=== PATIENT | male | born 1940 | race Caucasian/White ===

== ENCOUNTER 2019-06-09 09:19 | Outpatient (REF) | payer MEDICARE, OTHER, SELFPAY ==
[2019-06-09 12:47] LABS: Calculated LDL 107 mg/dL; Cholesterol 174 mg/dL (<200); Glucose 97 mg/dL (74-106); HDL Cholesterol 53 mg/dL (40-60); Triglyceride 74 mg/dL (<150)
== END 2019-06-09 09:39 ==
LOC: NCHCN 09:19
PROVIDERS: PCP Internal Medicine; Visit Provider Internal Medicine
DX: Z13.1 Encounter for screening for diabetes mellitus (principal); Z13.6 Encounter for screening for cardiovascular disorders
CPT/HCPCS: 80061; 82947

== ENCOUNTER 2019-12-15 15:49 | Emergency (ER) | payer MEDICARE, OTHER, SELFPAY ==
[2019-12-15 15:54] VITALS: BP 133/78; PULSE 58; TEMP 36.4; O2SAT 98
--- NOTE | 2019-12-15 16:00 | DI.RAD_ITS ---
EXAM: XR RIBS LT W PA LAT CHEST CLINICAL HISTORY: fall on stairs, lower lateral rib pain TECHNIQUE: 2D digital imaging was performed. COMPARISON: No exams were available for comparison FINDINGS: MEDIASTINUM: Normal. HEART: Normal. PULMONARY VASCULATURE: Normal. LUNGS: Clear. PLEURAL SPACE: No pleural effusion or pneumothorax. BONE:Age-appropriate degenerative changes in the thoracic spine. Left ribs: On the PA view of the chest, there appears to be a minimally displaced fracture involving the anterior aspect of the left 10th rib. OTHER FINDINGS:Normal. IMPRESSION: 1. No acute pulmonary findings. 2. Minimally displaced fracture involving the anterior aspect of the left 10th rib. DATA REPOSITORY: RADIATION DOSE DELIVERED:
--- NOTE | 2019-12-15 16:10 | W.ED.GENAD ---
Discharge Plan Disposition Patient Disposition: HOME Condition: Fair Discharge Details Chief Complaint: Chest/Rib Clinical Impression: Fracture of rib Primary Care Provider: Drew Mraina ED Provider: Moon Gates Home Meds and New Rx's Prescriptions: Continued sildenafil [Viagra] 50 MG tablet 100 mg PO PRN PRNRF: 0 Discharge Instructions Instructions: Rib Fracture (ED) Additional Instructions: Encourage hydration. You may continue to rotate Advil and Tylenol as you have been. You may try topical patches such as salonpas or Lidoderm patches to help with discomfort, please follow directions. I would like for you to try and use the incentive spirometer 5-6 times daily as was instructed by nursing staff. Encourage deep breathing. Please avoid heavy lifting. It typically takes 6 weeks for healing process. As we discussed, I am concerned about you having pain in your abdomen as well and did recommend further imaging. However, you decided against this at this time. You may return anytime for further evaluation. Please seek care immediately if your pain begins to radiate, increases, you develop nausea, vomiting, diarrhea note blood in your urine or stool, or develop other new/worsening symptoms. Otherwise, please follow-up with your primary care next week Referrals: Drew Marina MD [Primary Care Provider] - Discharge Data Discharge Date/Time-TO BE ENTERED AT DEPARTURE: 12/15/19 17:19 Medical Decision Making Patient is a pleasant 78-year-old gentleman presenting today with chief complaint of left lower rib pain. He reports that this morning, around 7 AM, he slipped on some wet external stairs and slid down approximately 5 mm. States that he landed on his left side striking the inferior aspect of the left anterior chest wall against a stair above him. Denies striking his head, no LOC. Patient is not anticoagulated. Also endorses left sided neck pain but states that this had been present, associated wth muscle spasm, one week ago. Did not hit his neck. Denies any change in bowel or bladder habits. Denies any numbness or tingling. No weakness. Has been ambulating. Normal. States he presents this afternoon at the request of his who felt that he should be evaluated. Denies any abdominal pain. No nausea or vomiting. No change in bladder or bowel habits. On exam, patient is resting comfortably. He does have a small area of ecchymosis at indicated area of discomfort on left inferior anterior chest wall over inferior most rib. No palpable deformity. Patient is full range of motion of his neck, thoracic and lumbar spine without any discomfort. He does feel slightly tense over the left trapezius consistent with where his discomfort is in the neck but no midline or pain, no step-off. No midline discomfort elicited with palpation of the thoracic or lumbar spine. No pain with AP or lateral compression of the chest wall. Lungs are clear, normal cardiac exam. Patient is tender in the left upper quadrant. Exam otherwise within normal limits. I discussed imaging with the patient and he is requesting only chest x-ray for evaluation of potential rib fracture at this time. I did express to him that I am concerned about potential abdominal etiology. He is wanting to be discharged rather promptly, will attempt to obtain ultrasound as patient does not wait for labs for CT with contrast. Chest x-ray reviewed by radiologist: FINDINGS: Bones/joints: Minimally displaced linear fracture to the anterior segment of the left 10th rib. No other acutely displaced fractures are appreciated. No aggressive osseous lesions. Soft tissues: Normal. IMPRESSION: Minimally displaced linear fracture to the anterior segment of the left 10th rib. Discussed these findings with the patient. Again, advised imaging of the abdomen which patient declines. He is aware of my concerns regarding his abdominal discomfort as well as potential risks. He is requesting discharge at this time. Patient given an incentive spirometer. We did discuss care of fractured rib. We discussed activities that he should avoid. Patient was given strict return precautions. He advised that he lives closely and is able to return with any new or worsening symptoms. He will follow-up with primary care promptly for reevaluation, particularly of his abdomen. All of his questions and concerns were addressed and he is in agreement this plan. [facility] General Mode of arrival: ambulatory. Date/Time Provider Initiated Documentation: 12/15/19 16:09. Limitations to Documentation: no limitations. Information obtained by: patient and RN notes reviewed. History of Present Illness 78 year old M presents to the emergency department with the chief complaint of left sided rib pain, described as moderate, with intensity rated at 3 (reports 3 at this time, states goes up to a 6-7 based on movements). Quality is described as aching, and is localized to the chest. Patient reports no radiation. Patient started experiencing this hour(s) (0700) and it has been constant. Medication improves symptom(s), (alternating NSAID and tylenol) Related Data Home Medications Medication Instructions Recorded Confirmed sildenafil [Viagra] 100 mg PO PRN PRN 03/17/13 12/15/19 Allergies Allergy/AdvReac Type Severity Reaction Status Date / Time No Known Allergies Allergy Unverified 12/15/19 15:58 General Stated Complaint: Chest/Rib SHALINI: 3 Review of Systems Constitutional Constitutional: Reports as per HPI, Denies chills, Denies fatigue, Denies fever(s), Denies headache(s) and Denies weakness Eyes Eyes: Reports as per HPI, Denies blurry vision, Denies change in vision and Denies loss of vision ENT Ears, Nose, Mouth, and Throat: Denies abnormal hearing and Denies headache(s) Cardiovascular Cardiovascular: Reports as per HPI, Denies chest pain and Denies dyspnea Respiratory Respiratory: Reports as per HPI, Denies cough, Denies pain on inspiration, Denies pain with cough and Denies dyspnea Gastrointestinal Gastrointestinal: Reports as per HPI, Denies abdominal pain, Denies nausea and Denies vomiting Genitourinary Genitourinary: Reports as per HPI and Denies urinary incontinence Musculoskeletal Musculoskeletal: Reports as per HPI (chest wall pain) Integumentary/Breasts Skin/Breast: Reports as per HPI and Denies rash Neurologic Neurologic: Reports as per HPI, Denies abnormal hearing, Denies abnormal movements, Denies abnormal speech, Denies headache(s), Denies lack of coordination, Denies localized weakness, Denies loss of vision, Denies seizure-like activity, Denies paresthesias and Denies weakness Endocrine Endocrine: Denies fatigue [facility] Social History Smoking/Tobacco Use Status: Never Alcohol Intake: current Alcohol Intake frequency: holidays/special occasions only Drug use: Never Substance use type: does not use Do you feel safe at home: Yes Do you feel safe in your relationship?: Yes Exam Const General: cooperative, healthy appearing, comfortable, no acute distress, well developed and well groomed Nutritional Appearance: average body habitus and well nourished Orientation: alert, awake and oriented x3 HENMT Head: normal to inspection, no palpable skull fracture, normocephalic and atraumatic Ears: hearing grossly normal bilaterally General nose exam: external nose normal Eyes General: appearance normal, both eyes and all related structures Neck Neck: normal visual inspection, full ROM, no lymphadenopathy, no meningeal signs, trachea midline and supple Chest Chest: normal inspection of the chest, normal palpation of entire chest wall, no crepitus and localized rib tenderness with anteroposterior compression (left lower cest rib pain with palpation, small area of ecchymosis) Resp Effort & Inspection: normal respiratory effort, able to speak in complete sentences and no respiratory distress Auscultation: clear to auscultation bilaterally, no rales, no rhonchi and no wheezes Cardio Rate: regular rate Rhythm: regular rhythm Heart Sounds: S1 normal and S2 normal GI Inspection: normal to inspection, no abdominal wall ecchymosis, no edema and non-distended Palpation: soft, no hepatosplenomegaly, not firm, no guarding, no hernias, no pulsatile masses, not rigid and tender (LUQ pain) with no rebound tenderness Percussion: normal to percussion Auscultation: normal bowel sounds Back/Spine/Pelvis Back: no CVA tenderness Cervical Spine: normal cervical lordosis and cervical ROM normal Thoracic/Lumbar Spine: thoracic and lumbar spine normal to inspection, thoraco-lumbar ROM normal, No thoraco-lumbar ROM limited, No thoraco-lumbar spasm and No thoracic spinal tenderness Pelvis: no pain with anterior-posterior compression and no pain with lateral compression Skin General skin exam: ecchymosis Full body images: 1. small area of yellowed ecchymosis Neuro General: patient alert, patient awake, patient oriented x3, gait normal, tone normal and moves all extremities Cranial Nerves: CN's II-XI intact bilaterally Cognition: normal cognition Speech: speech normal Gait: normal gait Motor: muscle tone normal throughout and strength 5/5 throughout Sensory Exam: no sensory deficits noted (no saddle paresthesias) Extrem General: normal to inspection, full ROM, capillary refill normal, no pedal edema and no calf tenderness Psych Appearance: grossly normal and well kempt Mental Status: mental status grossly normal Speech and Movement: speech and movement normal Course Vital Signs Vital signs: Vital Signs Temperature 36.4 C L 12/15/19 15:54 Pulse 58 L 12/15/19 15:54 Blood Pressure 133/78 12/15/19 15:54 Pulse Oximetry 98 12/15/19 15:54 Temperature 36.4 C L 12/15/19 15:54 Temperature Source Temporal Artery Scan 12/15/19 15:54 Pulse 58 L 12/15/19 15:54 Respiratory Effort Non-Labored 12/15/19 15:57 Blood Pressure 133/78 12/15/19 15:54 Blood Pressure Position Sitting 12/15/19 15:54 Pulse Oximetry 98 12/15/19 15:54 Oxygen Delivery Method Room Air 12/15/19 15:54 Oxygen Flow Rate 0 12/15/19 15:54 Pain Level 2 12/15/19 15:54
--- NOTE | 2019-12-15 16:54 | DI.VRAD_ITS ---
PROCEDURE INFORMATION: Exam: XR Left Ribs Exam date and time: 12/15/2019 4:34 PM Age: 78 years old Clinical indication: Injury or trauma; Fall; Initial encounter; Sprain or strain; Rib area, left side TECHNIQUE: Imaging protocol: XR Left ribs. Views: 2 views. COMPARISON: CR LEFT RIBS TO INCLUDE CXR 09/11/2016 9:30 AM FINDINGS: Bones/joints: Minimally displaced linear fracture to the anterior segment of the left 10th rib. No other acutely displaced fractures are appreciated. No aggressive osseous lesions. Soft tissues: Normal. IMPRESSION: Minimally displaced linear fracture to the anterior segment of the left 10th rib. PROCEDURE INFORMATION: Exam: XR Chest, 2 Views Exam date and time: 12/15/2019 4:34 PM Age: 78 years old Clinical indication: Injury or trauma; Fall; Initial encounter; Sprain or strain; Rib area, left side TECHNIQUE: Imaging protocol: XR of the chest Views: 2 views. COMPARISON: CR LEFT RIBS TO INCLUDE CXR 09/11/2016 9:30 AM FINDINGS: Lungs: Unremarkable. No consolidation. Pleural space: Unremarkable. No pleural effusion. No pneumothorax. Heart/Mediastinum: Unremarkable. No cardiomegaly. Bones/joints: Minimally displaced linear fracture to the anterior segment of the left 10th rib. No other acutely displaced fractures are appreciated. IMPRESSION: Minimally displaced linear fracture to the anterior segment of the left 10th rib. Dictated and Authenticated by: Hussein Anderson MD. Ordering:CECI Mustafa MD
== END 2019-12-15 17:19 | disposition home or self-care (01) ==
LOC: ER 17:13
PROVIDERS: Emergency Provider Physician Assistant; PCP Internal Medicine
DX: S22.32XA Fracture of one rib, left side, initial encounter for closed fracture (principal); W10.8XXA Fall (on) (from) other stairs and steps, initial encounter
CPT/HCPCS: 99283; 71046; 71100

== ENCOUNTER 2020-04-12 17:05 | Emergency (ER) | payer MEDICARE, OTHER, SELFPAY ==
[2020-04-12] VITALS (16 sets, daily range): BP systolic 132–144; BP diastolic 73–87; PULSE 54–72; RESP 12–19; TEMP 36.2; O2SAT 87–99
--- NOTE | 2020-04-12 18:34 | DI.CT_ITS ---
EXAM: CT CHEST/ABD/PEL W TECHNIQUE: CT examination of the chest, abdomen, and pelvis was performed with bolus infusion of 100 cc of Omnipaque 350. COMPARISON: No exams were available for comparison FINDINGS: There is no evidence of a thoracic vascular injury. The lungs are clear except for a 6 millimeter in diameter left lower lobe noncalcified and mild areas atelectasis and/or scarring.. No pneumothorax or pleural effusion. No mediastinal hematoma. No adenopathy in the chest. Tracheobronchial tree appea rs intact. There is an incidental hiatal hernia. There are fractures of the right 9th through 11th ribs posterolaterally. The liver, spleen, and pancreas appear normal except for multiple small incidental cysts.. Gallbladd er and bile ducts are normal. Adrenals and kidneys are unremarkable. No evidence of urinary tract injury or obstruction. Abdominal aorta and major branch vessels appear intact. No abdominal or pelvic vascular injury seen. No abdominal or pelvic adenopathy. No significant abdomi nal wall hernia or hematoma. No evidence of bowel injury. No fracture identified in the abdomen or pelvis. IMPRESSION: Fractures of ribs 9 through 11 posterolaterally without evidence of pneumothorax or pleural effusion. Incidental 6 millimeter left lower lobe pulmonary nodule, six-month follow-up chest CT recommended. No acute visceral or vascular injury. RADIATION DOSE DELIVERED: 1,125.1mGy.cm Total DLP 1,125.1mGy.cm Total DLP DATA REPOSITORY: All CT scans at this facility are submitted to the National Radiology Data Registry (NRDR) Dose Index Registry (DIR) with the [employer] ([employer]). RADIATION OPTIMIZATION: All CT scans at this facility use at least one of these dose optimization te chniques: automated exposure control; mA and/or kV adjustment per patient size (includes targeted exa ms where dose is matched to clinical indication); or iterative reconstruction.
--- NOTE | 2020-04-12 18:44 | ED.GENADUL_ITS ---
Discharge Plan Disposition Patient Disposition: HOME Condition: Improving Discharge Details Clinical Impression: Multiple fractures of ribs, Fall Primary Care Provider: Drew Marina ED Provider: Linda Mckinley Home Meds and New Rx's Prescriptions: New oxycodone 5 mg tablet 5 mg PO Q6H PRN (Reason: pain) Qty: 14 RF: 0 Continued sildenafil [Viagra] 50 MG tablet 100 mg PO PRN PRNRF: 0 Discharge Instructions Instructions: Rib Fracture (ED) Additional Instructions: Alternate tylenol and motrin as needed and directed for pain. Take the oxycodone for pain not relieved with Tylenol or Motrin. You can also try [id number] Lidoderm patches to take as needed and directed for pain. Avoid heavy lifting more than 10 pounds over the next few weeks. Follow-up with your primary care doctor in 1 week. Return to the emergency department with any worsening or new concerning symptoms. Discharge Data Discharge Date/Time-TO BE ENTERED AT DEPARTURE: 04/12/20 19:54 Discharge Physician: Linda Mckinley Medical Decision Making 79-year-old male with no significant past medical history presents for right inferior lateral rib pain after slip and fall at standing height hitting his ribs on a piece of metal. Denies head injury, LOC or vomiting. Lungs clear. He does have significant tenderness and crepitus to his right inferior lateral ribs as well as right upper quadrant of his abdomen. No orthopedic deformities. No evidence of head trauma. Due to abdominal pain, will refer for CT chest, abdomen and pelvis. Suspect rib fracture. Will place Lidoderm patch and give a dose of morphine and reassess. Imaging reviewed and note rib fractures 9 through 11 on right side. No no other acute chest or abdominal abnormality. Patient reassessed and he feels much better and is requesting to go home. We will send with oxycodone. He was also given incentive spirometer. Advised to follow up with the primary care doctor for re-evaluation. Usual and customary return precautions given prior to discharge. Medical Records Medical records reviewed: Yes I reviewed the patient's medical records. Imaging Data Radiologic Study: Radiologist's impression: CT Chest With Contrast Exam date and time: 04/12/2020 7:01 PM Age: 79 years old Clinical indication: Other: R lateral rib pain, R/O FX, R/O liver laceration, pneumothorax TECHNIQUE: Imaging protocol: Computed tomography of the chest with intravenous contrast. Radiation optimization: All CT scans at this facility use at least one of these dose optimization techniques: automated exposure control; mA and/or kV adjustment per patient size (includes targeted exams where dose is matched to clinical indication); or iterative reconstruction. Contrast material: OMNIPAQUE 350; Contrast volume: 100 ml; Contrast route: INTRAVENOUS (IV); COMPARISON: No relevant prior studies available. FINDINGS: Lungs: Unremarkable. No consolidation. No masses. Pleural space: Trace right pleural effusion. Heart: Unremarkable. No cardiomegaly. No pericardial effusion. Mediastinal space: Small hiatal hernia. Aorta: Unremarkable. No aortic aneurysm. Lymph nodes: Unremarkable. No enlarged lymph nodes. Bones/joints: Degenerative changes noted in the shoulders bilaterally. There are fractures of the right 9th through 11th ribs. Soft tissues: There appears to be a left medial Bochdalek's fat containing diaphragmatic hernia, uncertain chronicity. Other findings: Left scapular deformity, probably nonacute. Suspect previous trauma. IMPRESSION: 1. Right lower rib fractures 9 through 11. 2. Fat containing medial right Bochdalek's hernia, uncertain chronicity. CT Abdomen And Pelvis With Contrast Exam date and time: 04/12/2020 7:01 PM Age: 79 years old Clinical indication: Other: R lateral rib pain, R/O FX, R/O liver laceration, pneumothorax TECHNIQUE: Imaging protocol: Computed tomography of the abdomen and pelvis with intravenous contrast. Radiation optimization: All CT scans at this facility use at least one of these dose optimization techniques: automated exposure control; mA and/or kV adjustment per patient size (includes targeted exams where dose is matched to clinical indication); or iterative reconstruction. Contrast material: OMNIPAQUE 350; Contrast volume: 100 ml; Contrast route: INTRAVENOUS (IV); COMPARISON: No relevant prior studies available. FINDINGS: Liver: Low-density subcentimeter hepatic lesions, probable tiny cysts too small to accurately characterize. Hepatic attenuation is otherwise within normal limits. No evidence for laceration or contusion. No subcapsular hematoma evident. Gallbladder and bile ducts: Normal. No calcified stones. No ductal dilation. Pancreas: Normal. No ductal dilation. Spleen: Normal. No splenomegaly. Adrenal glands: Normal. No mass. Kidneys and ureters: Normal. No hydronephrosis. Stomach and bowel: Unremarkable. No obstruction. No mucosal thickening. Appendix: No evidence of appendicitis. Intraperitoneal space: Unremarkable. No free air. No significant fluid collection. Vasculature: Unremarkable. No abdominal aortic aneurysm. Lymph nodes: Unremarkable. No enlarged lymph nodes. Urinary bladder: Unremarkable as visualized. Reproductive: Unremarkable as visualized. 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 Soft tissues: Unremarkable. IMPRESSION: No acute posttraumatic abnormality seen in the abdomen or pelvis. Lab Data Lab results reviewed: Yes I reviewed the patient's lab results. Labs: Laboratory Tests Range/Units 04/12/20 04/12/20 18:40 18:40 WBC (4.4-10.8) 10^3/uL 7.64 RBC (4.36-5.78) 10^6/uL 4.44 Hgb (13.5-17.5) g/dL 13.9 Hct (40.0-50.0) % 42.2 MCV (80-95) fL 95.0 MCH (27.0-33.0) pg 31.3 MCHC (32.0-36.0) % 32.9 RDW (11.8-14.1) % 12.5 Plt Count (130-400) 10^3/uL 251 MPV (8.0-11.0) fL 9.4 Immature Gran % 0.4 Neutrophils % 75.6 Lymphocytes % 13.6 Monocytes % 8.8 Eosinophils % 1.3 Basophils % 0.3 Nucleated RBC % % 0 Absolute Neutrophils (1.2-6.7) 10^3/uL 5.78 Absolute Lymphocytes (1.2-3.4) 10^3/uL 1.04 L Absolute Monocytes (0.1-0.8) 10^3/uL 0.67 Absolute Eosinophils (0.0-0.7) 10^3/uL 0.10 Absolute Basophils (0.0-0.2) 10^3/uL 0.02 Sodium (136-145) mmol/L 136 Potassium (3.5-5.1) mmol/L 4.3 Chloride (98-107) mmol/L 103 Carbon Dioxide (21.0-32.0) mmol/L 28.7 Anion Gap (3-11) mmol/L 4.3 BUN (7-18) mg/dL 25 H Creatinine (0.70-1.30) mg/dL 0.81 Estimated GFR/1.73 m2 (mL/min/1.73m2) >= 60.00 Glucose (74-106) mg/dL 98 Calcium (8.5-10.1) mg/dL 9.1 Total Bilirubin (0.2-1.0) mg/dL 0.3 AST (15-37) U/L 18 ALT (16-63) U/L 18 Alkaline Phosphatase (46-116) U/L 81 Total Protein (6.4-8.2) g/dL 7.0 Albumin (3.4-5.0) g/dL 3.8 HPI General Mode of arrival: ambulatory . Date/Time Provider Initiated Documentation: 04/12/20 18:26 . Limitations to Documentation: no limitations . Information obtained by: patient . HPI Narrative: Patient is an 79-year-old male with no significant past medical history who presents with right lower rib pain after mechanical fall today. Patient states he was standing on the ground when he slipped on a farm implement striking his right lower lateral ribs on hard piece of metal. He denies any head injury. He states he laid on the ground for 5 minutes due to the significant pain and feeling that the wind was knocked out of me . He denies any difficulty breathing, abdominal pain, arm or leg injury. He denies any neck pain or headache. He took 2 ibuprofen for pain prior to arrival without relief. Related Data Home Medications Medication Instructions Recorded Confirmed sildenafil [Viagra] 100 mg PO PRN PRN 03/17/13 04/12/20 oxycodone 5 mg PO Q6H PRN #14 tab 04/12/20 Previous Rx's Medication Instructions Recorded oxycodone 5 mg PO Q6H PRN #14 tab 04/12/20 Allergies Allergy/AdvReac Type Severity Reaction Status Date / Time No Known Allergies Allergy Unverified 04/12/20 18:02 General Stated Complaint: Chest/Rib SHALINI: 3 Review of Systems All systems reviewed & are unremarkable except as noted in HPI and below Constitutional Constitutional: Denies chills, Denies excessive sweating, Denies fatigue, Denies fever(s), Denies weakness and Denies weight loss Eyes Eyes: Reports system reviewed and no additional complaints, except as documented and Denies blurry vision ENT Ears, Nose, Mouth, and Throat: Denies vertigo, Denies dizziness, Denies otalgia, Denies nasal congestion, Denies sore throat and Denies throat swelling Cardiovascular Cardiovascular: Denies chest pain, Denies syncope, Denies rapid heart rate and Denies dyspnea Respiratory Respiratory: Denies chest congestion, Denies cough, Denies pain on inspiration and Denies dyspnea Gastrointestinal Gastrointestinal: Denies abdominal pain, Denies diarrhea and Denies vomiting Genitourinary Genitourinary: Denies hematuria, Denies dysuria and Denies flank pain Musculoskeletal Musculoskeletal: Denies back pain and Denies joint swelling Integumentary/Breasts Skin/Breast: Denies lesions and Denies rash Neurologic Neurologic: Denies behavioral changes, Denies confusion, Denies vertigo, Denies dizziness, Denies syncope, Denies localized weakness and Denies weakness Psychiatric Psychiatric: Denies behavioral changes, Denies confusion and Denies depression Endocrine Endocrine: Denies excessive sweating and Denies fatigue Hematologic/Lymphatic Hematologic/Lymphatic: Denies easy bruising and Denies lymphadenopathy Allergic/Immunologic Allergic/Immunologic: Denies throat swelling [facility] Medical History (Updated 04/14/20 @ 08:35 by Linda Mckinley DO) No significant past medical history Surgical History (Updated 04/12/20 @ 18:45 by Linda Mckinley DO) H/O hemorrhoidectomy H/O varicose vein stripping Social History Smoking/Tobacco Use Status: Never Smoking risk assessment performed?: Yes Alcohol Intake: current Alcohol Intake frequency: holidays/special occasions only Drug use: Never Substance use type: does not use Do you feel safe at home: Yes Do you feel safe in your relationship?: Yes Exam Const General: cooperative and healthy appearing Orientation: alert and awake [facility] Head: normal to inspection Ears: hearing grossly normal bilaterally, external ears normal and TM's normal bilaterally General nose exam: external nose normal Face and sinus: normal facial exam Mouth: oral mucosae normal Teeth and gingiva: dentition normal Throat: posterior oropharynx normal Eyes General: appearance normal, both eyes and all related structures Eyelids: eyelids normal Pupils: PERRL EOM: EOM intact bilaterally Neck Neck: normal visual inspection Lymphatic: no lymphadenopathy noted Chest Chest: normal inspection of the chest Chest/axillae images: 1. Tenderness to palpation of right inferior anterior lateral and posterior ribs. There is crepitus to palpation of inferior posterior aspect. Resp Effort & Inspection: normal respiratory effort and able to speak in complete sentences Auscultation: clear to auscultation bilaterally Cardio Rate: regular rate Rhythm: regular rhythm GI Inspection: normal to inspection and no abdominal wall ecchymosis Palpation: soft, not firm, no guarding, no hepatosplenomegaly, no masses and tender in the RUQ Auscultation: normal bowel sounds Back/Spine/Pelvis Back: no CVA tenderness Back/spine/pelvis image: 1. Tenderness to palpation of right inferior posterior lateral anterior ribs. There is crepitus to palpation of right inferior lateral and posterior aspect. No open wounds. Skin General skin exam: no rashes or lesions noted Neuro General: patient alert and patient awake Cognition: normal cognition Speech: speech normal Gait: normal gait Motor: muscle tone normal throughout Sensory Exam: no sensory deficits noted Extrem General: normal to inspection, full ROM and capillary refill normal Other: Moving all extremities without pain or tenderness. No orthopedic deformities. Psych Appearance: grossly normal Mental Status: mental status grossly normal Speech and Movement: speech and movement normal Affect: normal affect Thought Process: normal Course Vital Signs Vital signs: Vital Signs Temperature 97.2 F L 04/12/20 17:30 Pulse 59 L 04/12/20 17:30 Respiratory Rate 16 04/12/20 17:30 Blood Pressure 137/73 04/12/20 17:30 Pulse Oximetry 98 04/12/20 17:30 Temperature 97.2 F L 04/12/20 17:30 Pulse 59 L 04/12/20 17:30 Respiratory Rate 16 04/12/20 17:30 Respiratory Effort Non-Labored 04/12/20 17:33 Blood Pressure 137/73 04/12/20 17:30 Blood Pressure Position Supine 04/12/20 17:30 Pulse Oximetry 98 04/12/20 17:30 Oxygen Delivery Method Room Air 04/12/20 17:30 Oxygen Flow Rate 0 04/12/20 17:30 Pain Level 6 04/12/20 17:30
[2020-04-12] MEDS: Normal Saline 500 ML IV (18:48)
[2020-04-12] MEDS: Lidocaine 5% Patch 1 PATCH TP (18:52)
[2020-04-12] MEDS: Omnipaque 350 MG/ML 100 ML BTL IV (18:53)
[2020-04-12] MEDS: Normal Saline - Diluent 50 ML VIAL IV (18:56)
[2020-04-12 19:02] LABS: Abs Immature Grans 0.03 10^3/uL (0.0-0.06); Absolute Basophil Count 0.02 10^3/uL (0.0-0.2); Absolute Lymphocyte Count 1.04 10^3/uL (1.2-3.4); Absolute Monocyte Count 0.67 10^3/uL (0.1-0.8); Absolute Neutrophil Count 5.78 10^3/uL (1.2-6.7); Basophils % 0.3; Eosinophils % 1.3; HCT 42.2 % (40.0-50.0); HGB 13.9 g/dL (13.5-17.5); Immature Grans % 0.4; Lymphocytes % 13.6; MCH 31.3 pg (27.0-33.0); MCHC 32.9 % (32.0-36.0); MPV 9.4 fL (8.0-11.0); Monocytes % 8.8; Neutrophils % 75.6; Nucleated RBC 0 %; Platelet Count 251 10^3/uL (130-400); RBC 4.44 10^6/uL (4.36-5.78); RDW 12.5 % (11.8-14.1); RDW-SD 43.6 fL; WBC 7.64 10^3/uL (4.4-10.8)
[2020-04-12 19:16] LABS: ALT 18 U/L (16-63); AST 18 U/L (15-37); Albumin 3.8 g/dL (3.4-5.0); Alkaline Phosphatase 81 U/L (46-116); Anion Gap 4.3 mmol/L (3-11); BUN 25 mg/dL (7-18); Bilirubin, Total 0.3 mg/dL (0.2-1.0); CO2 28.7 mmol/L (21.0-32.0); CREATININE 0.81 mg/dL (0.70-1.30); Calcium 9.1 mg/dL (8.5-10.1); Chloride 103 mmol/L (98-107); Glucose 98 mg/dL (74-106); Potassium 4.3 mmol/L (3.5-5.1); Sodium 136 mmol/L (136-145)
--- NOTE | 2020-04-12 19:32 | DI.VRAD_ITS ---
PROCEDURE INFORMATION: Exam: CT Chest With Contrast Exam date and time: 04/12/2020 7:01 PM Age: 79 years old Clinical indication: Other: R lateral rib pain, R/O FX, R/O liver laceration, pneumothorax TECHNIQUE: Imaging protocol: Computed tomography of the chest with intravenous contrast. Radiation optimization: All CT scans at this facility use at least one of these dose optimization techniques: automated exposure control; mA and/or kV adjustment per patient size (includes targeted exams where dose is matched to clinical indication); or iterative reconstruction. Contrast material: OMNIPAQUE 350; Contrast volume: 100 ml; Contrast route: INTRAVENOUS (IV); COMPARISON: No relevant prior studies available. FINDINGS: Lungs: Unremarkable. No consolidation. No masses. Pleural space: Trace right pleural effusion. Heart: Unremarkable. No cardiomegaly. No pericardial effusion. Mediastinal space: Small hiatal hernia. Aorta: Unremarkable. No aortic aneurysm. Lymph nodes: Unremarkable. No enlarged lymph nodes. Bones/joints: Degenerative changes noted in the shoulders bilaterally. There are fractures of the right 9th through 11th ribs. Soft tissues: There appears to be a left medial Bochdalek's fat containing diaphragmatic hernia, uncertain chronicity. Other findings: Left scapular deformity, probably nonacute. Suspect previous trauma. IMPRESSION: 1. Right lower rib fractures 9 through 11. 2. Fat containing medial right Bochdalek's hernia, uncertain chronicity. PROCEDURE INFORMATION: Exam: CT Abdomen And Pelvis With Contrast Exam date and time: 04/12/2020 7:01 PM Age: 79 years old Clinical indication: Other: R lateral rib pain, R/O FX, R/O liver laceration, pneumothorax TECHNIQUE: Imaging protocol: Computed tomography of the abdomen and pelvis with intravenous contrast. Radiation optimization: All CT scans at this facility use at least one of these dose optimization techniques: automated exposure control; mA and/or kV adjustment per patient size (includes targeted exams where dose is matched to clinical indication); or iterative reconstruction. Contrast material: OMNIPAQUE 350; Contrast volume: 100 ml; Contrast route: INTRAVENOUS (IV); COMPARISON: No relevant prior studies available. FINDINGS: Liver: Low-density subcentimeter hepatic lesions, probable tiny cysts too small to accurately characterize. Hepatic attenuation is otherwise within normal limits. No evidence for laceration or contusion. No subcapsular hematoma evident. Gallbladder and bile ducts: Normal. No calcified stones. No ductal dilation. Pancreas: Normal. No ductal dilation. Spleen: Normal. No splenomegaly. Adrenal glands: Normal. No mass. Kidneys and ureters: Normal. No hydronephrosis. Stomach and bowel: Unremarkable. No obstruction. No mucosal thickening. Appendix: No evidence of appendicitis. Intraperitoneal space: Unremarkable. No free air. No significant fluid collection. Vasculature: Unremarkable. No abdominal aortic aneurysm. Lymph nodes: Unremarkable. No enlarged lymph nodes. Urinary bladder: Unremarkable as visualized. Reproductive: Unremarkable as visualized. 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 Soft tissues: Unremarkable. IMPRESSION: No acute posttraumatic abnormality seen in the abdomen or pelvis. Dictated and Authenticated by: Tiffanie Martinez MD. Ordering:MARQUISE Mckeon MD
== END 2020-04-12 19:54 | disposition home or self-care (01) ==
PROVIDERS: Emergency Provider Physician Assistant; PCP Internal Medicine
DX: S22.41XA Multiple fractures of ribs, right side, initial encounter for closed fracture (principal); W01.198A Fall on same level from slipping, tripping and stumbling with subsequent striking against other object, initial encounter
CPT/HCPCS: 74177; 80053; 96361; 96374; 99285; 71260; 85025; 99284; J3490

== ENCOUNTER 2021-03-29 02:02 | Outpatient (CLI) | payer MEDICARE, OTHER, SELFPAY ==
--- NOTE | 2021-03-29 | DI.CT_ITS ---
Exam(s) CT CHEST WO EXAM: CT CHEST WO CLINICAL HISTORY: PULMONARY NODULE LT LOWER LOBE, R91.1. TECHNIQUE: Multi planar reconstructions were performed. CONTRAST MATERIAL: None COMPARISON: CR,XR XR RIBS LT W PA LAT CHEST from 12/15/2019 CR,XR XR RIBS LT W PA LAT CHEST from 12/15/[address] CHEST/ABD/PEL W from 04/12/2020 FINDINGS: CHEST: LUNGS: The previously described 5-6 millimeter nodule in the anterior basal segment of the left lower lobe is unchanged 04/13/2020. No new additional lung nodules evident and there are no pleural effus ions. There has been healing of posterior right rib fractures. There is benign appearing focal fatt y pleura over this region and mild infiltrate in the right lower lobe appears slightly increased. Th ere is no pleural effusion.. There is no pneumothorax. MEDIASTINUM: There is no obvious hilar nor mediastinal adenopathy. Visualized thyroid unremarkable.No obvious axillary adenopathy CARDIAC: Heart size is normal. There is no pericardial effusion.Caliber of the thoracic aorta is wit hin normal limits. VISUALIZED UPPER ABDOMEN: OSSEOUS: No significant osseous lesions.. IMPRESSION: 1. Stable appearance of the solitary 5-6 millimeter left lower lobe nodule. No new nodules in either lung field nor intrathoracic adenopathy. 2. Healed posterior right-sided rib fractures with some increasing infiltrate in this region over the right lower lobe, possibly related to lung contusion. No pleural effusion RADIATION DOSE DELIVERED: 83.37mGy.cm Total DLP DATA REPOSITORY: All CT scans at this facility are submitted to the National Radiology Data Registry (NRDR) Dose Index Registry (DIR) with the [employer] (A[employer]). RADIATION OPTIMIZATION: All CT scans at this facility use at least one of these dose optimization te chniques: automated exposure control; mA and/or kV adjustment per patient size (includes targeted exa ms where dose is matched to clinical indication); or iterative reconstruction.
== END 2021-03-29 02:22 ==
PROVIDERS: PCP Internal Medicine; Visit Provider Internal Medicine
DX: R91.1 Solitary pulmonary nodule (principal); R92.8 Other abnormal and inconclusive findings on diagnostic imaging of breast
CPT/HCPCS: 71250

== ENCOUNTER 2021-08-28 10:18 | Outpatient (REF) | payer MEDICARE, OTHER, SELFPAY ==
[2021-08-28 14:40] LABS: BUN 17 mg/dL (7-18); CREATININE 0.8 mg/dL (0.70-1.30); Chloride 103 mmol/L (98-107); Glucose 103 mg/dL (74-106); Potassium 4.2 mmol/L (3.5-5.1); Sodium 138 mmol/L (136-145)
[2021-09-04 11:32] LABS: Testosterone, Free 7.94 ng/dL (2.88-10.5); Testosterone, Total 611 ng/dL (240-950)
== END 2021-08-28 10:19 | disposition home or self-care (01) ==
LOC: NCHCN 10:18
PROVIDERS: PCP Internal Medicine; Visit Provider Family Medicine
DX: N40.1 Benign prostatic hyperplasia with lower urinary tract symptoms (principal); N52.9 Male erectile dysfunction, unspecified
CPT/HCPCS: 80048; 84402; 84403

== ENCOUNTER 2023-10-09 11:53 | Outpatient (REF) | payer MEDICARE, SELFPAY ==
[2023-10-09 14:28] LABS: Abs Immature Grans 0.01 10^3/uL (0.0-0.06); Absolute Basophil Count 0.03 10^3/uL (0.0-0.2); Absolute Eosinophil Count 0.15 10^3/uL (0.0-0.7); Absolute Lymphocyte Count 1.33 10^3/uL (1.2-3.4); Absolute Monocyte Count 0.44 10^3/uL (0.1-0.8); Absolute Neutrophil Count 2.85 10^3/uL (1.2-6.7); Basophils % 0.6; Eosinophils % 3.1; HCT 43.4 % (40.0-50.0); HGB 14.6 g/dL (13.5-17.5); Immature Grans % 0.2; Lymphocytes % 27.7; MCH 31.2 pg (27.0-33.0); MCHC 33.6 % (32.0-36.0); MCV 93 fL (80-95); MPV 10.6 fL (8.0-11.0); Monocytes % 9.1; Neutrophils % 59.3; Platelet Count 232 10^3/uL (130-400); RBC 4.68 10^6/uL (4.36-5.78); RDW 12.8 % (11.8-14.1); RDW-SD 43.3 fL; WBC 4.81 10^3/uL (4.4-10.8)
[2023-10-09 14:52] LABS: ALT 25 U/L (16-63); AST 21 U/L (15-37); Albumin 3.9 g/dL (3.4-5.0); Alkaline Phosphatase 75 U/L (46-116); Anion Gap 8.5 mmol/L (3-11); BUN 28 mg/dL (7-18); Bilirubin, Total 1.1 mg/dL (0.2-1.0); CO2 26.5 mmol/L (21.0-32.0); Calcium 9.1 mg/dL (8.5-10.1); Chloride 105 mmol/L (98-107); Estimated GFR 74.68 (mL/min/1.73m2); FREE T4 1.27 ng/dL (0.76-1.46); Glucose 83 mg/dL (74-106); Potassium 4.8 mmol/L (3.5-5.1); Sodium 140 mmol/L (136-145); Total Protein 6.8 g/dL (6.4-8.2)
== END 2023-10-09 11:54 | disposition home or self-care (01) ==
LOC: NCHCN 11:53
PROVIDERS: PCP Internal Medicine; Visit Provider Family Medicine
DX: R68.89 Other general symptoms and signs (principal); N40.1 Benign prostatic hyperplasia with lower urinary tract symptoms; R79.89 Other specified abnormal findings of blood chemistry
CPT/HCPCS: 80053; 84439; 84443; 85025

== ENCOUNTER 2024-01-23 21:15 | Outpatient (REF) | payer MEDICARE, SELFPAY ==
--- OUTSIDE RECORDS SUMMARY | 2024-01-23 21:27 | XMS_ITS | Continuity of Care Document ---
Author Organization [facility] Address [address] [place] [address] Care Team Providers Care Lead Software Engineer Name Role Phone Outside, Provider Primary Care Physician Encounter [facility] Date(s): 04/02/23 - 04/02/[address] [address] Discharge Disposition: Home or Self Care Attending Physician: Florentin Mahoney MD Admitting Physician: Florentin Mahoney MD Referring Physician: Florentin Mahoney MD Allergies, Adverse Reactions, Alerts No Known Allergies Medications clobetasol 0.05% topical cream See Instructions, apply sparingly to affected area twice daily, # 30 g, 1 Refill(s), Pharmacy: [id number] Start Date: 02/25/23 Status: Ordered tadalafil 20 mg oral tablet 20 mg = 1 tab, Oral, every 3 day, as needed 30-60 minutes beofre sexual activity, # 5 tab, 5 Refill(s), Pharmacy: [id number] Start Date: 02/25/23 Status: Ordered Problem List Condition Confirmation Course Effective Dates Status Health St atus Informant Elevated blood pressure reading Confirmed Active First degree heart block Confirmed Active Insomnia Confirmed Active Pulmonary nodule Confirmed Active Results Laboratory List Name Date Testosterone, Total and Free [facility] 3 Most recent to oldest [Reference Range]: 1 Testosterone [facility] [229-902 ng/dL] 505 ng/ dL 1 *NA* (04/02/23 10:52 AM) Sex Hormone Bnd Glob [facility] [17.3-71.5 nmol /L] 88.8 nmol/L 2 *HI* (04/02/23 10:52 AM) Free Testosterone [facility] [2.7-9.4 ng/dL] 5. 1 ng/dL 3 *NA* (04/02/23 10:52 AM) 1Result Comment: The results of this assay can be falsley elevated due to the consumption of Biotin. 2Result Comment: The results of this assay can be falsely lowered due to the consumption of Biotin. 3Result Comment: This test is not recommended in patients with plasma protein abnormalities. Test performed [place] [address] Social History Social History Type Response Sex Male Patient Care team information Care Team Personnel Name: Outside, Provider Position: No Access Member Role: Primary Care Physician Care Team Related Persons Name: BARRY JI
--- OUTSIDE RECORDS SUMMARY | 2024-01-23 21:27 | XMS_ITS ---
Author Organization Unknown Address [address] [place] [phone] Phone Care Team Providers Care Senior Medical Technologist Name Role Phone TONI Whitmore Attending Unavailable PHILLIP Fontana Primary Unavailable Results XR WRIST 3V RT* - Completed: 11/28/2022 13:11 LOINC: [facility] [place], [place] [address] PACS FILM EXAMINER REPORT Patient Name: VIKASH JI MRN: Sex: : Age: [id number] M [id number] Account: Accession: Admit: StayType: [id number] 11/28/2022 CLINIC Ordered: Order ID: Submitted: Ordering Provider: 11/28/2022 10:11 [id number] EMO GIGI MUÑOZ Completed: Technologist: Resulted: 11/28/2022 13:11 EMO 11/28/2022 17:02 Study Description: XR WRIST 3V RT Study Reason: Pain Technique: 2D digital imaging was performed. 3 images were obtained. COMPARISON: None. FINDINGS: No acute fracture or dislocation. Advanced degenerative changes of the carpal and radiocarpal articulation. Widening of the scapholunate interval. Proximal migration of the capitate. Sclerosis of the lunate. Chondrocalcinosis of the TFCC. IMPRESSION: Advanced degenerative changes of the wrist. No acute finding. Report Digitally Signed by Chris Choi on 11/28/2022 05:02 PM EDT Social History Type Status Start Date End Date Code Code Syst em Sex Male Hospital Discharge Instructions Should you have any questions prior to discharge, please contact a member of your healthcare team. If you have left the hospital and have any questions, please contact your primary care physician. Reason For Referral No Data Found Plan of Treatment No Data Found Encounters Encounter Diagnosis Start Date Code Code Sys tem Dupuytren's disease of palm 11/28/2022 [id number] SNOMED-CT Personal Care Team Section Performer Name Performer Role Active Date Inactive Da te
--- OUTSIDE RECORDS SUMMARY | 2024-01-23 21:27 | XMS_ITS | Data Portability ---
Author Organization [place] - [facility] [place] [address] Assessment Encounter Date Assessment Date Assessment LastModified by Organization Details LastModified Time 10/09/2023 10/09/2023 The total time devoted to today's encounter, including both the [id number] time with the patient and/or family/caregi guillaume and [id number]-[id number] jassi time I personally spent is 50 minutes. eoleson Not available 10/09/2023 16:01:26 Plan of Treatment Reminders Order Date Submit Date Provider Last Modified By Organization Details Last Modified Time Details Appointments Office Visit 20 2023 03:10P M Patrica Epifanio Not available Not available Not available Lab TSH + free T4, serum - 1T 1P drawn in office-SN [address] [facility] (Registration ), [address] [place] [address] [place], [address], 10/10/2023 08:09:48 CBC w/ diff [address] [facility] (Registration ), [address] [place] [address] [place], [address], 10/10/2023 08:09:59 CMP, serum or plasma 2023 [facility] [address] [place] [address] [place], [address], 10/09/2023 15:55:19 Referral urologist referral 2022 023 [facility], [facility] [place], [address], 09/10/2023 14:08:23 physical therapist referral - low back pain, walking bent over 2023 024 [facility], [address] [place] [address], [facility] [address], [address], 10/17/2023 14:47:14 cardiolog ist referral - Dr. Lomas correct ed copy when visit is completed , please send us the notes 2023 024 LUIS ALFREDO Lomas MD, [address], [place], [address], 12/12/2023 09:26:12 Procedures cerumen removal using irrigatio n (PROC) 2023 024 [facility] (Registration ), [address] [place] [address] Dr, [place], [address], 07/30/2023 08:31:59 Surgeries None recorded. Imaging US, echocardi ogram - new diagnosis of afib*plea se send us imaging report after imaging is completed * 2023 024 [facility] (Imaging), [address], [place], [address], 10/22/2023 15:07:15 electroca rdiogram 2023 024 [facility], [address] [place] [address], [id number], 10/09/2023 16:03:16 Medication Orders Eliquis 5 mg tablet 2023 024 [facility] [address] [place], [address], 10/09/2023 15:55:19 Xarelto 20 mg tablet 2023 024 [facility], [address] [place], [address], 10/09/2023 15:55:20 Patient TargetsNo targets recorded. Patient Instructions Encounter Date Encounter Id Patient Instructions Last Modified By Organization Details Last Modified Time 10/09/2023 [id number] learning about healthy weight eoleson Not available 10/09/2023 15:55:19 Reason for Referral Urologist Referral for Lesio n of penis Referring Physician: Guanako Fisher, Family Medicine, Encounter Date: 05/29/2023 Physical Therapist Referral for Low back pain low back pain, walking bent over Referring Physician: Patrica Godfrey [facility], Encounter Date: 10/09/2023 Bobbin Winder Tender Referral for At rial fibrillation Dr. Lomascorrected copy when visit is completed, please send us the notes Referring Physician: Patrica Godfrey [facility], Encounter Date: 10/09/2023 Results Created Date Observation Date Name Description Value Unit Range Abnormal Flag LastModifiedBy Organization Detail LastModifiedTime 10/09/19 24 10/09/2023 COMPL ETE BLOOD COUNT W/DIF F WBC 4.81 10_3/ uL 4.4-10 .8 normal Not Available [address] [place], [address] 10/09/2023 14:33:56 10/09/19 24 10/09/2023 COMPL ETE BLOOD COUNT W/DIF F RBC 4.68 10_6/ uL 4.36-5 .78 normal Not Available [address] [facility] [place], [address] 10/09/2023 14:33:56 10/09/19 24 10/09/2023 COMPL ETE BLOOD COUNT W/DIF F HGB 14.6 g/dL 13.5-1 7.5 normal Not Available [address] [facility] [place], [address] 10/09/2023 14:33:56 10/09/19 24 10/09/2023 COMPL ETE BLOOD COUNT W/DIF F HCT 43.4 % 40.0-5 0.0 normal Not Available [address] [place], [address] 10/09/2023 14:33:56 10/09/1910/09/2023 COMPL ETE BLOOD COUNT W/DIF F MCV 93 fL 80-95 normal Not Available [address] [place], [address] 10/09/2023 14:33:56 10/09/1910/09/2023 COMPL ETE BLOOD COUNT W/DIF F MCH 31.2 pg 27.0-3 3.0 normal Not Available [address] [place], [address] 10/09/2023 14:33:56 10/09/1910/09/2023 COMPL ETE BLOOD COUNT W/DIF F MCHC 33.6 % 32.0-3 6.0 normal Not Available [address] [place], [address] 10/09/2023 14:33:56 10/09/19 24 10/09/2023 COMPL ETE BLOOD COUNT W/DIF F RDW 12.8 % 11.8-1 4.1 normal Not Available [address] [place], [address] 10/09/2023 14:33:56 10/09/19 24 10/09/2023 COMPL ETE BLOOD COUNT W/DIF F platelet count 232 10_3/ uL 130-40 0 normal Not Available [address] [place], [address] 10/09/2023 14:33:56 10/09/19 24 10/09/2023 COMPL ETE BLOOD COUNT W/DIF F MPV 10.6 fL 8.0-11 .0 normal Not Available [address] [place], [address] 10/09/2023 14:33:56 10/09/1910/09/2023 COMPL ETE BLOOD COUNT W/DIF F neutrophils % 59.3 Not Available [address] [place], [address] 10/09/2023 14:33:56 04/10/09/2023 COMPL ETE BLOOD COUNT W/DIF F lymphocytes % 27.7 Not Available [address] [place], [address] 10/09/2023 14:33:56 10/09/1910/09/2023 COMPL ETE BLOOD COUNT W/DIF F monocytes % 9.1 Not Available [address] [place], [address] 10/09/2023 14:33:56 10/09/1910/09/2023 COMPL ETE BLOOD COUNT W/DIF F eosinophils % 3.1 Not Available [address] [place], [address] 10/09/2023 14:33:56 10/09/1910/09/2023 COMPL ETE BLOOD COUNT W/DIF F basophils % 0.6 Not Available [address] [place], [address] 10/09/2023 14:33:56 10/09/1910/09/2023 COMPL ETE BLOOD COUNT W/DIF F immature grans % 0.2 Not Available [address] [place], [address] 10/09/2023 14:33:56 10/09/1910/09/2023 COMPL ETE BLOOD COUNT W/DIF F nucleated RBC 0.0 % 0.0-0. 3 normal Not Available [address] [place], [address] 10/09/2023 14:33:56 10/09/1910/09/2023 COMPL ETE BLOOD COUNT W/DIF F absolute neutrophil count 2.85 10_3/ uL 1.2-6. 7 normal Not Available [address] [place], [address] 10/09/2023 14:33:56 10/09/1910/09/2023 COMPL ETE BLOOD COUNT W/DIF F absolute lymphocyte count 1.33 10_3/ uL 1.2-3. 4 normal Not Available [address] [place], [address] 10/09/2023 14:33:56 10/09/19 24 10/09/2023 COMPL ETE BLOOD COUNT W/DIF F absolute monocyte count 0.44 10_3/ uL 0.1-0. 8 normal Not Available [address] [place], [address] 10/09/2023 14:33:56 10/09/19 24 10/09/2023 COMPL ETE BLOOD COUNT W/DIF F absolute eosinophil count 0.15 10_3/ uL 0.0-0. 7 normal Not Available [address] [place], [address] 10/09/2023 14:33:56 10/09/19 24 10/09/2023 COMPL ETE BLOOD COUNT W/DIF F absolute basophil count 0.03 10_3/ uL 0.0-0. 2 normal Not Available [address] [place], [address] 10/09/2023 14:33:56 10/09/19 24 10/09/2023 COMPR EHENS JANSE METAB OLIC PANEL calcium 9.1 mg/dL 8.5-10 .1 normal Not Available [address] [place], [address] 10/09/2023 14:57:04 10/09/19 24 10/09/2023 COMPR EHENS JANES METAB OLIC PANEL glucose 83 mg/dL 74-106 normal Not Available [address] [place], [address] 10/09/2023 14:57:04 10/09/19 24 10/09/2023 COMPR EHENS JANES METAB OLIC PANEL BUN 28 mg/dL 7-18 high Not Available [address] [place], [address] 10/09/2023 14:57:04 10/09/1910/09/2023 COMPR EHENS JANES METAB OLIC PANEL creatinine 1.0 mg/dL 0.70-1 .30 normal Not Available [address] [place], [address] 10/09/2023 14:57:04 10/09/19 24 10/09/2023 COMPR EHENS JANES METAB OLIC PANEL estimated GFR 74.68 mL/min /1.73m 2 Not Available [address] [place], [address] 10/09/2023 14:57:04 10/09/19 24 10/09/2023 COMPR EHENS JANES METAB OLIC PANEL total protein 6.8 g/dL 6.4-8. 2 normal Not Available [address] [place], [address] 10/09/2023 14:57:04 10/09/19 24 10/09/2023 COMPR EHENS JANES METAB OLIC PANEL albumin 3.9 g/dL 3.4-5. 0 normal Not Available [address] [place], [address] 10/09/2023 14:57:04 10/09/19 24 10/09/2023 COMPR EHENS JANES METAB OLIC PANEL bilirubin, total 1.1 mg/dL 0.2-1. 0 high Not Available [address] [place], [address] 10/09/2023 14:57:04 10/09/19 24 10/09/2023 COMPR EHENS JANES METAB OLIC PANEL alk phos 75 U/L 46-116 normal Not Available [address] [place], [address] 10/09/2023 14:57:04 10/09/19 24 10/09/2023 COMPR EHENS JANES METAB OLIC PANEL sodium 140 mmol/ L 136-14 5 normal Not Available [address] [place], [address] 10/09/2023 14:57:04 10/09/19 24 10/09/2023 COMPR EHENS JANES METAB OLIC PANEL potassium 4.8 mmol/ L 3.5-5. 1 normal Not Available [address] [place], [address] 10/09/2023 14:57:04 10/09/19 24 10/09/2023 COMPR EHENS JANES METAB OLIC PANEL chloride 105 mmol/ L 98-107 normal Not Available [address] [place], [address] 10/09/2023 14:57:04 10/09/19 24 10/09/2023 COMPR EHENS JANES METAB OLIC PANEL CO2 26.5 mmol/ L 21.0-3 2.0 normal Not Available [address] [place], [address] 10/09/2023 14:57:04 10/09/19 24 10/09/2023 COMPR EHENS JANES METAB OLIC PANEL anion gap 8.5 mmol/ L 3-11 normal Not Available [address] [place], [address] 10/09/2023 14:57:04 10/09/19 24 10/09/2023 COMPR EHENS JANES METAB OLIC PANEL AST 21 U/L 15-37 normal Not Available [address] [place], [address] 10/09/2023 14:57:04 10/09/19 24 10/09/2023 COMPR EHENS JANES METAB OLIC PANEL ALT 25 U/L 16-63 normal Not Available [address] [place], [address] 10/09/2023 14:57:04 10/09/1910/09/2023 TSH TSH 2.20 uIU/m L 0.36-3 .74 normal Not Available [address] [place], [address] 10/09/2023 14:57:05 10/09/19 24 10/09/2023 FREE T4 free T4 1.27 NG/dL 0.76-1 .46 normal Not Available [address] [place], [address] 10/09/2023 14:57:05 10/09/19 24 10/09/2023 elect rocar diogr am No observ ation record ed. [address], [address], 10/10/2023 11:17:30 10/09/19 elect rocar diogr am No observ ation record ed. eoleson Not Available 10/09/2023 14:43:00 10/22/19 24 10/22/2023 , echo ardio gram No observ ation record ed. [facility] [address], [place], [address], 11/08/2023 09:30:31 10/23/19 24 10/22/2023 , [facility] ardio gram No observ ation record ed. [email or web address] [facility] [address], [place], [address], 11/08/2023 09:30:43 Result Notes None recorded. Problems Name Status Onset Date Resolution Date Notes Provider Name and Address Organization Details Recorded Time Peripheral venous insufficiency Active 2008 Problem Code: I87.2; Problem Code Type: ICD-10; ORA CHUA, [facility]. 3 09:41:58 Lower urinary tract symptoms due to benign prostatic hypertrophy Active 2008 Problem Code: N40.1; Problem Code Type: ICD-10; ORA CHUA, [facility]. 3 09:41:58 Rosacea Active 2013 Problem Code: L71.9; Problem Code Type: ICD-10; ORA CHUA, [facility]. 3 09:41:58 History of malignant neoplasm of skin Active 2016 [facility] MD [address], [place], [address] , [facility]. 3 14:14:37 Pre-surgery evaluation Completed 201610/18/2016 Problem Code: Z01.818; Problem Code Type: ICD-10; Not Available [facility] 3 03:50:56 Low back pain Completed 201710/08/2017 Problem Code: M54.5; Problem Code Type: ICD-10; MD [address], [place], [address] , [facility] 4 16:00:59 Paresthesia Completed 201710/08/2017 Problem Code: R20.2; Problem Code Type: ICD-10; Not Available [facility] 3 03:50:56 Traumatic or non-traumatic injury Completed 201712/17/2017 12/03/2017 - Comments only - Jazmine Blisskatarina [facility] - - Removed engorged tick this AM from his right nipple. Pt has tick with him today and upon inspection, it does appear to be an engorged deer tick. Recommend treatment with doxycycline for prophylaxis for lyme. Rev'd s/e. Rev'd s/s of lyme disease including arthralgias, fatigue, fevers, chills, DURAN, general flu-like symptoms, for which he should f/u for lyme testing. The tick was killed and discarded of. Problem Code: T14.8; Problem Code Type: ICD-10; Not Available [facility] 3 03:50:56 Insect bite Completed 201812/20/2018 Not Available [facility] 3 03:50:56 Erectile dysfunction Active 2019 Problem Code: N52.9; Problem Code Type: ICD-10; ORA CHUA, [facility] 3 09:41:58 Insect bite Completed 202012/23/2020 Not Available [facility] 3 03:50:57 Adult health examination Active 2021 Problem Code: Z00.00; Problem Code Type: ICD-10; MD [address], [place], [address] , [facility] 3 14:16:02 Blepharitis Completed 202111/25/2021 Problem Code: H01.009; Problem Code Type: ICD-10; Not Available [facility] 3 03:50:57 Insomnia Active 2022 mild MD [address], [place], [address] , [facility] 3 14:16:34 Benign prostatic hyperplasia Completed 200803/13/2023 Problem Code: N40.0; Problem Code Type: ICD-10; Not Available [facility] 3 03:50:59 Pain in right foot Completed 201504/03/2016 Problem Code: M79.671; Problem Code Type: ICD-10; Not Available [facility] 3 03:50:59 Chest pain Completed 201605/19/2018 Problem Code: R07.89; Problem Code Type: ICD-10; Not Available [facility] 3 03:51:00 Benign neoplasm of colon Completed 201203/13/2023 Problem Code: 211.3; Problem Code Type: ICD-9; Not Available [facility] 3 03:51:01 Bradycardia Completed 201608/28/2021 Problem Code: R00.1; Problem Code Type: ICD-10; Not Available [facility] 3 03:51:01 Amnesia Completed 201806/04/2019 Problem Code: R41.3; Problem Code Type: ICD-10; Not Available [facility] 3 03:51:01 Fatigue Completed 201404/03/2016 Problem Code: R53.83; Problem Code Type: ICD-10; PATRICA GODFREY MD [address], [place], [address] , [facility] 4 10:26:09 Pain of left knee joint Completed 201806/16/2019 Problem Code: M25.562; Problem Code Type: ICD-10; Not Available [facility] 3 03:51:02 Hyperlipidemia screening Completed 201808/28/2021 Problem Code: Z13.220; Problem Code Type: ICD-10; Not Available [facility] 3 03:51:02 Rupture of medial collateral ligament of knee Completed 200809/28/2016 Problem Code: M23.631; Problem Code Type: ICD-10; Not Available [facility] 3 03:51:02 Actinic keratosis Completed 201305/19/2018 Problem Code: L57.0; Problem Code Type: ICD-10; Not Available [facility] 3 03:51:03 Hemorrhoids Completed 200803/13/2023 Not Available [facility] 3 03:51:03 Pain of breast Completed 201605/19/2018 Problem Code: N64.4; Problem Code Type: ICD-10; Not Available [facility] 3 03:51:04 Sciatica Completed 200803/13/2023 Not Available [facility] 3 03:51:05 Diabetes mellitus screening Completed 201808/28/2021 Problem Code: Z13.1; Problem Code Type: ICD-10; Not Available [facility] 3 03:51:05 Insomnia Completed 201508/28/2021 Problem Code: G47.00; Problem Code Type: ICD-10; MD [address], [facility] [address] , [facility] 3 14:16:34 Itching of skin Completed 201501/19/2020 Problem Code: L29.8; Problem Code Type: ICD-10; Not Available [facility] 3 03:51:06 Blepharitis of left eyelid Completed 201806/04/2019 Problem Code: H01.006; Problem Code Type: ICD-10; Not Available [facility] 3 03:51:07 Adult health examination Completed 201508/28/2021 Problem Code: Z00.00; Problem Code Type: ICD-10; MD [address], [facility] [address] , [facility] 3 14:16:02 Tear of medial meniscus of knee Completed 200809/28/2016 Problem Code: S83.249A; Problem Code Type: ICD-10; Not Available [facility] 3 03:51:08 Varicose veins of lower extremity Completed 201408/28/2021 Problem Code: I83.90; Problem Code Type: ICD-10; Not Available [facility] 3 03:51:08 Disorder of skin and/or subcutaneous tissue Completed 201908/28/2021 Problem Code: L98.9; Problem Code Type: ICD-10; Not Available [facility] 3 03:51:08 Low back pain Completed 202008/28/2021 Problem Code: M54.5; Problem Code Type: ICD-10; MD [address], [facility] [address] , [facility] 4 16:00:59 Removal of suture Completed 202108/28/2021 Problem Code: Z48.02; Problem Code Type: ICD-10; Not Available [facility] 3 03:51:09 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 MD [address], [facility] [address] , [facility] 3 11:01:00 Multiple actinic keratoses Active [address], [facility] [address] , [facility] 3 14:16:09 Impacted cerumen Active [address], [facility] [address] , [facility] 4 14:11:01 Fatigue Active 2023 Problem Code: R53.83; Problem Code Type: ICD-10; MD [address], [facility] [address] , [facility] 4 10:26:09 Irregular heart beat Active 2023 PATRICA GODFREY MD [address], [place], [address] , [facility] 4 10:39:15 Impaired exercise tolerance Active 2023 PATRICA GODFREY MD [address], [facility] [address] , [facility] 4 10:40:01 Atrial fibrillation Active [address], [facility] [address] , [facility] 4 15:57:27 Low back pain Active 2023 Problem Code: M54.5; Problem Code Type: ICD-10; PATRICA GODFREY MD [address], [facility] [address] , [facility] 4 16:00:59 Atrial dilatation Active 2023 PATRICA GODFREY MD [address], [facility] [address] , [facility] 4 13:16:41 Nodule of lung Active 2023 MARIA ELENA CALVO MA null, [facility] 4 12:44:11 Increased blood pressure Active 2023 MARIA ELENA CALVO MA null, [facility] 4 12:44:29 Varicose veins of lower extremity Active 2023 MARIA ELENA CALVO MA null, [facility] 4 12:45:33 Dermatofibroma Active 2023 MARIA ELENA CALVO MA null, [facility] 4 12:53:16 Sciatica Active 2023 MARIA ELENA CALVO MA null, [facility] 4 12:53:33 Genital lichen sclerosus Active 2023 MARIA ELENA CALVO MA null, [facility] 4 09:26:04 Reduced libido Active 2023 [facility] 4 09:30:18 Notes:*Problem Name: Actinic Keratoses Right Cheek *ICD-10 Codes: *Problem Status: inactive *Comments: *Note Date: 03/29/2014 *Problem Name: Left Knee Presumed Meniscal Tear *ICD-10 Codes: *Problem Status: inactive *Comments: *Note Date: 01/26/2009 *Problem Name: Right Knee Mcl Tear *ICD-10 Codes: *Problem Status: inactive *Comments: *Note Date: 01/26/2009 *Problem Name: Venous Insufficiency With Varicosities *ICD-10 Codes: *Problem Status: inactive *Comments: *Note Date: 01/26/2009 Problem Notes None recorded. Procedures Surgical History None recorded. Imaging Results Imaging Date Name Status LastModified by Organization Details LastModified Time 10/09/2023 electrocardiogram completed [address], [address], 10/10/2023 11:17:30 10/09/2023 electrocardiogram completed eoleson Informa tion not available 10/09/2023 14:43:00 10/22/2023 US, echocardiogram completed [address], [address], 11/08/2023 09:30:31 10/22/2023 US, echocardiogram completed [address], [address], 11/08/2023 09:30:43 Procedure Notes None recorded. Medical Equipment None Reported. Allergies No known drug allergies Medications Name Sig Start Date Stop Date Status Note LastModified by Organization Details LastModified Time aspirin 325 mg tablet 1 tab daily 12/09 completed Not Available Not Available Not Available valacyclov ir 1 gram tablet 1 tab 3times daily for 7 days 05/19 completed Not Available Not Available Not Available clobetasol 0.05 % topical cream APPLY SPARINGL Y TO AFFECTED AREA(S) TWO TIMES A DAY active Not Available Not Available No t Available sildenafil 100 mg tablet TAKE 1 TABLET BY MOUTH PRIOR TO INTERCOU RSE NEEDED 12/14 completed Not Available Not Available Not Available flaxseed oil 1,000 mg capsule one daily 12/09 completed Not Available Not Available Not Available triamcinol one acetonide 0.1 % topical ointment apply to gluteal area as needed for itching 10/04 completed Not Available Not Available Not Available multivitam in capsule 08/26 completed Not Available Not Available Not Available doxycyclin e hyclate 100 mg tablet Take 2 tabs po X 1 now 06/02 completed Not Available Not Available Not Available oxycodone 5 mg tablet Take 1 tab by mouth every 6 hours as needed for pain 08/[address] Linda Mckinley Not Available Not Available Not Available tadalafil 20 mg tablet TAKE 1 TABLET BY MOUTH EVERY 3 DAYS NEEDED FOR SEXUAL FUNCTION active Not Available Not Available No t Available Levitra 01/05 completed Not Available Not Available Not Available Vitamin D3 125 mcg (5,000 unit) tablet 1 tab daily 12/09 completed Not Available Not Available Not Available Xarelto 20 mg tablet Take 1 tablet every day by oral route. 2023 active Not Available Not Available Not Avai lable Eliquis 5 mg tablet Take 1 tablet twice a day by oral route for 90 days. 10/08 completed Not Available Not Available Not Available Shingrix (PF) 50 mcg/0.5 mL intramuscu lar suspension , kit 1/2 ml intramus cularly single dose administ er Im now and repeat dose in 2-6 months 08/30 completed Not Available Not Available Not Available Vitals Date Recorded Body height Body mass index (BMI) Body weight Body temperature Oxygen saturation Oxygen saturation in Arterial blood by Pulse oximetry Heart rate Systolic blood pressure Diastolic blood pressure Provider Name and Address Organization Details Last Updated DateTime 3 181.61 cm 26.7 kg/m2 81943.9 2 g 97.4 [degF] 99 % 99 % 78 /min 134 mm[Hg] 84 mm[Hg] RAJENDRA SAHA MA [facility], [facility] 3 10:37:33 Date Recorded Body height Body weight Body mass index (BMI) Body temperature Oxygen saturation Oxygen saturation in Arterial blood by Pulse oximetry Heart rate Systolic blood pressure Diastolic blood pressure Provider Name and Address Organization Details Last Updated DateTime 4 181.61 cm 17878.9 2 g 26.7 kg/m2 97.8 [degF] 98 % 98 % 74 /min 110 mm[Hg] 74 mm[Hg] RAJENDRA SAHA MA [facility] 4 13:34:53 Date Recorded Body height Body mass index (BMI) Body weight Body temperature Oxygen saturation Oxygen saturation in Arterial blood by Pulse oximetry Heart rate Respiratory rate Systolic blood pressure Diastolic blood pressure Provider Name and Address Organization Details Last Updated DateTime 4 181.61 cm 27.2 kg/m2 92290.2 9 g 96.9 [degF] 98 % 98 % 89 /min 16 /min 110 mm[Hg] 70 mm[Hg] MARIA ELENA CALVO MA [facility], [facility] 4 10:09:34 Date Recorded Body height Body temperature Body mass index (BMI) Body weight Heart rate Respiratory rate Systolic blood pressure Diastolic blood pressure Provider Name and Address Organization Details Last Updated DateTime 4 181.61 cm 97.9 [degF] 26.8 kg/m2 29558.5 1 g 60 /min 16 /min 130 mm[Hg] 90 mm[Hg] MARIA ELENA CALVO MA [facility], [facility] 4 12:20:57 Social History Question Answer Notes LastModified by Organizat ion Details LastModified Time Tobacco Smoking Status Never Smoker MARIA ELENA CALVO MA null, [facility], [facility] 10/09/2023 10:01:43 Do You Have An Advance Directive? No Has The Paperwork At Home But Is Still Working On Them With . Information not available 10/09/2023 What Type Of Diet Are You Following? REGULAR Information not available 10/09/2023 How Many Times Per Week Do You Exercise? 3-4 Times Per Week Information not available 10/09/2023 Would You Say That, In General, Your Health Is Excellent Information not available 10/09/2023 How Often Does Anyone, Including Family, Physically Hurt You? Never Information not available 10/09/2023 How Often Does Anyone, Including Family, Insult Or Talk Down To You? Never Information no t available 10/09/2023 How Often Does Anyone, Including Family, Threaten You With Harm? Never Information not available 10/09/2023 How Often Does Anyone, Including Family, Scream Or Curse At You? Never Information not available 10/09/2023 Within The Past 12 Months, You Worried That Your Food Would Run Out Before You Got Money To Buy More. Never True Information not available 10/09/2023 Within The Past 12 Months, The Food You Bought Just Didn't Last And You Didn't Have Money To Get More. Never True Information not available 10/09/2023 How Hard Is It For You To Pay For The Very Basics Like Food, Housing, Medical Care, And Heating? Would You Say It Is: Not Hard At All Information not available 10/09/2023 In The Past 12 Months, Has Lack Of Reliable Transportation Kept You From Medical Appointments, Meetings, Work Or From Getting Things Needed For Daily Living? No Information not available 10/09/2023 What Is Your Housing Situation Today? I Have Housing. Information not available 10/09/2023 How Often In The Past Year Have You Used Marijuana (including Smoking, Vaping, Dabbing, Or Edibles)? Never Information not available 10/09/2023 How Often In The Past Year Have You Used Prescription Medications That Were Not Prescribed To You? Never Information not available 10/09/2023 How Often In The Past Year Have You Taken Your Own Prescription Medication More Than The Way It Was Prescribed Or For Different Reasons Than Its Intended Purpose? Never Information no t available 10/09/2023 How Often In The Past Year Have You Used Other Drugs (for Example, Heroin, Cocaine, Meth, Salvia, Inhalants)? Never Information not available 10/09/2023 Have You Ever Used IV Drugs? No Information not available 10/09/2023 Date Of Most Recent SBINS 10/09/2023 Information not available 10/09/2023 Do You Have A Medical Power Of Skiver Hand? Yes Information not available 10/09/2023 What Was The Date Of Your Most Recent Tobacco Screening? 10/09/2023 Information not available 10/09/2023 Has Tobacco Cessation Counseling Been Provided? No Information not available 10/09/2023 Do You Have Any Dietary Restrictions? No Information not available 10/09/2023 Do You Or Have You Ever Used Any Other Forms Of Tobacco Or Nicotine? No Information not available 10/09/2023 Sex: Male Functional Status Question Answer Note LastModified by Organizat ion Details LastModified Time What is your exercise level? Occasional Information not available 10/09/2023 Mental Status None recorded. Family History Relationship Description Onset Age of this Age Resolved Age Notes Unspecified Relation Family history unknown Relative: 'First Degree Blood Relative'; Notes:*Problem: no family hi story of cognitive impairment father killed in WW II Mother in mid 80's ? CVA? sister vericose veins Medical History No medical history recorded. Immunizations Vaccine Type Date Status Provider Name and Address Organization Details Recorded Time Tdap 01/19/2020 completed Not Available [facility] 04:15:19 Pneumococcal conjugate PCV 13 05/19/2018 completed Not Available [facility] 04/26/2023 04:15:20 Influenza, high-dose, trivalent, PF 03/11/2017 completed Not Available [facility] 04/26/2023 04:15:20 Influenza, high-dose, trivalent, PF 04/30/2019 completed Not Available [facility] 04/26/2023 04:15:20 Influenza, high-dose, trivalent, PF 05/19/2018 completed Not Available [facility] 04/26/2023 04:15:21 Td(adult) unspecified formulation 11/18/2009 completed Not Available [facility] 04/26/2023 04:15:21 Influenza, split virus, trivalent, preservative 03/31/2015 completed Not Available [facility] 04/26/2023 04:15:21 Influenza, split virus, trivalent, preservative 04/03/2016 completed Not Available [facility] 04/26/2023 04:15:22 Influenza, high-dose, quadrivalent, PF 03/21/2021 completed Not Available [facility] 04/26/2023 04:15:23 Influenza, high-dose, quadrivalent, PF 03/29/2022 completed Not Available [facility] 04/26/2023 04:15:23 Influenza, high-dose, quadrivalent, PF 04/21/2020 completed Not Available [facility] 04/26/2023 04:15:23 COVID-19, mRNA, LNP-S, PF, 100 mcg/0.5mL dose or 50 mcg/0.25mL dose 07/13/2020 completed Not Available [facility] 04/26/2023 04:15:23 COVID-19, mRNA, LNP-S, PF, 100 mcg/0.5mL dose or 50 mcg/0.25mL dose 08/10/2020 completed Not Available [facility] 04/26/2023 04:15:24 COVID-19, mRNA, LNP-S, PF, 100 mcg/0.5mL dose or 50 mcg/0.25mL dose 04/14/2021 completed Not Available [facility] 04/26/2023 04:15:24 SARS-COV-2 (COVID-19) vaccine, UNSPECIFIED 10/26/2021 completed Not Available [facility] 04/26/2023 04:15:25 COVID-19, mRNA, LNP-S, bivalent, PF, 50 mcg/0.5 mL or 25mcg/0.25 mL dose 05/01/2022 completed Not Available [facility] 04/26/20 04:15:25 pneumococcal polysaccharide PPV23 11/18/2009 completed Not Available [facility] 2022 04:15:26 influenza, unspecified formulation 03/21/2023 completed ORA CHUA, [facility]. 05/29/2023 09:41:50 Influenza, high-dose, quadrivalent, PF 03/21/2023 completed Not Available [facility] 06/28/2023 05:31:26 COVID-19, mRNA, LNP-S, PF, zeke-sucrose, 30 mcg/0.3 mL 05/29/2023 completed GUANAKO FISHER MD [facility] [address], [place], [address] 06/01/2023 14:18:11 Past Encounters Encounter ID Performer Location Encounter Start Date Encounter Closed Date Diagnosis/Indication Diagnosis SNOMED-CT Code [id number] GUANAKO FISHER MD [address] [address] 05/29/2023 10:26:43 05/29/2023 11:27:06 Multiple actinic keratoses 552662551 Lesion of penis 07011945 0 Active or passive immunization 939940322 [id number] GUANAKO FISHER MD [address] [address] 07/22/2023 13:24:45 07/22/2023 14:07:03 Impacted cerumen of bilateral ears 212396715998787 8 Impacted cerumen 1307447 6 [id number] PATRICA GODFREY MD [address] [address] 10/09/2023 09:53:32 10/09/2023 11:39:20 Body mass index 25-29 - overweight 927939861 Low back pain 422998930 Irregular heart beat 361 087920 Impaired e xercise tolerance 129453219 Atrial fibrillation 4943 8762 [id number] PATRICA GODFREY MD [address] [address] 10/24/2023 12:04:07 10/24/2023 12:55:01 Atrial fibrillation 11270946 Health Concerns Section Related Observation LastModified by Organization Detai ls LastModified Time None Recorded Concern Status LastModified by Organization Details LastModified Time None Recorded Advance Directives Directive N: Has the paperwork at home but is still working on them with . Payers Encounter Date Sequence Insurance Name Policy Number Policy Bryant Covered Member ID Bryant Member ID Guarantor Name 05/29/2023 1 [place] [employer] Jacoby Nguyen [id number] Jacoby Nguyen 05/29/2023 2 [employer] (MEDICARE SUPPLEMENT) Jacoby Nguyen [id number] Jacoby Nguyen 07/22/2023 1 [place] [employer] Jacoby Nguyen [id number] Jacoby Nguyen 07/22/2023 2 [employer] (MEDICARE SUPPLEMENT) Jacoby Nguyen [id number] Jacoby Nguyen 10/09/2023 1 [place] [employer] Jacoby Nguyen [id number] Jacoby Nguyen 10/09/2023 2 [employer] (MEDICARE SUPPLEMENT) Jacoby Nguyen [id number] Jacoby Nguyen 10/24/2023 1 [place] [facility] Jacoby Nguyen [id number] 4 Jacoby Nguyen 10/24/2023 2 [employer] (MEDICARE SUPPLEMENT) Jacoby Nguyen [id number] Jacoby Nguyen Notes Date Note Type Note Provider Name and Address Organization Details Recorded Time 05/29/2023 text/html HPI Notes: Nav mays here with concerns about some skin lesions. A couple of white scaly patches left dorsal hand right forearm. Also saw urology qat-mrw-dbaurrn past because of some penile/glans issues. Steroid cream seem to help some adhesions. However a white patch on the glans he states is growing. He has no dysuria frequency, no hesitation. MD [address], [place], [address], [facility]. 09/16/2023 14:56:23 07/22/2023 text/html HPI Notes: Nav mays called concerned about his ears being plugged with wax. Has happened once many years ago. Admits he has been try to clean out his left ear with a Q-tip which made it much worse. He has had no hearing loss up to now, no tinnitus ear pain congestion. MD [address], [place], [address], [facility]. 07/22/2023 14:11:48 10/09/2023 text/html HPI Notes: Here for annual chronic care visit. Overall, feels he is doing well. 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 Just felt like he really couldn't take one more step. This was a bit disconcerting to him. Denies chest pain, SOB, palpitations. Also notes low back pain, low back always in pain. Walks bent over at times and his tells him to stand up straight. Has been sitting more than he ever has before, doing computer work. Sitting more than ever has before. 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 His hands have seemed weak, a bit stiff and sore from time to time. Sometimes his bilateral fingertips feel numb but he rubs the inside of his elbows and it gets better. Sometimes this is worse at night. Typing doesn't bother his hands. MD [address], [place], [address], [facility] 10/09/2023 16:03:48 10/24/2023 text/html HPI Notes: Here in f/u for new diagnosis of atrial fibrillation. Continues to endorse decreased energy/exercise tolerance. Learning to live with it. No other symptoms, no Taking xarelto and tolerating well. Had echo 2 days ago. We reviewed the results today. Has not heard from Dr. Lomas office to schedule MD [address], [place], [address], [facility] 10/24/2023 13:26:32
--- OUTSIDE RECORDS SUMMARY | 2024-01-23 21:27 | XMS_ITS | Continuity of Care Document ---
Author Organization [facility] Address [address] [place] [address] Care Team Providers Care Staff Anesthesiologist Name Role Phone JUAN DIMAS MD Primary Care Physician [phone] Encounter LTTL_CA FIN NBR [id number] Date(s): 10/22/23 - 10/22/[address] [address] [place] Discharge Disposition: Home or Self Care Attending Physician: Hilario Fierro MD Admitting Physician: Hilario Fierro MD Referring Physician: Hilario Fierro MD Heart * Event Display: Echo Report Patient Care team information Care Team Personnel Name: JUAN DIMAS MD Position: No Access Member Role: Primary Care Physician Address: Address: [address] [place] [address] [address] [place] [address]- Care Team Related Persons Name: BARRY JI
--- OUTSIDE RECORDS SUMMARY | 2024-01-23 21:28 | XMS_ITS | Encounter Summary ---
Author Organization [facility] [place] [address] Care Team Providers Care Scalemaker Name Role Phone Guanako Godwin MD Primary Care Provider [phone] Encounter Details Date Type Department Care Team (Latest Contact Info) Description 08/01/2023 Travel Social History Tobacco Use Types Packs/Day Years Used Date Smoking Tobacco: Never Smokeless Tobacco: Never Sex and Gender Information Value Date Recorded Sex Assigned at Not on file Gender Identity Not on file Sexual Orientation Not on file documented as of this encounter Plan of Treatment Upcoming Encounters Date Type Department Care Team (Late st Contact Info) Description 03/23/2024 3:45 PM EDT Office Visit Dermatology at [address] [phone] Rush Mcmillan MD [address] [place] [address] 04/27/2024 3:30 PM EST Office Visit Dermatology at [address] [phone] Rush Mcmillan MD [address] [place] [phone] documented as of this encounter Visit Diagnoses Not on filedocumented in this encounter Care Teams Scalemaker Relationship Specialty Start Date End Date Guanako Godwin MD [address] [place] [address] PCP - General Family Medicine 07/18/23 10/24/23 documented as of this encounter
--- OUTSIDE RECORDS SUMMARY | 2024-01-23 21:28 | XMS_ITS | Referral Summary ---
Author Organization [facility] Address [address] [place] [address] Care Team Providers Care Packing Checker Name Role Phone Drew Marina MD Primary Care Provider [phone] Allergies No known active allergies Medications Medication Sig Dispensed Refills Start Date End Date Status aspirin chewable 81 mg tablet Take 81 mg by mouth daily. Usually Active sildenafil citrate (VIAGRA) 100 mg tablet Take 100 mg by mouth as needed for Erectile Dysfunction. Active Multivitamins with Minerals tablet tablet Take 1 Tab by mouth daily. Active cholecalciferol, Vitamin D3, 1,000 unit tablet Take 1,000 Units by mouth daily. Active DOCOSAHEXANOIC ACID/EPA (FISH OIL ORAL) Take 1,500 mg by mouth. Active NONFORMULARY 2 Caps daily. Tumeric Active flaxseed oil 1,000 mg capsule capsule Take 1,500 mg by mouth daily. Active acetaminophen (TYLENOL) 500 mg tablet Take 2 Tabs by mouth every 6 hours as needed for Pain or Fever (Fever especially in neuro patients). 11/21/2015 Active Additional Information Patient not taking.Reported on 06/21/2016 ibuprofen (MOTRIN) 200 mg tablet Take 200 mg by mouth every 6 hours as needed for Pain. Active fluorouracil (EFUDEX) 5 % cream Apply topically 2 times daily. Active ibuprofen/diphenhydr amine cit (IBUPROFEN PM ORAL) Take by mouth daily. Acti ve hydrocortisone 2.5 % ointment Sig apply thin layer to left upper/lower eyelid BID x 2 weeks 20 g 3 10/15/2018 Active Active Problems Problem Noted Date Diagnosed Date Actinic keratosis 05/29/2016 Venous insufficiency of both lower extremities 0 11/21/2015 Varicose veins of left lower extremity with pain 10/17/2015 Immunizations Name Administration Dates Next Due Hepatitis A Vaccine Adult (HAVRIX/VAQTA) IM 03/18 Typhoid ViCPs (TYPHIM Vi) Vaccine IM 04/08/2014 Social History Tobacco Use Types Packs/Day Years Used Date Smoking Tobacco: Never Smokeless Tobacco: Never Tobacco Cessation:Counseling Given: Yes Alcohol Use Standard Drinks/Week Comments Yes 0 (1 standard drink = 0.6 oz pur e alcohol) rare Interpersonal Safety Answer Date Record ed Physically Hurt Never 01/17/2020 Verbally Threaten Not on file 01/17/2020 Sex and Gender Information Value Date Recorded Sex Assigned at Not on file Gender Identity Not on file Sexual Orientation Not on file Last Filed Vital Signs Vital Sign Reading Time Taken Comments Blood Pressure 150/90 11/29/2015 0822 EDT left Pulse 68 11/29/2015 0822 EDT Temperature 35.7 ??C (96.3 ??F) 11/21/2015 1501 EDT p re op 35.6 Respiratory Rate 11 11/21/2015 1501 EDT Oxygen Saturation 98% 11/21/2015 1501 EDT Inhaled Oxygen Concentration - - Weight 84.8 kg (187 lb) 11/17/2015 1612 EDT Height 180.3 cm (5' 10.98) 11/17/2015 1612 EDT Body Mass Index 26.09 11/17/2015 1612 EDT Functional Status Functional Status Response Date of Assess ment Because of a physical, menta l, or emotional condition, does this person have difficulty doing errands alone such as visiting a doctor's office or shopping? No 11/29/2015 Cognitive Status Response Date of Assessm ent Because of a physical, menta l, or emotional condition, does this person have serious difficulty concentrating, remembering, or making decisions? 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 Not Discusse d * Full Code Date Activated Date Inactivated Comments 10/17/2015 6:33 10/17/2015 12:35 Question Answer Comments Reason for decision includes: Full code consistent with overall plan of care Who participated in the discussion? Not Discusse d Care Teams Packing Checker Relationship Specialty Start Date End Date Drew Marina MD [address] [place] [address] PCP - General 03/24/13
--- OUTSIDE RECORDS SUMMARY | 2024-01-23 21:28 | XMS_ITS | Encounter Summary ---
Author Organization [facility] Address [address] [place] [address] Care Team Providers Care Airport Maintenance Laborer Name Role Phone Drew Marina MD Primary Care Provider [phone] Reason for Visit * Reason Onset Date Comments Requesting Sooner Appointment 03/20/2017 Encounter Details Date Type Department Care Team (Late st Contact Info) Description 03/20/2017 Telephone [facility] Dermatology 3rd Floor [facility] [address] [place], [place] [id number] Nishant Hassan PA-C [address] [facility], [address] [place] [address] Requesting Sooner Appointment Social History Tobacco Use Types Packs/Day Years Used Date Smoking Tobacco: Never Alcohol Use Standard Drinks/Week Comments Yes 0 (1 standard drink = 0.6 oz pur e alcohol) rare Sex and Gender Information Value Date Recorded Sex Assigned at Not on file Gender Identity Not on file Sexual Orientation Not on file documented as of this encounter Functional Status Functional Status Response Date of [...] concentrating, remembering, or making decisions? No 11/29/2015 documented as of this encounter Miscellaneous Notes * Telephone Encounter - Zakiya Wright - 03/22/2017 [id number] EDT Spoke to patient. Is currently scheduled for 3:30 today 03/22/17 Zakiya Wright 03/22/2017 8:07 * Telephone Encounter - Sandy Angeles - 03/20/2017 [id number] EDT Patient would like to be seen sooner for spot on back that is itchy and has been present for 3-4 weeks, he is concerned and needs to be seen before 11/20/2017. Please call to schedule. documented in this encounter Plan of Treatment Not on file documented as of this encounter Visit Diagnoses Not on filedocumented in this encounter Care Teams Airport Maintenance Laborer Relationship Specialty Start Date End Date Drew Marina MD [address] [place] [address] PCP - General 03/24/13 documented as of this encounter
--- OUTSIDE RECORDS SUMMARY | 2024-01-23 21:28 | XMS_ITS | Encounter Summary ---
[place] [address] Care Team Providers Care Automation Mechanic Name Role Phone Drew Marina MD Primary Care Provider [phone] Reason for Visit * Reason Onset Date Comments Medication Refill 03/01/2014 Encounter Details Date Type Department Care Team (Late st Contact Info) Description 03/01/2014 Refill Dermatology at [facility] [address] [place] [address] Pily Naik LPN [place] (actinic keratosis) (Primary Dx) Social History Tobacco Use Types Packs/Day Years Used Date Smoking Tobacco: Never Sex and Gender Information Value Date Recorded Sex Assigned at Not on file Gender Identity Not on file Sexual Orientation Not on file documented as of this encounter Miscellaneous Notes * Telephone Encounter - Pily Naik LPN - 03/02/2014 3:14 PM EDT Called patient to notify him that we would send efudex in place of carac. Left message for him to call me back, so i can go over instructions documented in this encounter Plan of Treatment Upcoming Encounters Date Type Department Care Team (Late st Contact Info) Description 03/23/2024 3:45 PM EDT Office Visit Dermatology at [address] [place] [phone] Rush Mcmillan MD [address] [facility], [place] [address] 04/27/2024 3:30 PM EST Office Visit Dermatology at [place] [address] [facility] [place] [phone] Rush Mcmillan MD [address] [facility], [place] A DERMATOLOGY [place], [place] [phone] documented as of this encounter Visit Diagnoses Diagnosis AK (actinic keratosis)- Primary Actinic keratosis documented in this encounter Care Teams Automation Mechanic Relationship Specialty Start Date End Date Drew Marina MD [address] [place] [address] PCP - General 05/09/10 07/17/23 documented as of this encounter
--- OUTSIDE RECORDS SUMMARY | 2024-01-23 21:28 | XMS_ITS | Encounter Summary ---
Author Organization [facility] Address [address] [place] [address] Care Team Providers Care Senior Business Development Manager Name Role Phone Drew Marina MD Primary Care Provider [phone] Reason for Visit * Reason Comments Pre-op Exam Pre op for right leg RFA of the GSV, ligation and division of the right short saphenous vein, and bilateral stab ligations Encounter Details Date Type Department Care Team (Late st Contact Info) Description 10/25/2015 10:00 EDT Office Visit [facility] Vascular Surgery - [address] [id number] Juan Carlos Hubbard MD [address] [facility], Level 5 [place] [address] Nurse Practitioner, [facility] Vasc Surg Venous insufficiency of both lower extremities (Primary Dx) Discharge Disposition: Auto Discharge Social History Tobacco Use Types Packs/Day Years Used Date Smoking Tobacco: Never Alcohol Use Standard Drinks/Week Comments Yes 0 (1 standard drink = 0.6 oz pur e alcohol) rare Sex and Gender Information Value Date Recorded Sex Assigned at Not on file Gender Identity Not on file Sexual Orientation Not on file documented as of this encounter Last Filed Vital Signs Vital Sign Reading Time Taken Comments Blood Pressure 114/70 10/25/2015 0954 EDT Left Pulse 56 10/25/2015 0954 EDT Temperature - - Respiratory Rate - - Oxygen Saturation - - Inhaled Oxygen Concentration - - Weight 84.8 kg (187 lb) 10/25/2015 0954 EDT Height 180.3 cm (5' 11) 10/25/2015 0954 EDT Body Mass Index 26.08 10/25/2015 0954 EDT documented in this encounter Functional Status Functional Status Response Date of Assess ment Because of a physical, menta l, or emotional condition, does this person have difficulty doing errands alone such as visiting a doctor's office or shopping? No 10/11/2015 Cognitive Status Response Date of Assessm ent Because of a physical, menta l, or emotional condition, does this person have serious difficulty concentrating, remembering, or making decisions? No 10/11/2015 documented as of this encounter Discharge Diagnoses Diagnosis I87.2 Venous insufficiency (chronic) (peripheral)-I87.2[ICD-10-CM] documented in this encounter Discharge Disposition Disposition Code Departure Means Destination Auto Discharge documented in this encounter H&P Notes * Kristi Corrales NP - 10/25/2015 1119 EDT [facility] Vascular Surgery H & P Visit Note Date: 10/25/2015 Patient: Jacoby Nguyen Subjective: Jacoby Nguyen is a 74 y.o. male who presents today for preoperative evaluation for right leg radiofrequency ablation of the greater saphenous vein, ligation and division of the short saphenous vein, and bilateral stab ligations. Referred by: Drew Marina History of Present Illness: Patient is here today for a post operative visit and a preoperative evaluation: He is status post left leg RFA and stab ligations on 10/17/15. Mr. Nguyen has recovered well, without swelling, pain, shortness of breath, redness or drainage. He is concerned about a remaining varicose vein over the left knee. He was given a prescription for new bilateral compression stockings,20-[address] Hubbard examined the area and will perform several stab ligations at the same setting as his upcoming surgery for the RIGHT leg which will involve RFA of the GSV, ligation and division of the short saphenous vein and bilateral stab ligations. Patient has been feeling well, with no health changes other than the above surgery. Cardiac testing: none indicated The patient's problem list, allergies, immunizations, and medications were documented, reviewed, and updated as follows: Patient Active Problem List Diagnosis ??? 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 Immunizations: Immunization History Administered Date(s) Administered ??? Hepatitis A Vaccine Adult IM 04/08/2014 ??? Typhoid ViCPs (Typhim Vi) Vaccine IM 04/08/2014 Medications: Current Outpatient Prescriptions Medication Sig Dispense Refill ??? aspirin chewable 81 mg tablet Take 81 mg by mouth daily. Usually ??? cholecalciferol, Vitamin D3, 1,000 unit tablet Take 2,000 Units by mouth daily. ??? DOCOSAHEXANOIC ACID/EPA (FISH OIL ORAL) Take 1,500 mg by mouth. ??? flaxseed oil 1,000 mg capsule capsule Take 1,500 mg by mouth daily. ??? Multivitamins with Minerals tablet tablet Take 1 Tab by mouth daily. ??? NONFORMULARY 2 Caps daily. Tumeric ??? sildenafil citrate (VIAGRA) 100 mg tablet Take 100 mg by mouth as needed for Erectile Dysfunction. No current facility-administered medications for this visit. History was documented as follows: PMH PSH Past Medical History Diagnosis Date ??? Venous insufficiency of both lower extremities Past Surgical History Procedure Laterality Date ??? Hemorrhoid surgery ??? Vascular surgery Left 10/17/15 RFA and stabs Social History Family History Living situation: , lives at [facility] CAD no AAA no History Substance Use Topics ??? Smoking status: Never Smoker ??? Smokeless tobacco: Not on file ??? Alcohol Use: Yes Comment: rare STROKE no Medications (Not in a hospital admission) Allergies No Known Allergies Vascular Review of Systems Constitutional: No active issues; no concerns and Feels well today HEENT: No active issues; no concerns Cardiac: No active issues; no concerns Respiratory: No difficulty breathing Gastrointestinal: No diarrhea and No vomiting Genitourinary/Renal: No active issues; no concerns Musculoskeletal: No joint movement limitations Neurologic: No active issues; no concerns Integumentary: No active issues; no concerns Allergy/Immunology: No active issues; no concerns ROS (other): Objective: Physical Examination: Vitals: BP 114/70 mmHg Pulse 56 Ht 180.3 cm (71) Wt 84.823 kg (187 lb) BMI 26.09 kg/m2. General: NAD, pleasant Neck: Grossly normal Heart: RRR Lungs: clear - bilaterally Abdomen: not examined Musculoskeletal: no mobilility limitations Skin: visible veins and clean, dry, intact over surgical area Neurologic: grossly intact Vascular Exam Arterial Exam Femoral Popliteal Dorsalis Pedis Posterior Tib Right Left DS = Doppler Signal 2+ = Expected palpable pulse 1+ = Diminished palpable pulse +DS = Doppler Signal present -DS = No Doppler Signal Venous Exam: Numerous large soft varicose veins right thigh and calf. No phlebitis and no ulcers. Labs drawn on: NA CXR from: NA Blood Bank if applicable: Stress test if applicable: Patient medication instructions if applicable: Assessment: Jacoby Nguyen is a good candidate for Radiofrequency ablation with stab ligations and right lesser saphenous ligation and division, and LEFT knee area stab ligations. . Advantages and disadvantages of surgery were reviewed. The operative procedure was discussed including the risks of general anesthetic and medications and the potential risk of complications. There could also be the need for re-operation. Post-operative recovery was discussed, as well as the need for post surgery follow-up. The patient understands the risks; any and all questions were answered to the patient's satisfaction. Plan: NPO after MN Antibiotic prophylaxis with Cefazolin Patient to obtain new compression stockings Michellealan Wilcoxer will submit for insurance approval for left knee stab ligations. Submitted by: Kristi Corrales NP documented in this encounter Plan of Treatment Not on file documented as of this encounter Visit Diagnoses Diagnosis Venous insufficiency of both lower extremities- Primary documented in this encounter Discontinued Medications Medication Sig Discontinue Reason Start Date End Da te HYDROcodone-acetaminop hen (NORCO) 5-325 mg tablet Take 1-2 Tabs by mouth every 6 hours as needed for Pain. Daily Max: 8 Tabs Discontinued as Inpatient 10/17/2015 10/25/2015 documented as of this encounter Care Teams Senior Business Development Manager Relationship Specialty Start Date End Date Drew Marina MD [address] [place] [address] PCP - General 03/24/13 documented as of this encounter
--- OUTSIDE RECORDS SUMMARY | 2024-01-23 21:28 | XMS_ITS | Encounter Summary ---
Author Organization [facility] Address [address] [place] [address] Care Team Providers Care Unarmed Security Guard Name Role Phone Drew Marina MD Primary Care Provider [phone] Reason for Visit * Reason Comments Varicose Veins bilateral LE achy VV , u/s first Encounter Details Date Type Department Care Team (Late st Contact Info) Description 08/25/2015 12:00 EST Office Visit [facility] Vascular Surgery - [address] [id number] Juan Carlos Hubbard MD [address] [facility], [address] [place] [address] Varicose veins of leg with pain, bilateral (Primary Dx) Social History Tobacco Use Types Packs/Day Years Used Date Smoking Tobacco: Never Sex and Gender Information Value Date Recorded Sex Assigned at Not on file Gender Identity Not on file Sexual Orientation Not on file documented as of this encounter Last Filed Vital Signs Vital Sign Reading Time Taken Comments Blood Pressure 134/84 08/25/2015 1139 EST Right arm Pulse 68 08/25/2015 1139 EST Right ra dial Temperature - - Respiratory Rate - - Oxygen Saturation - - Inhaled Oxygen Concentration - - Weight 83.5 kg (184 lb) 08/25/2015 1139 EST Height 182.9 cm (6') 08/25/2015 1139 EST Body Mass Index 24.95 08/25/2015 1139 EST documented in this encounter Functional Status Functional Status Response Date of Assess ment Because of a physical, menta l, or emotional condition, does this person have difficulty doing errands alone such as visiting a doctor's office or shopping? No 08/25/2015 Cognitive Status Response Date of Assessm ent Because of a physical, menta l, or emotional condition, does this person have serious difficulty concentrating, remembering, or making decisions? No 08/25/2015 documented as of this encounter Discharge Diagnoses Diagnosis I83.813 Varicose veins of bilateral lower extremities with pain-I83.813[ICD-10-CM] documented in this encounter Progress Notes * Juan Carlos Hubbard MD - 08/25/2015 1203 EST This office note has been dictated. documented in this encounter Consult Notes * Juan Carlos Hubbard MD - 08/26/2015 0421 EST [facility] VASCULAR SURGERY CONSULTATION - 08/25/2015 Drew Marina MD [facility] [address] [place] [address] Dear Drew, Thank you for consulting us in regard to Mr Nguyen's bilateral symptomatic varicose veins. As you know, he is a very pleasant and otherwise healthy 74-year-old gentleman with a long history of varicose veins on both sides. There is a strong family history of this as well. This has slowly been progressively getting worse with some increased symptoms. He has local pain and tenderness over large varicosities as well as some achiness in his legs, specifically when he is on his feet all day. He has nothad any ulcers or evidence of dermatitis, but certainly ankle swelling. He has been good with compression socks, used them for quite a while now during the day. He is otherwise quite healthy. His past medical history and review of systems is really negative apart from his leg discomfort. Hedoes not smoke. No family history of occlusive diseases. No allergy and medication gonzales, he takes aspirin and occasional Viagra. On exam, he is a healthy-looking 74-year-old gentleman, he is certainly in no acute distress. Bloodpressure 134/84, pulse of 68, BMI of 24.9. Normal arterial exam with palpable pedal pulses. He doeshave large varicosities on both sides. On the right it is mainly in the posterior calf and are quite large, up to a centimeter in size, and on the left side he has a large varix coming from his mid-thigh extending over his knee. He has mild ankle edema bilaterally and some hemosiderin color changeson his medial ankles as well. A venous ultrasound was performed, which showed basically on the left side incompetent greater saphenous vein with significant reflux and large side branch varices. There is some patchy deep venous insufficiency as well. On the right he does have long saphenous vein reflux and also a very dilated short saphenous vein with significant reflux. Most of his varices are coming from that. There is alsosome deep venous insufficiency on the right side. Assessment: Bilateral chronic venous insufficiency and symptomatic varicose veins. I think he wouldbe an excellent candidate for radiofrequency ablation of the greater saphenous veins, as well as stab ligations and on the right side he would need his short saphenous vein ligated as well. He is eager to proceed. He feels that his left leg is slightly worse than the right, so we will start on thatside. We will send his information in for preapproval and hopefully get this done as soon as possible. Thank you again for asking us to see him. Sincerely, Juan Carlos Hubbard MD 12 03 PM - Juan Carlos Hubbard MD kn Dictation ID: [id number] cc: Drew Marina MD, [facility] [address], [place] [address] documented in this encounter Plan of Treatment Not on file documented as of this encounter Visit Diagnoses Diagnosis Varicose veins of leg with pain, bilateral- Primary documented in this encounter Historical Medications * This list may reflect changes made after this encounter. Medication Sig Dispensed Refills Start Date End Date sildenafil citrate (VIAGRA) 100 mg tablet Take 100 mg by mouth as needed for Erectile Dysfunction. aspirin chewable 81 mg tablet Take 81 mg by mouth daily. Usually added in this encounter Care Teams Unarmed Security Guard Relationship Specialty Start Date End Date Drew Marina MD [address] [place] [id number] PCP - General 03/24/13 documented as of this encounter
--- OUTSIDE RECORDS SUMMARY | 2024-01-23 21:28 | XMS_ITS | Encounter Summary ---
Author Organization [facility] Address [address] [place] [address] Care Team Providers Care Balance Engineer Name Role Phone Drew aMrina MD Primary Care Provider [phone] Reason for Visit * Reason Comments Surgical Excision Basal Cell Carcinoma Left back Encounter Details Date Type Department Care Team (Late st Contact Info) Description 06/21/2016 11:00 EST Office Visit [facility] Dermatology 5th Floor [facility] [address] [place], [place] [phone] Megha Hassan PA-C [address] [facility], Level 5 [place] [address] BCC (basal cell carcinoma), trunk (Primary Dx) Discharge Disposition: Auto Discharge Social [...] No 11/29/2015 documented as of this encounter Discharge Diagnoses Diagnosis C44.519 Basal cell carcinoma of skin of other part of trunk-C44.519[ICD-10-CM] documented in this encounter Patient Instructions * Patient Instructions* Megha Hassan PA-C - 06/21/2016 11:00 EST [facility] DERMATOLOGIC [facility] SURGERY UN[facility] EXCISIONAL WOUND CARE INSTRUCTIONS The DRESSING/BANDAID should remain in place for 24 hours. You may shower or bathe after 24 hours; remove the bandage and replace it after the shower. DISCOMFORT: Expect some discomfort. Extra-Strength Tylenol, taken as directed by the metal model builder, will help relieve pain. If the pain is severe please call the office. BLEEDING: You may notice some blood on the edges of the dressing the first day - this is NORMAL. Ifthe bleeding soaks through the dressing, remove the dressing, and apply firm, steady pressure with a moist clean wash cloth for fifteen minutes. If the bleeding stops, redress the wound, if not, callour office at . ACTIVITY: Relax and limit your physical activity for the first 48 hours after surgery. Also, if thesurgery was on the face or scalp, keep your head elevated. Your provider may ask you to limit activity for a longer period of time. APPEARANCE: There may be swelling and bruising around the wound, especially near the eyes. Some redness is normal, but the wound should not be red, hot and tender. If the wound becomes increasingly inflamed, warm, or drains pus, please call our office. WOUND CARE: ?? Wash hands with soap and water before changing the dressing. ?? Change the dressing daily and when it becomes wet. Clean the wound daily with mild soap and water. You may gently loosen any crusts with a cotton swab. The wound may be slightly tender and may bleed a small amount. A small amount of discharge is normal. Apply a thin layer of sterile petroleum jelly over the wound. Cover the wound with a Telfa (non-stick) dressing or bandage. It is important to keep the wound covered. If your sutures require removal, you will receive specific instructions regarding when and where tohave them removed. CONTACT THE OFFICE IF YOU EXPERIENCE: ?? increased redness ?? warmth to touch ?? increased pain ?? drainage with a foul odor ?? rapid swelling of the wound ?? fever or chills Please call our office or . documented in this encounter Discharge Disposition Disposition Code Departure Means Destination Auto Discharge documented in this encounter Progress Notes * Jing Gilliam A.E. - 06/21/2016 1100 EST Review of Systems Constitutional: Negative for fatigue, fever and unexpected weight change. HENT: Negative for mouth sores. Eyes: Negative for pain. Respiratory: Negative for cough and shortness of breath. Cardiovascular: Negative for chest pain and palpitations. Gastrointestinal: Negative for abdominal pain, blood in stool, constipation, diarrhea, nausea and vomiting. Genitourinary: Negative for dysuria, frequency and hematuria. Musculoskeletal: Negative for myalgias, joint swelling, arthralgias and muscle stiffness in the morning. Skin: Negative for rash. Neurological: Negative for numbness and headaches. Endo/Heme/Allergies: Does not bruise/bleed easily. Psychiatric/Behavioral: Negative for sleep disturbance. The patient is not nervous/anxious. Jing Gilliam 06/21/2016 10:57 Reviewed Megha Hassan PA-C 06/21/2016 * Megha Hassan PA-C - 06/21/2016 1100 EST Images from the original note were not included. Chief Complaint Patient presents with ??? Surgical Excision ??? Basal Cell Carcinoma Left back (NOTE: No prior history pacemaker/defibrillator. Does not need antibiotics prior to dental procedures. No prior history of endocarditis. No prior history THR/TKR.) LINEAR EXCISION AND LAYERED CLOSURE PATIENT INFORMATION: Jacoby Ji : MRN: [id number] PROCEDURE DATE: 06/21/2016 SURGEON: Megha Hassan PA-C AIRPLANE PILOT CROP DUSTING: Jing Gilliam MA LOCATION: left and superior back PREOPERATIVE DIAGNOSIS: Basal cell carcinoma - [id number] ? LESION SIZE: 1.0 x 1.0 cm MARGIN PER SIDE: 0.2 cm TOTAL EXCISION DIAMETER: 1.4 x 1.4 cm INDICATIONS: The indication, risks, benefits and alternatives to this procedure were discussed in detail with the patient and all questions were answered. The patient had no contraindications to surgery with local anesthesia. Informed consent was obtained in writing. PROCEDURE: Patient position: prone Anesthesia: 1% lidocaine with epinephrine 1:100,000 local infiltration Prep: Povodine Iodine The patient was brought to the operative suite. The lesion was identified, prepped and draped in the usual sterile fashion. Following complete anesthesia, the skin was incised in a fusiform fashion to the level of the subcutaneous fat with a number 15 surgical blade. The wound was undermined as needed with care to avoid functionally important nerves and vessels. Hemostasis was achieved with spot electrocoagulation. The wound edges were approximated with 3.0 PDS (polydioxanone) buried interrupted sutures at the level of the subcutis. The epidermis was approximated with 5.0 Fast absorbing plaingut. The final wound length was 4.4 centimeters. The wound edges were cleansed and a sterile dressing was applied. Verbal and written wound care instructions were given. The patient tolerated the procedure well and left the operating suite in excellent condition. The surgical specimen was submitted to pathology for histologic evaluation. POSTOPERATIVE DIAGNOSIS: Basal cell carcinoma FINAL PROCEDURE: Excision and Linear Repair BLOOD LOSS: minimal OPERATIVE TIME: 45 minutes COMPLICATIONS: None Reviewed that signs for concern would be increasing pain, redness, induration, hotness and pus-likedrainage, which would indicate contacting me here immediately for further care. Otherwise follow uphere in 6 months as scheduled for routine skin exam. Megha OLSON PA-C [facility] Division of Dermatology Clinical Instructor - [facility] 06/21/2016 * Bria Hebert MD - 06/21/2016 1100 EST I was the supervising physician and was present in the clinic during this visit. Note reviewed, patient was not seen by me. Bria Hebert MD documented in this encounter Plan of Treatment Scheduled Orders Name Type Priority Associated Diagnoses Orde r Schedule SURGICAL PATHOLOGY- ORDER ONLY Pathology Routine BCC (basal cell carcinoma), trunk Ordered: 06/21/2016 documented as of this encounter Procedures Procedure Name Priority Date/Time Associated Diagnosis Comments SURGICAL PATHOLOGY Routine 06/21/2016 13 :44 EST documented in this encounter Results * SURGICAL PATHOLOGY (06/21/2016 13:44 EST) Pathology Report: SURGICAL PATHOLOGY REPORT Reports generated via electronic interface contain original data; however they are lacking the format of the original report. Caution should be taken when reading/interpret ing unformatted reports. Name: ? JACOBY JI ? Accession #: ? [id number] ? : ? 1940 (Age: 75) ??M ? Collect Date: ? 06/21/2016 ? Location: ? DERM ? Receive Date: ? 06/21/2016 ? Provider: MEGHA GONZALEZ Copy to: DREW MARINA MD ? Final Pathologic Diagnosis: SKIN OF BACK, LEFT, EXCISION: - Epidermal reparative change and dermal scar. - No residual basal cell carcinoma identified. ?? Document reviewed and electronically signed by: ARTEMIO ESTRELLA MD Report ??Date: 06/22/2016 16:19 By the signature above, the attending physician certifies that he/she has personally conducted a gross and/or microscopic examination of the described specimens and rendered or confirmed the above diagnosis. Specimen(s) Received: Left back Clinical History: BCC; re-excision of [id number]; clinical diagnosis code: ??C44.519 Gross Description: ? Received in formalin labelled with proper patient identification (initials C, H) and left back is an unoriented elliptical skin excision (3.6 x 1.3 cm and is excised to a depth of 0.9 cm). There is a central pink-ortiz to yellow crusted lesion (1.1 x 0.9 x 0.2 cm). Surgical margin is inked blue. The specimen is serially sectioned and submitted entirely as tips, reverse en face, in 1 and central sections in 2-4. LISA Han (ASCP) 06/21/2016 3:57 PM End of Report [facility] 06/21/2016 13:4 4 EST 06/21/2016 13:44 EST Megha Hassan PA-C PATHOLOGY ORDERA [facility] [address] [place] [address] documented in this encounter Visit Diagnoses Diagnosis BCC (basal cell carcinoma), trunk- Primary Basal cell carcinoma of skin of trunk, except scrotum documented in this encounter Care Teams Balance Engineer Relationship Specialty Start Date End Date Drew Marina MD [address] [place] [id number] PCP - General 03/24/13 documented as of this encounter
--- OUTSIDE RECORDS SUMMARY | 2024-01-23 21:28 | XMS_ITS | Encounter Summary ---
Author Organization [facility] Address [address] [place] [address] Care Team Providers Care Manager Programming Name Role Phone Drew Marina MD Primary Care Provider [phone] Reason for Referral * Vascular Lab (Routine) - Closed Specialty Diagnoses / Procedures [facility] Referred To Contact Diagnoses Venous insufficiency Procedures VL LOWER VENOUS (DVT) UNILATERAL Kristi Corrales APRN [address] [place] [address] Referral ID Status Reason Start Date Expiration Date Visits Re quested Visits Authorized [id number] Closed 11/29/2015 1 1 Reason for Visit * Reason Comments Post-OP Follow Up postop right DIV/LIG /stabs 11/21/15 Encounter Details Date Type Department Care Team (Late st Contact Info) Description 11/29/2015 8:15 EDT Office Visit [facility] Vascular Surgery - [address] [address] Juan Carlos Hubbard MD [address] [facility], Level [address] [place] [id number] Nurse Practitioner, [facility] Mp5 Vasc Surg Venous insufficiency (Primary Dx) Social History Tobacco Use Types [...] left Pulse 68 11/29/2015 0822 EDT Temperature - - Respiratory Rate - - Oxygen Saturation - - Inhaled Oxygen Concentration - - Weight - - Height - - Body Mass Index - - documented in this encounter Functional Status Functional [...] insufficiency (chronic) (peripheral)-I87.2[ICD-10-CM] documented in this encounter Patient Instructions * Patient Instructions* Kristi Corrales NP - 11/29/2015 9:05 EDT 1. Please apply warm compresses to the right calf using a handtowel wrung out in hot water, appliedto the calf, and wrapped in a bath towel. Do t his twice daily for 20 minutes. 2. Wear your compression stocking daily, OK to remove at night. 3. Elevate leg 2-3 times per day for 20 minutes. 4. Take Ibuprofen 400 mg 3 times daily for 4 days with food. 5. If redness persists or extends, please see your PCP and contact our office to update us. documented in this encounter Progress Notes * Kristi Corrales NP - 11/29/2015 0943 EDT SUBJECTIVE: Mr Nguyen comes in today for a postoperative exam following radiofrequency ablation of theright greater saphenous vein and ligation and division of the short saphenous vein at the saphenopopliteal junction and stab ligation of varicosities with a total of 17 incisions. Mr Nguyen was up ambulating as directed and even has been out hiking. He reports that he has had more pain with this leg then with the contralateral venous surgery. He denies any shortness of breath or chest pain, but doesnote that he has had quite a bit of swelling in the calf and there appears to be redness on the anterior side of the calf. He did not take any narcotic pain medicine. He was asking me about problems he has had with constipation this week. He does admit to not drinking much water and in the past, constipation patch been an issue for him. OBJECTIVE: Mr Nguyen well. The calf circumference certainly is greater in size than the contralateral side. The calf itself is soft. There is some mild erythema on the anterior gaiter area, which interestingly is not at the site of any of the stab ligations. The thigh is also soft and there is mild ecchymosis proximally. The sutures were removed without difficulty and I did place Steri-Strips for naveed nforcement using benzoin as the leg is quite edematous. I had an ultrasound done today based on theswelling and also Mr Nguyen lives approximately 2 hours away. The study was negative for a DVT. IMPRESSION AND PLAN: Mr Nguyen is a 74-year-old gentleman doing well after surgery with a mild phlebitic type reaction on the anterior calf. He does not have a DVT. I gave him written instructions to use warm compresses, to take ibuprofen 400 mg 3 times daily with food for 4 days and to elevate his leg and restrain from vigorous activity. I did tell him that should the redness increase he should contact his local doctor and also notify a rash. It is unlikely, but if he did need to be treated for cellulitis I thought it more appropriate for him to be seen in his area and keep us apprised. documented in this encounter Plan of Treatment Not on file documented as of this encounter Procedures Procedure Name Priority Date/Time Associated Diagnosis Comments VL LOWER VENOUS (DVT) UNILATERAL Routine 11/29/2015 9:07 EDT Venous insufficiency documented in this encounter Results * VL LOWER VENOUS (DVT) UNILATERAL (11/29/2015 9:07 EDT) Anatomical Region Laterality Modality Other 11/29/2015 9:07 EDT Narrative 11/30/2015 13:14 EDT Vascular Diagnostic Laboratory [facility] [address] [place] [address] Technologist: Ward Collier IMPRESSIONS No evidence of deep or superficial vein thrombosis in the right lower extremity. Preliminary finding: was reported to Kristi Corrales NP , by GAVIN , on 11/29/2015 , at 09:09 AM. PROCEDURE: Unilateral lower extremity venous ultrasound; common femoral, proximal profunda femoral, femoral, popliteal, posterior tibial, peroneal, and greater saphenous veins are routinely examined. ? 2D ultrasound, compression, color flow Doppler, and spectral Doppler. INDICATION: Pain and tenderness after RFA of right GSV a week ago. HISTORY: RISK FACTORS: Family history GREYSCALE FINDINGS: Normal right lower extremity venous ultrasound: all segments visualized were compressible with spontaneous and phasic flow. Electronically signed by: Juan Carlos Hubbard [id number] Procedure Note Juan Carlos Hubbard MD - 11/30/2015 Vascular Diagnostic Laboratory [facility], Level 5 [address] [facility] [place] [address] Technologist: Ward Collier IMPRESSIONS No evidence of deep or superficial vein thrombosis in the right lowerextremity. Preliminary finding: was reported to Kristi Corrales NP , by GAVIN , on11/29/2015 , at 09:09 AM. PROCEDURE: Unilateral lower extremity venous ultrasound; common femoral, proximalprofunda femoral, femoral, popliteal, posterior tibial, peroneal, and greatersaphenous veins are routinely examined. 2D ultrasound, compression, color flow Doppler, and spectral Doppler. INDICATION: Pain and tenderness after RFA of right GSV a week ago. HISTORY: RISK FACTORS: Family history GREYSCALE FINDINGS: Normal right lower extremity venous ultrasound: all segments visualizedwere compressible with spontaneous and phasic flow. Electronically signed by: Juan Carlos Hubbard [id number] Kristi Corrales APRN [facility] VASCULAR ORDAddi BHATIA documented in this encounter Visit Diagnoses Diagnosis Venous insufficiency- Primary Unspecified venous (peripheral) insufficiency documented in this encounter Discontinued Medications Medication Sig Discontinue Reason Start Date End Da te HYDROmorphone (DILAUDID) 2 mg tablet Take 1-2 Tabs by mouth every 3 hours as needed for Pain. Daily Max: 32 mg Patient Stopped Taking 11/21/2015 11/29/2015 documented as of this encounter Historical Medications * This list may reflect changes made after this encounter. Medication Sig Dispensed Refills Start Date End Date ibuprofen (MOTRIN) 200 mg tablet Take 200 mg by mouth every 6 hours as needed for Pain. added in this encounter Care Teams Manager Programming Relationship Specialty Start Date End Date Drew Marina MD [address] [place] [address] PCP - General 03/24/13 documented as of this encounter
--- OUTSIDE RECORDS SUMMARY | 2024-01-23 21:28 | XMS_ITS | Encounter Summary ---
Author Organization [facility] Address [address] [place] [address] Care Team Providers Care Youth Program Director Name Role Phone Drew Marina MD Primary Care Provider [phone] Reason for Visit * Reason Comments Travel Consult Encounter Details Date Type Department Care Team (Late st Contact Info) Description 04/08/2014 11:00 EDT Office Visit [facility] Infectious Disease - [address] [id number] Vero Hoff FNP [facility] [address] [place] [address] Other specified counseling (Primary Dx) Social History Tobacco Use Types Packs/Day Years Used Date Smoking Tobacco: Never Sex and Gender Information Value Date Recorded Sex Assigned at Not on file Gender Identity Not on file Sexual Orientation Not on file documented as of this encounter Last Filed Vital Signs Vital Sign Reading Time Taken Comments Blood Pressure 102/70 04/08/2014 1101 EDT Pulse - - Temperature 35.9 ??C (96.7 ??F) 04/08/2014 1101 EDT Respiratory Rate - - Oxygen Saturation - - Inhaled Oxygen Concentration - - Weight - - Height - - Body Mass Index - - documented in this encounter Discharge Diagnoses Diagnosis V65.49 COUNSELING OTHER SPECIFIED[ICD-9-CM] V03.1 VACCINE FOR TYPHOID-PARATYPHOID[ICD-9-CM] documented in this encounter Ordered Prescriptions Prescription Sig Dispensed Refills Start Date End Da te typhoid polysaccharide vaccine (TYPHIM ) 25 mcg/0.5 mL syringeIndications:Other specified counseling Inject 0.5 mL into the muscle once for 1 dose. 1 Syringe 0 04/08/2014 10/12/2015 atovaquone-proguanil (MALARONE) 250-100 mg per tabletIndications:Other specified counseling Take 1 Tab by mouth daily. 39 Tab 0 04/08/2014 10/12/2015 hepatitis A vaccine, PF, (HAVRIX) 1,440 Naya unit/mL syringeIndications:Other specified counseling Inject 1 mL into the muscle once for 1 dose. 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 No current facility-administered medications on file prior to visit. No past medical history on file. No LMP for male patient. Immunodeficiency: None Immunization History Administered Date(s) Administered ??? Hepatitis A Vaccine Adult IM 04/08/2014 ??? Typhoid ViCPs (Typhim Vi) Vaccine IM 04/08/2014 Risk/Benefit Review: Malaria maps reviewed. Mr. Nguyen will be in a malaria area and will use Malarone. We discussed the need for Malawian encephalitis virus vaccine. He would like to think about this for a while and will call us if you want to vaccines. He will use DEET for the prevention of dengue. He knows not to swim in any freshwater Lakes or streams. 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 We also discussed food borne illnesses, in particular, hepatitis A, and typhoid. He will be vaccinated against these today. He will seek post exposure vaccine for rabies if necessary. Patient Education Topic: freshwater swimming, future shots, insect-borne illnesses, Malawian encephalitis, malaria, MVA safety, rabies, safe food/water, safe sex, traveler's diarrhea, website/handouts for more information, what to do if ill upon return and what to do if ill while there Method: Handout and Verbal Taught to: Patient Barriers: None Outcomes: independent Patient education handouts: Vaccine information sheets for hepatitis A, typhoid, and, Malawian encephalitis virus vaccines. Country specific travel information from [facility] Physical Exam: BP 102/70 Temp(Src) 35.9 ??C (96.7 ??F) (Tympanic) Immunizations ordered:Hepatitis A vaccine, Malarone and Typhim Mr. Nguyen, may return for nursing visit after, September 2014 for his hepatitis A booster. He will call scheduled appointment if he would like Malawian encephalitis virus vaccine Total visit time: 20 minutes. Time spent on counseling by provider: 20 minutes. 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 No LMP for male patient. Immunodeficiency: None Immunization History Administered Date(s) Administered ??? Hepatitis A Vaccine Adult IM 04/08/2014 ??? Typhoid ViCPs (Typhim Vi) Vaccine IM 04/08/2014 Risk/Benefit Review: Mr. Nguyen is traveling with his to [facility] to help on an Elephant refuge. 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 Yellow feverand malaria maps were reviewed. Mr. Nguyen is not going to a yellow fever area. He will be in a high Malaria risk area and he was prescribed Malarone today as prophylaxis. He received his first Hepatitis A vaccination today as well as Typhoid IM today. We discussed getting vaccinated against Malawian Encephalitis today and Mr. Nguyen is going to research this vaccination more and return if he feels he needs prophylaxis. Patient Education Topic: environmental concerns, freshwater swimming, future shots, insect-borne illnesses, Malawian encephalitis, malaria, safe food/water, traveler's diarrhea, website/handouts for more information, what to do if ill upon return and what to do if ill while there Method: Handout and Verbal Taught to: Patient Barriers: None Outcomes: independent and verbalized understanding Physical Exam: BP 102/70 Temp(Src) 35.9 ??C (96.7 ??F) (Tympanic) Immunizations ordered:Hepatitis A vaccine, Malarone and Typhim Total visit time: 30 minutes. Time spent on counseling by provider: 25 minutes. I spent 25 minutes with the patient and /or family members including unit time. Over 50% of the total time was spent counseling and /or in coordination of care activities as described above. All documentation reviewed and approved. QUINTON BROWN RN, MILLER HELPER Student 04/08/2014 14:14 * Amanda Alvarado RN - 04/08/2014 1314 EDT Per order: Typhim and Hep A administered without incident I was supervised by Chandni Hoff who was present and immediately available in the office suite. AMANDA ALVARADO RN 04/08/2014 13:14 documented in this encounter Plan of Treatment Not on file documented as of this encounter Visit Diagnoses Diagnosis Other specified counseling- Primary documented in this encounter Orders Immunization/Injection Count Last Ordered Date First Ordered Date HEPATITIS A VACCINE ADULT IM 1 04/08/2014 TYPHOID VICPS (TYPHIM ) VACCINE IM 1 03/18 documented in this encounter Care Teams Youth Program Director Relationship Specialty Start Date End Date Drew Marina MD [address] [place] [address] PCP - General 03/24/13 documented as of this encounter
--- OUTSIDE RECORDS SUMMARY | 2024-01-23 21:28 | XMS_ITS | Encounter Summary ---
Author Organization [facility] Address [address] [place] [address] Care Team Providers Care Mortgage Protection Sales Name Role Phone Drew Marina MD Primary Care Provider [phone] Reason for Visit * Reason Onset Date Comments Appointment Related 10/05/2019 Encounter Details Date Type Department Care Team (Late st Contact Info) Description 10/05/2019 Telephone [facility] Dermatology 5th Floor [facility] [address] [place], [place] [id number] Nishant Hassan PA-C [address] [facility], [address] [place] [address] Appointment Related Social History Tobacco Use Types Packs/Day Years Used Date Smoking Tobacco: Never Smokeless Tobacco: Never Alcohol Use Standard Drinks/Week Comments [...] encounter Miscellaneous Notes * Telephone Encounter - Madonna Chaudhari - 10/05/2019 1538 EDT Left message for patient to call back to discuss televideo/Zoom visit with Nishant Hassan PA-C on 10/19/2019 at 03:20PM. When patient calls back, please find Zoom metal moulder's assistant to complete scheduling process. If patient is unable to participate in Zoom visit, please offer telephone visit. If no concerns at all, fine to schedule out 1 year and patient can call if they have concerns before then. If patient has any specific spots of concern, photos should be emailed to the provider and they canbe provided with the website [email or web address], which has some helpful hints for taking good qualityphotos. Madonna Chaudhari 10/05/2019 15:38 documented in this encounter Plan of Treatment Not on file documented as of this encounter Visit Diagnoses Not on filedocumented in this encounter Care Teams Mortgage Protection Sales Relationship Specialty Start Date End Date Drew Marina MD [address] [place] [address] PCP - General 03/24/13 documented as of this encounter
--- OUTSIDE RECORDS SUMMARY | 2024-01-23 21:28 | XMS_ITS | Encounter Summary ---
Author Organization [facility] [place] [address] Care Team Providers Care Press Puller Name Role Phone Drew Marina MD Primary Care Provider [phone] Reason for Visit * Reason Comments Skin Check Encounter Details Date Type Department Care Team (Late st Contact Info) Description 03/03/2021 9:45 AM EDT Office Visit Dermatology at [place] [address] [facility] [place] [address] Rush Mcmillan MD [address] [facility] [place], [place] [phone] History of atypical nevus; Nevus Social History Tobacco Use Types Packs/Day Years Used Date Smoking Tobacco: Never Smokeless Tobacco: Never Sex and Gender Information Value Date Recorded Sex Assigned at Not on file Gender Identity Not on file Sexual Orientation Not on file documented as of this encounter Progress Notes * Rush Mcmillan MD - 03/03/2021 9:45 AM EDT Problem: Skin check Jacoby follows up is now 80. I last saw him in 2011 and treated an actinic keratosis on his right cheek. He states that he was last seen by screw supervisor some 7 years ago by a PA in [place]. Atypical nevus was excised from his left upper back. He has no known history of skin cancer. Today he would like to have a just a general skin checkup because it has been 7 years since he was last evaluateddermatologically. Physical examination reveals a pleasant 80-year-old gentleman who has a benign examination of his full thick head of hair his face his neck his chest his back hands arms forearms thighs and calves are benign. He has some mild actinic damage over the dorsal hands bilaterally. He has a well-healed scar on the left upper back without evidence of recurrent pigmentation there. There is no evidence of any malignant lesions. Assessment and plan: Benign skin examination 1. Patient reassured about today's benign skin examination 2. Continue sun avoidance precautions 3. Return to clinic now will be on an as needed basis CC: Drew Marina MD documented in this encounter Plan of Treatment Upcoming Encounters Date Type Department Care Team (Late st Contact Info) Description 03/23/2024 3:45 PM EDT Office Visit Dermatology at [address] [phone] Rush Mcmillan MD [address] [place] [address], [place] [address] 04/27/2024 3:30 PM EST Office Visit Dermatology at [address] [phone] Rush Mcmillan MD [address] [place] [address] documented as of this encounter Visit Diagnoses Diagnosis History of atypical nevus Personal history of diseases of skin and subcutaneous tissue Nevus Benign neoplasm of skin, site unspecified documented in this encounter Care Teams Press Puller Relationship Specialty Start Date End Date Drew Marina MD [address] [place] [address] PCP - General 05/09/10 07/17/23 documented as of this encounter
--- OUTSIDE RECORDS SUMMARY | 2024-01-23 21:28 | XMS_ITS | Encounter Summary ---
Author Organization [facility] Address [facility] [place] [address] Care Team Providers Care Stadium Manager Name Role Phone Drew Marina MD Primary Care Provider [phone] Encounter Details Date Type Department Care Team (Late st Contact Info) Description 02/02/2022 8:00 AM EDT Office Visit Dermatology at [address] [place] [address] Rush Mcmillan MD [address] [facility] [address] History of atypical nevus; Nevus Social History Tobacco Use Types Packs/Day Years Used Date Smoking Tobacco: Never Smokeless Tobacco: Never Sex and Gender Information Value Date Recorded Sex Assigned at Not on file Gender Identity Not on file Sexual Orientation Not on file documented as of this encounter Progress Notes * Rush Mcmillan MD - 02/02/2022 8:00 AM EDT Problem: 1. Skin lesion of concern 2. History of atypical nevus left lower back excised in [place] Jacoby follows up and is now 81. He recently developed an itchy area on the right upper anterior chest.. In particular there is one on the right upper chest that looked like a dime sized pigmented area but became itchy. He had some leftover 5-FU from a [facility] dermatology visit some 6 or 7 years ago, and he apply that to the site on for a day or 2. He also is concerned about some mild itching in the inguinal folds. He wonders about a dark spot on the nasal tip. The follicular cyst site treated on the right flank in June has healed well, but there is a small comedone present at the site. Patient is quite happy with the improvement and results. Physical examination reveals erythematous scaling 2 x 2 cm patch on the right upper anterior chest.Differential could include a partially treated seborrheic keratosis versus possible Damon's disease. He has some telangiectatic rosacea over the nose, examination of the face the neck the chest the back the hands on forearms thighs and calves is otherwise benign. Assessment plan: Irritated seborrheic keratosis, right upper chest, doubt Damon's disease 1. LN 2 x 2 applied to site 2. If the site does not resolve, return to clinic for repeat check and possible biopsy. Telangiectatic rosacea, nose 1. Not symptomatic or bothersome to patient 2. Continue to follow Intertrigo, inguinal folds, mild 1. Patient gets 2 to 3 days of relief with use of antifungal cream 2. Recommended trial of 1% hydrocortisone cream, and I would recommend switching to boxer shorts asopposed to wearing briefs CC: Drew Marina MD documented in this encounter Plan of Treatment Upcoming Encounters Date Type Department Care Team (Late st Contact Info) Description 03/23/2024 3:45 PM EDT Office Visit Dermatology at [address] [phone] Rush Mcmillan MD [address] [place] [address] 04/27/2024 3:30 PM EST Office Visit Dermatology at [address] [phone] Rush Mcmillan MD [address] [place] [address] documented as of this encounter Visit Diagnoses Diagnosis History of atypical nevus Personal history of diseases of skin and subcutaneous tissue Nevus Benign neoplasm of skin, site unspecified documented in this encounter Care Teams Stadium Manager Relationship Specialty Start Date End Date Drew Marina MD [address] [place] [address] PCP - General 05/09/10 07/17/23 documented as of this encounter
--- OUTSIDE RECORDS SUMMARY | 2024-01-23 21:28 | XMS_ITS | Encounter Summary ---
Author Organization 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 [employer] Name Role Phone Drew Marina MD Primary Care Provider [phone] Encounter Details Date Type Department Care Team (Late st Contact Info) Description 11/21/2015 8:42 EDT - 11/21/2015 15:30 EDT Hospital Encounter [facility] Perioperative Services- [address] [address] Juan Carlos Hubbard MD [address] [facility], [address] [place] [phone] Venous insufficiency of both lower extremities (Primary Dx) Discharge Disposition: Home or Self Care Social History Tobacco Use Types Packs/Day Years [...] Sign Reading Time Taken Comments Blood Pressure 108/67 11/21/2015 1501 EDT Pulse - - Temperature 35.7 ??C (96.3 ??F) 11/21/2015 1501 EDT p re op 35.6 Respiratory Rate 11 11/21/2015 1501 EDT Oxygen Saturation 98% 11/21/2015 1501 EDT Inhaled Oxygen Concentration - - Weight 84.8 kg (187 lb) 11/17/2015 1612 EDT Height 180.3 cm (5' 10.98) 11/17/2015 1612 EDT Body Mass Index 26.09 11/17/2015 1612 EDT documented in this encounter Functional Status [...] Diagnoses Diagnosis I87.2 Venous insufficiency (chronic) (peripheral)-I87.2[ICD-10-CM] I83.891 Varicose veins of r low extrem with other complications-I83.891[ICD-10-CM] Z79.82 long term acute care registered nurse (current) use of aspirin-Z79.82[ICD-10-CM] documented in this encounter Discharge Instructions * Discharge Instructions* Matias Reyes MD - 11/21/2015 13:21 EDT Discharge Instructions Following Varicose Vein Surgery of the Lower Extremity *IT IS ESSENTIAL TO MAINTAIN A MODERATE LEVEL OF ACTIVITY THROUGHOUT THE DAY OF SURGERY TO PROMOTE BLOOD FLOW TO THE GOOD VEINS. ACTIVITY ??? Walking for a minimum of 2-3 minutes every half hour will reduce the risk of forming blood clots. This walking regimen should be maintained until bedtime. ??? You do not have to walk at night. ??? Resumption of normal everyday activities should begin the following morning. All vigorous activities (aerobics, hiking, gardening, skiing, yoga, etc.) that involve intense sweating, stretching the leg, or the potential for getting the incisions dirty, should be avoided for 3 days. ??? Showering in the first two days is permitted. However, this should be done with a plastic bag taped securely to your leg, over your dressings, to protect your leg from getting wet. Or you may take a sponge bath for the first two days. ??? Most patients are back to work within 3-4 business days but some require as much as a week???s time to recover. Time away from work is difficult to predict and is dependent upon the type of job and an individual???s response to surgery. DRESSINGS ??? Leave stocking and all dressings intact for two days following surgery. ??? Remove the gauze dressings or Band Aids two days after your surgery. ??? Band-Aids may be changed if they become stained. ??? Steri-strips should stay on until they start to peel off. If they remain longer than one week following the procedure you may take them off. It is more comfortable to take dressings off during a shower. INCISIONS ??? It is normal to experience some tenderness and possibly bruising along the incisions. ??? If you have bleeding from an incision, apply direct pressure over the wound and elevate your leg above the level of your heart (toes at the level of your nose). The bleeding should stop after several minutes. PAIN MEDICATION Most patients do require some pain medication the night following the surgery but this is variable.You will be sent home with prescription pain medication but Tylenol or Advil may be all that is needed. Return unused narcotics to your pharmacy. *CALL YOUR PHYSICIAN IF YOU EXEPERIENCE ANY OF THE FOLLOWING: - Prolonged tenderness, redness, drainage or warmth along the treated segment - Moderate to severe pain preventing return to normal activities - Shortness of Breath - Swelling in the treated limb - Persistent bleeding from an incision *FOLLOW-UP IN THE OFFICE DIRECTED Vascular Clinic 5th floor [facility], [facility] . Our clinic offices are open for your questions from 9am-5pm daily Saturday-Saturday. Emergencies can becalled in to the covering physician during off hours. documented in this encounter Medications at Time of Discharge Medication Sig Dispensed Refills Start Date End Date acetaminophen (TYLENOL) 500 mg tablet Take 2 Tabs by mouth every 6 hours as needed for Pain or Fever (Fever especially in neuro patients). 11/21/2015 aspirin chewable 81 mg tablet Take 81 mg by mouth daily. Usually cholecalciferol, Vitamin D3, 1,000 unit tablet Take 1,000 Units by mouth daily. DOCOSAHEXANOIC ACID/EPA (FISH OIL ORAL) Take 1,500 mg by mouth. flaxseed oil 1,000 mg capsule capsule Take 1,500 mg by mouth daily. Multivitamins with Minerals tablet tablet Take 1 Tab by mouth daily. NONFORMULARY 2 Caps daily. Tumeric sildenafil citrate (VIAGRA) 100 mg tablet Take 100 mg by mouth as needed for Erectile Dysfunction. HYDROmorphone (DILAUDID) 2 mg tablet Take 1-2 Tabs by mouth every 3 hours as needed for Pain. Daily Max: 32 mg 15 Tab 0 11/21/2015 11/29/2015 documented as of this encounter Ordered Prescriptions Prescription Sig Dispensed Refills Start Date End Da te acetaminophen (TYLENOL) 500 mg tablet Take 2 Tabs by mouth every 6 hours as needed for Pain or Fever (Fever especially in neuro patients). 11/21/2015 HYDROmorphone (DILAUDID) 2 mg tablet Take 1-2 Tabs by mouth every 3 hours as needed for Pain. Daily Max: 32 mg 15 Tab 0 11/21/2015 11/29/2015 documented in this encounter Discharge Disposition Disposition Code Departure Means Destination Home or Self Care documented in this encounter Progress Notes * Bria Yates RN - 11/20/2015 1125 EDT Jacoby Nguyen has been instructed as follows regarding medication administration for the day of the scheduled procedure. Date of Surgery: 11/21/15 Instructions for Taking Medications Day of Surgery Medication Sig Last Dose Hold DOS Take DOS aspirin chewable 81 mg tablet Take 81 mg by mouth daily. Usually y cholecalciferol, Vitamin D3, 1,000 unit tablet Take 2,000 Units by mouth daily. 11/18/15 y DOCOSAHEXANOIC ACID/EPA (FISH OIL ORAL) Take 1,500 mg by mouth. 11/18/15 y flaxseed oil 1,000 mg capsule capsule Take 1,500 mg by mouth daily. 11/18/15 y Multivitamins with Minerals tablet tablet Take 1 Tab by mouth daily. 11/18/15 y NONFORMULARY 2 Caps daily. Tumeric 11/18/15 y sildenafil citrate (VIAGRA) 100 mg tablet Take 100 mg by mouth as needed for Erectile Dysfunction. y documented in this encounter H&P Notes * Juan Carlos Hubbard MD - 11/21/2015 1016 EDT The preoperative history and physical which was performed within 30 days of this procedure has been reviewed and the clinically appropriate elements of the physical examination have been repeated. There are no changes to the documented history and physical or if so such changes are documented below Juan Carlos Hubbard MD 11/21/2015 10:16 Source Note - Kristi Corrales NP - 10/25/2015 11:19 EDT [facility] Vascular Surgery H & P Visit [...] this visit. History was documented as follows: H PS Past Medical History Diagnosis Date ??? Venous insufficiency of both lower extremities Past Surgical History Procedure Laterality Date ??? Hemorrhoid surgery ??? Vascular surgery Left 10/17/15 RFA and stabs Social History Family History Living situation: , lives at [facility] CAD no AAA no History Substance [...] ulcers. Labs drawn on: NA CXR from: Blood Bank if applicable: Stress test if [...] Cefazolin Patient to obtain new compression stockings Michelle Jarquin will submit for insurance approval for left knee stab ligations. Submitted by: Kristi Corrales NP documented in this encounter OR Notes * OR Surgeon - Juan Carlos Hubbard MD - 11/21/2015 5121 EDT OPERATIVE REPORT SERVICE DATE: 11/21/2015 PREOPERATIVE DIAGNOSIS: Chronic right leg venous insufficiency with symptomatic varicose veins. POSTOPERATIVE DIAGNOSIS: Chronic right leg venous insufficiency with symptomatic varicose veins. PROCEDURE: Ablation of the greater saphenous vein using radiofrequency. Ligation of the short saphenous vein at the saphenofemoral junction and stab ligation of varices, total of 17 incisions. SURGEON: Juan Carlos Hubbard MD MAINFRAME SYSTEMS ADMINISTRATOR: Matias Crowley MD INDICATIONS: Mr Nguyen has had bilateral symptomatic varicose veins. He has had ablation and stab ligation on the left side already with good results. On the right side, he has had a dilated greater saphenous vein with significant reflux, very dilated short saphenous vein as well as large side branch varices. Because of this, he is brought in for ablation and stab ligation of the short. NARRATIVE: In the operating room under general anesthesia, his right leg was prepped and draped in a sterile manner. We started ultrasounding the vein. We could see the saphenous vein is quite dilated throughout. We entered the vein at the level of the knee, and with Seldinger technique, a 7-Frenchintroducer was placed into the vein. We then used a 7-Korean 60 cm ClosureFAST catheter, which was placed about 2 to 3 cm proximal to the saphenofemoral junction. This was done with ultrasound guidance. The position of the catheter was marked. We then did tumescence using saline. We then ablated the vein in the usual fashion throughout its length. We then ultrasounded the leg again and we could see the deep vein was intact with no clot and the saphenous vein has significant wall thickening and no flow. We then removed the sheath and the catheter and the vein was brought out at that level, divided between clamps and ligated with 3-0 Vicryl. We then made a small incision in the popliteal fossa. We dissected through the fascia. We identified the short saphenous vein, which is quite dilated. It was brought out, divided between clamps and then ligated with 2-0 silk. That incision was then closed with two 4-0 nylon sutures. We then did stab ligation of his multiple large varicosities. We used a leighton hook to bring the veins out, which were partly removed and then ligated with 3-0 Vicryl. Most of the incisions were closed with Steri-Strips. Some of the incisions were closed with nylon.Telfa, Tegaderm dressing and then DANNY stocking. He was stable during the procedure. Instrument and sponge count was correct. He did receive 2 g of cefazolin perioperatively. He was extubated in the operating room and transferred to the postanesthesia care unit in stable, good condition. I was present throughout the full length of the surgery. Unless otherwise noted, there were no complications, no blood loss, no cultures obtained, no specimens removed, and no drains retained. Juan Carlos Hubbard MD 01 19 PM / Juan Carlos Hubbard MD rn Confirmation: [id number] Dictation ID: [id number] documented in this encounter Miscellaneous Notes * Anesthesia Post-Eval - Tru Suazo MD - 11/22/2015 0855 EDT Post Anesthesia Evaluation Note Date of Service: 11/22/2015 Jacoby Nguyen, a 74 y.o. year old male has received General Anesthesia today. He has been evaluated, assessed and discharged from anesthesia care with stable cardiorespiratory function and alert mentalstatus. The last set of recorded vital signs and pain rating were reviewed: Temp: 35.7 ??C (96.3 ??F) (pre op 35.6), Heart Rate: 53 BPM, BP: 108/67 mmHg, Resp: 11, SpO2: 98 %,Numeric Pain Level (Scale 1-10): 3 Jacoby Nguyen participated in this evaluation unless otherwise noted. His pain, nausea and vomiting have been managed and his body temperature and fluid balance have been restored. Additional monitoring and assessment needs have been addressed. If present, any postoperative events are documented below. Tru Suazo MD 11/22/2015 8:55 * Brief Op Note - Matias Reyes MD - 11/21/2015 1319 EDT Brief Post-Op Note Date of Surgery: 11/21/2015 Surgeon: Juan Carlos Hubbard MD Assistants: Matias Reyes MD Pre-Op Diagnosis: venous insufficiency Post-Op Diagnosis: same Procedure(s): RFA stab ligations GSV right leg Findings: venous insufficiency Anesthesia Type: General Estimated Blood Loss: Unless otherwise noted, there was no blood loss, specimens removed, cultures obtained, or drains retained. The estimated blood loss was less than 100 mL Specimens/Cultures: None Drains/Packs: None Complications: None Disposition and Condition: Jacoby Nguyen was sent to PACU in Good condition. Matias Reyes MD 11/21/2015 13:19 documented in this encounter Plan of Treatment Not on file documented as of this encounter Procedures Procedure Name Priority Date/Time Associated Diagnosis Comments ECG REPORT - SCANNED 11/23/2015 15:13 EDT documented in this encounter Results * ECG REPORT - SCANNED (11/23/2015 15:13 EDT) 11/23/2015 15:1 3 EDT Scan 2 Physician General Practice PROCEDURE/MINOR GERRY GICAL ORDERABLES documented in this encounter Visit Diagnoses Diagnosis Venous insufficiency of both lower extremities- Primary Venous insufficiency of both lower extremities documented in this encounter Administered Medications Inactive Administered Medications - up to 3 most recent administrations Medication Order MAR Action Action Date Dose Rate Site acetaminophen (TYLENOL) tablet 1,000 mg 1,000 mg, oral, PRN, 2 doses, Starting on Sat11/21/15 at 1306, Until Sat11/21/15 at 1829, Pain, Fever, Fever especially in neuro patients, Routine, Recovery (only) Given 11/21/2015 15:03 EDT 1,000 mg ceFAZolin (ANCEF) syringe 2 g 2 g, intravenous, Administer over 10 Minutes, PRE-OP ONCE, 1 dose, On Sat11/21/15 at 0930, Routine, Pre-Op DOS Rx Approved Given by Other 11/21/2015 11:34 EDT 2 g chlorhexidine gluconate 2 % cloth 1 Each 1 Each, topical, PRE-OP ONCE, 1 dose, On Sat11/21/15 at 0930, Routine, Pre-Op DOS Rx Approved Given 11/21/2015 9:32 EDT 1 Each lactated ringers (LR) infusion at 30 mL/hr, intravenous, CONTINUOUS, Starting on Sat11/21/15 at 0930, Until Sat11/21/15 at 1829, Routine, Pre-Op DOS Rx Approved New Bag 11/21/2015 9:38 EDT 30 mL/hr documented in this encounter Active and Recently Administered Medications Times are shown in EDT. Scheduled Medication Order 11/19/2015 11/20/2015 11/21/2015 ceFAZolin (ANCEF) syringe 2 g (COMPLETED) 2 g, intravenous, Administer over 10 Minutes, PRE-OP ONCE, 1 dose, On Sat11/21/15 at 0930, Routine, Pre-Op DOS Rx Approved 1134 (Given by Other - Provider: Belinda Whittington RN - Comment: given by Fany Arvizu MD) chlorhexidine gluconate 2 % cloth 1 Each (COMPLETED) 1 Each, topical, PRE-OP ONCE, 1 dose, On Sat11/21/15 at 0930, Routine, Pre-Op DOS Rx Approved 0932 (Given - Provid er: Claire Chapman RN) Continuous Medication Order 11/19/2015 11/20/2015 11/21/2015 lactated ringers (LR) infusion (CANCELED) at 30 mL/hr, intravenous, CONTINUOUS, Starting on 11/21/15 at 0930, Until Sat11/21/15 at 1829, Routine, Pre-Op DOS Rx Approved 0938 (New Bag - Prov ider: Claire Chapman RN)1345 (Completed - Provider: Angelique Hyde RN) PRN Medication Order 11/19/2015 11/20/2015 11/21/2015 acetaminophen (TYLENOL) tablet 1,000 mg 1,000 mg, oral, PRN, 2 doses, Starting on Sat11/21/15 at 1306, Until Sat11/21/15 at 1829, Pain, Fever, Fever especially in neuro patients, Routine, Recovery (only) 1503 (Given - Provid er: Claudine Arceo RN) documented in this encounter Orders Medications Ordered That Mandeep ht Not Have Been Administered Count Last Ordered Date First Ordered Date atropine 0.1 mg/mL syringe 0.5 mg 1 016 diphenhydrAMINE (BENADRYL) i njection 6.25 mg 1 11/21/2015 HYDROmorphone (PF) (DILAUDID ) 1 mg/mL injection 0.2-1 mg 1 11/21/2015 lactated ringers (LR) infusion 1 11/21/2015 metoCLOPramide (REGLAN) injection 10 mg 1 0 11/21/2015 nalOXone (NARCAN) injection 0.2 mg 1 2015 ondansetron (PF) (ZOFRAN) injection 2 mg 1 11/21/2015 oxyCODONE (ROXICODONE) immed iate release tablet 5-10 mg 1 11/21/2015 Admission Count Last Ordered Date First Orde red Date STATUS: OUTPATIENT SURGICAL OP BED/SERVICES 1 11/21/2015 Transfer Count Last Ordered Date First Orde red Date NOTIFY PPS PACU PATIENT DISCHARGE 1 016 NOTIFY PPS PATIENT ARRIVAL IN PACU 1 2015 Discharge Count Last Ordered Date First Orde red Date DISCHARGE PATIENT 1 11/21/2015 documented in this encounter Care Teams Laborer Wood Preserving Plant Relationship Specialty Start Date End Date Drew Marina MD [address] [place] [address] PCP - General 03/24/13 documented as of this encounter
--- OUTSIDE RECORDS SUMMARY | 2024-01-23 21:28 | XMS_ITS | Encounter Summary ---
Author Organization [facility] Address [facility] [address] Care Team Providers Care Sap Bods Developer Name Role Phone Guanako Godwin MD Primary Care Provider [phone] Reason for Visit * Reason Comments Suture / Staple Removal Encounter Details Date Type Department Care Team (Late st Contact Info) Description 08/01/2023 8:00 AM EST Office Visit Dermatology at [address] [place] [phone] Rush Mcmillan MD [address] [facility] D[facility] [place], [place] [id number] Balanitis xerotica obliterans; Nevus Social History Tobacco Use Types Packs/Day Years Used Date Smoking Tobacco: Never Smokeless Tobacco: Never Sex and Gender Information Value Date Recorded Sex Assigned at Not on file Gender Identity Not on file Sexual Orientation Not on file documented as of this encounter Progress Notes * Rush Mcmillan MD - 08/01/2023 8:00 AM EST Problem: 1. Follow-up for suture removal biopsy results 2. 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 Unfortunately do not yet have the biopsy results back. He continues to have erythema, burning and stinging preventing intercourse of the inferior distal shaft of the penis with hypopigmentation of the glans penis. He will wonders about removal of the mole below his left lateral eye. Physical examination shows good healing right lateral arm punch biopsy site.. The penile examination is unchanged. He has a 5 mm ovoid symmetric evenly pigmented junctional nevus of longstanding below his left lateral eye. Assessment plan: Rule out SCC versus BCC right lateral arm 1. Suture removed 2. Await biopsy results 3. We will contact patient with results when these are available 4. Further treatment to be based on biopsy results. 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 Resume clobetasol cream once daily for another week and then use once weekly 2. Would recommend return visit in a month to check on this. Junctional melanocytic nevus left lateral eye 1. Patient reassured 2. No treatment necessary CC: Guanako Godwin MD documented in this encounter Plan of Treatment Upcoming Encounters Date Type Department Care Team (Late st Contact Info) Description 03/23/2024 3:45 PM EDT Office Visit Dermatology at [address] [phone] Rush Mcmillan MD [address] [place] [id number] 04/27/2024 3:30 PM EST Office Visit Dermatology at [address] [phone] Rush Mcmillan MD [address] [place] [phone] documented as of this encounter Visit Diagnoses Diagnosis Balanitis xerotica obliterans Nevus Benign neoplasm of skin, site unspecified documented in this encounter Care Teams Sap Bods Developer Relationship Specialty Start Date End Date Guanako Godwin MD [address] [place] [address] PCP - General Family Medicine 07/18/23 10/24/23 documented as of this encounter
--- OUTSIDE RECORDS SUMMARY | 2024-01-23 21:28 | XMS_ITS | Encounter Summary ---
Author Organization [facility] Address [address] [place] [address] Care Team Providers Care Singe Winder Name Role Phone Drew Marina MD Primary Care Provider [phone] Reason for Visit * Reason Comments Skin Exam Spot Check- back, it carlton Encounter Details Date Type Department Care Team (Late st Contact Info) Description 03/22/2017 15:30 EDT Office Visit [facility] Dermatology 5th Floor [address] [address] Nishant Hassan PA-C [address] [facility], [address] [place] [address] Actinic keratosis (Primary Dx); Prurigo nodularis; Notalgia paresthetica Discharge Disposition: Auto Discharge Social History Tobacco [...] as of this encounter Discharge Diagnoses Diagnosis L57.0 Actinic keratosis-L57.0[ICD-10-CM] L28.1 Prurigo nodularis-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 Apply small amount of the 5-FU cream to shaded areas, bedtime for 3-4 wks, or until it runs out. Will need dime-sized amount approximately to cover all areas, may need less than that. (Apply just as you would sunscreen.) DIRECTIONS FOR USING TOPICAL 5-FLUOROURACIL FOR ACTINIC KERATOSES Actinic keratoses are the result of sun damage and are visible as rough, red martinez on the skin. Carac??? or Efudex??? (5-fluorouracil) is chemotherapy which kills the precancerous cells. The medication is safe as prescribed. Do not use if you are , trying to become , or nursing. 1. Apply the fluorouracil at night before bed unless otherwise directed. Wash the area that will beapplied and wait 10 minutes. Apply nothing 2 hours before or after treatment. 2. Apply a thin layer of cream to the affected areas and rub in well as instructed by your practitioner. If you can see it on your skin, you???ve put on too much. Do not apply to eyelids. Do not spottreat unless directed. 3. Wash your hands after applying. 4. EXPECT THE FOLLOWING WITHIN A FEW DAYS OF STARTING TREATMENT: ??? Redness ??? Irritation ??? Crusting ??? Oozing ??? Discomfort These reactions are normal. Continue application as directed. 5. If you have discomfort you may try any of the following: ??? Apply cool wet compresses for 10 minutes several times a day. ??? Apply petroleum jelly or Aquaphor as needed ??? Hydrocortisone 1% ointment (available without a prescription) can also be used once or twice a day. ??? Your doctor may also give you a prescription for a stronger cortisone cream. ??? Take ibuprofen or acetaminophen if needed. 6. Minimize sun exposure to the treated areas during and for at least 1 month following treatment. 7. After completing treatment it will take several weeks for the treated area(s) to return to normal. You can conceal the redness with makeup. Redness or discoloration can persist for several months. CONTACT THE OFFICE AT or IF YOU DEVELOP ANY OF THE FOLLOWING: ?? Pus ?? Blisters ?? Fever or chills ?? Excessive pain For itching on back - you have a common condition called Notalgia paresthetica - here are a few good xtuf-ili-tzqjhfk treatments: A.) Buy Hydrocortisone cream 1% and Pramoxine cream 1% (common hemorrhoid treatment,) mix 50/50 andapply to involved areas of back twice daily. B.) You can also try OTC capsaicin 0.75% cream, which is available in the pain section at the pharmacy. documented in this encounter Discharge Disposition Disposition Code Departure Means Destination Auto Discharge documented in this encounter Progress Notes * Kyle Zakiya - 03/22/2017 1530 EDT Review of Systems Constitutional: Negative for fatigue, fever and unexpected weight change. HENT: Negative for mouth sores. Eyes: Negative for pain. Respiratory: Negative for cough and shortness of breath. Cardiovascular: Negative for chest pain and palpitations. Gastrointestinal: Negative for abdominal pain, blood in stool, constipation, diarrhea, nausea and vomiting. Genitourinary: Positive for frequency. Negative for dysuria and hematuria. Musculoskeletal: Negative for myalgias, joint swelling, arthralgias and muscle stiffness in the morning. Skin: Negative for rash. Neurological: Negative for numbness and headaches. Endo/Heme/Allergies: Does not bruise/bleed easily. Psychiatric/Behavioral: Positive for sleep disturbance. The patient is not nervous/anxious. Zakiya Wright 03/22/2017 15:31 Reviewed Nishant Hassan PA-C 03/22/2017 * Nishant Hassan PA-C - 03/22/2017 1530 EDT Images from the original note were not included. Chief Complaint Patient presents with ??? Skin Exam Spot Check- back, itchy Subjective: Presents today for further evaluation and treatment of itchy area on back. Characterized by recurrent itchy spot on left upper back, just below left shoulder blade. Tends to itch most at night, especially when he gets up at night to urinate. Tends to rub back up against objects, door frames/etc to relieve the itch. May have small scab just below left shoulder blade now secondary to this. Second issue is small, itchy pink bumps on right upper arm/posterior neck, which have been present for past few months. Notes that when he scratches them off, then tend to recur within a few days. Notreatment currently. Lesions on neck do bleed slightly after itching. /retired. Patient Active Problem List Diagnosis ??? Varicose veins of left lower extremity with pain ??? Venous insufficiency of both lower extremities ??? Actinic keratosis Past Medical History: Diagnosis Date ??? Basal cell carcinoma 06/2016 left back, excised ??? Venous insufficiency of both lower extremities Objective: Waist up Cutaneous Exam On physical examination, in general, Mr. Nguyen is a male who presents well- groomed, well-nourished and appears stated age. He is alert and oriented to person, place and time. He has Segundo type IIskin. On cutaneous examination of the head, including the scalp and face, neck, back, chest, including breasts and axillae, abdomen, intertriginous areas, and upper extremities were examined. The examination was normal with the addition of the following comments: Lesion A: Location: Preauricular areas, lateral sides of neck, L > R in all areas Lesion Color: whitish, pink, brown Lesion Type: macules Lesion Description: Gritty, keratotic texture on palpation. Well-defined. Numerous, and many lesions are lightly excoriated. Lesion B: Location: Posterior neck x 2; right upper arm x 1 Lesion Color: pink, hyperpigmented Lesion Type: nodule(s) Lesion Description: Characterized by 3, monomorphic, excoriated/lichenified lesions ranging 3-4 mm diameter. Lesion C: Location: back - just below right scapula Lesion Color: cox Lesion Type: Scab crust, 3 mm diameter Lesion Description: consistent with light to moderate excoriation - No primary dermatologic processin evidence on today's exam. A/P: 1.) Actinic keratosis, preauricular areas/neck. PLAN: Etiology, treatment and expectations for treatment of Actinic keratosis were reviewed at length today. Given widespread/diffuse nature of problem, topical treatment is recommended, as would be the most efficacious option. Risks/benefits of therapy were reviewed. In this case, still has 1/2 to 1/3 of a tube of 5-FU 5% cream leftover from prior RX, and so we agreed he will treat these areas with topical 5-FU cream - apply thin layer to affected areas nightly x3-4 weeks as tolerated. Apply to these areas: 2.) Prurigo nodularis, neck/right upper arm. PLAN: Etiology, treatment and expectations for treatment of Prurigo Nodularis were reviewed at length today. Emphasized importance of breaking the itch/scratch cycle. Explained that disorder is perpetuated by scratching and therefore it is essential thatthis behavior be modified if disease is to improve. He will start with avoidance of scratching. If that doesn't work in a few weeks, he will call here and I will RX small tube high-potency topical steroid. Will hold Intralesional Kenalog Injection in reserve. 3.) Notalgia paresthetica, right upper back. PLAN: Etiology, treatment and expectations for treatment of Notalgia paresthetica were reviewed at length today. Emphasized that this is a chronic, age-related condition whose underlying etiology is likely degenerative changes to cutaneous nerves. Best options for treatment are topical steroids, emollients and gentle use of back-scratchers. If becomes a serious problem, referral to neurology could be considered. Several jtid-ujt-ylfuxrt treatments were reviewed - see patient instructions in AVS for specific details on these instructions from today's visit. Follow up here in 6-8 months as scheduled, sooner if needed. 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
--- OUTSIDE RECORDS SUMMARY | 2024-01-23 21:28 | XMS_ITS | Encounter Summary ---
Author Organization [facility] Address [address] [place] [address] Care Team Providers Care Blue Split Trimmer Name Role Phone Drew Marina MD Primary Care Provider [phone] Reason for Visit * Reason Onset Date Comments Appointment Related 10/14/2015 OR reminder call Encounter Details Date Type Department Care Team (Late st Contact Info) Description 10/14/2015 Telephone [facility] Vascular Surgery - [address] [address] Juan Carlos Hubbard MD [address] [facility], [address] [place] [address] Appointment Related (OR reminder call) Social History Tobacco Use Types Packs/Day Years [...] No 10/11/2015 documented as of this encounter Miscellaneous Notes * Telephone Encounter - Osiris Myles - 10/14/2015 1600 EDT Surgery reminder call Spoke to the patient You are having surgery with Dr. Hubbard Your surgery date is Saturday October 17, 2015 At the [facility] campus Please check in at 6:00am at registration. You can not have any solid food or dairy products after midnight, but you may have clear liquids until 3:25am. After 3:25am you may only have the medications you discussed taking during your Anesthesia phone call with sips of water. You must have a reach lift truck driver with you the day of surgery. If you are having varicose vein surgery please refrain from shaving prior to your procedure. Have you had any changes to your health recently, a cough, cold, fever or rash? no. Thank you for your time documented in this encounter Plan of Treatment Not on file documented as of this encounter Visit Diagnoses Not on filedocumented in this encounter Care Teams Blue Split Trimmer Relationship Specialty Start Date End Date Drew Marina MD [address] [place] [address] PCP - General 03/24/13 documented as of this encounter
--- OUTSIDE RECORDS SUMMARY | 2024-01-23 21:28 | XMS_ITS | Encounter Summary ---
Author Organization [facility] [place] [address] Care Team Providers Care Rod Piler Name Role Phone Guanako Godwin MD Primary Care Provider [phone] Encounter Details Date Type Department Care Team (Late st Contact Info) Description 10/10/2023 Abstract Cardiology at [address] [address] Flor Mancuso, RN Social History Tobacco Use Types Packs/Day Years Used Date Smoking Tobacco: Never Smokeless Tobacco: Never Tobacco Cessation:Counseling Given: Not Answered Sex and Gender Information Value Date Recorded Sex Assigned at Not on file Gender Identity Not on file Sexual Orientation Not on file documented as of this encounter Plan of Treatment Upcoming Encounters Date Type Department Care Team (Late st Contact Info) Description 03/23/2024 3:45 PM EDT Office Visit Dermatology at [address] [address] Rush Mcmillan MD [address] [place] [phone] 04/27/2024 3:30 PM EST Office Visit Dermatology at [address] [address] Rush Mcmillan MD [address] [place] [address] [phone] documented as of this encounter Visit Diagnoses Not on filedocumented in this encounter Care Teams Rod Piler Relationship Specialty Start Date End Date Guanako Godwin MD [address] [place] [address] PCP - General Family Medicine 07/18/23 10/24/23 documented as of this encounter
--- OUTSIDE RECORDS SUMMARY | 2024-01-23 21:28 | XMS_ITS | Encounter Summary ---
Author Organization [facility] Address [facility] [place] [address] Care Team Providers Care Asphalt Tile Floor Layer Name Role Phone Patrica Godfrey MD Primary Care Provider [phone] Reason for Visit * Reason Comments Atrial Fibrillation Encounter Details Date Type Department Care Team (Late st Contact Info) Description 12/12/2023 8:20 AM EDT Office Visit Cardiology at [address] [phone] Rolando Lomas MD [facility] [place] [address] [place] [address] Persistent atrial fibrillation Social History Tobacco Use Types Packs/Day Years Used Date Smoking Tobacco: Never Smokeless Tobacco: Never Sex and Gender Information Value Date Recorded Sex Assigned at Not on file Gender Identity Not on file Sexual Orientation Not on file documented as of this encounter Last Filed Vital Signs Vital Sign Reading Time Taken Comments Blood Pressure 120/78 12/12/2023 8:24 AM EDT Pulse 66 12/12/2023 8:24 AM EDT Temperature - - Respiratory Rate - - Oxygen Saturation - - Inhaled Oxygen Concentration - - Weight 86.2 kg (190 lb) 12/12/2023 8:24 AM EDT Height 182.2 cm (5' 11.75) 12/12/2023 8:24 AM E DT Body Mass Index 25.95 12/12/2023 8:24 AM EDT documented in this encounter Progress Notes * Rolando Lomas MD - 12/12/2023 8:20 AM EDT Images from the original note were not included. CARDIOLOGY NEW OUTPATIENT PRIMARY CARE PROVIDER: Patrica Godfrey MD PROBLEM LIST: Patient Active Problem List Diagnosis Atrial fibrillation Pulmonary nodule Elevated blood pressure reading Erectile dysfunction Problem Code: N52.9; Problem Code Type: ICD-10; Low back pain Problem Code: M54.5; Problem Code Type: ICD-10; Problem Code: M54.5; Problem Code Type: ICD-10; History of malignant neoplasm of skin BCC Insomnia mild Problem Code: G47.00; Problem Code Type: ICD-10; Fatigue Problem Code: R53.83; Problem Code Type: ICD-10; Varicose veins of left lower extremity with pain Problem Code: I83.90; Problem Code Type: ICD-10; Benign neoplasm of colon Problem Code: 211.3; Problem Code Type: ICD-9; Actinic keratosis Problem Code: L57.0; Problem Code Type: ICD-10; Dermatofibroma Sciatica Lower urinary tract symptoms due to benign prostatic hyperplasia Problem Code: N40.1; Problem Code Type: ICD-10; Hemorrhoids Benign prostatic hyperplasia Problem Code: N40.0; Problem Code Type: ICD-10; MEDICATIONS: Current Outpatient Medications Medication Instructions clobetasoL (Temovate) 0.05 % Cream APPLY SPARINGLY TO AFFECTED AREA(S) TWO TIMES A DAY rivaroxaban (Xarelto) 20 mg tablet 1 tablet, Oral, DAILY tadalafiL (Cialis) 20 mg tablet TAKE ONE TABLET BY MOUTH EVERY 3 DAYS NEEDED 30 TO 60 MINUTES BEFORE SEXUAL ACTIVITY Subjective: Patient ID: Jacoby Nguyen is a 82 y.o. male. HPI: 82 m presents on referral from GP for atrial fibrillation. 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 He was sugaring with his son this spring when he noticed that he couldn't do my typical 8 hours of work; just 3.5 because he became dyspneic. No angina, LH. Otherwise, excellent physical activity is without exertional encumbrance. When this was brought to his GP's attention, an EKG was obtained which demonstrated new rate controlled atrial fibrillation. He was appropriately started on OAC, of which he has no bleeding issues on Objective: Patient Vitals for the past 24 hrs: Pulse BP 12/12/23 0824 66 120/78 Gen: pleasant male in NAD Cor: irr, s1/s2 of nl character and amplitude, no pathologic m/r/g. Estimated RAP not elevated. Carotids without bruit. Pulm: CTAB. Normal diaphragmatic movement without use of accessory muscles EKG: afib 66 TTE: 10/2023: unremarkable aside from mild-moderate bi-atrial dilatation. Assessment and Plan: Atrial fibrillation He certainly may have mild symptoms attributalbe, but he finds that unless he does very significantactivity he has no limitations. We had an excellent discussion about rhythm strategy, and because a) it is likely that he'd go back into afib based on demographics and b) he does not wish for additional medications if he does not need them, he reasonably selected expectant management. - Strategy: rate. Continue not on AVNB - OAC: xarelto 20 qpm - Reversible Causes: none identified RTC PRN Rolando Lomas MD documented in this encounter Miscellaneous Notes * Assessment & Plan Note - Rolando Lomas MD - 12/12/2023 8:57 AM EDT Associated Problem(s): Atrial fibrillation He certainly may have mild symptoms attributalbe, but he finds that unless he does very significantactivity he has no limitations. We had an excellent discussion about rhythm strategy, and because a) it is likely that he'd go back into afib based on demographics and b) he does not wish for additional medications if he does not need them, he reasonably selected expectant management. - Strategy: rate. Continue not on AVNB - OAC: xarelto 20 qpm - Reversible Causes: none identified documented in this encounter Plan of Treatment Upcoming Encounters Date Type Department Care Team (Late st Contact Info) Description 03/23/2024 3:45 PM EDT Office Visit [place]erm[place]ology [place] [address] [facility] [place] [address] Rush Mcmillna MD [address], [place] [address] 04/27/2024 3:30 PM EST Office Visit Dermatology at [place] [address] [facility] [place] [phone] Rush Mcmillan MD [address] [facility], [place] [address] documented as of this encounter Visit Diagnoses Diagnosis Persistent atrial fibrillation Atrial fibrillation documented in this encounter Care Teams Asphalt Tile Floor Layer Relationship Specialty Start Date End Date Patrica Godfrey MD [address] [place] [address] PCP - General Family Medicine 10/25/23 documented as of this encounter
--- OUTSIDE RECORDS SUMMARY | 2024-01-23 21:28 | XMS_ITS | Encounter Summary ---
Author Organization Count Includes [facility] Address [facility] [place] [address] Care Team Providers Care Sash Assembler Name Role Phone Drew Marina MD Primary Care Provider [phone] Encounter Details Date Type Department Care Team (Late st Contact Info) Description 04/01/2014 Telephone Dermatology at [facility] [address] [place] [address] Nicolle Kurtz MD [facility] [address] [address] Social History Tobacco Use Types Packs/Day Years Used Date Smoking Tobacco: Never Sex and Gender Information Value Date Recorded Sex Assigned at Not on file Gender Identity Not on file Sexual Orientation Not on file documented as of this encounter Miscellaneous Notes * Telephone Encounter - Scott Restrepo LPN - 04/01/2014 2:56 PM EDT Call from patient who reports he has been using 5-FU since March 22 to his nose, cheeks and lower lip. Patient states he has discontinued this treatment to his nose due to intense redness and bleeding. He has continued to apply 5-FU to lower lip and cheek. Advised patient to continue applicationof Vaseline to nose until heals. Patient advised to call with additional questions or concerns. documented in this encounter Plan of Treatment Upcoming Encounters Date Type Department Care Team (Late st Contact Info) Description 03/23/2024 3:45 PM EDT Office Visit Dermatology at [address] [phone] Rush Mcmillan MD [address] [place] [address], [place] [address] 04/27/2024 3:30 PM EST Office Visit Dermatology at [address] [phone] Rush Mcmillan MD [address] [facility], [place] [address] documented as of this encounter Visit Diagnoses Not on filedocumented in this encounter Care Teams Sash Assembler Relationship Specialty Start Date End Date Drew Marina MD [address] [place] [id number] PCP - General 05/09/10 07/17/23 documented as of this encounter
--- OUTSIDE RECORDS SUMMARY | 2024-01-23 21:28 | XMS_ITS | Encounter Summary ---
Author Organization [facility] Address [address] [place] [address] Care Team Providers Care Compatibility Test Engineer Name Role Phone Drew Marina MD Primary Care Provider [phone] Reason for Referral * Vascular Lab (Routine) - Closed Specialty Diagnoses / Procedures [facility] To Contact Diagnoses Varicose veins Procedures VL VENOUS INSUFFICIENCY (VARICOSE VEINS) CADE Juan Carlos Hubbard MD [address] [place] [phone] Referral ID Status Reason Start Date Expiration Date Visits Re quested Visits Authorized [id number] Closed 08/23/2015 1 1 Reason for Visit * Reason Onset Date Comments Follow-up 08/23/2015 Encounter Details Date Type Department Care Team (Late st Contact Info) Description 08/23/2015 Orders Only [facility] Vascular Surgery - [address] [id number] Juan Carlos Hubbard MD [address] [place] [phone] Varicose veins (Primary Dx) Social History Tobacco Use Types Packs/Day Years Used Date Smoking Tobacco: Never Sex and Gender Information Value Date Recorded Sex Assigned at Not on file Gender Identity Not on file Sexual Orientation Not on file documented as of this encounter Plan of Treatment Not on file documented as of this encounter Procedures Procedure Name Priority Date/Time Associated Diagnosis Comments VL VENOUS INSUFFICIENCY (VARICOSE VEINS) CADE Routine 08/25/2015 11:41 EST Varicose veins documented in this encounter Results * VL VENOUS INSUFFICIENCY (VARICOSE VEINS) CADE (08/25/2015 11:41 EST) Anatomical Region Laterality Modality Other 08/25/2015 11:4 1 EST Narrative 08/26/2015 8:32 EST Vascular Diagnostic Laboratory [facility], [facility] [address] [place] [address] Technologist: Becky Torres IMPRESSIONS 1. Right lower extremity reflux in the deep veins, saphenofemoral junction, ?? great saphenous vein, short saphenous vein, vein of giacomini, and popliteal ?? tool design draftsperson. No reflux in the anterior saphenous vein. 2. Left lower extremity reflux in the common femoral vein, saphenofemoral ?? junction, great saphenous vein, and segmentally in the femoral vein. Reflux ?? noted in a proximal calf tool design draftsperson vein to the gastrocnemius vein. No reflux ?? in the short saphenous and anterior saphenous veins. 3. No evidence of deep or superficial vein thrombosis in the right lower ?? extremity or the left lower extremity. PROCEDURE: Bilateral lower extremity venous ultrasound; common femoral, femoral, popliteal, and superficial veins assessed for thrombosis and venous insufficiency. INDICATION: Varicose veins with pain and inflammation. HISTORY: Varicose veins of both lower extremities. RISK FACTORS: Family history VENOUS FLOW AND IMAGING: + + +------+ + Vein ? Sonographic findings ? Diam ?? Comments ? + + +------+ + Right CFV ? With reflux. ? + + +------+ + Right FV prox ? With reflux. ? + + +------+ + Right FV dist ? With reflux. ? + + +------+ + Right POP ? With reflux. ? + + +------+ + Right tool design draftsperson ? With reflux. ? 1.1cm ? popliteal ? + + +------+ + Right s-f junction ? With reflux. ? + + +------+ + Right GSV (thigh) prox ?? With reflux (> 2.0 sec). 0.61cm ? + + +------+ + Right GSV mid thigh ? With reflux (> 2.0 sec). 0.55cm ? + + +------+ + Right GSV knee ? With reflux (> 2.0 sec). 0.89cm ? + + +------+ + Right SSV ? With reflux. ? 1.1cm proximal calf segment + + +------+ + Right ASV ? With no reflux. ? 0.41cm ? + + +------+ + Right Giacomini ? With reflux. ? 0.68cm ? + + +------+ + Left CFV ? With reflux. ? + + +------+ + Left FV dist ? With reflux. ? + + +------+ + Left s-f junction ? With reflux. ? + + +------+ + Left GSV (thigh) prox ?? With reflux (> 2.0 sec). 1.15cm ? + + +------+ + Left GSV mid thigh ? With reflux (> 2.0 sec). 0.56cm ? + + +------+ + Left GSV knee ? With no reflux. ? 0.47cm reflux at prox calf ?? + + +------+ + Left SSV ? With no reflux. ? 0.31cm ? + + +------+ + Left ASV ? With no reflux. ? 0.42cm ? + + +------+ + Left tool design draftsperson to ? With reflux. ? 0.38cm proximal calf ? gastroc veins ? + + +------+ + * GREYSCALE FINDINGS: All other visible segments of the right lower extremity were compressible with spontaneous and phasic flow. All other visible segments of the left lower extremity were compressible with spontaneous and phasic flow. Normal anatomical variation of the PFV as the main outflow. Electronically signed by: Ward Camara [id number] Procedure Note Ward Camara MD - 08/26/2015 Vascular Diagnostic Laboratory [facility], [facility] [address] [place] [id number] Technologist: Becky Torres IMPRESSIONS 1. Right lower extremity reflux in the deep veins, saphenofemoraljunction, great saphenous vein, short saphenous vein, vein of giacomini, andpopliteal tool design draftsperson. No reflux in the anterior saphenous vein. 2. Left lower extremity reflux in the common femoral vein, saphenofemoral junction, great saphenous vein, and segmentally in the femoral vein.Reflux noted in a proximal calf tool design draftsperson vein to the gastrocnemius vein. Noreflux in the short saphenous and anterior saphenous veins. 3. No evidence of deep or superficial vein thrombosis in the right lower extremity or the left lower extremity. PROCEDURE: Bilateral lower extremity venous ultrasound; common femoral, femoral,popliteal, and superficial veins assessed for thrombosis and venous insufficiency. INDICATION: Varicose veins with pain and inflammation. HISTORY: Varicose veins of both lower extremities. RISK FACTORS: Family history VENOUS FLOW AND IMAGING: + + +------+ + Vein Sonographic findings Diam Comments + + +------+ + Right CFV With reflux. + + +------+ + Right FV prox With reflux. + + +------+ + Right FV dist With reflux. + + +------+ + Right POP With reflux. + + +------+ + Right tool design draftsperson With reflux. 1.1cm popliteal + + +------+ + Right s-f junction With reflux. + + +------+ + Right GSV (thigh) prox With reflux (> 2.0 sec). 0.61cm + + +------+ + Right GSV mid thigh With reflux (> 2.0 sec). 0.55cm + + +------+ + Right GSV knee With reflux (> 2.0 sec). 0.89cm + + +------+ + Right SSV With reflux. 1.1cm proximal calfsegment + + +------+ + Right ASV With no reflux. 0.41cm + + +------+ + Right Giacomini With reflux. 0.68cm + + +------+ + Left CFV With reflux. + + +------+ + Left FV dist With reflux. + + +------+ + Left s-f junction With reflux. + + +------+ + Left GSV (thigh) prox With reflux (> 2.0 sec). 1.15cm + + +------+ + Left GSV mid thigh With reflux (> 2.0 sec). 0.56cm + + +------+ + Left GSV knee With no reflux. 0.47cm reflux at proxcalf + + +------+ + Left SSV With no reflux. 0.31cm + + +------+ + Left ASV With no reflux. 0.42cm + + +------+ + Left tool design draftsperson to With reflux. 0.38cm proximal calf gastroc veins + + +------+ + * GREYSCALE FINDINGS: All other visible segments of the right lower extremity were compressiblewith spontaneous and phasic flow. All other visible segments of the left lower extremity were compressible with spontaneous and phasic flow. Normalanatomical variation of the PFV as the main outflow. Electronically signed by: Ward Camara [id number] Juan Carlos Hubbard MD IMG US VASCULAR O RDERABLES documented in this encounter Visit Diagnoses Diagnosis Varicose veins- Primary Asymptomatic varicose veins documented in this encounter Care Teams Compatibility Test Engineer Relationship Specialty Start Date End Date Drew Marina MD [address] [place] [address] PCP - General 03/24/13 documented as of this encounter
--- OUTSIDE RECORDS SUMMARY | 2024-01-23 21:28 | XMS_ITS | Encounter Summary ---
Author Organization [facility] [place] [address] Care Team Providers Care Senior Firmware Engineer Name Role Phone Drew Marina MD Primary Care Provider [phone] Encounter Details Date Type Department Care Team (Late st Contact Info) Description 07/05/2021 Telephone Dermatology at [address] [phone] Yajaira Pressley RN Social History Tobacco Use Types Packs/Day Years Used Date Smoking Tobacco: Never Smokeless Tobacco: Never Sex and Gender Information Value Date Recorded Sex Assigned at Not on file Gender Identity Not on file Sexual Orientation Not on file documented as of this encounter Miscellaneous Notes * Telephone Encounter - Yajaira Pressley RN - 07/05/2021 11:40 AM EST Pt had excision on 06/29/2021. Pt called with the results. Excision right flank Was Follicular cyst.Per Dr. Mcmillan no further treatment is needed. Pt stated that he understood. Pt to return to the clinic as needed. Pt to have his sutures removed by provider closer to his home. By 07/09/2021. Pt stated no questions or concerns at this time. documented in this encounter Plan of Treatment Upcoming Encounters Date Type Department Care Team (Late st Contact Info) Description 03/23/2024 3:45 PM EDT Office Visit Dermatology at [address] [phone] Rush Mcmillan MD [address] [facility] [place] [address] 04/27/2024 3:30 PM EST Office Visit Dermatology at [address] [phone] Rush Mcmillan MD [address] [facility] [place] [address] documented as of this encounter Visit Diagnoses Not on filedocumented in this encounter Care Teams Senior Firmware Engineer Relationship Specialty Start Date End Date Drew Marina MD [address] [place] [id number] PCP - General 05/09/10 07/17/23 documented as of this encounter
--- OUTSIDE RECORDS SUMMARY | 2024-01-23 21:28 | XMS_ITS | Encounter Summary ---
Author Organization [facility] Address [facility] [place] [address] Care Team Providers Care Traffic Analysis Technician Name Role Phone Drew Marina MD Primary Care Provider [phone] Reason for Visit * Reason Comments Skin Check Encounter Details Date Type Department Care Team (Late st Contact Info) Description 07/08/2023 3:00 PM EST Office Visit Dermatology at [place] [address] [facility] [place] [phone] Rush Mcmillan MD [address] [facility] [place] [place], [place] [id number] Balanitis xerotica obliterans Social History Tobacco Use Types Packs/Day Years Used Date Smoking Tobacco: Never Smokeless Tobacco: Never Sex and Gender Information Value Date Recorded Sex Assigned at Not on file Gender Identity Not on file Sexual Orientation Not on file documented as of this encounter Progress Notes * Rush Mcmillan MD - 07/08/2023 3:00 PM EST Problem: Skin lesions of concern Jacoby follows up after I last saw him in January 2022. He is concerned about lesion on the right lateral arm and a rash on the glans penis 4 to 6 months duration. He is referred in consultation by Dr.Russell Edna Mahoney. Physical examination reveals a pleasant 82-year-old gentleman who has whitening and discoloration of the glans penis left more than right and more on the inferior glans penis, but as well some extension onto the inferior/ventral penile shaft. Is consistent with balanitis xerotica. He has a 1.5 cm er ythematous crusting patch plaque on the right lateral arm concerning for probable SCC versus BCCA Assessment plan: Balanitis xerotica 1. Begin clobetasol cream apply once daily to affected areas then once weekly for maintenance. He has a tube of this that Dr. Mahoney given for a different indication. 2. He has had difficulty in sexual intercourse recently because of cracking fissuring and burning with this new rash of 4 to 6 months duration. 3. This occurs particularly along the sulcus between the glans penis and the penile shaft inferiorly. 4. 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 Will schedule a 45-minute appointment for excision of this in the near future. CC: MD Florentin Hayden MD documented in this encounter Plan of Treatment Upcoming Encounters Date Type Department Care Team (Late [facility]) Description 03/23/2024 3:45 PM EDT Office Visit Dermatology at [address] [phone] Rush Mcmillan MD [address] [place] [phone] 04/27/2024 3:30 PM EST Office Visit Dermatology at [address] [phone] Rush Mcmillan MD [address] [place] [phone] documented as of this encounter Visit Diagnoses Diagnosis Balanitis xerotica obliterans documented in this encounter Care Teams Traffic Analysis Technician Relationship Specialty Start Date End Date Drew Marina MD [address] [place] [address] PCP - General 05/09/10 07/17/23 documented as of this encounter
--- OUTSIDE RECORDS SUMMARY | 2024-01-23 21:28 | XMS_ITS | Encounter Summary ---
Author Organization [facility] Address [facility] [place] [address] Care Team Providers Care Straightening Press Operator Name Role Phone Guanako Godwin MD Primary Care Provider [phone] Reason for Visit * Reason Comments Follow-up Encounter Details Date Type Department Care Team (Late st Contact Info) Description 08/26/2023 2:30 PM EDT Office Visit Dermatology at [address] [place] [phone] Rush Mcmillan MD [address] [facility] D[facility] [place], [place] [phone] Nevus; History of atypical nevus; Balanitis xerotica obliterans Social History Tobacco Use Types Packs/Day Years Used Date Smoking Tobacco: Never Smokeless Tobacco: Never Sex and Gender Information Value Date Recorded Sex Assigned at Not on file Gender Identity Not on file Sexual Orientation Not on file documented as of this encounter Progress Notes * Rush Mcmillan MD - 08/26/2023 2:30 PM EDT Problem: 1. Follow-up balanitis xerotica on clobetasol cream Jacoby follows up for a repeat check on his balanitis xerotica. If he is sexually active with his he still will develop a little bit of a fissure on the left distal penile shaft. The punch biopsyfrom his right lateral arm came back showing a benign nevus. Physical examination shows significant decrease in the erythema of the affected distal penile shaftongoing permanent hypopigmentation of the left glans penis and the left penile shaft. Assessment plan: Balanitis xerotica 1. Continue clobetasol using once to twice weekly 2. Patient has plenty of clobetasol cream at home. 3. Patient knows to continue this on a regular maintenance basis once to twice weekly. 4. Return to clinic in follow-up for regular repeat skin checkup. cc: Guanako Godwin MD documented in this encounter Plan of Treatment Upcoming Encounters Date Type Department Care Team (Late st Contact Info) Description 03/23/2024 3:45 PM EDT Office Visit Dermatology at [address] [phone] Rush Mcmillan MD [address] [place] [address] [place] [address] 04/27/2024 3:30 PM EST Office Visit Dermatology at [address] [phone] Rush Mcmillan MD [address] [place] [phone] documented as of this encounter Visit Diagnoses Diagnosis Nevus Benign neoplasm of skin, site unspecified History of atypical nevus Personal history of diseases of skin and subcutaneous tissue Balanitis xerotica obliterans documented in this encounter Care Teams Straightening Press Operator Relationship Specialty Start Date End Date Guanako Godwin MD [address] [place] [address] PCP - General Family Medicine 07/18/23 10/24/23 documented as of this encounter
--- OUTSIDE RECORDS SUMMARY | 2024-01-23 21:28 | XMS_ITS | Encounter Summary ---
Author Organization [facility] Address [address] [place] [address] Care Team Providers Care Touch Up Edger Name Role Phone Drew Marina MD Primary Care Provider [phone] Reason for Visit * Reason Comments Skin Exam 6 month FUR FBSE H/O NMSC patient reports no concerns Encounter Details Date Type Department Care Team (Late st Contact Info) Description 11/28/2016 13:00 EDT Office Visit [facility] Dermatology 5th Floor [facility] [address], [place] [id number] Nishant Hassan PA-C [address] [facility], [address] [place] [address] Personal history of other malignant neoplasm of skin (Primary Dx); Epidermal inclusion cyst Discharge Disposition: Auto Discharge Social History Tobacco [...] as of this encounter Discharge Diagnoses Diagnosis Z85.828 Personal history of other malignant neoplasm of skin-Z85.828[ICD-10-CM] L72.0 Epidermal cyst-L72.0[ICD-10-CM] documented in this encounter Patient Instructions * Patient Instructions* Nishant Hassan PA-C - 11/28/2016 13:00 EDT Recommendations for Sun Protection Ultraviolet (UV) radiation is a known carcinogen (cancer-causing agent) and is primarily responsible for most skin cancers, including Basal Cell Carcinoma, Squamous Cell Carcinoma, and many Melanomas. UV radiation also rapidly ages the skin, leading to wrinkles, uneven color, and poor texture. Minimizing UV exposure has been shown in multiple studies to decrease the likelihood of developing cancers and pre-cancers of the skin, as well as improve overall appearance. To minimize UV exposure: 1) Avoid exposure to sunlight during the middle of the day (10am to 4pm). Seek shade when outside during these hours. Limit outdoor activities to assistant designer and/or evening hours when the sunlight is less intense. Remember that UV is reflected from water and snow, and can pass through window glass. It is still possible to get burned during cloudy weather and in the winter months. You can check the forecast for the UV Index in your area at most weather sites online. If the UV index is 3 or higher, sun protection/avoidance is recommended. 2) Wear protective clothing. Hats with wide brims that cover the ears and neck, sunglasses (sun exposure increases your risk for cataracts), long-sleeved shirts, long pants, and closed-top shoes offer good protection. Many makers of outdoor clothing test their fabrics for UV Protection Factor (UPF), which is a guide to the level of protection a particular item of clothing should provide. In general, loose weaves (Cotton) and employee benefits coordinator-colored fabrics offer less protection than tighter weaves or darker/thicker fabrics. It is possible to get a sunburn through clothing, especially if it is wet. 3) Use sunscreen on exposed areas. Choose a sunscreen that has a Sun Protection Factor (SPF) of 30+or higher. Apply the sunscreen generously (so much that you can barely rub it in) to exposed areas 30 minutes before sun exposure. Reapply every 2-3 hours, especially if you are in water or sweating.If you tend to break out from sunscreen, choose a sunscreen designed for Sensitive Skin and/or one with physical blocking agents, such as Zinc Oxide and Titanium Dioxide. For vigorous activity, look for Sport sunscreens, which are resistant to sweating. 4) Avoid artificial sources of UV, such as tanning beds or sun lamps. The UV emitted by these devices is just as damaging, if not more so, than natural sunlight. There is a well-documented increase in the incidence of all common skin cancers in frequent tanning bed users. Other considerations: Vitamin D: Exposure to UV light is one of the ways your body gets Vitamin D, a necessary nutrient. Other sources are from the diet and/or dietary supplements. If you are actively avoiding the sun, itmay be advisable to discuss Vitamin D supplementation with your Primary Care Provider (PCP). In general, taking a supplement of 1,000 to 2,000 International Units (IU) of Vitamin D3 is safe and well-tolerated in individuals who get minimal sun exposure and have normal kidney function. However, moreor less Vitamin D may be recommended, depending on your individual needs, and the use of such supplements should be discussed with your PCP. For more information about sun protection and skin cancer: www.skincancer.org Recommended sunscreens: Chemical sunscreen Neutrogena Ultra Sheer Dry Touch (helioplex) Aveeno (same sunscreen as in Neutrogena) Coppertone Sport La Jolene-Posay Anthelios (mexoryl -good UVA and UVB) Vichy (mexoryl - available in Jose J) Gel formulations good for hair bearing skin Bullfrog Alcohol based - goes on quickly and good for skin with hair Solbar Physical sunblock good for sensitive skin (titanium dioxide and zinc oxide chemical/fragrance free) Blue Lizard sensitive COTZ TiZO (comes in tinted form) Neutrogena pure and free baby or sensitive Recommended sun protection clothing websites www.sunprecautions.com www.coolibar.com www.A[employer]er Labs.Forum Info-Tech www.[employer]com documented in this encounter Discharge Disposition Disposition Code Departure Means Destination Auto Discharge documented in this encounter Progress Notes * Zakiya Wright - 11/28/2016 1300 EDT Review of Systems Constitutional: Negative for [...] disturbance. The patient is not nervous/anxious. Zakiya Kyle 11/28/2016 12:58 Reviewed Nishant Hassan PA-C 11/28/2016 * Nishant Hassan PA-C - 11/28/2016 1300 EDT Chief Complaint Patient presents with ??? Skin Exam 6 month FUR FBSE H/O NMSC patient reports no concerns Subjective: Presents today for annual full skin exam secondary to prior history of Non-melanoma skin cancer. No new/concerning skin lesions to present today. He notes a cyst on right anterior neck, present for decades, which he squeezes out once in a while. Not overly bothersome to him, has never changes. History of lesion(s) negative for spontaneous bleeding, itching or pain. ROS: Negative for skin lesions with history of spontaneous bleeding, itching or pain. Also negativefor skin lesions showing changes in size, shape or color. Patient Active Problem List Diagnosis ??? 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 ??? Venous insufficiency of both lower extremities ??? Actinic keratosis Past Medical History: Diagnosis Date ??? Basal cell carcinoma 06/2016 left back, excised ??? Venous insufficiency of both lower extremities Objective: Complete Cutaneous Exam On physical examination, in general, Mr. Nguyen is a male who is well-groomed, well-nourished and appears stated age and is is in no apparent distress. He is alert and oriented to person, place and time. He has Segundo type II skin. Complete cutaneous examination of the head, including the scalp and face, neck, back, chest, including breasts and axillae, abdomen, groin, buttocks, intertriginous areas, and all four extremities were examined. The examination was normal with the addition of the following comments: Lesion A: Location: Right anterior neck Lesion Color: flesh-colored Lesion Type: nodule(s) Lesion Description: Characterized by an approximately 3 mm, freely-mobile, cystic nodule - no suspicious features noted. Lesion B: Location: left back Lesion Color: whitish Lesion Type: well-healed surgical scar Lesion Description: No clinical evidence of Basal Cell carcinoma recurrence on today's exam. A/P: 1.) Small Epidermal inclusion cyst, right anterior neck. PLAN: Patient reassurance; no further treatment today. No treatment desired at this point, surgery was briefly discussed. 2.) Well-healed surgical scar(s), left back, s/p prior excision of Basal Cell carcinoma, 06/2016, noclinical evidence of recurrence on today's exam. PLAN: Recommended continued diligent sun photoprotection and monthly self-exams. Sunscreen use reviewed. The nature of sun-induced photo-aging and skin cancers is discussed. Sun avoidance, protective clothing, and the use of 30-SPF sunscreens is advised. Observe closely for skin damage/changes, and callif such occurs. Follow up here in one year, sooner if needed. Nishant OLSON PA-C [facility] Division of Dermatology Clinical Instructor - [facility] 11/28/2016 documented in this encounter Plan of Treatment Not on file documented as of this encounter Visit Diagnoses Diagnosis Personal history of other malignant neoplasm of skin- Primary Epidermal inclusion cyst Sebaceous cyst documented in this encounter Care Teams Touch Up Edger Relationship Specialty Start Date End Date Drew Marina MD [address] [place] [address] PCP - General 03/24/13 documented as of this encounter
--- OUTSIDE RECORDS SUMMARY | 2024-01-23 21:28 | XMS_ITS | Encounter Summary ---
Author Organization [facility] Address [address] [place] [address] Care Team Providers Care Buffer Machine Name Role Phone Drew Marina MD Primary Care Provider [phone] Reason for Visit * Reason Onset Date Comments Biopsy Results 06/07/2016 Encounter Details Date Type Department Care Team (Late st Contact Info) Description 06/07/2016 Telephone [facility] Dermatology 3rd Floor [facility] [address] [place], [place] [phone] Nishant Hassan PA-C 111 [facility], [address] [place] [address] Biopsy Results Social History Tobacco Use Types Packs/Day Years [...] encounter Miscellaneous Notes * Telephone Encounter - Jing Gilliam A.E. - 06/07/2016 1002 EST Called patient back and informed him of biopsy results. Patient scheduled for a 6 month FBSE with Narendra Hassan PA-C on 11/28/16 at 1:00. Jing Gilliam 06/07/2016 10:02 * Telephone Encounter - Ca Lerma - 06/07/2016 0847 EST Patient called to check on the status of his biopsy results. documented in this encounter Plan of Treatment Not on file documented as of this encounter Visit Diagnoses Not on filedocumented in this encounter Care Teams Buffer Machine Relationship Specialty Start Date End Date Drew Marina MD [address] [place] [address] PCP - General 03/24/13 documented as of this encounter
--- OUTSIDE RECORDS SUMMARY | 2024-01-23 21:28 | XMS_ITS | Encounter Summary ---
Author Organization [facility] Address [facility] [place] [address] Care Team Providers Care Leather Skinner Name Role Phone Drew Marina MD Primary Care Provider [phone] Reason for Visit * Reason Comments Varicose Veins Establish Care Encounter Details Date Type Department Care Team (Late st Contact Info) Description 06/02/2015 8:00 AM EST Office Visit [place] [address] Jairon Boo MD [facility] [place] [address] Varicose veins of leg with pain, bilateral Social History Tobacco Use Types Packs/Day Years Used Date Smoking Tobacco: Never Sex and Gender Information Value Date Recorded Sex Assigned at Not on file Gender Identity Not on file Sexual Orientation Not on file documented as of this encounter Last Filed Vital Signs Vital Sign Reading Time Taken Comments Blood Pressure 125/84 06/02/2015 8:13 AM EST r a rm Pulse 75 06/02/2015 8:13 AM EST Temperature - - Respiratory Rate 20 06/02/2015 8:13 AM EST Oxygen Saturation - - Inhaled Oxygen Concentration - - Weight 83.9 kg (185 lb) 06/02/2015 8:13 AM EST Height 182.9 cm (6') 06/02/2015 8:13 AM EST Body Mass Index 25.09 06/02/2015 8:13 AM EST documented in this encounter Patient Instructions * Patient Instructions* Jairon Boo MD - 06/02/2015 8:29 AM EST Wear compression daily. We will arrange for your venous ultrasound duplex. documented in this encounter Progress Notes * Jairon Boo MD - 06/02/2015 8:26 AM EST OUTPATIENT VASCULAR SURGERY CONSULTATION Reason for Visit: Varicose Veins History of Present Illness: 74 yo male seen in consultation for his chronic bilateral varicose veins. He reports slightly worse aching and pain in the right leg. He denies any swelling, DVT, phlebitis or ulceration. Atherosclerotic Risk Factors: (n) DM (n) HTN (n) Hyperlipidemia (n) Tobacco Other Past Medical History/Risk Factors: (n) Previous [place] (n) Angina (n) CHF (n) Arrythmia (n) COPD (y) Hemorrhoidectomy Review of Systems: Constitutional (weight change, fever) - Denies Neuro (dizziness, seizures, numbness, tingling) - Denies Eyes (vision) - Denies Ears, nose, throat (hearing) - Denies Cardiovascular (CP) - Denies Respiratory (SOB) - Denies GI (abd pain, nausea, emesis, blood in stool) - Denies (hematuria, dysuria, frequency) - Denies Muscoloskeletal (extremity pain, weakness) - Denies Skin (ulcers, rashes) - Denies Functional Status/Social Hx: Lives at Home, Drives Car and Does His Own Shopping, No Tobacco Use, Occasional EtOH Family Hx: Negative for Thrombosis, Bleeding Disorders or aneursyms Physical Exam: Filed Vitals: 06/02/15 0813 BP: 125/84 Pulse: 75 Resp: 20 General - NAD, appears younger than stated age Neuro - Alert and Oriented, Motor Sensory grossly intact Skin - No prominent markings or lesions Ear, Nose, Throat - No masses, No lesions Cardiac - RRR, no murmurs Lungs - CTA bilaterally Abd - Soft, NT, ND, No palpable pulsatile masses Extremities - Warm, pink, no edema, brisk capillary refill, large nontender varicose veins along medial thighs and calf, no lipodermatosclerosis, no ulcerations Vascular Exam: R L Carotid 2/2 bruit (-) 2/2 bruit (-) Radial 2/2 2/2 Femoral 2/2 2/2 Popliteal 2/2 2/2 DP 2/2 2/2 PT 2/2 2/2 Labs: None Studies: None Assessment and Plan: Large symptomatic varicose veins. I have prescribed compression therapy as a first line and will arrange for a dedicated venous duplex to assess for valvular insufficiency. At that time we can consider a potential venous ablative surgery as indicated. documented in this encounter Miscellaneous Notes * Addendum Note - Claudine Pabon RN - 06/03/2015 9:19 AM ESTAddended by: CLAUDINE PABON on: 06/03/2015 09:19 AM Modules accepted: Orders documented in this encounter Plan of Treatment Upcoming Encounters Date Type Department Care Team (Late st Contact Info) Description 03/23/2024 3:45 PM EDT Office Visit Dermatology at [address] [phone] Rush Mcmillan MD [address] [place] [address] 04/27/2024 3:30 PM EST Office Visit Dermatology at [address] [phone] Rush Mcmillan MD [address] [place] [address] [place] [address] documented as of this encounter Visit Diagnoses Diagnosis Varicose veins of leg with pain, bilateral documented in this encounter Care Teams Leather Skinner Relationship Specialty Start Date End Date Drew Marina MD [address] [place] [address] PCP - General 05/09/10 07/17/23 documented as of this encounter
--- OUTSIDE RECORDS SUMMARY | 2024-01-23 21:28 | XMS_ITS | Clinical Summary ---
Author Organization [facility] Address [address] [place] [address] Care Team Providers Care Embroidery Operator Name Role Phone Drew Marina MD Primary Care Provider [phone] Allergies No known active allergies Medications Medication [...] Typhoid ViCPs (TYPHIM Vi) Vaccine IM 04/08/2014 Surgical History Surgery Date Site/Laterality Comments HEMORRHOID SURGERY VASCULAR SURGERY 10/17/15 Left RFA and stabs VASCULAR SURGERY 11/21/15 Right DIV/LIG/stabs Medical History Medical History Date Comments Venous insufficiency of both lower extremities Basal cell carcinoma 06/2016 left back, excised Family History Medical History Relation Comments Varicose Veins Sister Relation Status Comments Sister Social History Tobacco Use Types Packs/Day Years [...] on file Sexual Orientation Not on file Obstetrics History Last Filed Vital Signs Vital Sign Reading [...] Body Mass Index 26.09 11/17/2015 1612 EDT Plan of Treatment Health Maintenance Due Date Last Done Comments RSV Immunization ( o r 60+ Years) (1 - 1-dose 60+ series) 1999 Fall Risk Screening 12/21/2004 COVID-19 Vaccine ( season) 2023 Advance Directives For more information, please contact: [phone] Documents on File Type Date Recorded Patient Hotel Valet Attendant Expl anation Advance Directive 10/17/2015 5:59 Advance [...] the discussion? Not Discusse d Care Teams Embroidery Operator Relationship Specialty Start Date End Date Drew Marina MD [address] [place] [id number] PCP - General 03/24/13
--- OUTSIDE RECORDS SUMMARY | 2024-01-23 21:28 | XMS_ITS | Encounter Summary ---
Author Organization [facility] [place] [address] Care Team Providers Care Director Medicaid Name Role Phone Guanako Godwin MD Primary Care Provider [phone] Encounter Details Date Type Department Care Team (Latest Contact Info) Description 08/26/2023 Travel Social History Tobacco Use Types Packs/Day [...] 3:45 PM EDT Office Visit Dermatology at [address] [phone] Rush Mcmillan MD [address] [place] [phone] 04/27/2024 3:30 PM EST Office Visit Dermatology at [address] [phone] Rush Mcmillan MD [address] [place] [phone] documented as of this encounter Visit Diagnoses Not on filedocumented in this encounter Care Teams Director Medicaid Relationship Specialty Start Date End Date Guanako Godwin MD [address] [place] [address] PCP - General Family Medicine 07/18/23 10/24/23 documented as of this encounter
--- OUTSIDE RECORDS SUMMARY | 2024-01-23 21:28 | XMS_ITS | Encounter Summary ---
Author Organization [facility] Address [address] [place] [address] Care Team Providers Care Mounter Name Role Phone Drew Marina MD Primary Care Provider [phone] Reason for Visit * Reason Onset Date Comments Varicose Veins 11/18/2015 VEIN OR REMINDER CALL Encounter Details Date Type Department Care Team (Late st Contact Info) Description 11/18/2015 Telephone [facility] Vascular Surgery - [address] [phone] Juan Carlos Hubbard MD [address] [facility], [address] [place] [address] Varicose Veins (VEIN OR REMINDER CALL) Social History Tobacco Use Types Packs/Day Years [...] encounter Miscellaneous Notes * Telephone Encounter - Michelle Jarquin - 11/18/2015 5402 EDT Surgery reminder call Spoke to OF JACOBY JI You are having surgery with Dr. JUAN CARLOS HUBBARD Your surgery date is 11/21/2015 At the [facility] Please check in at 08:45AM at registration. You can not have any solid food or dairy products after midnight, but you may have clear liquids until 06:45AM. After 06:45AM you may only have the medications you discussed taking during your Anesthesia phone call with sips of water. You must have a jukebox route driver with you the day of surgery. If you are having varicose vein surgery please refrain from shaving prior to your procedure. Have you had any changes to your health recently, a cough, cold, fever or rash? NO. Thank you for your time documented in this encounter Plan of Treatment Not on file documented as of this encounter Visit Diagnoses Not on filedocumented in this encounter Care Teams Mounter Relationship Specialty Start Date End Date Drew Marina MD [address] [place] [id number] PCP - General 03/24/13 documented as of this encounter
--- OUTSIDE RECORDS SUMMARY | 2024-01-23 21:28 | XMS_ITS | Encounter Summary ---
Author Organization [facility] [place] [address] Care Team Providers Care High School Foreign Language Teacher Name Role Phone Drew Marina MD Primary Care Provider [phone] Encounter Details Date Type Department Care Team (Late st Contact Info) Description 08/31/2015 Telephone [place] [phone] Rory Toledo Social History Tobacco Use Types Packs/Day Years Used Date Smoking Tobacco: Never Sex and Gender Information Value Date Recorded Sex Assigned at Not on file Gender Identity Not on file Sexual Orientation Not on file documented as of this encounter Miscellaneous Notes * Telephone Encounter - Rory Toledo - 08/31/2015 8:24 AM EDT Patient had an appointment scheduled for 09/29/15, once he received his reminder letter he called usand cancelled. The patient has gone to another hospital for his vascular treatments and has decided to not follow up with us anymore and decline the appointments for 09/29/15. documented in this encounter Plan of Treatment Upcoming Encounters Date Type Department Care Team (Late st Contact Info) Description 03/23/2024 3:45 PM EDT Office Visit Dermatology at [address] [place] [address] Rush Mcmillan MD [address] [facility], [place] [address] 04/27/2024 3:30 PM EST Office Visit Dermatology at [place] [address] [place] [phone] Rush Mcmillan MD [address], [place] [address] documented as of this encounter Visit Diagnoses Not on filedocumented in this encounter Care Teams High School Foreign Language Teacher Relationship Specialty Start Date End Date Drew Marina MD [address] [place] [address] PCP - General 05/09/10 07/17/23 documented as of this encounter
--- OUTSIDE RECORDS SUMMARY | 2024-01-23 21:28 | XMS_ITS | Continuity of Care Document ---
Author Organization [facility] Address [address] [place] [address] Assessment No assessment recorded. Plan of Treatment Reminders Order Date Submit Date Provider Last Modified By Organization Details Last Modified Time Details Appointments Office Visit 2023 03:10P M Patrica Godfrey Not available Not available Not available Lab None recorded . Referral None recorded . Procedures None recorded . Surgeries None recorded . Imaging None recorded . Medication Orders None recorded . Patient TargetsNo targets recorded. Patient InstructionsNo instructions recorded. Reason for Referral Urologist Referral for Lesio n of penis Referring Physician: Guan[facility] Godwin [facility], Encounter Date: 05/29/2023 Physical Therapist Referral for Low back pain low back pain, walking bent over Referring Physician: Patrica Godfrey [facility], Encounter Date: 10/09/2023 Tobacco Prizer Referral for At rial fibrillation Dr. Lomascorrected copy when visit is completed, please send us the notes Referring Physician: Patrica Godfrey [facility], Encounter Date: 10/09/2023 Results Created Date Observation Date Name Description Value Unit Range Abnormal Flag LastModifiedBy Organization Detail LastModifiedTime 10/09/1910/09/2023 elect rocar diogr am No observ ation record ed. [address], [address], 10/10/2023 11:17:30 10/09/19 elect rocar diogr am No observ ation record ed. eoleson Not Available 10/09/2023 14:43:00 10/22/19 10/22/2023 US, echoc ardio gram No observ ation record ed. [email or web address] [facility] [address], [place], [address], 11/08/2023 09:30:31 10/23/19 24 10/22/2023 US, echoc ardio gram No observ ation record ed. [email or web address] [facility] [address], [place], [address], 11/08/2023 09:30:43 Result Notes None recorded. Problems Name Status Onset Date Resolution Date Notes Provider Name and Address Organization Details Recorded Time Peripheral venous insufficiency Active 2008 Problem Code: I87.2; Problem Code Type: ICD-10; ORA CHUA, [facility]. 3 09:41:58 Lower urinary tract symptoms due to benign prostatic hypertrophy Active 2008 Problem Code: N40.1; Problem Code Type: ICD-10; ORA CHUA, [facility]. 3 09:41:58 Rosacea Active 2013 Problem Code: L71.9; Problem Code Type: ICD-10; ORA CHUA, [facility]. 3 09:41:58 History of malignant neoplasm of skin Active 2016 [facility] MD [address], [place], [address] , [facility] 3 14:14:37 Pre-surgery evaluation Completed 201610/18/2016 Problem Code: Z01.818; Problem Code Type: ICD-10; Not Available [facility] 3 03:50:56 Low back pain Completed 201710/08/2017 Problem Code: M54.5; Problem Code Type: ICD-10; MD [address], [place], [address] , [facility] 4 16:00:59 Paresthesia Completed 201710/08/2017 Problem Code: R20.2; Problem Code Type: ICD-10; Not Available [facility] 3 03:50:56 Traumatic or non-traumatic injury Completed 201712/17/2017 12/03/2017 - Comments only - Jazmine Alex [employer]DI[employer] SOC[employer] WORKER - - Removed engorged tick this AM [...] T14.8; Problem Code Type: ICD-10; Not Available [facility] 3 03:50:56 Insect bite Completed 201812/20/2018 Not Available [facility] 3 03:50:56 Erectile dysfunction Active 2019 Problem Code: N52.9; Problem Code Type: ICD-10; ORA CHUA, [facility] 3 09:41:58 Insect bite Completed 202012/23/2020 Not Available [facility] 3 03:50:57 Adult health examination Active 2021 Problem Code: Z00.00; Problem Code Type: ICD-10; MD [address], [facility] [address] , [facility] 3 14:16:02 Blepharitis Completed 202111/25/2021 Problem Code: H01.009; Problem Code Type: ICD-10; Not Available [facility] 3 03:50:57 Insomnia Active 2022 mild MD [address], [place], [address] , [facility] 3 14:16:34 Benign prostatic hyperplasia Completed 200803/13/2023 Problem Code: N40.0; Problem Code Type: ICD-10; Not Available [facility] 3 03:50:59 Pain in right foot Completed 201504/03/2016 Problem Code: M79.671; Problem Code Type: ICD-10; Not Available [facility] 3 03:50:59 Chest pain Completed 201605/19/2018 Problem Code: R07.89; Problem Code Type: ICD-10; Not Available [facility] 3 03:51:00 Benign neoplasm of colon Completed 201203/13/2023 Problem Code: 211.3; Problem Code Type: ICD-9; Not Available [facility] 3 03:51:01 Bradycardia Completed 201608/28/2021 Problem Code: R00.1; Problem Code Type: ICD-10; Not Available [facility] 3 03:51:01 Amnesia Completed 201806/04/2019 Problem Code: R41.3; Problem Code Type: ICD-10; Not Available [facility] 3 03:51:01 Fatigue Completed 201404/03/2016 Problem Code: R53.83; Problem Code Type: ICD-10; PATRICA GODFREY MD [address], [place], [address] , [facility]. 4 10:26:09 Pain of left knee joint Completed 201806/16/2019 Problem Code: M25.562; Problem Code Type: ICD-10; Not Available [facility] 3 03:51:02 Hyperlipidemia screening Completed 201808/28/2021 Problem Code: Z13.220; Problem Code Type: ICD-10; Not Available [facility] 3 03:51:02 Rupture of medial collateral ligament of knee Completed 200809/28/2016 Problem Code: M23.631; Problem Code Type: ICD-10; Not Available [facility] 3 03:51:02 Actinic keratosis Completed 201305/19/2018 Problem Code: L57.0; Problem Code Type: ICD-10; Not Available [facility] 3 03:51:03 Hemorrhoids Completed 200803/13/2023 Not Available [facility] 3 03:51:03 Pain of breast Completed 201605/19/2018 Problem Code: N64.4; Problem Code Type: ICD-10; Not Available [facility] 3 03:51:04 Sciatica Completed 200803/13/2023 Not Available [facility] 3 03:51:05 Diabetes mellitus screening Completed 201808/28/2021 Problem Code: Z13.1; Problem Code Type: ICD-10; Not Available [facility] 3 03:51:05 Insomnia Completed 201508/28/2021 Problem Code: G47.00; Problem Code Type: ICD-10; [facility] [address] [facility] [address] , [facility] 3 14:16:34 Itching of skin Completed 201501/19/2020 Problem Code: L29.8; Problem Code Type: ICD-10; Not Available [facility] 3 03:51:06 Blepharitis of left eyelid Completed 201806/04/2019 Problem Code: H01.006; Problem Code Type: ICD-10; Not Available [facility] 3 03:51:07 Adult health examination Completed 201508/28/2021 Problem Code: Z00.00; Problem Code Type: ICD-10; [facility] [address] [facility] [address] , [facility] 3 14:16:02 Tear of medial meniscus of knee Completed 200809/28/2016 Problem Code: S83.249A; Problem Code Type: ICD-10; Not Available [facility] 3 03:51:08 Varicose veins of lower extremity Completed 201408/28/2021 Problem Code: I83.90; Problem Code Type: ICD-10; Not Available [facility] 3 03:51:08 Disorder of skin and/or subcutaneous tissue Completed 201908/28/2021 Problem Code: L98.9; Problem Code Type: ICD-10; Not Available [facility] 3 03:51:08 Low back pain Completed 202008/28/2021 Problem Code: M54.5; Problem Code Type: ICD-10; MD [address], [facility] [address] , [facility] 4 16:00:59 Removal of suture Completed 202108/28/2021 Problem Code: Z48.02; Problem Code Type: ICD-10; Not Available [facility] 3 03:51:09 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 MD [address], [facility] [address] , [facility] 3 11:01:00 Multiple actinic keratoses Active [address], [place] [id number] , [facility] 3 14:16:09 Impacted cerumen Active [address], [place] [address] , [facility] 4 14:11:01 Fatigue Active 2023 Problem Code: R53.83; Problem Code Type: ICD-10; MD [address], [facility] [address] , [facility] 4 10:26:09 Irregular heart beat Active [address], [place] [address] , [facility] 4 10:39:15 Impaired exercise tolerance Active 2023 PATRICA GODFREY MD [address], [facility] [address] , [facility] 4 10:40:01 Atrial fibrillation Active 2023 PATRICA GODFREY MD [address], [facility] [address] , [facility] 4 15:57:27 Low back pain Active 2023 Problem Code: M54.5; Problem Code Type: ICD-10; PATRICA GODFREY MD [address], [facility] [address] , [facility] 4 16:00:59 Atrial dilatation Active 2023 PATRICA GODFREY MD [address], [facility] [address] , [facility] 4 13:16:41 Nodule of lung Active 2023 MARIA ELENA CALVO MA null, [facility] 4 12:44:11 Increased blood pressure Active 2023 MARIA ELENA CALVO MA null, [facility] 4 12:44:29 Varicose veins of lower extremity Active 2023 MARIA ELENA CALVO MA null, [facility] 4 12:45:33 Dermatofibroma Active 2023 MARIA ELENA CALVO MA null, [facility] 4 12:53:16 Sciatica Active 2023 MARIA ELENA CALVO MA null, [facility] 4 12:53:33 Genital lichen sclerosus Active 2023 MARIA ELENA CALVO MA null, [facility] 4 09:26:04 Reduced libido Active 2023 MARIA ELENA CALVO MA [facility] 09:30:18 Notes:*Problem Name: Actinic Keratoses Right Cheek [...] *Note Date: 01/26/2009 Problem Notes None recorded. Medical Equipment None Reported. [...] pain 08/[address] Linda Bugbee Not Available Not Available Not Available tadalafil [...] Available Vitals Date Recorded Body height Body temperature Body mass index (BMI) Body weight Heart rate Respiratory rate Systolic blood pressure Diastolic blood pressure Provider Name and Address Organization Details Last Updated DateTime 4 181.61 cm 97.9 [degF] 26.8 kg/m2 29974.5 1 g 60 /min 16 /min 130 mm[Hg] 90 mm[Hg] MARIA ELENA CALVO MA [facility] 12:20:57 Social History Question Answer Notes LastModified by Organizat ion Details LastModified Time Tobacco Smoking Status Never Smoker MARIA ELENA CALVO MA null, [facility] 10/09/2023 10:01:43 Do You Have An [...] 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 Information not available 10/09/2023 What Was [...] Recorded Time Tdap 01/19/2020 completed Not Available [facility] 04:15:19 Pneumococcal conjugate PCV 13 05/19/2018 completed Not Available [facility] 04/26/2023 04:15:20 Influenza, high-dose, trivalent, PF 03/11/2017 completed Not Available [facility] 04/26/2023 04:15:20 Influenza, high-dose, trivalent, PF 04/30/2019 completed Not Available [facility] 04/26/2023 04:15:20 Influenza, high-dose, trivalent, PF 05/19/2018 completed Not Available [facility] 04/26/2023 04:15:21 Td(adult) unspecified formulation 11/18/2009 completed Not Available [facility] 04/26/2023 04:15:21 Influenza, split virus, trivalent, preservative 03/31/2015 completed Not Available [facility] 04/26/2023 04:15:21 Influenza, split virus, trivalent, preservative 04/03/2016 completed Not Available [facility] 04/26/2023 04:15:22 Influenza, high-dose, quadrivalent, PF 03/21/2021 completed Not Available [facility] 04/26/2023 04:15:23 Influenza, high-dose, quadrivalent, PF 03/29/2022 completed Not Available [facility] 04/26/2023 04:15:23 Influenza, high-dose, quadrivalent, PF 04/21/2020 completed Not Available [facility] 04/26/2023 04:15:23 COVID-19, mRNA, LNP-S, PF, 100 mcg/0.5mL dose or 50 mcg/0.25mL dose 07/13/2020 completed Not Available [facility] 04/26/2023 04:15:23 COVID-19, mRNA, LNP-S, PF, 100 mcg/0.5mL dose or 50 mcg/0.25mL dose 08/10/2020 completed Not Available [facility] 04/26/2023 04:15:24 COVID-19, mRNA, LNP-S, PF, 100 mcg/0.5mL dose or 50 mcg/0.25mL dose 04/14/2021 completed Not Available [facility] 04/26/2023 04:15:24 SARS-COV-2 (COVID-19) vaccine, UNSPECIFIED 10/26/2021 completed Not Available [facility] 04/26/2023 04:15:25 COVID-19, mRNA, LNP-S, bivalent, PF, 50 mcg/0.5 mL or 25mcg/0.25 mL dose 05/01/2022 completed Not Available [facility] 04/26/20 04:15:25 pneumococcal polysaccharide PPV23 11/18/2009 completed Not Available [facility] 2022 04:15:26 influenza, unspecified formulation 03/21/2023 completed RAJENDRA SAHA MA [facility], [facility] 05/29/2023 09:41:50 Influenza, high-dose, quadrivalent, PF 03/21/2023 completed Not Available [facility] 06/28/2023 05:31:26 COVID-19, mRNA, LNP-S, PF, zeke-sucrose, 30 mcg/0.3 mL 05/29/2023 completed MD [address], [place], [address], [facility] 06/01/2023 14:18:11 Past Encounters Encounter ID Performer Location Encounter Start Date Encounter Closed Date Diagnosis/Indication Diagnosis SNOMED-CT Code [id number] PATRICA GODFREY MD [address] [address] 10/09/2023 09:53:32 10/09/2023 11:39:20 Body mass index 25-29 - overweight 058691128 Low back pain 661718330 Irregular heart beat 361 744398 Impaired e xercise tolerance 054976875 Atrial fibrillation 4943 6004 [id number] PATRICA GODFREY MD [address] [address] 10/24/2023 12:04:07 10/24/2023 12:55:01 Atrial fibrillation [id number] Health Concerns Section Related Observation LastModified by Organization Detai ls LastModified Time None Recorded Concern Status LastModified by Organization Details LastModified Time None Recorded Payers Encounter Date Sequence Insurance Name Policy Number Policy Bryant Covered Member ID Bryant Member ID Guarantor Name 10/24/2023 1 [place] [employer] Jacoby Nguyen [id number] Jacoby Nguyen 10/24/2023 2 [employer] (MEDICARE SUPPLEMENT) Jacoby Nguyen [id number] Jacoby Nguyen Notes Date Note Type Note Provider Name and Address Organization Details Recorded Time 10/24/2023 text/html HPI Notes: Here in f/u for new diagnosis of atrial fibrillation. Continues to endorse decreased energy/exercise tolerance. Learning to live with it. No other symptoms, no Taking xarelto and tolerating well. Had echo 2 days ago. We reviewed the results today. Has not heard from Dr. Lomas office to schedule MD [address], [place], [address], [facility] 10/24/2023 13:26:32
--- OUTSIDE RECORDS SUMMARY | 2024-01-23 21:28 | XMS_ITS | Encounter Summary ---
Author Organization [facility] Address [address] [place] [address] Care Team Providers Care Software Configuration Specialist Name Role Phone Drew Marina MD Primary Care Provider [phone] Reason for Visit * Reason Comments Pre-op Exam preop for left RFA/s tabs 10/17/15 Encounter Details Date Type Department Care Team (Late st Contact Info) Description 10/11/2015 13:30 EDT Office Visit [facility] Vascular Surgery - [address] [id number] Juan Carlos Hubbard MD [address] [facility], [address] [place] [address] Nurse Practitioner, [facility] Vasc Surg 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 (Primary Dx) Social History Tobacco Use Types [...] Sign Reading Time Taken Comments Blood Pressure 130/78 10/11/2015 1329 EDT left Pulse 72 10/11/2015 1329 EDT Temperature - - Respiratory Rate - - Oxygen Saturation - - Inhaled Oxygen Concentration - - Weight 85.7 kg (189 lb) 10/11/2015 1329 EDT Height 182.9 cm (6') 10/11/2015 1329 EDT Body Mass Index 25.63 10/11/2015 1329 EDT documented in this encounter Functional Status [...] as of this encounter Discharge Diagnoses Diagnosis I83.812 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-I83.812[ICD-10-CM] documented in this encounter Ordered Prescriptions Prescription Sig Dispensed Refills Start Date End Da te DIAZepam (VALIUM) 2 mg tablet Take 1 Tab by mouth at bedtime. Take one tablet 2 hours prior to bedtime. Ok to take second tablet 2 hours later if needed. Do not mix with alcohol. Daily Max: 2 mg 2 Tab 0 10/11/2015 10/17/2015 documented in this encounter Progress Notes * Kristi Corrales NP - 10/11/2015 1437 EDT Addendum: Patient states Percocet is very constipating, would give Dilaudid for post op pain and for his post op prescription, and advise Colace. documented in this encounter H&P Notes * Kristi Corrales NP - 10/11/2015 1426 EDT [facility] Vascular Surgery H & P Visit Note Date: 10/11/2015 Patient: Jacoby Nguyen Subjective: Jacoby Nguyen is a 74 y.o. male who presents today for preoperative evaluation for left leg radiofrequency ablation and stab ligations. Referred by: Drew Marina History of Present Illness: Patient is a healthy non-smoking 74 y/o male with numerous large protruding varicose veins left leg. He has failed a trial of compression stockings. There is no h/o of DVTor hypercoagulable state. Patient is active working in his [employer] in the [employer]. Of note, patient has poor sleep and was given a prescription today for Valium 2 mg, one tablet 2 hours prior to bedtime, OK to repeat x 1. Cardiac testing: no h/o CAD The patient's problem list, allergies, immunizations, and medications were documented, reviewed, and updated as follows: There is no problem list on file for this patient. Allergies: Review of patient's allergies indicates no known allergies. Immunizations: Immunization History Administered Date(s) Administered ??? Hepatitis A Vaccine Adult IM 04/08/2014 ??? Typhoid ViCPs (Typhim Vi) Vaccine IM 04/08/2014 Medications: Current Outpatient Prescriptions Medication Sig Dispense Refill ??? aspirin chewable 81 mg tablet Take 81 mg by mouth daily. ??? atovaquone-proguanil (MALARONE) 250-100 mg per tablet Take 1 Tab by mouth daily. 39 Tab 0 ??? DIAZepam (VALIUM) 2 mg tablet Take 1 Tab by mouth at bedtime. Take one tablet 2 hours prior to bedtime. Ok to take second tablet 2 hours later if needed. Do not mix with alcohol. Daily Max: 2 mg 2 Tab 0 ??? hepatitis A vaccine, PF, (HAVRIX) 1,440 Naya unit/mL syringe Inject 1 mL into the muscle once for 1 dose. 1 Syringe 0 ??? sildenafil citrate (VIAGRA) 100 mg tablet Take 100 mg by mouth as needed for Erectile Dysfunction. ??? typhoid polysaccharide vaccine (TYPHIM ) 25 mcg/0.5 mL syringe Inject 0.5 mL into the muscle once for 1 dose. 1 Syringe 0 No current facility-administered medications for this visit. History was documented as follows: PMH PSH History reviewed. No pertinent past medical history. Past Surgical History Procedure Laterality Date ??? Hemorrhoid surgery Social History Family History Living situation: , lives at home CAD no AAA no History Substance Use Topics ??? Smoking status: Never Smoker ??? Smokeless tobacco: Not on file ??? Alcohol Use: Yes Comment: rare STROKE no Medications (Not in a hospital admission) Allergies No Known Allergies Vascular Review of Systems Constitutional: Did not get to sleep all night last night, no health problems at present and Feels well today HEENT: No active issues; no concerns Cardiac: No active issues; no concerns Respiratory: No difficulty breathing Gastrointestinal: No active issues; no concerns Genitourinary/Renal: No active issues; no concerns Musculoskeletal: No joint movement limitations Neurologic: No active issues; no concerns Integumentary: No active issues; no concerns Allergy/Immunology: No active issues; no concerns ROS (other): Objective: Physical Examination: Vitals: BP 130/78 mmHg Pulse 72 Ht 182.9 cm (72) Wt 85.73 kg (189 lb) BMI 25.63 kg/m2. General: NAD, pleasant, AO x 3 Neck: Grossly normal Heart: RRR Lungs: clear - bilaterally Abdomen: not examined Musculoskeletal: No mobility limitations and is active Skin: visible veins and clean, dry, intact over surgical area Neurologic: grossly intact Vascular Exam Arterial Exam Femoral Popliteal Dorsalis Pedis Posterior Tib Right Left DS = Doppler Signal 2+ = Expected palpable pulse 1+ = Diminished palpable pulse +DS = Doppler Signal present -DS = No Doppler Signal Venous Exam: Numerous large soft varicose veins left anterior lower thigh, coursing down over the knee, and onto the calf. No Ulcer or phlebitis Labs drawn on: NA CXR from: NA Blood Bank if applicable: Stress test if applicable: Patient medication instructions if applicable: Assessment: Jacoby Nguyen is a good candidate for Radiofrequency ablation with stab ligations . Advantages and disadvantages of surgery were reviewed. The operative procedure was discussed including the risks of general anesthetic and medications and the potential risk of complications. There could also be the need for re-operation. Post-operative recovery was discussed, as well as the need for post surgery fol low-up. The patient understands the risks; any and all questions were answered to the patient's satisfaction. Plan: NPO after MN Antibiotic prophylaxis with Cefazolin Valium 2 mg two hours prior to bedtime, OK to repeat x 1. Submitted by: Kristi Corrales NP documented in this encounter Plan of Treatment Not on file documented as of this encounter Visit Diagnoses Diagnosis 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- Primary documented in this encounter Care Teams Software Configuration Specialist Relationship Specialty Start Date End Date Drew Marina MD [address] [place] [address] PCP - General 03/24/13 documented as of this encounter
--- OUTSIDE RECORDS SUMMARY | 2024-01-23 21:28 | XMS_ITS | Encounter Summary ---
Author Organization [facility] Address [address] [place] [address] Care Team Providers Care Windows Administrator Name Role Phone Drew Marina MD Primary Care Provider Reason for Visit * Reason Comments New Patient Visit Skin Exam FBSE. 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 You may shower or bathe after 24 hours; remove the bandage and replace it after the shower. DISCOMFORT: Extra-Strength Tylenol, as directed by beef boner, usually relieves any pain you may have. BLEEDING: You may notice some blood on the edges of the dressing the first day and this is NORMAL. If the bleeding soaks through the dressing, remove the dressing, and apply firm, steady pressure with a moist clean wash cloth for fifteen minutes. If the bleeding stops, redress the wound, if not, call our office at . ACTIVITY: You may resume normal activity in 1 day unless instructed otherwise. WOUND CARE: ?? Wash hands with soap [...] is important to keep the wound covered. CONTACT THE OFFICE IF YOU EXPERIENCE: ?? increased redness ?? warmth to touch ?? increased pain ?? drainage with a foul odor ?? rapid swelling of the wound ?? fever or chills Please call our office or . DERMATOLOGY WOUND CARE INSTRUCTIONS FOR CRYOSURGERY The area you had treated with liquid nitrogen therapy may swell, blister and throb for 24 hours. You may see blood in the blisters. If the blisters open, apply Vaseline/petroleum jelly until the areahas healed. We do not recommend the use of triple antibiotic ointment or other ointments as they can cause allergic reactions. Any scabs that form should fall off within 14-21 days. CONTACT THE OFFICE IF YOU EXPERIENCE: ?? increasing redness ?? warmth to touch ?? increasing pain ?? drainage with a foul odor ?? rapid swelling of the wound ?? fever or chills Please call our office or . DIRECTIONS FOR USING TOPICAL 5-FLUOROURACIL FOR ACTINIC KERATOSES Apply pea-sized amount per side to backs of hands/forearms just adjacent to hands, twice daily, forabout 4 weeks. Actinic keratoses are the result of sun [...] ?? Fever or chills ?? Excessive pain documented in this encounter Discharge Disposition Disposition Code Departure Means Destination Auto Discharge documented in this encounter Progress Notes * Jing Gilliam A.E. - 05/29/2016 1430 EST Review of Systems Constitutional: Negative for [...] disturbance. The patient is not nervous/anxious. Jing Gillima 05/29/2016 14:36 Patient Education Topic: Wound care Method: Verbal Taught to: Patient Barriers: None Outcomes: independent and verbalized understanding Signature:Jing Gilliam 05/29/2016 15:03 Reviewed Megha Hassan PA-C 05/29/2016 * Megha Hassan PA-C - 05/29/2016 1430 EST Chief Complaint Patient presents with ??? New Patient Visit ??? Skin Exam FBSE. Patient reports concerns on the face Subjective: Presents today for further evaluation and treatment of several issues, as mentioned above. Main concern is gritty spots on face - located on right cheek and left jaw line area, both present for about the past few years. History of lesion(s) negative for spontaneous bleeding, itching or pain. Notes that he treated face x 1 week with topical 5-FU within the past year, still has almost full tube at home. History of lesion(s) negative for spontaneous bleeding, itching or pain. ROS: Negative for skin lesions with history of spontaneous bleeding, itching or pain. Also negativefor skin lesions showing changes in size, shape or color. For a complete past medical history, current medications, medication allergies, review of systems, family history and social history, please see the Dermatology intake sheet in chart. Past Medical History Diagnosis Date ??? Venous insufficiency of both lower extremities Current Outpatient Prescriptions Medication Sig Dispense Refill ??? acetaminophen (TYLENOL) 500 mg tablet Take 2 Tabs by mouth every 6 hours as needed for Pain or Fever (Fever especially in neuro patients). (Patient not taking: Reported on 05/29/2016) ??? aspirin chewable 81 mg tablet Take 81 mg by mouth daily. Usually ??? cholecalciferol, Vitamin D3, 1,000 unit tablet Take 1,000 Units by mouth daily. ??? DOCOSAHEXANOIC ACID/EPA (FISH OIL ORAL) Take 1,500 mg by mouth. ??? flaxseed oil 1,000 mg capsule capsule Take 1,500 mg by mouth daily. ??? fluorouracil (EFUDEX) 5 % cream Apply topically 2 times daily. ??? ibuprofen (MOTRIN) 200 mg tablet Take 200 mg by mouth every 6 hours as needed for Pain. ??? Multivitamins with Minerals tablet tablet Take 1 Tab by mouth daily. ??? NONFORMULARY 2 Caps daily. Tumeric ??? sildenafil citrate (VIAGRA) 100 mg tablet Take 100 mg by mouth as needed for Erectile Dysfunction. No current facility-administered medications for this visit. Objective: Complete Cutaneous Exam On physical examination, in general, Mr. Ji is a male who is well-groomed, well-nourished [...] the following comments: Lesion A: Location: Right malar x 1; left jaw line x 1; dorsal hands Lesion Color: whitish, pink Lesion Type: macules Lesion Description: Gritty, keratotic texture on palpation. Well-defined. Lesion B: Location: Left mid back Lesion Color: whitish, pink Lesion Type: macule Lesion Description: Characterized by an approximately 6 mm, well-defined, pearly macule A/P: 1.) Actinic keratoses, face/dorsal hands. PLAN: Etiology, treatment and expectations for treatment of Actinic keratosis were reviewed at length today. Recommend cryotherapy for focal lesions noted onface, see procedure note below. CRYOSURGERY PROCEDURE NOTE PATIENT INFORMATION: Jacoby Saenz Patrick [id number] 1940 [id number] 1940 DATE OF PROCEDURE: 05/29/2016 SURGEON: Megha Hassan PA-C [employer] TOOL TECHNICIAN: INDICATIONS: SITE/LESION TYPE/DIAGNOSIS: Lesion(s) A: Location: Right malar x 1; left jaw line x 1; dorsal hands Lesion Type/Diagnosis: 2 actinic keratosis(es) Liquid nitrogen cryosurgery was applied to a total of 2 lesion(s) on the above stated locations. The expected reaction and healing course were discussed, as well as the possibility of incomplete resolution and/or permanent dyspigmentation. The indication, risks, benefits and alternatives to this pro cedure were discussed in detail with the patient and all questions were answered. Verbal wound care instructions were given. COMPLICATIONS: none Megha Hassan PA-C 05/29/2016 14:58 For hands: He has topical 5-FU cream at home (which expires in 2018,) and I recommended that he treat dorsal hands twice daily x 4 weeks - see patient instructions in AVS for specific details on these instructions from today's visit. 2.) Skin neoplasm of unspecified nature, left mid back, clinically suspicious for Basal Cell carcinoma. Ddx: Amelanotic malignant melanoma vs Benign Lichenoid Keratosis (Lichen Planus-like Keratosis,). Plan: Biopsy by shave technique today, specimen to pathology, further treatment pending results, see procedure note below for details. Details of procedure, possible post-operative complications, as well as post-procedure wound care was reviewed. The patient name, date of , surgical site, and procedure were verified prior to the procedure.Megha Hassan PA-C 14:59 05/29/2016. SHAVE BIOPSY PATIENT INFORMATION: Jacoby Ji : MRN: [id number] SURGEON: Megha Hassan PA-C The indication, risks, benefits and alternatives to this procedure were discussed in detail with the patient and all questions were answered. Informed consent was obtained in writing. PROCEDURE NOTE Specimen A Procedure: Tangential Shave Indication: Diagnostic Biopsy Site: mid and left back Anesthesia: 1% lidocaine with epinephrine 1:100,000 local infiltration Prep: Povodine Iodine The lesion was prepped as above and locally anesthetized. The specimen was removed by tangential shave using a Dermablade??. Hemostasis was achieved with pressure and/or aluminum chloride. The wound was cleansed with alcohol and a sterile dressing was applied over Petrolatum ointment. Verbal and written wound care instructions were given.The specimen was submitted to pathology for histological evaluation. Follow up here as needed, pending results of today's skin biopsy and/or other diagnostic procedures, otherwise in one year. Megha OLSON PA-C [facility] Division of Dermatology Clinical Instructor - [facility] Medicine 05/29/2016 documented in this encounter Plan of Treatment Scheduled Orders Name Type Priority Associated Diagnoses Orde r Schedule SURGICAL PATHOLOGY- ORDER ONLY Pathology Routine Neoplasm of uncertain behavior of skin Ordered: 05/29/2016 documented as of this encounter Procedures Procedure Name Priority Date/Time Associated Diagnosis Comments SURGICAL PATHOLOGY Routine 05/29/2016 9:23 EST documented in this encounter Results * SURGICAL PATHOLOGY (05/29/2016 9:23 EST) Pathology Report: SURGICAL PATHOLOGY REPORT Reports generated via electronic interface contain original data; however they are lacking the format of the original report. Caution should be taken when reading/interpret ing unformatted reports. Name: ? JACOBY JI ? Accession #: ? [id number] ? : ? 1940 (Age: 75) ??M ? Collect Date: ? 05/29/2016 ? Location: ? DERM ? Receive Date: ? 05/30/2016 ? Provider: MEGHA GONZALEZ Copy to: DREW MARINA MD ? Final Pathologic Diagnosis: SKIN OF BACK, LEFT, SHAVE BIOPSY: - Basal cell carcinoma, superficial and nodular types. - Lesion extends to base of biopsy specimen. - Lesion measures approximately 1.0 mm to the nearest peripheral edge. Document reviewed and electronically signed by: ARTEMIO ESTRELLA MD Report ??Date: 06/01/2016 14:28 By the signature above, the attending physician certifies that he/she has personally conducted a gross and/or microscopic examination of the described specimens and rendered or confirmed the above diagnosis. Specimen(s) Received: Left back Clinical History: BCC; clinical diagnosis code: ??D48.5 Gross Description: ? Received in formalin labelled with proper patient identification (initials C, H) and left back is a shave biopsy of martin-pink skin (1.1 x 1.0 x 0.1 cm). There is a central martin-white macule that measures 0.5 x 0.5 x 0.1 cm. The specimen is inked, serially sectioned, and is entirely submitted in 1 (central sections) and 2 (ends reverse en face). LISA Hagen (ASCP) 05/30/2016 11:48 AM End of Report [facility] 05/29/2016 9:23 EST 05/30/2016 9:23 EST Megha Hassan PA-C PATHOLOGY ORDERA [facility]IER[facility] [address] [place] [address] documented in this encounter Visit Diagnoses Diagnosis Neoplasm of uncertain behavior of skin- Primary Actinic keratosis documented in this encounter Historical Medications * This list may reflect changes made after this encounter. Medication Sig Dispensed Refills Start Date End Date fluorouracil (EFUDEX) 5 % cream Apply topically 2 times daily. added in this encounter Care Teams Windows Administrator Relationship Specialty Start Date End Date Drew Marina MD [address] [place] [address] PCP - General 03/24/13 documented as of this encounter
--- OUTSIDE RECORDS SUMMARY | 2024-01-23 21:28 | XMS_ITS | Encounter Summary ---
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) Discharge Disposition: Home or Self [...] Sign Reading Time Taken Comments Blood Pressure 136/78 10/17/2015 1030 EDT BP robin or to d/c Pulse - - Temperature 35.5 ??C (95.9 ??F) 10/17/2015 1030 EDT Respiratory Rate 14 10/17/2015 1030 EDT Oxygen Saturation 99% 10/17/2015 1009 EDT Inhaled Oxygen Concentration - - Weight 85.3 kg (188 lb) 10/12/2015 1610 EDT Height 180.3 cm (5' 11) 10/12/2015 1610 EDT Body Mass Index 26.22 10/12/2015 1610 EDT documented in this encounter Functional Status [...] 08/25/2015 documented as of this encounter Discharge Instructions * Discharge Instructions* Hortensia Dozier RN - 10/17/2015 9:55 EDT You were given acetaminophen 1,000 mg at 0945. You are allowed 4,000 mg in a 24 hour period. Please follow package instructions regarding proper dosage and frequency of Acetaminophen and Ibuprofen Remember the prescription you were given Vicodin (Hydrocodine/acetaminophen) contains acetaminophen in it. * Discharge Instr - Other Orders* Gerald Bernal MD - 10/17/2015 9:02 EDT Discharge Instructions Following Varicose Vein Surgery [...] THE OFFICE DIRECTED Vascular Clinic 5th floor [facility], [facility] . Our clinic offices are open [...] by mouth as needed for Erectile Dysfunction. HYDROcodone-acetaminoph en (NORCO) 5-325 mg tablet Take 1-2 Tabs by mouth every 6 hours as needed for Pain. Daily Max: 8 Tabs 10 Tab 0 10/17/2015 10/25/2015 HYDROmorphone (DILAUDID) 2 mg tablet Take 1-2 Tabs by mouth every 3 hours as needed for Pain. Daily Max: 32 mg 15 Tab 0 11/21/2015 11/29/2015 documented as of this encounter Ordered Prescriptions Prescription Sig Dispensed Refills Start Date End Da te HYDROcodone-acetaminophen (NORCO) 5-325 mg tablet Take 1-2 Tabs by mouth every 6 hours as needed for Pain. Daily Max: 8 Tabs 10 Tab 0 10/17/2015 10/25/2015 documented in this encounter Discharge Disposition Disposition Code Departure Means Destination Home or Self Care documented in this encounter Progress Notes * Miya Faye RN - 10/12/2015 1630 EDT Jacoby Nguyen has been instructed as follows regarding medication administration for the day of the scheduled procedure. Date of Surgery: 10/17/15 Instructions for Taking Medications Day of Surgery Medication Sig Last Dose Hold DOS Take DOS aspirin chewable 81 mg tablet Take 81 mg by mouth daily. Yes DIAZepam (VALIUM) 2 mg tablet Take 1 Tab by mouth at bedtime. Take one tablet 2 hours prior to bedtime. Ok to take second tablet 2 hours later if needed. Do not mix with alcohol. Daily Max: 2 mg Can take night before sildenafil citrate (VIAGRA) 100 mg tablet Take 100 mg by mouth as needed for Erectile Dysfunction. Hold 48 hours prior to surgery documented in this encounter H&P Notes * Gerald Bernal MD - 10/17/2015 3814 EDT The preoperative history and physical which was performed within 30 days of this procedure has been reviewed and the clinically appropriate elements of the physical examination have been repeated. There are no changes to the documented history and physical or if so such changes are documented below Gerald Bernal MD 10/17/2015 7:27 Source Note - Kristi Corrales NP - 10/11/2015 14:26 EDT [facility] Vascular Surgery H & P Visit [...] state. Patient is active working in his [email or web address] in the [employer]. Of note, patient has poor sleep and [...] visit. History was documented as follows: H PSH History reviewed. No pertinent past medical [...] x 1. Submitted by: Kristi Corrales NP * Juan Carlos Hubbard MD - 10/17/2015 0712 EDT The preoperative history and physical which was performed within 30 days of this procedure has been reviewed and the clinically appropriate elements of the physical examination have been repeated. There are no changes to the documented history and physical or if so such changes are documented below Juan Carlos Hubbard MD 10/17/2015 7:12 Source Note - Kristi Corrales NP - 10/11/2015 14:26 EDT [facility] Vascular Surgery H & P Visit [...] state. Patient is active working in his [email or web address] in the [employer]. Of note, patient has poor sleep and [...] Surgeon - Juan Carlos Hubbard MD - 10/17/2015 0935 EDT OPERATIVE REPORT SERVICE DATE: 10/17/2015 PREOPERATIVE DIAGNOSIS: Symptomatic left leg varicose veins. POSTOPERATIVE DIAGNOSIS: Symptomatic left leg varicose veins. PROCEDURE: Radiofrequency ablation of the greater saphenous vein and stab ligation of varices, total of 13 incisions. SURGEON: Juan Carlos Hubbard MD GRADES 1 THROUGH 5 TEACHER: Gerald Bernal MD ANESTHESIA: INDICATIONS: Mr Nguyen has had bilateral worsening varicose veins. He had an ultrasound done showing significant reflux in the greater saphenous vein, slightly worse on the left compared to the right, so today he is brought in for a radiofrequency ablation and stab ligation. NARRATIVE: In the operating room under general anesthesia, his left leg was prepped and draped in asterile manner. We started ultrasounding the leg. We could see the saphenous vein was dilated throughout with large varices coming off it. We entered the vein at the level of the knee and with the Seldinger technique, a 7-Armenian introducer was placed into the vein. We then used a 7- Armenian 60 cm ClosureFast catheter and with ultrasound guidance, the catheter tip was placed about 3 cm proximal to the saphenofemoral junction. Tumescence then done with saline. We then ablated the vein in the usual fashion throughout the length of the vein. We ultrasound the leg again and we could see the deep vein is intact, no clot, and the saphenous vein has significant wall thickening with no flow. The catheter and the sheath were then removed. The vein was brought out at that level and ligated with 3-0 Vicryl. We then performed stab ligation of her multiple large varices. We did a total of 13 incisions.We used a leighton hook to bring the veins out, which were then partly removed and then ligated with3-0 Vicryl. Good hemostasis was obtained at all levels. The incisions were closed with Mastisol andSteri-Strips and then Telfa, Tegaderm dressing. DANNY stocking on the leg. He was stable during the procedure. Instrument and sponge count was correct. He did receive 2 g of cefazolin perioperatively. He was extubated in the operating room and transferred to the postoperative care unit in good, stable condition. I was present throughout the full length of the surgery. Unless otherwise noted, there were no complications, no blood loss, no cultures obtained, no specimens removed, and no drains retained. Juan Carlos Hubbard MD 08 50 AM / Juan Carlos Hubbard MD jn Confirmation: [id number] Dictation ID: [id number] documented in this encounter Miscellaneous Notes * Brief Op Note - Gerald Bernal MD - 10/17/2015 0859 EDT Brief Op Note Pre-op Diagnosis: Superficial venous insufficiency; left leg varicose veins Post-op Diagnosis: Same. Procedure: Left greater saphenous vein radiofrequency ablation with stab ligations Surgeon: Dr. Juan Carlos Hubbard Floor Finisher Helper: Dr. Gerald Bernal; [place] Cisu (MS-3). Anesthesia: GETA. Findings: Good sclerosis of GSV, no DVT noted post-procedure; 13 stab ligations total Fluids: IVF - 700mL. EBL - Minimal. UOP - Nil. Drains/Lines: PIV. Retained Material: Nil. Specimens: Nil. Complications: Nil. Condition: Stable. Dispo: Extubated, to PACU, then home. Gerald Bernal MD (PGY- 4) 10/17/2015 9:06 Surgery Filling Technician Pager #[phone] documented in this encounter Plan of Treatment Not on file documented as of this encounter Procedures Procedure Name Priority Date/Time Associated Diagnosis Comments ECG REPORT - SCANNED 10/20/2015 8:33 EDT documented in this encounter Results * ECG REPORT - SCANNED (10/20/2015 8:33 EDT) 10/20/2015 8:33 EDT Scan 2 Boiler Tube Blower PROCEDURE/MINOR GERRY GICAL ORDERABLES documented in this encounter Visit Diagnoses Diagnosis 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- Primary 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 documented in this encounter Administered Medications Inactive Administered Medications - up to 3 most recent administrations Medication Order MAR Action Action Date Dose Rate Site acetaminophen (TYLENOL) tablet 1,000 mg 1,000 mg, oral, PRN, 1 dose, Starting on Sat10/17/15 at 0855, Until Sat10/17/15 at 0958, Pain, Fever, Fever especially in neuro patients, Routine, Recovery (only) Given 10/17/2015 9:58 EDT 1,000 mg ceFAZolin (ANCEF) syringe 2 g 2 g, intravenous, Administer over 10 Minutes, PRE-OP ONCE, 1 dose, On Sat10/17/15 at 0700, Routine, Pre-Op DOS Rx Approved Given by Other 10/17/2015 7:47 EDT 2 g IV chlorhexidine gluconate 2 % cloth 1 Each 1 Each, topical, PRE-OP ONCE, 1 dose, On Sat10/17/15 at 0700, Routine, Pre-Op DOS Rx Approved Given 10/17/2015 7:00 EDT 1 Each lactated ringers (LR) infusion at 100 mL/hr, intravenous, CONTINUOUS, Starting on Sat10/17/15 at 0700, Until Sat10/17/15 at 1234, Routine, Pre-Op DOS Rx Approved New Bag 10/17/2015 7:01 EDT 30 mL/hr documented in this encounter Discontinued Medications Medication Sig Discontinue Reason Start Date End Da te atovaquone-proguanil (MALARONE) 250-100 mg per tabletIndications:Other specified counseling Take 1 Tab by mouth daily. Error 04/08/2014 10/12/2015 hepatitis A vaccine, PF, (HAVRIX) 1,440 Naya unit/mL syringeIndications:Other specified counseling Inject 1 mL into the muscle once for 1 dose. Error 04/08/2014 10/12/2015 typhoid polysaccharide vaccine (TYPHIM ) 25 mcg/0.5 mL syringeIndications:Other specified counseling Inject 0.5 mL into the muscle once for 1 dose. Error 04/08/2014 10/12/2015 DIAZepam (VALIUM) 2 mg tablet Take 1 Tab by mouth at bedtime. Take one tablet 2 hours prior to bedtime. Ok to take second tablet 2 hours later if needed. Do not mix with alcohol. Daily Max: 2 mg 10/11/2015 10/17/2015 documented as of this encounter Historical Medications * This list may reflect changes made after this encounter. Medication Sig Dispensed Refills Start Date End Date flaxseed oil 1,000 mg capsule capsule Take 1,500 mg by mouth daily. NONFORMULARY 2 Caps daily. Tumeric DOCOSAHEXANOIC ACID/EPA (FISH OIL ORAL) Take 1,500 mg by mouth. cholecalciferol, Vitamin D3, 1,000 unit tablet Take 1,000 Units by mouth daily. Multivitamins with Minerals tablet tablet Take 1 Tab by mouth daily. added in this encounter Active and Recently Administered Medications Times are shown in EDT. Scheduled Medication Order 10/15/2015 10/16/2015 10/17/2015 ceFAZolin (ANCEF) syringe 2 g (COMPLETED) 2 g, intravenous, Administer over 10 Minutes, PRE-OP ONCE, 1 dose, On Sat10/17/15 at 0700, Routine, Pre-Op DOS Rx Approved 0747 (Given by Other - Provider: Chanelle Rivers RN - Comment: given by Jd Torres) chlorhexidine gluconate 2 % cloth 1 Each (COMPLETED) 1 Each, topical, PRE-OP ONCE, 1 dose, On Sat10/17/15 at 0700, Routine, Pre-Op DOS Rx Approved 0700 (Given - Provid er: Roland Munson) Continuous Medication Order 10/15/2015 10/16/2015 10/17/2015 lactated ringers (LR) infusion (CANCELED) at 100 mL/hr, intravenous, CONTINUOUS, Starting on Sat10/17/15 at 0700, Until Sat10/17/15 at 1234, Routine, Pre-Op DOS Rx Approved 0701 (New Bag - Prov ider: Roland Munson)0940 (Continued Infusion - Provider: Hortensia Dozier, LETTY) PRN Medication Order 10/15/2015 10/16/2015 10/17/2015 acetaminophen (TYLENOL) tablet 1,000 mg (COMPLETED) 1,000 mg, oral, PRN, 1 dose, Starting on Sat10/17/15 at 0855, Until Sat10/17/15 at 0958, Pain, Fever, Fever especially in neuro patients, Routine, Recovery (only) 0958 (Given - Provid er: Hortensia Dozier RN) documented in this encounter Orders Medications Ordered That Mandeep ht Not Have Been Administered Count Last Ordered Date First Ordered Date atropine 0.1 mg/mL syringe 0.5 mg 1 016 diphenhydrAMINE (BENADRYL) i njection 6.25 mg 1 10/17/2015 fentaNYL citrate (PF) 50 mcg /mL injection 25-100 mcg 1 10/17/2015 metoCLOPramide (REGLAN) injection 10 mg 1 0 10/17/2015 nalOXone (NARCAN) injection 0.2 mg 1 2015 oxyCODONE (ROXICODONE) immed iate release tablet 5-10 mg 1 10/17/2015 Admission Count Last Ordered Date First Orde red Date STATUS: OUTPATIENT SURGICAL OP BED/SERVICES 1 10/17/2015 Transfer Count Last Ordered Date First Orde red Date NOTIFY PPS PACU PATIENT DISCHARGE 1 016 NOTIFY PPS PATIENT ARRIVAL IN PACU 1 2015 Discharge Count Last Ordered Date First Orde red Date DISCHARGE PATIENT 1 10/17/2015 documented in this encounter Care Teams Acute Dialysis Nurse Relationship Specialty Start Date End Date Drew Marina MD [address] [place] [address] PCP - General 03/24/13 documented as of this encounter
--- OUTSIDE RECORDS SUMMARY | 2024-01-23 21:28 | XMS_ITS | Encounter Summary ---
Author Organization [facility] Address [facility] [place] [address] Care Team Providers Care Electron Microprobe Operator Name Role Phone Drew Marina MD Primary Care Provider [phone] Reason for Visit * Reason Onset Date Comments Medication Refill 03/10/2014 Encounter Details Date Type Department Care Team (Late st Contact Info) Description 03/10/2014 Refill Dermatology at [facility] [address] [place] [address] Nicolle Kurtz MD [facility] [address] [address] Social History Tobacco Use Types Packs/Day Years Used Date Smoking Tobacco: Never Sex and Gender Information Value Date Recorded Sex Assigned at Not on file Gender Identity Not on file Sexual Orientation Not on file documented as of this encounter Miscellaneous Notes * Telephone Encounter - Pily Naik LPN - 03/23/2014 8:10 AM EDT error documented in this encounter Plan of Treatment Upcoming Encounters Date Type Department Care Team (Late st Contact Info) Description 03/23/2024 3:45 PM EDT Office Visit Dermatology at [address] [place] [address] Rush Mcmillan MD [address] [facility], [place] [address] 04/27/2024 3:30 PM EST Office Visit Dermatology at [place] [address] [place] [phone] Rush Mcmillan MD [address], [place]ATH[place] [address] documented as of this encounter Visit Diagnoses Not on filedocumented in this encounter Care Teams Electron Microprobe Operator Relationship Specialty Start Date End Date Drew Marina MD [address] [place] [address] PCP - General 05/09/10 07/17/23 documented as of this encounter
--- OUTSIDE RECORDS SUMMARY | 2024-01-23 21:28 | XMS_ITS | Encounter Summary ---
Author Organization [facility] [place] [address] Care Team Providers Care Pole Climber Name Role Phone Guanako Godwin MD Primary Care Provider [phone] Encounter Details Date Type Department Care Team (Latest Contact Info) Description 07/18/2023 10:19 PM EST - 07/18/2023 11:59 PM EST Hospital [place] [phone] Discharge Disposition: Home Social History Tobacco Use Types Packs/Day Years Used Date Smoking Tobacco: Never Smokeless Tobacco: Never Sex and Gender Information Value Date Recorded Sex Assigned at Not on file Gender Identity Not on file Sexual Orientation Not on file documented as of this encounter Medications at Time of Discharge Medication Sig Dispensed Refills Start Date End Date clobetasoL (Temovate) 0.05 % Cream APPLY SPARINGLY TO AFFECTED AREA(S) TWO TIMES A DAY tadalafiL (Cialis) 20 mg tablet TAKE ONE TABLET BY MOUTH EVERY 3 DAYS NEEDED 30 TO 60 MINUTES BEFORE SEXUAL ACTIVITY documented as of this encounter Plan of Treatment Upcoming Encounters Date Type Department Care Team (Late st Contact Info) Description 03/23/2024 3:45 PM EDT Office Visit Dermatology at [address] [phone] Rush Mcmillan MD [address] [place] [address], JONATHON [place] [address] 04/27/2024 3:30 PM EST Office Visit Dermatology at [address] [place] [phone] Rush Mcmillan MD [address] [facility], [place] [address] documented as of this encounter Procedures Procedure Name Priority Date/Time Associated Diagnosis Comments SURGICAL PATHOLOGY REPORT Routine 07/18/2023 9:15 AM EST documented in this encounter Results * Surgical Pathology Report (07/18/2023 9:15 AM EST) Final Diagnosis [id number] ? Location: OPW The signing pathologist has (i) examined the relevant preparation(s) for the specimen(s) and (ii) rendered or confirmed the diagnosis(es). . ?Surgical Pathology DIAGNOSIS Right lateral arm, skin punch biopsy: - ??Intradermal melanocytic nevus, irritated, ?? present at the peripheral specimen edge Electronically signed by: ?Jose Maria HELM, [facility] Verified: ??08/06/2023 14:48 ??Dermatopathologist Performed at: ??-[facility] Dept. of Pathology, [place] [address] Mid Teacher: Ashley Lara MD, FCAP, ??CLIA Certificate: [id number] ADDITIONAL STUDIES Melanocytes are highlighted by SOX10. There is rare superficial dermal mitosis; PRAME is negative. There is prominent associated solar elastosis. CK5 and CKAE1/3 highlight background squamous epithelium. ?This case was also reviewed by an additional intradepartmental dermatopathologist for consensus diagnosis. SPECIMEN(S) SUBMITTED A - R lateral arm, punch (4mm) CLINICAL INFORMATION Erythematous patch, rule out SCC/BCC SPECIMEN PROCESSING A - Labeled/Fixative: Patient demographics, formalin. Quantity/Size: ??Single, 0.4 cm. Tissue Description: Punch of white skin. Sections/Processing: Inked, bisected and entirely submitted in 1 cassette labeled A1. ??sns 08/06/2023 2:48 PM EST [facility] SPECIMEN FROM SKIN / Unknown 07/18/2023 9:15 AM EST 07/18/2023 9:15 AM EST Rush Mcmillan MD PATHOLOGY/CYTOLOGY O DOROTHY Performing Organization Address City/State/[facility] Co de Phone Number [facility] [place] [phone] [facility] [place] [address] documented in this encounter Visit Diagnoses Not on filedocumented in this encounter Care Teams Pole Climber Relationship Specialty Start Date End Date Guanako Godwin MD [address] [place] [address] PCP - General Family Medicine 07/18/23 10/24/23 documented as of this encounter
--- OUTSIDE RECORDS SUMMARY | 2024-01-23 21:28 | XMS_ITS | Encounter Summary ---
Author Organization [facility] Address [address] [place] [address] Care Team Providers Care Military Exchange Wireless Manager Name Role Phone Drew Marina MD Primary Care Provider [phone] Encounter Details Date Type Department Care Team (Late st Contact Info) Description 04/02/2023 Lab Requisition [facility] Pathology & Laboratory Medicine - [facility] [address] [place], [place] [address] Outr Resulting Lab, Provider Social History Tobacco Use Types Packs/Day Years [...] No 11/29/2015 documented as of this encounter Plan of Treatment Not on file documented as of this encounter Procedures Procedure Name Priority Date/Time Associated Diagnosis Comments TESTOSTERONE, TOTAL AND FREE Routine 04/02/2023 10:52 EDT documented in this encounter Results * (ABNORMAL) TESTOSTERONE, TOTAL AND FREE (04/02/2023 10:52 EDT) Testosterone 505 229 - 902 ng/dL 04/02/2023 23:19 EDT [facility] Comment:The results of this assay can be falsley elevated due to the consumption of Biotin. Sex Hormone Bnd Glob 88.8(H) 17.3 - 71.5 nmol/L 04/02/2023 23:19 EDT [facility] Comment:The results of this assay can be falsely lowered due to the consumption of Biotin. Free Testosterone 5.1 2.7 - 9.4 ng/dL 04/02/2023 23:19 EDT [facility] Blood VENOUS BLOOD / Unknown 04/02/2023 10:52 EDT 04/02/2023 22:29 EDT Narrative [facility] - 04/02/2023 23:19 EDT This test is not recommended in patients with plasma protein abnormalities. Provider Outr Resulting Lab CHEMISTRY & BLOOD GAS ORDERABLES [facility] [address] [place] [address] documented in this encounter Visit Diagnoses Not on filedocumented in this encounter Care Teams Military Exchange Wireless Manager Relationship Specialty Start Date End Date Drew Marina MD [address] [place] [address] PCP - General 03/24/13 documented as of this encounter
--- OUTSIDE RECORDS SUMMARY | 2024-01-23 21:28 | XMS_ITS | Encounter Summary ---
Author Organization [facility] Address [address] [place] [address] Care Team Providers Care Charge Rn Name Role Phone Unknown, Provider Primary Care Provider [phone] Encounter Details Date Type Department Care Team (Late st Contact Info) Description 03/17/2013 Results Only [facility] Laboratory Services - [facility] ([facility]) [address] [place], [place] [phone] Darius Sanford, DO [address] [facility] [address] [place], [place] [address] Social History Tobacco Use Types Packs/Day Years Used Date Smoking Tobacco: Never Assessed Sex and Gender Information Value Date Recorded Sex Assigned at Not on file Gender Identity Not on file Sexual Orientation Not on file documented as of this encounter Plan of Treatment Not on file documented as of this encounter Procedures Procedure Name Priority Date/Time Associated Diagnosis Comments SURGICAL PATHOLOGY Routine 03/17/2013 8:58 EDT documented in this encounter Results * SURGICAL PATHOLOGY (03/17/2013 8:58 EDT) Pathology Report: SURGICAL PATHOLOGY REPORT Reports generated via electronic interface contain original data; however they are lacking the format of the original report. Caution should be taken when reading/interpreti ng unformatted reports. Name: ? JACOBY JI ? Accession #: ? [id number] ? : ? 1940 (Age: 72) ??M ? Collect Date: ? 03/17/2013 ? Location: ? [facility] ? Receive Date: ? 03/17/2013 ? Provider: DARIUS SANFORD DO Copy to: TAYLOR HERNANDEZ MD ? Final Pathologic Diagnosis: POLYP, CECUM, BIOPSY: - ??Tubular adenoma. Document reviewed and electronically signed by: IFRAH LEBLANC MD Report ??Date: 03/19/2013 17:07 By the signature above, the attending physician certifies that he/she has personally conducted a gross and/or microscopic examination of the described specimens and rendered or confirmed the above diagnosis. Specimen(s) Received: Cecal polyp Clinical History: Colon cancer screening Gross Description: ? Received in formalin labelled with proper patient identification (initials C, H) and 1. cecal polyp are two pink-martin tissues (0.3 x 0.3 x 0.2 cm and 0.4 x 0.2 x 0.2 cm). Entirely submitted in 1. Corrine Duran 03/18/2013 10:50 AM End of Report [facility] 03/17/2013 8:58 EDT 03/17/2013 8:58 EDT Darius Sanford DO PATHOLOGY ORDER JEFF[facility] [address] [place] [address] documented in this encounter Visit Diagnoses Not on filedocumented in this encounter Care Teams Charge Rn Relationship Specialty Start Date End Date Unknown, Provider, PCP - General 03/18/13 03/23/13 documented as of this encounter
--- OUTSIDE RECORDS SUMMARY | 2024-01-23 21:28 | XMS_ITS | Clinical Summary ---
Author Organization [facility] Address [facility] [place] [address] Care Team Providers Care Women'S Activities Adviser Name Role Phone Patrica Godfrey MD Primary Care Provider [phone] Allergies No known active allergies Medications Medication Sig Dispensed Refills Start Date End Date Status clobetasoL (Temovate) 0.05 % Cream APPLY SPARINGLY TO AFFECTED AREA(S) TWO TIMES A DAY Active tadalafiL (Cialis) 20 mg tablet TAKE ONE TABLET BY MOUTH EVERY 3 DAYS NEEDED 30 TO 60 MINUTES BEFORE SEXUAL ACTIVITY Active rivaroxaban (Xarelto) 20 mg tablet Take 1 tablet by mouth daily. 10/09/2023 Active Active Problems Problem Noted Date Diagnosed Date Atrial fibrillation 11/26/2023 Assessment & Plan (12/12/2023 9:01 AM EDT): He certainly may have mild symptoms attributalbe, but he finds that unless he does very significant activity he has no limitations. We had an [...] 20 qpm - Reversible Causes: none identified Pulmonary nodule 10/10/2023 Elevated blood pressure reading 10/10/2023 Erectile dysfunction 01/19/2020 Overview (10/10/2023): Problem Code: N52.9; Problem Code Type: ICD-10; Low back pain 09/17/2017 Overview (10/10/2023): Problem Code: M54.5; Problem Code Type: ICD-10; Problem Code: M54.5; Problem Code Type: ICD-10; History of malignant neoplasm of skin 08/28/2016 Overview (10/10/2023): BCC Insomnia 04/03/2016 Overview (10/10/2023): mild Problem Code: G47.00; Problem Code Type: ICD-10; Fatigue 03/31/2015 Overview (10/10/2023): Problem Code: R53.83; Problem Code Type: ICD-10; Varicose veins of left lower extremity with pain 03/29/2015 Overview (10/10/2023): Problem Code: I83.90; Problem Code Type: ICD-10; Benign neoplasm of colon 03/23/2013 Overview (10/10/2023): Problem Code: 211.3; Problem Code Type: ICD-9; Actinic keratosis 03/20/2012 Overview (10/10/2023): Problem Code: L57.0; Problem Code Type: ICD-10; Dermatofibroma 03/20/2012 Sciatica 01/26/2009 Lower urinary tract symptoms due to benign prostatic hyperplasia 01/26/2009 Overview (10/10/2023): Problem Code: N40.1; Problem Code Type: ICD-10; Hemorrhoids 01/26/2009 Benign prostatic hyperplasia 01/26/2009 Overview (10/10/2023): Problem Code: N40.0; Problem Code Type: ICD-10; Resolved Problems Problem Noted Date Diagnosed Date Resolved Date First degree heart block 10/10/2023 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 024 Impacted cerumen 07/22/2023 12/12/2023 Blepharitis 10/25/2021 10/10/2023 Overview (10/10/2023): Problem Code: H01.009; Problem Code Type: ICD-10; Bradycardia 10/04/2016 12/12/2023 Overview (10/10/2023): Problem Code: R00.1; Problem Code Type: ICD-10; Chest pain 08/28/2016 12/12/2023 Overview (10/10/2023): Problem Code: R07.89; Problem Code Type: ICD-10; Rosacea 03/29/2014 12/12/2023 Overview (10/10/2023): Problem Code: L71.9; Problem Code Type: ICD-10; Venous insufficiency of both lower extremities 01/26/2009 12/12/2023 Overview (10/10/2023): Problem Code: I87.2; Problem Code Type: ICD-10; Tear of medial meniscus of knee 01/26/2009 10/10/2023 Overview (10/10/2023): Problem Code: S83.249A; Problem Code Type: ICD-10; Tear of medial collateral ligament of knee 01/26/2009 10/10/2023 Overview (10/10/2023): Problem Code: M23.631; Problem Code Type: ICD-10; Encounters Date Type Department Care Team Description 12/12/2023 8:20 AM EDT Office Visit Cardiology at [address] [address] Rolando Lomas MD Persistent atrial fibrillation 11/26/2023 Abstract Cardiology at [address] [address] Lisandro Witt RN from Last 3 Months Family History Medical History Relation Comments Cerebrovascular Accident Mother Relation Status Comments Father Mother Social History Tobacco Use Types Packs/Day Years [...] AM EDT Temperature - - Respiratory Rate 20 06/02/2015 8:13 AM EST Oxygen Saturation - - Inhaled Oxygen Concentration - - Weight 86.2 kg (190 lb) 12/12/2023 8:24 AM EDT Height 182.2 cm (5' 11.75) 12/12/2023 8:24 AM E DT Body Mass Index 25.95 12/12/2023 8:24 AM EDT Plan of Treatment Upcoming Encounters Date Type Department Care Team (Late st Contact Info) Description 03/23/2024 3:45 PM EDT Office Visit Dermatology at [address] [phone] Rush Mcmillan MD [address] [place] [address], [place] [address] 04/27/2024 3:30 PM EST Office Visit Dermatology at [address] [address] Rush Mcmillan MD [address] [place] [address], [place] [address] Health Maintenance Due Date Last Done Comments Tdap adult 12/21/1958 Tetanus vaccine 12/21/1958 Zoster vaccine (1 of 2) 12/21/1989 Advance Directive 12/21/1994 Pneumoccocal Vaccine: 65+ (1 of 1 - PCV) 12/21/2004 Covid-19 Vaccine (2 - 2022- season) 2023 Influenza (Flu) vaccine (1 o f 1 - Influenza standard series) 02/16/2024 Care Teams Women'S Activities Adviser Relationship Specialty Start Date End Date Patrica Godfrey MD [address] [place] [address] PCP - General Family Medicine 10/25/23
--- OUTSIDE RECORDS SUMMARY | 2024-01-23 21:28 | XMS_ITS | Encounter Summary ---
[place] [address] Care Team Providers Care Warp Hanger Name Role Phone Guanako Godwin MD Primary Care Provider [phone] Reason for Visit * Reason Onset Date Comments Referral 10/10/2023 Atrial Fibrillation 10/10/2023 Encounter Details Date Type Department Care Team (Late st Contact Info) Description 10/10/2023 Telephone Cardiology at [address] [address] Flor Mancuso, quality assurance representative; Atrial Fibrillation Social History Tobacco Use Types Packs/Day Years Used Date Smoking Tobacco: Never Smokeless Tobacco: Never Sex and Gender Information Value Date Recorded Sex Assigned at Not on file Gender Identity Not on file Sexual Orientation Not on file documented as of this encounter Miscellaneous Notes * Telephone Encounter - Flor Mancuso, RN - 10/10/2023 4:16 PM EDT Images from the original note were not included. [facility] [address] [place] [address] [place] [address] Jacoby was referred to this Cardiology clinic in [place] by his PCP Patrica Godfrey MD, for rhythm management with diagnosis of atrial fibrillation. Active Ambulatory Problems Diagnosis Date Noted Actinic keratosis 03/20/2012 Dermatofibroma 03/20/2012 Venous insufficiency of both lower extremities 01/26/2009 Erectile dysfunction 01/19/2020 Sciatica 01/26/2009 Rosacea 03/29/2014 Varicose veins of left lower extremity with pain 03/29/2015 Impacted cerumen 07/22/2023 Insomnia 04/03/2016 Low back pain 09/17/2017 Lower urinary tract symptoms due to benign prostatic hyperplasia 01/26/2009 Pulmonary nodule 10/10/2023 History of malignant neoplasm of skin 08/28/2016 Hemorrhoids 01/26/2009 First degree heart block 10/10/2023 Fatigue 03/31/2015 Elevated blood pressure reading 10/10/2023 Chest pain 08/28/2016 Bradycardia 10/04/2016 Benign prostatic hyperplasia 01/26/2009 Benign neoplasm of colon 03/23/2013 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 Current medications clobetasoL (Temovate) 0.05 % Cream tadalafiL (Cialis) 20 mg tablet * Telephone Encounter - Flor Mancuso, RN - 10/10/2023 3:43 PM EDT ----- Message from Beveryl Moise sent at 10/10/2023 1:31 PM EDT ----- Referral and Office Note scanned and indexed. documented in this encounter Plan of Treatment Upcoming Encounters Date Type Department Care Team (Late st Contact Info) Description 03/23/2024 3:45 PM EDT Office Visit Dermatology at [address] [place] [address] Rush Mcmillan MD [address] [facility], JONATHON Arred[place] [address] 04/27/2024 3:30 PM EST Office Visit Dermatology at [address] [place] [address] Rush Mcmillan MD [address] [place] [address] RD, JONATHON [place] [address] documented as of this encounter Visit Diagnoses Not on filedocumented in this encounter Care Teams Warp Hanger Relationship Specialty Start Date End Date Guanako Godwin MD [address] [place] [address] PCP - General Family Medicine 07/18/23 10/24/23 documented as of this encounter
--- OUTSIDE RECORDS SUMMARY | 2024-01-23 21:28 | XMS_ITS | Encounter Summary ---
Author Organization [facility] [place] [address] Care Team Providers Care Coagulating Bath Operator Name Role Phone Drew Marina MD Primary Care Provider [phone] Encounter Details Date Type Department Care Team (Latest Contact Info) Description 07/08/2023 Travel Social History Tobacco Use Types Packs/Day [...] 3:45 PM EDT Office Visit Dermatology at [address] [phone] Rush Mcmillan MD [address] [place] [address] 04/27/2024 3:30 PM EST Office Visit Dermatology at [address] [phone] Rush Mcmillan MD [address] [place] [address], [place], [place] [phone] documented as of this encounter Visit Diagnoses Not on filedocumented in this encounter Care Teams Coagulating Bath Operator Relationship Specialty Start Date End Date Drew Marina MD [address] [place] [address] PCP - General 05/09/10 07/17/23 documented as of this encounter
--- OUTSIDE RECORDS SUMMARY | 2024-01-23 21:28 | XMS_ITS | Encounter Summary ---
Author Organization [facility] Address [facility] [place] [address] Care Team Providers Care Video Network Engineer Name Role Phone Guanako Godwin MD Primary Care Provider [phone] Reason for Visit * Reason Comments Follow-up * Consultation (Routine) - Closed Specialty Diagnoses / Procedures Referred By Neelam castle Referred To Contact Dermatology Diagnoses Disorder of penis, unspecified Florentin Mahoney MD [address] [place] [address] Rush Mcmillan MD [address] [place] [address], [facility] [place] [address] Referral ID Status Reason Start Date Expiration Date Visits Re quested Visits Authorized [id number] Closed 07/10/2023 07/09/2024 1 1 Encounter Details Date Type Department Care Team (Late st Contact Info) Description 07/18/2023 9:15 AM EST Procedure visit Dermatology at [address] [address] Rush Mcmillan MD [address] [place] [address], [facility] [place] [address] History of atypical nevus Social History Tobacco Use Types Packs/Day Years Used Date Smoking Tobacco: Never Smokeless Tobacco: Never Sex and Gender Information Value Date Recorded Sex Assigned at Not on file Gender Identity Not on file Sexual Orientation Not on file documented as of this encounter Progress Notes * Rush Mcmillan MD - 07/18/2023 9:15 AM EST Problem: Follow-up for biopsy of right lateral arm lesion Jacoby follows up after last seeing me on July 08. 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 He has been using the clobetasol as directed. He was seen by Dr. Godwin in the meantime and the right lateral arm lesion treated with LN2. He seems to be doing better. Physical examination reveals that the erythematous crusting plaque on the right lateral arm has flattened. It is only moderately erythematous today. 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 After obtaining informed patient consent, the site was anesthetized and a 4 mm punch biopsy was obtained. 2. Closure with 4-0 Ethilon 3. Return to clinic in 2 weeks for suture removal biopsy results. CC: Guanako Godwin MD documented in this encounter Plan of Treatment Upcoming Encounters Date Type Department Care Team (Late st Contact Info) Description 03/23/2024 3:45 PM EDT Office Visit Dermatology at [address] [phone] Rush Mcmillan MD [address] [place] [address] 04/27/2024 3:30 PM EST Office Visit Dermatology at [address] [phone] Rush Mcmillan MD [address] [place] [address] documented as of this encounter Visit Diagnoses Diagnosis History of atypical nevus Personal history of diseases of skin and subcutaneous tissue documented in this encounter Care Teams Video Network Engineer Relationship Specialty Start Date End Date Guanako Godwin MD [address] [place] [address] PCP - General Family Medicine 07/18/23 10/24/23 documented as of this encounter
--- OUTSIDE RECORDS SUMMARY | 2024-01-23 21:28 | XMS_ITS | Encounter Summary ---
Author Organization [facility] Address [facility] [place] [address] Care Team Providers Care Vegetable Cutter Name Role Phone Drew Marina MD Primary Care Provider [phone] Encounter Details Date Type Department Care Team (Late st Contact Info) Description 03/10/2014 Telephone Dermatology at [facility] [address] [place] [address] Pily Naik LPN Social History Tobacco Use Types Packs/Day Years Used Date Smoking Tobacco: Never Sex and Gender Information Value Date Recorded Sex Assigned at Not on file Gender Identity Not on file Sexual Orientation Not on file documented as of this encounter Miscellaneous Notes * Telephone Encounter - Pily Naik LPN - 03/10/2014 10:09 AM EDT Returned patients call. He was attempting to fill rx carac, - too expensive. We sent efudex- he afforded that. Was going tostart. He has an open cold sore on his lip, and wanted to discuss treatment instructions again. Efudex twice daily for three weeks for nose and cheek. Told him not to use efudex while having cold sore outbreaks. Spoke with Dr. Kurtz who suggested valtrex one time dose and extra for prophylaxis for future outbreaks. She wanted him to take 500mg for 5 weeks while using the cream. Patient was very unsure about taking the pills. He stated that he has really never taken other pharmaceuticals in his life, and would like to refrain from doing so. He thinks that he might change his mind, and would rather treat his AKs with another method. He thinks he would like to treat with LN2, Offered him a follow up appt to have treated with ln2. He stated that he is leaving out of town in beginning of March. He still wants to think about what kind of treatment to use, and will call us back when he returns. He also has a follow up with his PCP, and thought maybe he could treat with LN2. Told him either way to let us know, he understands and will call us to let us know his decision. Did not send valtrex rx today. Told patient not to use efudex cream. documented in this encounter Plan of Treatment Upcoming Encounters Date Type Department Care Team (Late st Contact Info) Description 03/23/2024 3:45 PM EDT Office Visit Dermatology at [address] [phone] Rush Mcmillan MD [address] [place] [address] 04/27/2024 3:30 PM EST Office Visit Dermatology at [address] [phone] Rush Mcmillan MD [address] [place] [address] documented as of this encounter Visit Diagnoses Not on filedocumented in this encounter Care Teams Vegetable Cutter Relationship Specialty Start Date End Date Drew Marina MD [address] [place] [address] PCP - General 05/09/10 07/17/23 documented as of this encounter
--- OUTSIDE RECORDS SUMMARY | 2024-01-23 21:28 | XMS_ITS | Encounter Summary ---
Author Organization [facility] [place] [address] Care Team Providers Care Dispatcher Tow Truck Name Role Phone Guanako Godwin MD Primary Care Provider Encounter Details Date Type Department Care Team (Latest Contact Info) Description 07/18/2023 Travel Social History Tobacco Use Types Packs/Day [...] 3:45 PM EDT Office Visit Dermatology at [address] [phone] Rush Mcmillan MD [address] [place] [address] 04/27/2024 3:30 PM EST Office Visit Dermatology at [address] [phone] Rush Mcmillan MD [address] [place] [phone] documented as of this encounter Visit Diagnoses Not on filedocumented in this encounter Care Teams Dispatcher Tow Truck Relationship Specialty Start Date End Date Guanako Godwin MD [address] [place] [address] PCP - General Family Medicine 07/18/23 10/24/23 documented as of this encounter
--- OUTSIDE RECORDS SUMMARY | 2024-01-23 21:28 | XMS_ITS | Encounter Summary ---
Author Organization [facility] [place] [address] Care Team Providers Care Exchange Floor Manager Name Role Phone Patrica Godfrey MD Primary Care Provider [phone] Encounter Details Date Type Department Care Team (Late st Contact Info) Description 11/26/2023 Abstract Cardiology at [address] [phone] Lisandro Witt RN Social History Tobacco Use Types Packs/Day [...] 3:45 PM EDT Office Visit Dermatology at [address] [phone] Rush Mcmillan MD [address] [place] [address] DERMATOLOGY [place], [place] [phone] 04/27/2024 3:30 PM EST Office Visit Dermatology at [address] [phone] Rush Mcmillan MD [address] [place] [phone] documented as of this encounter Visit Diagnoses Not on filedocumented in this encounter Care Teams Exchange Floor Manager Relationship Specialty Start Date End Date Patrica Godfrey MD [address] [place] [address] PCP - General Family Medicine 10/25/23 documented as of this encounter
--- OUTSIDE RECORDS SUMMARY | 2024-01-23 21:28 | XMS_ITS | Encounter Summary ---
Author Organization [facility] [place] [address] Care Team Providers Care Tennis Racket Repairer Name Role Phone Drew Marina MD Primary Care Provider [phone] Encounter Details Date Type Department Care Team (Late st Contact Info) Description 06/29/2021 8:30 AM EST Office Visit Dermatology at [place] [address] [facility] [phone] Rush Mcmillan MD [address] [facility] [address] History of atypical nevus; Nevus Social History Tobacco Use Types Packs/Day Years Used Date Smoking Tobacco: Never Smokeless Tobacco: Never Sex and Gender Information Value Date Recorded Sex Assigned at Not on file Gender Identity Not on file Sexual Orientation Not on file documented as of this encounter Progress Notes * Rush Mcmillan MD - 06/29/2021 8:30 AM EST Problem: New lesions concern, 1 on back/acrochordon on eyelid Jacoby follows up is now 80. I last saw him in February for benign skin examination. He returns today concerned about the above 2 sites. Physical examination reveals a pleasant 80-year-old gentleman who has a small follicular cyst on the right flank. He has a tag on the left upper lateral eyelid Assessment plan: Follicular cyst right flank 1. Today site was anesthetized and removed with 6 mm punch biopsy 2. Triple antibiotic ointment and Band-Aid placed 3. Two 4-0 sutures placed. Wound care instructions up and supplies given 4. Suture removal in 10 to 14 days by patient's significant other at home. Acrochordon left upper lateral eyelid 1. Could consider treatment with electrodesiccation. 2. Return to clinic as needed for new lesion/concerns. CC: Drew Marina MD documented in this encounter Plan of Treatment Upcoming Encounters Date Type Department Care Team (Late st Contact Info) Description 03/23/2024 3:45 PM EDT Office Visit Dermatology at [address] [phone] Rush Mcmillan MD [address] [place] [address] 04/27/2024 3:30 PM EST Office Visit Dermatology at [address] [phone] Rush Mcmillan MD [address] [place] [address] documented as of this encounter Visit Diagnoses Diagnosis History of atypical nevus Personal history of diseases of skin and subcutaneous tissue Nevus Benign neoplasm of skin, site unspecified documented in this encounter Care Teams Tennis Racket Repairer Relationship Specialty Start Date End Date Drew Marina MD [address] [place] [address] PCP - General 05/09/10 07/17/23 documented as of this encounter
--- OUTSIDE RECORDS SUMMARY | 2024-01-23 21:28 | XMS_ITS | Encounter Summary ---
Author Organization [facility] Address [facility] [place] [address] Care Team Providers Care Agent Producer Name Role Phone Drew Marina MD Primary Care Provider [phone] Encounter Details Date Type Department Care Team (Late st Contact Info) Description 03/01/2014 Telephone Dermatology at [facility] [address] [place] [phone] Nicolle Kurtz MD [facility] [address] [place] [address] Social History Tobacco Use Types Packs/Day Years Used Date Smoking Tobacco: Never Sex and Gender Information Value Date Recorded Sex Assigned at Not on file Gender Identity Not on file Sexual Orientation Not on file documented as of this encounter Miscellaneous Notes * Telephone Encounter - Pily Naik LPN - 03/03/2014 9:29 AM EDT Spoke with patients . Her , patient is away from home until tomorrow. She will call pharmacy to see if efudex is covered. They have medicare, but do not have supplemental for rx coverage - so not sure if can afford either. She will call me back to confirm. She will have Edward call me back so i can go over instructions further. * Telephone Encounter - Pily Naik LPN - 03/01/2014 2:48 PM EDT Will try to send efudex. Verifying with Dr. Chong if that is what she prefers. * Telephone Encounter - Leo Aquino - 03/01/2014 1:12 PM EDT Jacoby was prescribed Carac when he was in to see Dr. Kurtz on Saturday. He went to the pharmacy and was told it was $1700, and he can not afford that even with his insurance picking up a portion of it.He would like to know if there is a less expensive alternative (generic?) that he can get instead. Leo Zamora documented in this encounter Plan of Treatment Upcoming Encounters Date Type Department Care Team (Late st Contact Info) Description 03/23/2024 3:45 PM EDT Office Visit Dermatology at [address] [phone] Rush Mcmillan MD [address] [place] [address] 04/27/2024 3:30 PM EST Office Visit Dermatology at [address] [phone] Rush Mcmillan MD [address] [place] [address] documented as of this encounter Visit Diagnoses Not on filedocumented in this encounter Care Teams Agent Producer Relationship Specialty Start Date End Date Drew Marina MD [address] [place] [address] PCP - General 05/09/10 07/17/23 documented as of this encounter
--- OUTSIDE RECORDS SUMMARY | 2024-01-23 21:28 | XMS_ITS | Encounter Summary ---
[place] [address] Care Team Providers Care Supervisor Capacitor Processing Name Role Phone Drew Marina MD Primary Care Provider [phone] Reason for Referral * Consultation (Routine) - Closed Specialty Diagnoses / Procedures Referred By Contac t Referred To Contact Urology Diagnoses Disorder of penis, unspecified Disorder of penis, unspecified (lesion needs biospy) Guanako Godwin MD [address] [place] [address] [facility] [place] [address] Referral ID Status Reason Start Date Expiration Date V isits Requested Visits Authorized [id number] Closed Consult, Test & Treat PCP Updated and/or Approved 06/13/2023 06/12/2024 6 6 Encounter Details Date Type Department Care Team (Latest Contact Info) Description 06/13/2023 Transcribe Orders eDH Incoming Referrals [phone] Guanako Godwin MD [address] [place] [id number] Disorder of penis, unspecified Social History Tobacco Use Types Packs/Day Years [...] 3:45 PM EDT Office Visit Dermatology at [address] [address] Rush Mcmillan MD [address] [place] [address], [place] [address] 04/27/2024 3:30 PM EST Office Visit Dermatology at [address] [address] Rush Mcmillan MD [address] [place] [address], [place] [address] Scheduled Referrals Name Type Priority Associated Diagnoses Orde r Schedule Referral to Urology Outpatient Referral Routine Disorder Of Penis, Unspecified Ordered: 06/13/2023 documented as of this encounter Visit Diagnoses Diagnosis Disorder of penis, unspecified documented in this encounter Care Teams Supervisor Capacitor Processing Relationship Specialty Start Date End Date Drew Marina MD [address] [place] [address] PCP - General 05/09/10 07/17/23 documented as of this encounter
--- OUTSIDE RECORDS SUMMARY | 2024-01-23 21:28 | XMS_ITS | Encounter Summary ---
Author Organization [facility] Address [address] [place] [address] Care Team Providers Care Face Man Name Role Phone Drew Marina MD Primary Care Provider [phone] Reason for Visit * Reason Comments Skin Exam FBSE, h/o BCC, AK. S pot of concern L eye (red, watery) Encounter Details Date Type Department Care Team (Late st Contact Info) Description 10/15/2018 15:00 EDT Office Visit [facility] Dermatology 5th Floor [facility] [address] [place] [address] Nishant Hassan, PAWinston [address] [facility], [address] [place] [address] Atopic dermatitis of eyelid, left (Primary Dx); Personal history of malignant neoplasm of skin Discharge Disposition: Auto Discharge Social History Tobacco [...] as of this encounter Discharge Diagnoses Diagnosis H01.136 Eczematous dermatitis of left eye, unspecified eyelid-H01.136[ICD-10-CM] Z85.820 Personal history of malignant melanoma of skin-Z85.820[ICD-10-CM] documented in this encounter Patient Instructions * Patient Instructions* Nishant Hassan PA-C - 10/15/2018 15:00 EDT Recommendations for Sun Protection Ultraviolet (UV) [...] during these hours. Limit outdoor activities to early childhood lead teacher and/or evening hours when the sunlight is [...] provide. In general, loose weaves (Cotton) and recreational programs director-colored fabrics offer less protection than tighter weaves [...] sensitive Recommended sun protection clothing websites www.sunprecautions.com www.coolibar.MediConecta.com www.This Week In www.motionBEAT inc.MediConecta.com documented in this encounter Ordered Prescriptions Prescription Sig Dispensed Refills Start Date End Da te hydrocortisone 2.5 % ointment Sig apply thin layer to left upper/lower eyelid BID x 2 weeks 20 g 3 10/15/2018 documented in this encounter Discharge Disposition Disposition Code Departure Means Destination Auto Discharge documented in this encounter Progress Notes * Feng You - 10/15/2018 1500 EDT Review of Systems Constitutional: Negative for [...] sleep disturbance. The patient is not nervous/anxious. Feng You 10/15/2018 15:00 Reviewed Nishant Hassan PA-C 10/15/2018 * Nishant Hassan PA-C - 10/15/2018 1500 EDT Chief Complaint Patient presents with ??? Skin Exam FBSE, h/o BCC, AK. Spot of concern L eye (red, watery) Subjective: Presents today for annual full skin exam secondary to prior history of Non-melanoma skin cancer. Main issue today is left eyelid dermatitis, present for past few weeks or so. Characterized by intensely itchy patches of skin. Notes that his eyeball is not really involved with this problem (denies discharge, honey-crusting in the AM, etc.) History of lesion(s) negative for spontaneous bleeding, or pain. No treatment yet. /retired. Patient Active Problem List Diagnosis ??? [...] of the following comments: Lesion A: Location: Left upper/lower eyelid Lesion Color: flesh-colored, pink, erythematous Lesion Type: patches Lesion Description: Shows broad, mildly lichenified patch involving both upper/lower eyelid. No discharge noted. Bilateral conjunctivae show mild injection as well. Lesion B: Location: Left upper back Lesion Color: hyperpigmented Lesion Type: well-healed surgical scar Lesion Description: No clinical evidence of Basal Cell carcinoma recurrence on today's exam. A/P: 1.) Left upper/lower eyelid dermatitis, likely environmental/atopic in nature, mild/moderate severity noted today. Differential Diagnosis: Eyelid Neurodermatitis. PLAN: Clinical impression was reviewed with patient. Etiology, treatment and expectations for treatment of eyelid dermatitis were reviewed at length today. Recommend proceed with first-line topical therapy: Prescription for Hydrocortisone ointment 2.5% sig apply sparingly to upper/lower eyelid (left) twice daily x 2 weeks #20g with 6 refills. Avoid direct contact with eye. If still having persistent issues with eyeball apparatus, recommend consult with either PCP team orOphthalmology. The patient indicates understanding of these issues and agrees with the plan. 2.) Well-healed surgical scar(s), left upper back, s/p prior excision of Basal Cell carcinoma, 2017, no clinical evidence of recurrence on today's exam. PLAN: Recommended continued diligent sun photoprotection and monthly self-exams. Sunscreen use reviewed. The nature of sun-induced photo-aging and skin cancers is discussed. Sun avoidance, protective clothing, and the use of 30-SPF sunscreens is advised. Observe closely for skin damage/changes, and callif such occurs. Follow up here in one year, sooner if needed. Nishant OLSON PA-C [facility] Division of Dermatology Clinical Instructor - [facility] 10/15/2018 documented in this encounter Plan of Treatment Not on file documented as of this encounter Visit Diagnoses Diagnosis Atopic dermatitis of eyelid, left- Primary Personal history of malignant neoplasm of skin Personal history of other malignant neoplasm of skin documented in this encounter Historical Medications * This list may reflect changes made after this encounter. Medication Sig Dispensed Refills Start Date End Date ibuprofen/diphenhydramine cit (IBUPROFEN PM ORAL) Take by mouth daily. added in this encounter Care Teams Face Man Relationship Specialty Start Date End Date Drew Marina MD [address] [place] [address] PCP - General 03/24/13 documented as of this encounter
--- OUTSIDE RECORDS SUMMARY | 2024-01-23 21:29 | XMS_ITS | Encounter Summary ---
Author Organization [facility] Address [facility] [place] [address] Care Team Providers Care Adult Live In Caregiver Name Role Phone Drew Marina MD Primary Care Provider [phone] Reason for Visit * Reason Onset Date Comments Medication Refill 06/11/2013 Encounter Details Date Type Department Care Team (Late st Contact Info) Description 06/11/2013 [place] [address] Josse Patterson MD [facility] [place] [address] Social History Tobacco Use Types Packs/Day Years Used Date Smoking Tobacco: Never Sex and Gender Information Value Date Recorded Sex Assigned at Not on file Gender Identity Not on file Sexual Orientation Not on file documented as of this encounter Miscellaneous Notes * Telephone Encounter - Annamarie Jiménez LPN - 06/11/2013 2:35 PM EST Patient requests refill of viagra. He pays out of pocket and requests 10 pills. documented in this encounter Plan of Treatment Upcoming Encounters Date Type Department Care Team (Late st Contact Info) Description 03/23/2024 3:45 PM EDT Office Visit Dermatology at [place] [address] [facility] [place] [phone] Rush Mcmillan MD [address], [place] [address] 04/27/2024 3:30 PM EST Office Visit Dermatology at [address] [phone] Rush Mcmillan MD [address] [facility], JONATHON A DERMATOLOGY [place], [place] [phone] documented as of this encounter Visit Diagnoses Not on filedocumented in this encounter Care Teams Adult Live In Caregiver Relationship Specialty Start Date End Date Drew Marina MD [address] [place] [address] PCP - General 05/09/10 07/17/23 documented as of this encounter
--- OUTSIDE RECORDS SUMMARY | 2024-01-23 21:29 | XMS_ITS | Encounter Summary ---
Author Organization [facility] Address [facility] [place] [address] Care Team Providers Care Mobile Sales Technician Name Role Phone Drew Marina MD Primary Care Provider [phone] Reason for Visit * Reason Comments Skin Lesion Encounter Details Date Type Department Care Team (Late st Contact Info) Description 02/26/2014 2:15 PM EDT Follow-Up Dermatology at [facility] [address] [place] [address] Nicolle Kurtz MD [facility] [address] [facility] [place] [address] AK (actinic keratosis) (Primary Dx) Discharge Disposition: Home Social History Tobacco Use Types Packs/Day Years Used Date Smoking Tobacco: Never Sex and Gender Information Value Date Recorded Sex Assigned at Not on file Gender Identity Not on file Sexual Orientation Not on file documented as of this encounter Patient Instructions * Patient Instructions* Franko Soriano RN - 02/26/2014 2:43 PM EDT Rx: Carac cream (0.5% 5-FU) apply topically to affected area on face once daily for three weeks andon lower bart lip as tolerated then stop. Reviewed expectation of inflammation in treated area. Reviewed pamphlet with photos. documented in this encounter Progress Notes * Nicolle Kurtz MD - 02/26/2014 2:26 PM EDT DERMATOLOGY SPOT-CHECK Date of service: 02/26/2014 Jacoby Nguyen : 1940 Provider: Nicolle Kurtz MD PROBLEM: Spot to check Chief Complaint Patient presents with ??? Skin Lesion The patient is seen at the request of Drew Marina, who instructed the patient to be seen for evaluation of above SKIN HX: Ak's treated with LN2 by Dr.Hammer Elen DEL VALLE Jacoby Nguyen is a 73 y.o. year old male. c/o a scab on the tip of his nose, denies bleeding C/o a red shelly on his nose C/o dry places on his cheek Seen for one spot-check at this apointment. Knows this is a one-spot check clinic only. Knows will need to make appointment for full skin check if desired or to have other areas checked. ADR: No Known Allergies MEDS: Current Outpatient Prescriptions Medication Sig Dispense Refill ??? sildenafil (VIAGRA) 100 mg tablet Take 1 tablet by mouth as needed for Erectile Dysfunction. 10tablet 3 ??? vardenafil (LEVITRA) 20 mg tablet Take 20 mg by mouth as needed. ??? MULTI-VITAMIN ORAL Take 1 capsule by mouth daily. ??? UNABLE TO FIND 1 capsule daily. tumeric ??? DOCOSAHEXANOIC ACID/EPA (FISH OIL ORAL) Take 1 capsule by mouth daily. ??? ERGOCALCIFEROL, VITAMIN D2, (VITAMIN D ORAL) Take 1 capsule by mouth daily. ??? Tadalafil (CIALIS) 20 mg Tab ROS General: feeling well EXAM A focused skin exam of the concerning spot was performed. General: NAD, pleasant, cooperative Focused exam of skin: An exam of the skin from the neck up was performed. This includes examination of the skin of the face, ears, scalp, and neck. Skin findings: A. 0.2-0.3cm scaly irregular pink papule(s) on tip of nose, right cheek. B. Mild scaling without induration across lower bart lip ASSESSMENT/PLAN: A. Ak's, Discussed at length treatment options for actinic keratoses including cryotherapy versus chemical treatment such as 5-FU or PDT. Discussed pros and cons of each including cryotherapy's potential for hypopigmentation and 5-FU's one month treatment course and potential for inflammation. Discussed need to not have suntan for best results from PDT; restrictions on light exposure; may need two or more PDT treatments. B.Achtinic chelitis. Rx: Carac cream (0.5% 5-FU) apply topically to affected area once daily for three weeks to face andonce daily x 2 weeks to lower [place] lip as tolerated then stop. Reviewed expectation of inflammation in treated area. Reviewed pamphlet with photos. 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 Kurtz.: FRANKO SORIANO, LETTY I performed the above scribed service and agree with the accuracy of the documentation in this encounter. Nicolle Kurtz MD Section of Dermatology [facility] cc: Drew Marina documented in this encounter Plan of Treatment Upcoming Encounters Date Type Department Care Team (Late st Contact Info) Description 03/23/2024 3:45 PM EDT Office Visit Dermatology at [address] [phone] Rush Mcmillan MD [address] [place] [address] 04/27/2024 3:30 PM EST Office Visit Dermatology at [address] [address] Rush Mcmillan MD [address] [place] [address] documented as of this encounter Visit Diagnoses Diagnosis AK (actinic keratosis)- Primary Actinic keratosis documented in this encounter Care Teams Mobile Sales Technician Relationship Specialty Start Date End Date Drew Marina MD [address] [place] [address] PCP - General 05/09/10 07/17/23 documented as of this encounter
--- OUTSIDE RECORDS SUMMARY | 2024-01-23 21:29 | XMS_ITS | Encounter Summary ---
Author Organization [facility] Address [facility] [place] [address] Care Team Providers Care Economic Analysis Director Name Role Phone Drew Marina MD Primary Care Provider [phone] Reason for Visit * Reason Comments Erectile Dysfunction Lower Urinary Tract Symptoms Encounter Details Date Type Department Care Team (Late st Contact Info) Description 10/10/2012 1:00 PM EDT [place] [address] Josse Patterson MD [facility] [place] [address] ED (erectile dysfunction) (Primary Dx) Discharge Disposition: Home Social History Tobacco Use Types Packs/Day Years Used Date Smoking Tobacco: Never Sex and Gender Information Value Date Recorded Sex Assigned at Not on file Gender Identity Not on file Sexual Orientation Not on file documented as of this encounter Last Filed Vital Signs Vital Sign Reading Time Taken Comments Blood Pressure 139/84 10/10/2012 1:05 PM EDT Pulse 59 10/10/2012 1:05 PM EDT Temperature - - Respiratory Rate - - Oxygen Saturation - - Inhaled Oxygen Concentration - - Weight 84.4 kg (186 lb) 10/10/2012 1:05 PM EDT Height 182.2 cm (5' 11.75) 10/10/2012 1:05 PM E DT Body Mass Index 25.4 10/10/2012 1:05 PM EDT documented in this encounter Progress Notes * Joe Gomez MD - 10/10/2012 5:15 PM EDT UROLOGY Resident's note CC nocturia and ED ID 71 yo otherwise healthy male HPI Patient complaints about nocturia 2-3 times. He drinks 2-3 lits of fluids a day and drinks wine andseveral glasses of water at night. His quality of life is not being bothered by this. However he inquires wheter this is normal or not. He also has difficulty maintaining the erection after a while - he says. He has tried all the PDE-5 inhibitors. He thinks that sildenafil works the best, but still sometimes is just not hard enough. He has a good stream, he thinks he empties well. He denies fever, urgency, difficulty emptying. He has not loss weight. He has a daily BM. He checked his PSA when his was young but has not done so in the last decade. He has had rectal exams checks and these have been normal. ROS Pertinent positive findings as discussed above. No other findings on review of constitutional, cardiovascular, respiratory, gastrointestinal, genitourinary, endocrine, hematologic, musculoskeletal, dermatologic, neurological, psychiatric systems. PMH No eye problems No heart disease - not taking nitrates PRN and is very active BP 139/84 Pulse 59 Ht 182.2 cm (5' 11.75) Wt 84.369 kg (186 lb) BMI 25.40 kg/m2 NAD Abdomen is soft nt nd Circumcised penis. No palpable scar tissue Normal testis. There is a hydrocele small on the left. Rectal with 30 grams prostate and no irregularities. Impression Mild LUTS ED A/P Will recommend to continue Sildenafil 100mg PO PRN and use elastic band to keep blood flow. I explain patient to remove elastic band within an hour and come to the ED if erection last longer than 3-4 hours. I explain other alternatives like intraurethral and intra cavernosum prostaglandin as well as vacuum pump. I recommended to talk with his PCP about CaP screening or schedule another appointment to talk about this in length. documented in this encounter Plan of Treatment Upcoming Encounters Date Type Department Care Team (Late st Contact Info) Description 03/23/2024 3:45 PM EDT Office Visit Dermatology at [place] [address] [place] [address] Rush Mcmillan MD [address] [facility] [place] [address] 04/27/2024 3:30 PM EST Office Visit Dermatology at [place] [address] [place] [phone] Rush Mcmillan MD [address] [facility], [place] [address] documented as of this encounter Visit Diagnoses Diagnosis ED (erectile dysfunction)- Primary Impotence of organic origin documented in this encounter Care Teams Economic Analysis Director Relationship Specialty Start Date End Date Drew Marina MD [address] [place] [address] PCP - General 05/09/10 07/17/23 documented as of this encounter
--- OUTSIDE RECORDS SUMMARY | 2024-01-23 21:29 | XMS_ITS | Encounter Summary ---
Author Organization [facility] [place] [address] Care Team Providers Care Employment Office Clerk Name Role Phone Drew Marina MD Primary Care Provider [phone] Reason for Visit * Reason Comments Skin Check Encounter Details Date Type Department Care Team (Late st Contact Info) Description 03/20/2012 10:30 AM EDT Office Visit Dermatology [address] [place] [address] [address] [place] [address] Rush Mcmillan MD [address], [place] [address] Actinic keratosis (Primary Dx); Dermatofibroma Social History Tobacco Use Types Packs/Day Years Used Date Smoking Tobacco: Never Sex and Gender Information Value Date Recorded Sex Assigned at Not on file Gender Identity Not on file Sexual Orientation Not on file documented as of this encounter Progress Notes * Rush Mcmillan MD - 03/20/2012 11:01 AM EDT Dictated documented in this encounter Miscellaneous Notes * Miscellaneous - Gabby Johnston - 03/24/2012 5:20 PM EDT documented in this encounter Plan of Treatment Upcoming Encounters Date Type Department Care Team (Late st Contact Info) Description 03/23/2024 3:45 PM EDT Office Visit Dermatology at [address] [phone] Rush Mcmillan MD [address] [place] [address] 04/27/2024 3:30 PM EST Office Visit Dermatology at [address] [address] Rush Mcmillan MD [address] [place] [address] documented as of this encounter Visit Diagnoses Diagnosis Actinic keratosis- Primary Dermatofibroma Benign neoplasm of skin, site unspecified documented in this encounter Care Teams Employment Office Clerk Relationship Specialty Start Date End Date Drew Marina MD [address] [place] [address] PCP - General 05/09/10 07/17/23 documented as of this encounter
== END 2024-01-23 21:16 | disposition home or self-care (01) ==
LOC: NCHCN 21:15
PROVIDERS: Nurse Practitioner Family; PCP Family Medicine; Visit Provider Family Medicine
DX: R19.7 Diarrhea, unspecified (principal)
CPT/HCPCS: 87177

== ENCOUNTER 2024-07-20 13:46 | Outpatient (REF) | payer MEDICARE, SELFPAY ==
--- OUTSIDE RECORDS SUMMARY | 2024-07-20 13:51 | XMS_ITS | Data Portability ---
Author Organization [place] [facility] [place] [address] Assessment Encounter Date Assessment Date Assessment LastModified by Organization Details LastModified Time 10/09/2023 10/09/2023 The total time devoted to today's encounter, including both the knwe-we-ykun time with the patient and/or family/caregive r and efb-rinz-mx-fac e time I personally spent is 50 minutes. eoleson Not available 10/09/2023 16:01:26 07/20/2024 07/20/2024 Patient presents for pre-op evaluation. The patient is a suitable candidate for the planned procedure. Their chronic medical problems are optimized Further preoperative evaluation is not needed eoleson Not available 07/20/2024 12:55:12 Plan of Treatment Reminders Order Date Submit Date Provider Last Modified By Organization Details Last Modified Time Details Appointments Pre - Op 30 2024 10:20A M Patrica Godfrey Not available Not available Not available Annual Chronic Care (65+) 40 2024 09:20A M Patrica Godfrey Not available Not available Not available Lab TSH + free T4, serum - 1T 1P drawn in office-SN 2023 024 [email or web address] [facility] (Registration ), [address] [place] [address] [place], [address], 10/10/2023 08:09:48 CBC w/ diff 2023 024 [email or web address] [facility] (Registration ), [address] [place] [address] [place], [address], 10/10/2023 08:09:59 CMP, serum or plasma 2023 024 [facility] (Registration ), [address] [place] [address] , [place], [address], 10/09/2023 15:55:19 CBC - 1 yellow and 1 purple 2024 025 [facility] (Registration ), [address] [place] [address] , [place], [address], 07/20/2024 11:15:30 CMP, serum or plasma - 1 purple and 1 yellow 2024 025 [facility] (Registration ), [address] [place] [address] , [place], [address], 07/20/2024 11:15:30 Referral physical therapist referral - low back pain, walking bent over 2023 [facility], [address] [place] [address] [address], [place], [address], 10/17/2023 14:47:14 cardiolog ist referral - Dr. Lomas correct ed copy when visit is completed , please send us the notes 2023 024 LUIS ALFREDO Lomas MD, [address] [facility], [place], [address], 12/12/2023 09:26:12 orthopedi c surgeon referral 2024 025 [email or web address] [facility], [address], [place], [address], 07/20/2024 13:44:37 Procedures None recorded. Surgeries None recorded. Imaging US, echocardi ogram - new diagnosis of afib*plea se send us imaging report after imaging is completed * 2023 024 [facility] (Imaging), [address], [place], [address], 10/22/2023 15:07:15 electroca rdiogram 2023 024 [facility], [address] [place], [address], 10/09/2023 16:03:16 Medication Orders Eliquis 5 mg tablet 2023 024 char [facility], [address] [place], [address], 10/09/2023 15:55:19 Xarelto 20 mg tablet 2023 024 [facility], [address] [place], [address], 10/09/2023 15:55:20 Xarelto 20 mg tablet 2023 024 [facility], [address] [facility], [facility], [place], [address], 01/27/2024 15:25:45 Patient TargetsNo targets recorded. Patient Instructions Encounter Date Encounter Id Patient Instructions Last Modified By Organization Details Last Modified Time 10/09/2023 [id number] learning about healthy weight eoleson Not available 10/09/2023 15:55:19 07/20/2024 [id number] Dear Alton Dozier for visiting us today. We appreciate your proactive approach to managing your health and addressing your concerns regarding your upcoming eye surgery and other health issues. Here are the mckenzie instructions and follow-up actions from your visit: - Pre-Op Eye Surgery Instructions: - Hold Xarelto 24 hours before surgery. - Follow any additional instructions from Dr. Claudine Kellogg regarding longer discontinuation of Xarelto if advised. - Surgery is scheduled for the first week of August with Dr. Kell[facility] [place]. - Dupuytren's Contractures: - Orthopedics referral was sent to [facility] ortho ([facility] in [facility]) for potential injections or surgery to manage your Dupuytren's Contractures, especially as it affects your dominant hand. - Routine Health Maintenance: - Blood tests for kidney function and blood counts were conducted today. - Administered a pneumonia vaccine booster today, as it has been 7 years since your last one. Please feel free to reach out if you have any further questions or concerns before your next physical in January. We look forward to seeing you then and wish you a smooth surgery and quick recovery. 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 Lomascorrected copy when visit is completed, please send us the notes Referring Physician: Patrica Godfrey [facility], Encounter Date: 10/09/2023 Orthopedic Surgeon Referral for Dupuytren's contracture of finger Referring Physician: Patrica Godfrey [facility], Encounter Date: 07/20/2024 Results Created Date Observation Date Name Description Value Unit Range Abnormal Flag Note LastModifiedBy Organization Detail LastModifiedTime 10/09/19 24 10/09/2023 COMPL ETE BLOOD COUNT W/DIF F WBC 4.81 10_3/ uL 4.4-10 .8 normal Not Available [address] [place], [address] 10/09/2023 14:33:56 10/09/19 24 10/09/2023 COMPL ETE BLOOD COUNT W/DIF F RBC 4.68 10_6/ uL 4.36-5 .78 normal Not Available [address] [place], [address] 10/09/2023 14:33:56 10/09/19 24 10/09/2023 COMPL ETE BLOOD COUNT W/DIF F HGB 14.6 g/dL 13.5-1 7.5 normal Not Available [address] [place], [address] 10/09/2023 14:33:56 10/09/19 24 10/09/2023 COMPL ETE BLOOD COUNT W/DIF F HCT 43.4 % 40.0-5 0.0 normal Not Available [address] [place], [address] 10/09/2023 14:33:56 10/09/1910/09/2023 COMPL ETE BLOOD COUNT W/DIF F MCV 93 fL 80-95 normal Not Available Josselyn mckay [address] [place], [address] 10/09/2023 14:33:56 10/09/1910/09/2023 COMPL ETE BLOOD COUNT W/DIF F MCH 31.2 pg 27.0-3 3.0 normal Not Available [address] [place], [address] 10/09/2023 14:33:56 10/09/1910/09/2023 COMPL ETE BLOOD COUNT W/DIF F MCHC 33.6 % 32.0-3 6.0 normal Not Available [address] [place], [address] 10/09/2023 14:33:56 10/09/1910/09/2023 COMPL ETE BLOOD COUNT W/DIF F RDW 12.8 % 11.8-1 4.1 normal Not Available [address] [place], [address] 10/09/2023 14:33:56 10/09/1910/09/2023 COMPL ETE BLOOD COUNT W/DIF F platelet count 232 10_3/ uL 130-40 0 normal Not Available [address] [place], [address] 10/09/2023 14:33:56 10/09/1910/09/2023 COMPL ETE BLOOD COUNT W/DIF F MPV 10.6 fL 8.0-11 .0 normal Not Available [address] [place], [address] 10/09/2023 14:33:56 10/09/1910/09/2023 COMPL ETE BLOOD COUNT W/DIF F neutrophils % 59.3 Not Available Fletcher anand [address] [place], [address] 10/09/2023 14:33:56 10/09/1910/09/2023 COMPL ETE BLOOD COUNT W/DIF F lymphocytes % 27.7 Not Available [address] [place], [address] 10/09/2023 14:33:56 10/09/1910/09/2023 COMPL ETE BLOOD COUNT W/DIF F monocytes % 9.1 Not Available [address] [place], [address] 10/09/2023 14:33:56 10/09/1910/09/2023 COMPL ETE BLOOD COUNT W/DIF F eosinophils % 3.1 Not Available [address] [place], [address] 10/09/2023 14:33:56 10/09/1910/09/2023 COMPL ETE BLOOD COUNT W/DIF F basophils % 0.6 Not Available [address] [place], [address] 10/09/2023 14:33:56 10/09/1910/09/2023 COMPL ETE BLOOD COUNT W/DIF F immature grans % 0.2 Not Available [address] [place], [address] 10/09/2023 14:33:56 10/09/1910/09/2023 COMPL ETE BLOOD COUNT W/DIF F nucleated RBC 0.0 % 0.0-0. 3 normal Not Available [address] [place], [address] 10/09/2023 14:33:56 10/09/1910/09/2023 COMPL ETE BLOOD COUNT W/DIF F absolute neutrophil count 2.85 10_3/ uL 1.2-6. 7 normal Not Available [address] [place], [address] 10/09/2023 14:33:56 10/09/1910/09/2023 COMPL ETE BLOOD COUNT W/DIF F absolute lymphocyte count 1.33 10_3/ uL 1.2-3. 4 normal Not Available [address] [place], [address] 10/09/2023 14:33:56 10/09/1910/09/2023 COMPL ETE BLOOD COUNT W/DIF F absolute monocyte count 0.44 10_3/ uL 0.1-0. 8 normal Not Available [address] [place], [address] 10/09/2023 14:33:56 10/09/19 24 10/09/2023 COMPL ETE BLOOD COUNT W/DIF F absolute eosinophil count 0.15 10_3/ uL 0.0-0. 7 normal Not Available [address] [place], [address] 10/09/2023 14:33:56 10/09/19 24 10/09/2023 COMPL ETE BLOOD COUNT W/DIF F absolute basophil count 0.03 10_3/ uL 0.0-0. 2 normal Not Available [address] [place], [address] 10/09/2023 14:33:56 10/09/19 24 10/09/2023 COMPR EHENS JANES METAB OLIC PANEL calcium 9.1 mg/dL 8.5-10 .1 normal Not Available [address] [place], [address] 10/09/2023 14:57:04 10/09/1910/09/2023 COMPR EHENS JANES METAB OLIC PANEL glucose 83 mg/dL 74-106 normal Not Available Josselyn mckay [address] [place], [address] 10/09/2023 14:57:04 10/09/1910/09/2023 COMPR EHENS JANES METAB OLIC PANEL BUN 28 mg/dL 7-18 high Not Available Josselyn mckay [address] [place], [address] 10/09/2023 14:57:04 10/09/1910/09/2023 COMPR EHENS JANES METAB OLIC PANEL creatinine 1.0 mg/dL 0.70-1 .30 normal Not Available [address] [place], [address] 10/09/2023 14:57:04 10/09/19 24 10/09/2023 COMPR EHENS JANES METAB OLIC PANEL estimated GFR 74.68 mL/min /1.73m 2 The eGFR is calcu lated from a serum creat inine using the CKD-E PI 2020 equat ion. Other varia bles requi red for the equat ion are gende r and age; this equat ion does not inclu de a race coeff icien t. This equat ion has simil ar overa ll perfo rmanc e to previ ous equat ions excep t value s may diffe r, in parti cular , in patie nts with highe r value s of eGFR and young er-ag ed adult s. Not Available [address] [place], [address] 10/09/2023 14:57:04 10/09/19 24 10/09/2023 COMPR EHENS JANES METAB OLIC PANEL total protein 6.8 g/dL 6.4-8. 2 normal Not Available [address] [place], [address] 10/09/2023 14:57:04 10/09/19 24 10/09/2023 COMPR EHENS JANES METAB OLIC PANEL albumin 3.9 g/dL 3.4-5. 0 normal Not Available [address] [place], [address] 10/09/2023 14:57:04 10/09/19 24 10/09/2023 COMPR EHENS JANES METAB OLIC PANEL bilirubin, total 1.1 mg/dL 0.2-1. 0 high Not Available [address] [place], [address] 10/09/2023 14:57:04 10/09/19 24 10/09/2023 COMPR EHENS JANES METAB OLIC PANEL alk phos 75 U/L 46-116 normal Not Available [address] [place], [address] 10/09/2023 14:57:04 10/09/19 24 10/09/2023 COMPR EHENS JANES METAB OLIC PANEL sodium 140 mmol/ L 136-14 5 normal Not Available [address] [place], [address] 10/09/2023 14:57:04 10/09/19 24 10/09/2023 COMPR EHENS JANES METAB OLIC PANEL potassium 4.8 mmol/ L 3.5-5. 1 normal Not Available [address] [place], [address] 10/09/2023 14:57:04 10/09/19 24 10/09/2023 COMPR EHENS JANES METAB OLIC PANEL chloride 105 mmol/ L 98-107 normal Not Available [address] [place], [address] 10/09/2023 14:57:04 10/09/19 24 10/09/2023 COMPR EHENS JANES METAB OLIC PANEL CO2 26.5 mmol/ L 21.0-3 2.0 normal Not Available [address] [place], [address] 10/09/2023 14:57:04 10/09/19 24 10/09/2023 COMPR EHENS JANES METAB OLIC PANEL anion gap 8.5 mmol/ L 3-11 normal Not Available [address] [place], [address] 10/09/2023 14:57:04 10/09/19 24 10/09/2023 COMPR EHENS JANES METAB OLIC PANEL AST 21 U/L 15-37 normal Not Available Josselyn mckay [address] [place], [address] 10/09/2023 14:57:04 10/09/19 24 10/09/2023 COMPR EHENS JANES METAB OLIC PANEL ALT 25 U/L 16-63 normal Not Available Josselyn mckay [address] [place], [address] 10/09/2023 14:57:04 10/09/19 24 10/09/2023 TSH TSH 2.20 uIU/m L 0.36-3 .74 normal Not Available [address] [place], [address] 10/09/2023 14:57:05 10/09/19 24 10/09/2023 FREE T4 free T4 1.27 NG/dL 0.76-1 .46 normal Not Available [place] [address] [place], [address] 10/09/2023 14:57:05 01/23/20 24 01/29/2024 OVA AND GUNNER ITE, FECES ova and parasite, feces SEE BELOW abnormal RESUL T: FINAL 01/28 1720 SOURC E: STOOL , STLP OVA AND GUNNER ITE, MICRO SCOPY , F FINAL CRYPT OSPOR IDIUM sp Detec danny ENTAM OEBA COLI Detec danny BLAST OCYST IS HOMIN IS Detec danny ENDOL IMAX JHONNY Detec danny ENTER OMONA S HOMIN IS Detec danny Cyclo spora and micro spori charline are not readi ly detec danny by this metho d. Test Perfo rmed by: [facility] [place] [facility] [address], [place] [address] Lab Direc tor: Durga Troncoso nn Ph.D. ; CLIA# [id number] Not Available [address] [place], [address] 01/30/2024 11:51:48 10/09/19 24 10/09/2023 elect rocar diogr am No observ ation record ed. [email or web address] [place] [address], [address], 10/10/2023 11:17:30 10/09/19 elect rocar diogr am No observ ation record ed. [email or web address] Not Available 2023 14:43:00 10/22/19 24 10/22/2023 US, echoc ardio gram No observ ation record ed. [facility] [address], [place], [address], 11/08/2023 09:30:31 10/23/19 24 10/22/2023 US, echoc ardio gram No observ ation record ed. [email or web address] [facility] [address], [place], [address], 11/08/2023 09:30:43 03/02/20 24 12/15/2019 imagi ng/di agnos tic resul t No observ ation record ed. Not Available 03/02 02:14:51 03/02/20 24 04/12/2020 imagi ng/di agnos tic resul t No observ ation record ed. Not Available 03/02 02:14:52 03/02/20 24 11/28/2022 XR, wrist , 3 or more view No observ ation record ed. Not Available 03/02 02:14:55 03/02/20 24 12/16/2019 XR, chest No observ ation record ed. Not Available 2024 13:14:21 03/02/20 24 04/13/2020 CT, chest + abdom en + pelvi s, w/ contr ast No observ ation record ed. [email or web address] Not Available 2024 13:14:09 03/02/2003/29/2021 CT, chest No observ ation record ed. Not Available 03/02 02:15:36 Result Notes None recorded. 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 2024 PATRICA GODFREY MD [address], [place], [address] , [facility] 5 20:03:16 Getachew n's contract ure of finger 860654889 Active [address], [address] 5 10:41:10 Peripher al venous insuffic iency 35034377 Active 2008 Problem Code: I87.2; Problem Code Type: ICD-10; ORA CHUA, [facility] 3 09:41:58 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 40587957381 101 Completed 200801/28/2024 Problem Code: N40.1; Problem Code Type: ICD-10; MD [address], [address] 4 08:22:47 Rosacea 485630840 Completed 201301/28/2024 Problem Code: L71.9; Problem Code Type: ICD-10; MD [address], [address] 4 08:22:42 History of malignan t neoplasm of skin 348099604 Active 2016 [facility] MD [address], [address] 3 14:14:37 Pre-surg dione evaluati on Completed 201610/18/2016 Problem Code: Z01.818; Problem Code Type: ICD-10; Not Available [facility] 3 03:50:56 Low back pain 777156273 Completed 201710/08/2017 Problem Code: M54.5; Problem Code Type: ICD-10; MD [address], [facility] [address] , [facility] 4 08:22:15 Richa rivers 55898040 Completed 201710/08/2017 Problem Code: R20.2; Problem Code Type: ICD-10; Not Available [facility] 3 03:50:56 Traumati c or non-trau matic injury 356777693 Completed 201712/17/2017 12/04/19 18 - Comments only - 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 Pt has tick with him today and upon inspecti on, it does appear to be an engorged deer tick. Recommen d treatmen t with doxycycl ine for prophyla xis for lyme. Rev'd s/e. Rev'd s/s of lyme disease includin g arthralg ias, fatigue, fevers, chills, DURAN, general flu-like symptoms , for which he should f/u for lyme testing. The tick was killed and discarde d of. Problem Code: T14.8; Problem Code Type: ICD-10; Not Available [facility] 3 03:50:56 Insect bite Completed 201812/20/2018 Not Available [facility] 3 03:50:56 Erectile dysfunct ion 714315199 Active 2019 Problem Code: N52.9; Problem Code Type: ICD-10; ORA CHUA, [facility]. 3 09:41:58 Insect bite Completed 202012/23/2020 Not Available [facility] 3 03:50:57 Adult health examinat ion Completed 202101/28/2024 Problem Code: Z00.00; Problem Code Type: ICD-10; PATRICA GODFREY MD [address], [place], [address] , [facility]. 4 08:22:48 Blephari tis 28919482 Completed 202111/25/2021 Problem Code: H01.009; Problem Code Type: ICD-10; Not Available [facility] 3 03:50:57 Insomnia 953912782 Completed 202201/28/[address], [place], [address] , [facility]. 4 08:22:52 Benign prostati c hyperpla tita 412334429 Completed 200803/13/2023 Problem Code: N40.0; Problem Code Type: ICD-10; Not Available [facility] 3 03:50:59 Pain in right foot 16099076809 9107 Completed 201504/03/2016 Problem Code: M79.671; Problem Code Type: ICD-10; Not Available [facility] 3 03:50:59 Chest pain 70946802 Completed 201605/19/2018 Problem Code: R07.89; Problem Code Type: ICD-10; Not Available [facility] 3 03:51:00 Benign neoplasm of colon 64109225 Completed 201203/13/2023 Problem Code: 211.3; Problem Code Type: ICD-9; Not Available [facility] 3 03:51:01 Bradycar charline 17988233 Completed 201608/28/2021 Problem Code: R00.1; Problem Code Type: ICD-10; Not Available [facility] 3 03:51:01 Amnesia 11947163 Completed 201806/04/2019 Problem Code: R41.3; Problem Code Type: ICD-10; Not Available [facility] 3 03:51:01 Fatigue 73036541 Completed 201404/03/2016 Problem Code: R53.83; Problem Code Type: ICD-10; MD [address], [place], [address] , [facility]. 4 08:22:10 Pain of left knee joint 77647973688 4107 Completed 201806/16/2019 Problem Code: M25.562; Problem Code Type: ICD-10; Not Available [facility] 3 03:51:02 Hyperlip idemia screenin g Completed 201808/28/2021 Problem Code: Z13.220; Problem Code Type: ICD-10; Not Available [facility] 3 03:51:02 Rupture of medial collater al ligament of knee 743945720 Completed 200809/28/2016 Problem Code: M23.631; Problem Code Type: ICD-10; Not Available [facility] 3 03:51:02 Actinic keratosi s 982328559 Completed 201305/19/2018 Problem Code: L57.0; Problem Code Type: ICD-10; Not Available [facility] 3 03:51:03 Hemorrho ids 58043624 Completed 200803/13/2023 Not Available [facility] 3 03:51:03 Pain of breast 31829245 Completed 201605/19/2018 Problem Code: N64.4; Problem Code Type: ICD-10; Not Available [facility] 3 03:51:04 Sciatica 79442053 Completed 200803/13/2023 Not Available [facility] 3 03:51:05 Diabetes mellitus screenin g Completed 201808/28/2021 Problem Code: Z13.1; Problem Code Type: ICD-10; Not Available [facility] 3 03:51:05 Insomnia 925863220 Completed 201508/28/2021 Problem Code: G47.00; Problem Code Type: ICD-10; PATRICA GODFREY MD [address], [place], [address] , [facility] 4 08:22:52 Itching of skin 407795547 Completed 201501/19/2020 Problem Code: L29.8; Problem Code Type: ICD-10; Not Available [facility] 3 03:51:06 Blephari tis of left eyelid 89404242248 9102 Completed 201806/04/2019 Problem Code: H01.006; Problem Code Type: ICD-10; Not Available [facility] 3 03:51:07 Adult health examinat ion Completed 201508/28/2021 Problem Code: Z00.00; Problem Code Type: ICD-10; MD [address], [facility] [address] , [facility] 4 08:22:48 Tear of medial meniscus of knee 700952361 Completed 200809/28/2016 Problem Code: S83.249A ; Problem Code Type: ICD-10; Not Available [facility] 3 03:51:08 Varicose veins of lower extremit y 70344359 Completed 201408/28/2021 Problem Code: I83.90; Problem Code Type: ICD-10; Not Available [facility] 3 03:51:08 Disorder of skin and/or subcutan eous tissue 04008409 Completed 201908/28/2021 Problem Code: L98.9; Problem Code Type: ICD-10; Not Available [facility] 3 03:51:08 Low back pain 258281166 Completed 202008/28/2021 Problem Code: M54.5; Problem Code Type: ICD-10; MD [address], [facility] [address] , [facility] 4 08:22:15 Removal of suture Completed 202108/28/2021 Problem Code: Z48.02; Problem Code Type: ICD-10; Not Available [facility] 3 03:51:09 Lesion of penis 822057157 Completed 202201/28/2024 leukopla adrian on glans? MD [address], [facility] [address] , [facility] 4 08:23:07 Multiple actinic keratose s 835561701 Completed 202201/28/[address], [facility] [address] , [facility] 4 08:23:04 Impacted marisoln 90336138 Completed 202301/28/[address], [facility] [address] [place] [address] 08:22:18 Fatigue 06652974 Completed 202301/28/2024 Problem Code: R53.83; Problem Code Type: ICD-10; MD [address], [address] 08:22:10 Impaired exercise toleranc e 576319430 Completed 202301/28/[address], [address] 08:21:58 Atrial fibrilla tion 44153975 Active [address], [address] 15:57:27 Low back pain 049710086 Completed 202301/28/2024 Problem Code: M54.5; Problem Code Type: ICD-10; MD [address], [address] 08:22:15 Atrial dilatati on 18604282 Active [address], [address] 13:16:41 Nodule of lung 338417381 Active 2023 MARIA ELENA CALVO CMA null, [facility] 12:44:11 Increase d blood pressure 22429520 Completed 202301/28/[address], [place], [address] , [facility] 08:22:06 Varicose veins of lower extremit y 25566682 Active 2023 MARIA ELENA CALVO CMA null, [facility] 12:45:33 Dermatof ibroma 968001532 Completed 202301/28/[address], [place], [address] , [facility] 08:22:04 Sciatica 67547422 Completed 202301/28/[address], [place], [address] , [facility] 08:22:08 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 Procedures Surgical History None recorded. Imaging Results Imaging Date Name Status LastModified by Organization Details LastModified Time 10/09/2023 electrocardiogram completed [address], [address], 10/10/2023 11:17:30 10/09/2023 electrocardiogram completed [email or web address] Informa tion not available 10/09/2023 14:43:00 10/22/2023 US, echocardiogram completed [email or web address] [facility] [address], [place], [address], 11/08/2023 09:30:31 10/22/2023 US, echocardiogram completed [email or web address] [facility] [address], [place], [address], 11/08/2023 09:30:43 12/15/2019 imaging/diagnostic result completed Information not available 03/02/2024 02:14:51 04/12/2020 imaging/diagnostic result completed Information not available 03/02/2024 02:14:52 11/28/2022 XR, wrist, 3 or more view completed Information not available 03/02/2024 02:14:55 12/16/2019 XR, chest completed [email or web address] Information no t available 07/20/2024 13:14:21 04/13/2020 CT, chest + abdomen + pelvis, w/ contrast completed [email or web address] Information not available 07/20/2024 13:14:09 03/29/2021 CT, chest completed Information no t available 03/02/2024 02:15:36 Procedure Notes None recorded. Medical Equipment None [...] t Available sildenafil 100 mg tablet TAKE ONE TABLET BY MOUTH EVERY DAY NEEDED ONE HOUR BEFORE ANTICIPA DANNY SEXUAL ACTIVITY 07/20 completed Not Available Not Available Not Available flaxseed oil 1,000 mg capsule one daily 12/09 completed Not Available Not Available Not Available erythromyc in 5 mg/gram (0.5 %) eye ointment APPLY 1/4 INCH ON EYELID FOUR TIMES A DAY. START AFTER SURGERY active Not Available Not Available No t Available triamcinol one acetonide 0.1 % topical [...] EVERY 3 DAYS NEEDED FOR SEXUAL FUNCTION 07/20 completed Not Available Not Available Not Available Levitra 01/05 completed Not Available Not Available Not Available Vitamin D3 125 mcg (5,000 unit) tablet 1 tab daily 12/09 completed Not Available Not Available Not Available Xarelto 20 mg tablet Take 1 tablet by mouth once daily active Not Available Not Available No t Available Eliquis 5 mg tablet Take 1 tablet [...] Updated DateTime 4 181.61 cm 27.2 kg/m2 50889.2 9 g 96.9 [degF] 98 % 98 % 89 /min 16 /min 110 mm[Hg] 70 mm[Hg] MARIA ELENA CALVO CMA [facility]. 4 10:09:34 Date Recorded Body height Body temperature Body mass index (BMI) Body weight Heart rate Respiratory rate Systolic blood pressure Diastolic blood pressure Provider Name and Address Organization Details Last Updated DateTime 4 181.61 cm 97.9 [degF] 26.8 kg/m2 29777.5 1 g 60 /min 16 /min 130 mm[Hg] 90 mm[Hg] MARIA ELENA CALVO CMA [facility] 4 12:20:57 Date Recorded Body height Body mass index (BMI) Body weight Body temperature Heart rate Systolic blood pressure Diastolic blood pressure Provider Name and Address Organization Details Last Updated DateTime 4 181.61 cm 26.6 kg/m2 23546.4 8 g 97 [degF] 60 /min 116 mm[Hg] 78 mm[Hg] Alysha Rice RN [facility] 4 15:01:55 Date Recorded Body height Body mass index (BMI) Body weight Body temperature Oxygen saturation Oxygen saturation in Arterial blood by Pulse oximetry Heart rate Systolic blood pressure Diastolic blood pressure Provider Name and Address Organization Details Last Updated DateTime 5 181.61 cm 26.8 kg/m2 99027.5 1 g 97.1 [degF] 99 % 99 % 68 /min 116 mm[Hg] 68 mm[Hg] Patrica Mitchell MA [facility] 5 10:22:58 Social History Question Answer Notes LastModified by Organizat ion Details LastModified Time Tobacco Smoking Status Never Smoker MARIA ELENA CALVO CMA null, [facility] 10/09/2023 10:01:43 Do You Have An [...] Do You Have A Medical Power Of Furnace Door Tender? Yes Information not available 10/09/2023 What Was The Date Of Your Most Recent Tobacco Screening? 07/20/2024 [email or web address] Information not available 07/20/2024 Has Tobacco Cessation Counseling Been Provided? No [...] Age of this Age Resolved Age Notes LastModified by Organization Details LastModified Time Unspecified Relation Family history unknown Relati ve: 'First Degree Blood Relati ve'; [email or web address] Not available 04/26/2023 04:00:39 Sister Atrial fibrillation [email or web address] Not available 05/2024 15:07:52 Notes:*Problem: no family hi story of cognitive impairment father killed in WW II Mother in mid 80's ? CVA? sister vericose veins Medical History No medical history recorded. Immunizations Vaccine Type Date Status Note Provider Nam e and Address Organization Details Recorded Time Tdap 0 completed Not Available [facility] 04/26/2023 04:15:19 Pneumococcal conjugate PCV 13 8 completed Not Available [facility] 04/26/2023 04:15:20 Influenza, high-dose, trivalent, PF 7 completed Not Available [facility] 04/26/2023 04:15:20 Influenza, high-dose, trivalent, PF 9 completed Not Available [facility] 04/26/2023 04:15:20 Influenza, high-dose, trivalent, PF 8 completed Not Available [facility] 04/26/2023 04:15:21 Td(adult) unspecified formulation 0 completed Not Available [facility] 04/26/2023 04:15:21 Influenza, split virus, trivalent, preservative 5 completed Not Available [facility] 04/26/2023 04:15:21 Influenza, split virus, trivalent, preservative 6 completed [facility] 04/26/2023 04:15:22 Influenza, high-dose, quadrivalent, PF 1 completed Not Available [facility] 04/26/2023 04:15:23 Influenza, high-dose, quadrivalent, PF 2 completed Not Available [facility] 04/26/2023 04:15:23 Influenza, high-dose, quadrivalent, PF 0 completed Not Available [facility] 04/26/2023 04:15:23 COVID-19, mRNA, LNP-S, PF, 100 mcg/0.5mL dose or 50 mcg/0.25mL dose 1 completed Not Available [facility] 04/26/2023 04:15:23 COVID-19, mRNA, LNP-S, PF, 100 mcg/0.5mL dose or 50 mcg/0.25mL dose 1 completed Not Available [facility] 04/26/2023 04:15:24 COVID-19, mRNA, LNP-S, PF, 100 mcg/0.5mL dose or 50 mcg/0.25mL dose 1 completed Not Available [facility] 04/26/2023 04:15:24 SARS-COV-2 (COVID-19) vaccine, UNSPECIFIED 2 completed Not Available [facility] 04/26/2023 04:15:25 COVID-19, mRNA, LNP-S, bivalent, PF, 50 mcg/0.5 mL or 25mcg/0.25 mL dose 2 completed Not Available [facility] 04/26/2023 04:15:25 pneumococcal polysaccharide PPV23 0 completed Not Available [facility] 04/26/2023 04:15:26 influenza, unspecified formulation 3 completed ORA CHUA, [place] [facility]. 05/29/2023 09:41:50 Influenza, high-dose, quadrivalent, PF 3 completed Not Available [facility] 06/28/2023 05:31:26 Pneumococcal conjugate PCV20, polysaccharide [id number] conjugate, adjuvant, PF 5 completed ORA Garcia, [facility] 07/20/2024 11:13:21 COVID-19, mRNA, LNP-S, PF, zeke-sucrose, 30 mcg/0.3 mL 3 completed VICKI FISHER MD [address] [place] [address] , [place], [address] 06/01/2023 14:18:11 Past Encounters Encounter ID Performer Location Encounter Start Date Encounter Closed Date Diagnosis/Indication Diagnosis SNOMED-CT Code Diagnosis ICD10 Code Diagnosis Note [id number] IVCKI FISHER MD [address] [address] 05/29/2023 10:26:43 05/29/2023 11:27:06 Multiple actinic keratoses 968475074 L57.0 Cryotherap y x 2 both lesions. Well-ronny ated Lesion of penis 64008428 0 N48.9 Leukoplaki a type changes, concern for possible superficia l malignancy . Referral to urology for biopsy and treatment Active or passive immunization 143895868 Z23 [id number] VICKI FISHER MD [address] [address] 07/22/2023 13:24:45 07/22/2023 14:07:03 Impacted cerumen of bilateral ears 0487504401 434835 H61.23 Impacted cerumen 7031856 6 H61.23 Ears cleaned out easily enough. Educated patient about avoiding putting foreign objects including Q-tips in his ears. Follow-up as needed [id number] PATRICA GODFREY MD [address] [address] 10/09/2023 09:53:32 10/09/2023 11:39:20 Body mass index 25-29 - overweight 836138868 Z68.27 Low back pain 147561334 M54.50 Would benefit from increasing flexible and strengthen ing core. PT referral at his request. Irregular heart beat 361 032040 R00.8 Impaired e xercise tolerance 673851768 R68.89 Atrial fibrillation 4943 6004 I48.91 Atrial fibrillati on seen on EKG, obtained for irregular heart beat on exam.New diagnosis. Heart rate bradycardi c on EKG but was 68 on repeat measuremen t and 89 upon arrival.No symptoms of an associated medical problem, no hypertensi on, evidence of infection, symptoms of PE or ACS.Check labs for thyroid problems, electrolyt e abnormalit ies, glucose level, anemia, check renal function.D iscussed the diagnosis of atrial fibrillati on, pathophysi ology, discussion of reasoning behind anticoagul ation and ordering echocardio gram.He is otherwise very healthy and active. Referring to cardiology for considerat ion of rhythm control strategy. I think this explains his inability to exert himself when trying to pull maple taps.Discu ssed symptoms that warrant emergency care.He has no prescripti on drug coverage. Xarelto is cheaper through [facility] than eliquis. CHADS2-vas c score of 2. He is not high risk for bleeding. [id number] PATRICA GODFREY MD [address] [address] 10/24/2023 12:04:07 10/24/2023 12:55:01 Atrial fibrillation 77168738 I48.91 Close interval f/u after new diagnosis of afib, rate controlled . Successful ly on a/c. No new symptoms. Echo with no CHF or valvular abnormalit ies.He will call Dr. Lomas office to try to schedule an appointmen t. He will let me know if the appointmen t is going to be more than 2 months out and I will send the referral to [facility] at that time. My main question for cardiology is whether he can pursue a rhythm control approach as his exercise tolerance is significan tly affected by being in afib.Revie wed reasons to call or seek emergency care, dizziness, syncope, chest pain, significan t SOB, etc. [id number] PATRICA GODFREY MD [address] [address] 01/27/2024 14:50:31 01/27/2024 15:19:48 Atrial fibrillation 20881996 I48.91 Doing well with new diagnosis of afib. Tolerating xarelto. Is comfortabl e with no rhythm control strategy.C all or seek emergency care for any dizziness, syncope, chest pain, significan t SOB, etc.He is comfortabl e waiting a year for follow up. [id number] Sue Starkey RN [address] [address] 04/06/2024 14:45:10 04/06/2024 16:57:52 [id number] PATRICA GODFREY MD [address] [address] 07/20/2024 10:05:59 07/20/2024 13:44:37 Pre-surgery evaluation 266846708 Z01.818 The patient has a history of atrial fibrillati on managed with Xarelto for anticoagul ation. Vitals are stable with BP 116/68, BMI 26, and HR 68. The patient reports good exercise tolerance. No family or personal history of anesthesia issues. Previous surgery (hemorrhoi dectomy) without complicati ons.Plan:O michelle to hold Xarelto for 24 hours prior to surgery.Ob tain pre-operat janes labs (kidney function and blood counts), as he is due for basic blood work anyways.Cl eared for surgery with low risk. Active or passive immunization 150773687 Z23 Atrial fibrillation 4943 6004 I48.91 Cardiac exam today reveals he is likely in NSR. Continue xarelto, hold for 24 hours before surgery. Bilateral dermatochalasis of upper eyelids 1609063282 6907214 H02.831 H02.834 Agree with surgery to improve vision. Dupuytren' s contracture of finger 493951498 M72.0 Beginning to affect his function, especially of his L hand and he is L hand dominant. Refer to ortho for treatment. Health Concerns Section Related Observation LastModified by Organization Detai ls LastModified Time None Recorded Concern Status LastModified by Organization Details LastModified Time None Recorded Advance Directives Directive N: Has the paperwork at home but is still working on them with . Payers Encounter Date Sequence Insurance Name Policy Number Policy Bryant Covered Member ID Bryant Member ID Guarantor Name 10/09/2023 1 [place] [email or web address] Jacoby Nguyen [id number] Jacoby Nguyen 10/09/2023 2 [employer] (MEDICARE SUPPLEMENT) Jacoby Nguyen [id number] Jacoby Nguyen 10/24/2023 1 [place] [employer] [employer] Jacoby Nguyen [id number] Jacoby Nguyen 10/24/2023 2 [employer] (MEDICARE SUPPLEMENT) Jacoby Nguyen [id number] Jacoby Nguyen 01/27/2024 1 [place] [facility] Jacoby Nguyen [id number] 4 Jacoby Nguyen 01/27/2024 2 [employer] (MEDICARE SUPPLEMENT) Jacoby Nguyen [id number] Jacoby Nguyen 04/06/2024 1 [place] [facility] SERVICES Jacoby Nguyen [id number] 4 Jacoby Nguyen 04/06/2024 2 [employer] (MEDICARE SUPPLEMENT) Jacoby Nguyen [id number] Jacoby Nguyen 07/20/2024 1 [place] [facility] SERVICES Jacoby Nguyen [id number] 4 Jacoby Nguyen 07/20/2024 2 [employer] (MEDICARE SUPPLEMENT) Jacoby Nguyen [id number] Jacoby Nguyen Notes Date Note Type Note Provider Name and Address Organization Details Recorded Time 10/09/2023 text/html Here for annual chronic care visit.Overall, feels he is doing well. 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 His hands have seemed weak, a bit stiff and sore from time to time. Sometimes his bilateral fingertips feel numb but he rubs the inside of his elbows and it gets better. Sometimes this is worse at night.Typing doesn't bother his hands. PATRICA GODFREY MD [address], [place], [address], [facility] 10/09/2023 16:03:48 10/24/2023 text/html Here in f/u for new diagnosis of atrial fibrillation. Continues to endorse decreased energy/exercise tolerance. Learning to live with it. No other symptoms, noTaking xarelto and tolerating well.Had echo 2 days ago. We reviewed the results today. Has not heard from Dr. Lomas office to schedule PATRICA GODFREY MD [address], [place] [id number], [facility] 10/24/2023 13:26:32 01/27/2024 text/html Here in 3 month f/u for new diagnosis of atrial fibrillation. Also called recently with concern for giardia. Loose stool once a day. No other symptoms, doesn't feel sick. Is comfortable waiting until stool test results. He did go underwater in a [place] pond but was careful to not ingest any water. Saw cardiology for afib, new diagnosis, affecting his exercise tolerance. They discussed rhythm control options and opted to not proceed with any of them. He doesn't need rate control. He is tolerating xarelto. No bleeding but does bruise easily. He is able to do all the activities that he wants to do. MD [address], [place], [address], [facility] 01/28/2024 08:23:31 07/20/2024 text/html Pre-Op NCHCRepor danny bypatient.Risk Factorsno cognitive impairment; able to climb a flight of stairs (exercise capacity>4 METS) Anesthesia hx:no hx of anesthesia complications; no allergy to anesthetic agents; no family history of anesthesia complications Functional Ability:able to walk up stairs; able to perform heavy work around the house Post-Op Support:no need for assistance Patient presents for pre-op evaluation. Procedure: bilateral upper lid blepharoplasty. New patient symptoms: vision obstruction.Surgery to be performed by {{ Dr. Kellogg#}} on Jul 2024. Pre-operative Evaluation for Eye Surgery - 83-year-old male presenting for pre-operative evaluation for upcoming eye surgery to address dermatochalasis of the upper eyelids. Patient reports not having had an eye exam for 7 years and recently noticed eye pain when reading for prolonged periods, accompanied by cloudiness. Surgery is scheduled with [facility]. Claudine Kell[facility] [place], with local/MAC.Dupuytren's Contractures - Patient mentions a 3-4 year history of a hand condition. The right pinky has been affected for about 6 years, while the left 4th finger has been affected for a couple of years. He hasn't mentioned this before but the left side is bothering him more and he is left handed. He can't straighten the affected fingers.Atrial Fibrillation - Patient has a history of atrial fibrillation, not requiring rate control, and is currently on Xarelto for anticoagulation. PATRICA GODFREY MD [address], [place], [address], [facility]. 07/20/2024 12:57:56
--- OUTSIDE RECORDS SUMMARY | 2024-07-20 13:51 | XMS_ITS ---
Author Organization Unknown Address [address] [place] [address] [phone] Phone Care Team Providers Care Armature Inspector Name Role Phone TONI Whitmore Attending Unavailable PHILLIP Fontana Primary Unavailable Results XR WRIST 3V RT* - Completed: 11/28/2022 13:11 LOINC: [facility] [place], [place] [address] PACS CHEF INSTRUCTOR REPORT Patient Name: VIKASH JI MRN: Sex: : Age: [id number] M 1940 81 Account: Accession: Admit: StayType: [id number] 11/28/2022 CLINIC Ordered: Order ID: Submitted: Ordering Provider: 11/28/2022 10:11 [id number] EMO GIGI MUÑOZ Completed: Technologist: Resulted: 11/28/2022 [...] Sys tem Dupuytren's disease of palm 11/28/2022 [id number] SNOMED-CT Personal Care Team Section Performer Name Performer Role Active Date Inactive Da te
--- OUTSIDE RECORDS SUMMARY | 2024-07-20 13:51 | XMS_ITS | Clinical Summary ---
Author Organization [facility] Address [address] [place] [address] Care Team Providers Care Vending Machine Servicer Name Role Phone Drew Marina MD Primary Care Provider [phone] Allergies No known active allergies Medications aspirin chewable 81 mg tablet Take 81 mg by mouth daily. Usually Active sildenafil citrate (VIAGRA) 100 mg tablet Take 100 mg by mouth as needed for Erectile Dysfunction. Active Multivitamins with Minerals tablet tablet Take 1 Tab by mouth daily. Active cholecalciferol , Vitamin D3, 1,000 unit tablet Take 1,000 [...] or Fever (Fever especially in neuro patients). 6 Active Additional Information Patient not taking.Reported on 06/21/2016 ibuprofen (MOTRIN) 200 mg tablet Take 200 mg by mouth every 6 hours as needed for Pain. Active fluorouracil (EFUDEX) 5 % cream Apply topically 2 times daily. Active ibuprofen/diphe nhydramine cit (IBUPROFEN PM ORAL) Take by mouth daily. Active hydrocortisone 2.5 % ointment Sig apply thin layer to left upper/lower eyelid BID x 2 weeks 20 g 3 9 Active Active Problems Problem Noted Date Diagnosed [...] Recorded Sex Assigned at Not on file Legal Sex Male 8:50 EDT Gender Identity Not on file Sexual Orientation [...] Health Maintenance Due Date Last Done Comments Fall Risk Screening 12/21/2004 RSV Immunization ( o r 60+ Years) (1 - 1-dose 75+ series) 12/21/2014 COVID-19 Vaccine ( season) 2024 Advance Directives For more information, please contact: [phone] Documents on File Type Date Recorded Patient Lime Sludge Mixer Expl anation Advance Directive 10/17/2015 5:59 Advance [...] the discussion? Not Discusse d Care Teams Vending Machine Servicer Relationship Specialty Start Date End Date Drew Marina MD [address] [place] [id number] PCP - General 03/24/13
--- OUTSIDE RECORDS SUMMARY | 2024-07-20 13:52 | XMS_ITS | Encounter Summary ---
Author Organization [facility] Address [address] [place] [address] Care Team Providers Care Multiple Needle Stitcher Name Role Phone Drew Marina MD Primary Care Provider [phone] Reason for Visit * Reason Onset Date Comments Biopsy Results 06/07/2016 Encounter Details Date Type Department Care Team (Late st Contact Info) Description 06/07/2016 Telephone [facility] Dermatology 3rd Floor [facility] [address] [place] [address] Nishant Hassan PA-C [address] [place] [address] [place] [phone] Biopsy Results Social History Tobacco Use Types [...] documented as of this encounter Functional Status * Because of a physical, mental, or emotional condition, does this person have difficulty doing errands alone such as visiting a doctor's office or shopping? Answer Date of Assessment Author No 11/29/2015 8:23 EDT documented as of this encounter Mental Status * Because of a physical, mental, or emotional condition, does this person have serious difficulty concentrating, remembering, or making decisions? Answer Entry Date Author No 11/29/2015 8:23 EDT documented in this encounter Miscellaneous Notes * Telephone Encounter - Jing Gilliam A.E. - 06/07/2016 1002 EST Called patient back and informed him of biopsy results. Patient scheduled for a 6 month FBSE with Narendra Hassan PA-C on 11/28/16 at 1:00. Jing Gilliam 06/07/2016 10:02 * Telephone Encounter - Ca Lerma - 06/07/2016 0861 EST Patient called to check on the status of his biopsy results. documented in this encounter Plan of Treatment Not on file documented as of this encounter Visit Diagnoses Not on filedocumented in this encounter Care Teams Multiple Needle Stitcher Relationship Specialty Start Date End Date Drew Marina MD [address] [place] [address] PCP - General 03/24/13 documented as of this encounter
--- OUTSIDE RECORDS SUMMARY | 2024-07-20 13:52 | XMS_ITS | Encounter Summary ---
Author Organization [facility] Address [address] [place] [address] Care Team Providers Care Reliability Engineer Name Role Phone Drew Marina MD Primary Care Provider [phone] Reason for Visit * Reason Onset Date Comments Appointment Related 10/14/2015 OR reminder call Encounter Details Date Type Department Care Team (Late st Contact Info) Description 10/14/2015 Telephone Vascular Surgery and Endovascular Therapy - [address] [address] Juan Carlos Hubbard MD [address] [facility], [address] [place] [id number] Appointment Related (OR reminder call) Social History [...] shopping? Answer Date of Assessment Author No 10/11/2015 13:30 EDT documented as of this encounter Mental Status * Because of a physical, mental, or emotional condition, does this person have serious difficulty concentrating, remembering, or making decisions? Answer Entry Date Author No 10/11/2015 13:30 EDT documented in this encounter Miscellaneous Notes * Telephone Encounter - Osiris Myles - 10/14/2015 1600 EDT Surgery reminder call Spoke to the patient You are having surgery with Dr. Hubbard Your surgery date is Saturday October 17, 2015 At the [facility] Please check in at 6:00am at registration. You can not have any solid food or dairy products after midnight, but you may have clear liquids until 3:25am. After 3:25am you may only have the medications you discussed taking during your Anesthesia phone call with sips of water. You must have a route sales driver with you the day of surgery. [...] on filedocumented in this encounter Care Teams Reliability Engineer Relationship Specialty Start Date End Date Drew Marina MD [address] [place] [address] PCP - General 03/24/13 documented as of this encounter
--- OUTSIDE RECORDS SUMMARY | 2024-07-20 13:52 | XMS_ITS | Encounter Summary ---
Author Organization [facility] Address [address] [place] [address] Care Team Providers Care Reimbursement Auditor Name Role Phone Drew Marina MD Primary Care Provider [phone] Reason for Visit * Reason Comments Surgical Excision Basal Cell Carcinoma Left back Encounter Details Date Type Department Care Team (Late st Contact Info) Description 06/21/2016 11:00 EST Office Visit [facility] Dermatology 5th Floor [facility] [address] [place] [address] Megha Hassan PA-C [address] [place] [phone] BCC (basal cell carcinoma), trunk (Primary Dx) [...] 11/29/2015 8:23 EDT documented in this encounter Discharge Diagnoses Diagnosis C44.519 Basal cell carcinoma of skin of other part of trunk-C44.519[ICD-10-CM] documented in this encounter Patient Instructions * Patient Instructions* Megha Hassan PA-C - 06/21/2016 11:00 EST [facility] DERMATOLOGIC AND LASER SURGERY UNIT EXCISIONAL WOUND CARE INSTRUCTIONS The DRESSING/BANDAID should remain in place for 24 hours. You may shower or bathe after 24 hours; remove the bandage and replace it after the shower. DISCOMFORT: Expect some discomfort. Extra-Strength Tylenol, taken as directed by the taxi proprietor, will help relieve pain. If the pain [...] EXCISION AND LAYERED CLOSURE PATIENT INFORMATION: Jacoby Saenz Patrick : MRN: [id number] PROCEDURE DATE: 06/21/2016 SURGEON: Megha Hassan PA-C HAND SHOES SEWER: Jing iGlliam MA LOCATION: left and superior back PREOPERATIVE DIAGNOSIS: Basal cell carcinoma - [id number] ? LESION SIZE: 1.0 x 1.0 cm [...] for routine skin exam. Megha OLSON PA-C Division of Dermatology Clinical Instructor - [facility] 06/21/2016 * Bria Hebert MD - 06/21/2016 1100 EST I was the supervising physician and was present in the clinic during this visit. Note reviewed, patient was not seen by me. Bria Hebetr MD documented in this encounter Plan of [...] Left back Clinical History: BCC; re-excision of [id number]; clinical diagnosis code: ??C44.519 Gross Description: ? [...] (ASCP) 06/21/2016 3:57 PM End of Report [facility] 06/21/2016 13:4 4 EST 06/21/2016 13:44 EST us Megha Hassan PA-C PATHOLOGY ORDERABLES Fin al Result [facility] [address] [place] [address] documented in this encounter Visit Diagnoses Diagnosis BCC (basal cell carcinoma), trunk- Primary Basal cell carcinoma of skin of trunk, except scrotum documented in this encounter Care Teams Reimbursement Auditor Relationship Specialty Start Date End Date Drew Marina MD [address] [place] [address] PCP - General 03/24/13 documented as of this encounter
--- OUTSIDE RECORDS SUMMARY | 2024-07-20 13:52 | XMS_ITS | Encounter Summary ---
Author Organization [facility] Address [address] [place] [address] Care Team Providers Care Breakdown Mill Operator Name Role Phone Drew Marina MD Primary Care Provider [phone] Reason for Visit * Reason Comments Varicose Veins bilateral LE achy VV , u/s first Encounter Details Date Type Department Care Team (Late st Contact Info) Description 08/25/2015 12:00 EST Office Visit Vascular Surgery and Endovascular Therapy - [address] [id number] Juan Carlos Hubbard MD [address] [facility], [address] [place] [address] Varicose veins of leg with [...] EST documented in this encounter Functional Status * Because of a physical, mental, or emotional condition, does this person have difficulty doing errands alone such as visiting a doctor's office or shopping? Answer Date of Assessment Author No 08/25/2015 11:43 EST documented as of this encounter Mental Status * Because of a physical, mental, or emotional condition, does this person have serious difficulty concentrating, remembering, or making decisions? 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 documented in this encounter Consult Notes * Juan Carlos Hubbard MD - 08/26/2015 0421 EST [facility] VASCULAR SURGERY CONSULTATION - 08/25/2015 Drew Marina MD [facility] [address] [place] [address] Dear Drew, Thank you for consulting us [...] Juan Carlos Hubbard MD kn Dictation ID: [id number] cc: Drew Marina MD, [facility] [address] [address] documented in this encounter Plan of Treatment Not on file documented as of this encounter Visit Diagnoses Diagnosis Varicose veins of leg with pain, bilateral- Primary documented in this encounter Historical Medications * This list may reflect changes made after this encounter. sildenafil citrate (VIAGRA) 100 mg tablet Take 100 mg by mouth as needed for Erectile Dysfunction. aspirin chewable 81 mg tablet Take 81 mg by mouth daily. Usually added in this encounter Care Teams Breakdown Mill Operator Relationship Specialty Start Date End Date Drew Marina MD [address] [place] [address] PCP - General 03/24/13 documented as of this encounter
--- OUTSIDE RECORDS SUMMARY | 2024-07-20 13:52 | XMS_ITS | Encounter Summary ---
Author Organization [facility] Address [address] [place] [address] Care Team Providers Care Freight Car Cleaner Name Role Phone Drew Marina MD Primary Care Provider [phone] Reason for Visit * Reason Comments Skin Exam Spot Check- back, it carlton Encounter Details Date Type Department Care Team (Latest Contact Info) Description 03/22/2017 15:30 EDT Office Visit [facility] Dermatology 5th Floor [facility] [address] [place] [address] Nishant Hassan PA-C [address] [place] [phone] Actinic keratosis (Primary Dx); Prurigo nodularis; Notalgia [...] documented in this encounter Discharge Diagnoses Diagnosis L57.0 Actinic [...] paresthetica - here are a few good lnan-abj-klazsjd treatments: A.) Buy Hydrocortisone cream 1% and [...] encounter Progress Notes * Zakiya Wright - 03/22/2017 1530 EDT Review of Systems [...] referral to neurology could be considered. Several pphi-ven-zdowije treatments were reviewed - see patient instructions in AVS for specific details on these instructions from today's visit. Follow up here in 6-8 months as scheduled, sooner if needed. 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
--- OUTSIDE RECORDS SUMMARY | 2024-07-20 13:52 | XMS_ITS | Encounter Summary ---
Author Organization [facility] Address [address] [place] [address] Care Team Providers Care Humane Officer Name Role Phone Drew Marina MD Primary Care Provider [phone] Reason for Visit * Reason Comments Skin Exam 6 month FUR FBSE H/O NMSC patient reports no concerns Encounter Details Date Type Department Care Team (Late st Contact Info) Description 11/28/2016 13:00 EDT Office Visit [facility] Dermatology 5th Floor [facility] [address] [place], [place] [phone] Nishant Hassan PA-C [address] [place] [phone] Personal history of other malignant neoplasm of [...] documented in this encounter Discharge Diagnoses Diagnosis Z85.828 Personal [...] during these hours. Limit outdoor activities to pediatric physiatrist and/or evening hours when the sunlight is [...] provide. In general, loose weaves (Cotton) and continuous pillowcase cutter-colored fabrics offer less protection than tighter weaves [...] sensitive Recommended sun protection clothing websites www.sunprecautions.com www.coolibar.24x7 Learning www.regrob.com www.LawbitDocs.24x7 Learning documented in this encounter Discharge Disposition Disposition Code Departure Means Destination Auto Discharge documented in this encounter Progress Notes * [place], Zakiya - 11/28/2016 1300 EDT Review of Systems [...] Exam On physical examination, in general, Mr. Ngyuen is a male who is well-groomed, well-nourished [...] year, sooner if needed. Nishant OLSON PA-C [facility] Division of Dermatology Clinical Instructor - [facility] 11/28/2016 documented in this encounter Plan of Treatment Not on file documented as of this encounter Visit Diagnoses Diagnosis Personal history of other malignant neoplasm of skin- Primary Epidermal inclusion cyst Sebaceous cyst documented in this encounter Care Teams Humane Officer Relationship Specialty Start Date End Date Drew Marina MD [address] [place] [address] PCP - General 03/24/13 documented as of this encounter
--- OUTSIDE RECORDS SUMMARY | 2024-07-20 13:52 | XMS_ITS | Encounter Summary ---
Author Organization [facility] Address [address] [place] [address] Care Team Providers Care Construction Equipment Operator Name Role Phone Drew Marina MD Primary Care Provider [phone] Reason for Visit * Reason Comments Pre-op Exam preop for left RFA/s tabs 10/17/15 Encounter Details Date Type Department Care Team (Late st Contact Info) Description 10/11/2015 13:30 EDT Office Visit Vascular Surgery and Endovascular Therapy - [address] [phone] Juan Carlos Hubbard MD 111 [facility], [address] [place] [address] Nurse Practitioner, [facility] Mp5 Vasc Surg Varicose veins of left [...] EDT documented in this encounter Functional Status * [...] 10/11/2015 13:30 EDT documented in this encounter Discharge Diagnoses Diagnosis I83.812 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-I83.812[ICD-10-CM] documented in this encounter Ordered Prescriptions Prescription Sig Dispense Quantity Refills Last Filled Start Date End Date DIAZepam (VALIUM) 2 mg tablet Take 1 [...] Kristi Corrales NP - 10/11/2015 1426 EDT [facility] Vascular Surgery H & P Visit [...] state. Patient is active working in his [employer] in [facility]. Of note, patient has poor sleep and [...] Primary documented in this encounter Care Teams Construction Equipment Operator Relationship Specialty Start Date End Date Drew Marina MD [address] [place] [address] PCP - General 03/24/13 documented as of this encounter
--- OUTSIDE RECORDS SUMMARY | 2024-07-20 13:52 | XMS_ITS | Encounter Summary ---
Author Organization [facility] Address [address] [place] [address] Care Team Providers Care Cobbler Sole Name Role Phone Drew Marina MD Primary Care Provider [phone] Reason for Visit * Reason Comments Skin Exam FBSE, h/o BCC, AK. S pot of concern L eye (red, watery) Encounter Details Date Type Department Care Team (Late st Contact Info) Description 10/15/2018 15:00 EDT Office Visit [facility] Dermatology 5th Floor [facility] [address] [place] [address] Nishant Hassan PA-C [address] [place] [address] [place] [phone] Atopic dermatitis of eyelid, left (Primary Dx); [...] documented in this encounter Discharge Diagnoses Diagnosis H01.136 Eczematous [...] during these hours. Limit outdoor activities to rn pediatric and/or evening hours when the sunlight is [...] provide. In general, loose weaves (Cotton) and reheater helper-colored fabrics offer less protection than tighter weaves [...] sensitive Recommended sun protection clothing websites www.sunprecautions.com www.coolibar.M2G www.[employer] www.NuConomy.M2G documented in this encounter Ordered Prescriptions Prescription Sig Dispense Quantity Refills Last Filled Start Date End Date hydrocortisone 2.5 % ointment Sig apply thin [...] year, sooner if needed. Nishant OLSON PA-C [facility] Division of Dermatology Clinical Instructor - [facility] 10/15/2018 documented in this encounter Plan of Treatment Not on file documented as of this encounter Visit Diagnoses Diagnosis Atopic dermatitis of eyelid, left- Primary Personal history of malignant neoplasm of skin Personal history of other malignant neoplasm of skin documented in this encounter Historical Medications * This list may reflect changes made after this encounter. ibuprofen/diphenhy dramine cit (IBUPROFEN PM ORAL) Take by mouth daily. added in this encounter Care Teams Cobbler Sole Relationship Specialty Start Date End Date Drew Marina MD [address] [place] [address] PCP - General 03/24/13 documented as of this encounter
--- OUTSIDE RECORDS SUMMARY | 2024-07-20 13:52 | XMS_ITS | Encounter Summary ---
Author Organization [facility] Address [address] [place] [address] Care Team Providers Care Equipment Maintenance Tech Name Role Phone Drew Marina MD Primary Care Provider [phone] Reason for Referral * Vascular Lab (Routine) - Closed Specialty Diagnoses / Procedures Referred By Neelam castle Referred To Contact Diagnoses Venous insufficiency Procedures VL LOWER VENOUS (DVT) UNILATERAL Kristi Corrales APRN Referral ID Status Reason Start Date Expiration Date Visits Re quested Visits Authorized [id number] Closed 11/29/2015 1 1 Reason for Visit * Reason Comments Post-OP Follow Up postop right DIV/LIG /stabs 11/21/15 Encounter Details Date Type Department Care Team (Late st Contact Info) Description 11/29/2015 8:15 EDT Office Visit Vascular Surgery and Endovascular Therapy - [address] [phone] Juan Carlos Hubbard MD [address] [place] [address], [address] [place] [address] Nurse Practitioner, [facility] Mp5 Vasc Surg Venous insufficiency (Primary Dx) [...] - documented in this encounter Functional Status * [...] documented in this encounter Discharge Diagnoses Diagnosis I87.2 Venous [...] Narrative 11/30/2015 13:14 EDT Vascular Diagnostic Laboratory [facility] [place], [address] [place] [address] Technologist: Ward Collier IMPRESSIONS No evidence of [...] flow. Electronically signed by: Juan Carlos Hubbard [id number] Procedure Note Juan Carlos Hubbard MD - 11/30/2015 Vascular Diagnostic Laboratory [facility] Care [place], Level 5 [address] [facility] [place] [address] Technologist: Ward Collier IMPRESSIONS No evidence of [...] flow. Electronically signed by: Juan Carlos Hubbard [id number] us Kristi Corrales VICE PRESIDENT QUALITY ASSURANCE IMG VASCULAR ORDERABLES F inal Result documented in this encounter Visit Diagnoses Diagnosis [...] may reflect changes made after this encounter. ibuprofen (MOTRIN) 200 mg tablet Take 200 mg by mouth every 6 hours as needed for Pain. added in this encounter Care Teams Equipment Maintenance Tech Relationship Specialty Start Date End Date Drew aMrina MD [address] [place] [address] PCP - General 03/24/13 documented as of this encounter
--- OUTSIDE RECORDS SUMMARY | 2024-07-20 13:52 | XMS_ITS | Encounter Summary ---
Author Organization [facility] Address [address] [place] [address] Care Team Providers Care Postage Machine Operator Name Role Phone Drew Marina MD Primary Care Provider [phone] Encounter Details Date Type Department Care Team (Late st Contact Info) Description 10/17/2015 5:52 EDT - 10/17/2015 10:33 EDT Hospital Encounter [facility] Perioperative Services- [address] [address] Juan Carlos Hubbard MD [address] [facility], [address] [place] [phone] Varicose veins of left lower extremities with [...] 11:43 EST documented in this encounter Discharge Instructions * [...] THE OFFICE DIRECTED Vascular Clinic 5th floor [facility], [facility] . Our clinic offices are open for your questions from 9am-5pm daily Saturday-Saturday. Emergencies can becalled in to the covering physician during off hours. documented in this encounter Medications at Time of Discharge acetaminophen (TYLENOL) 500 mg tablet Take 2 [...] by mouth as needed for Erectile Dysfunction. HYDROcodone-acet aminophen (NORCO) 5-325 mg tablet Take 1-2 Tabs by mouth every 6 hours as needed for Pain. Daily Max: 8 Tabs 10 Tab 0 10/17/2015 6 HYDROmorphone (DILAUDID) 2 mg tablet Take 1-2 Tabs by mouth every 3 hours as needed for Pain. Daily Max: 32 mg 15 Tab 0 11/21/2015 6 documented as of this encounter Ordered Prescriptions Prescription Sig Dispense Quantity Refills Last Filled Start Date End Date HYDROcodone-acetam inophen (NORCO) 5-325 mg tablet Take 1-2 Tabs [...] Notes * Gerald Bernal MD - 10/17/2015 0727 EDT The preoperative history and physical which was performed within 30 days of this procedure has been reviewed and the clinically appropriate elements of the physical examination have been repeated. There are no changes to the documented history and physical or if so such changes are documented below Gerald Bernal MD 10/17/2015 7:27 Cosigned by Juan Carlos Hubbard MD at 10/17/2015 15:02 EDT Source Note - Kristi Corrales NP - 10/11/2015 14:26 EDT [facility] Vascular Surgery H & P Visit [...] state. Patient is active working in his [employer] in the [place]. Of note, patient has poor sleep and [...] Kristi Corrales NP - 10/11/2015 14:26 EDT [facility] Vascular Surgery H & P Visit [...] state. Patient is active working in his [employer] in the [place]. Of note, patient has poor sleep and [...] 13 incisions. SURGEON: Juan Carlos Hubbard MD PIEROGI MAKER: Gerald Bernal MD ANESTHESIA: INDICATIONS: Mr Nguyen [...] knee and with the Seldinger technique, a 7-Togolese introducer was placed into the vein. We then used a 7- Togolese 60 cm ClosureFast catheter and with ultrasound [...] / Juan Carlos Hubbard MD jn Confirmation: [id number] Dictation ID: [id number] documented in this encounter Miscellaneous Notes * Brief Op Note - Gerald Bernal MD - 10/17/2015 0859 EDT Brief Op Note Pre-op Diagnosis: Superficial venous insufficiency; left leg varicose veins Post-op Diagnosis: Same. Procedure: Left greater saphenous vein radiofrequency ablation with stab ligations Surgeon: Dr. Juan Carlos Hubbard Wheel Worker: Dr. Gerald Bernal; Ham Cisu (MS-3). Anesthesia: GETA. Findings: Good sclerosis of GSV, no DVT noted post-procedure; 13 stab ligations total Fluids: IVF - 700mL. EBL - Minimal. UOP - Nil. Drains/Lines: PIV. Retained Material: Nil. Specimens: Nil. Complications: Nil. Condition: Stable. Dispo: Extubated, to PACU, then home. Gerald Bernal MD (PGY- 4) 10/17/2015 9:06 Surgery Semiconductor Processing Technician Pager #[phone] documented in this encounter Plan of Treatment Not on file documented as of this encounter Procedures Procedure Name Priority Date/Time Associated Diagnosis Comments ECG REPORT - SCANNED 10/20/2015 8:33 EDT documented in this encounter Results * ECG REPORT - SCANNED (10/20/2015 8:33 EDT) 10/20/2015 8:33 EDT us Scan 2 Dial Painter PROCEDURE/MINOR SURGICAL OR DERABLES Final Result documented in this encounter Visit Diagnoses [...] Sat10/17/15 at 0700, Routine, Pre-Op DOS Rx ApprovedIndications:Varicos e veins of left lower extremities with pain Given by Other 10/17/2015 7:47 EDT 2 g IV chlorhexidine gluconate 2 % cloth 1 Each 1 Each, topical, PRE-OP ONCE, 1 dose, On Sat10/17/15 at 0700, Routine, Pre-Op DOS Rx ApprovedIndications:Varicos e veins of left lower extremities with pain Given 10/17/2015 7:00 EDT 1 Each lactated ringers (LR) infusion at 100 mL/hr, intravenous, CONTINUOUS, Starting on Sat10/17/15 at 0700, Until Sat10/17/15 at 1234, Routine, Pre-Op DOS Rx ApprovedIndications:Varicos e veins of left lower extremities with pain New Bag 10/17/2015 7:01 EDT 30 mL/hr [...] may reflect changes made after this encounter. flaxseed oil 1,000 mg capsule capsule Take [...] Roland Munson)0940 (Continued Infusion - Provider: Hortensia Dozier RN) PRN Medication Order 10/15/2015 10/16/2015 10/17/2015 acetaminophen (TYLENOL) tablet 1,000 mg (COMPLETED) 1,000 mg, oral, PRN, 1 dose, Starting on Sat10/17/15 at 0855, Until Sat10/17/15 at 0958, Pain, Fever, Fever especially in neuro patients, Routine, Recovery (only) 0958 (Given - Provid er: Hortensia L. Jacoby, RN) documented in this encounter Orders Medications [...] 10/17/2015 documented in this encounter Care Teams Postage Machine Operator Relationship Specialty Start Date End Date Drew Marina MD [address] [place] [address] PCP - General 03/24/13 documented as of this encounter
--- OUTSIDE RECORDS SUMMARY | 2024-07-20 13:52 | XMS_ITS | Encounter Summary ---
Author Organization [facility] Address [address] [place] [address] Care Team Providers Care Deck Molder Name Role Phone Drew Marina MD Primary Care Provider [phone] Reason for Visit * Reason Comments Pre-op Exam Pre op for right leg RFA of the GSV, ligation and division of the right short saphenous vein, and bilateral stab ligations Encounter Details Date Type Department Care Team (Late st Contact Info) Description 10/25/2015 10:00 EDT Office Visit Vascular Surgery and Endovascular Therapy - [address] [phone] Juan Carlos Hubbard MD [address] [facility], [address] [place] [address] Nurse Practitioner, [facility] S[facility] Venous insufficiency of both [...] Kristi Corrales NP - 10/25/2015 1119 EDT [facility] Vascular Surgery H & P Visit [...] Family History Living situation: , lives at [facility] CAD no AAA no History Substance [...] documented as of this encounter Care Teams Deck Molder Relationship Specialty Start Date End Date Drew Marina MD [address] [place] [address] PCP - General 03/24/13 documented as of this encounter
--- OUTSIDE RECORDS SUMMARY | 2024-07-20 13:52 | XMS_ITS | Encounter Summary ---
Author Organization [facility] Address [address] [place] [address] Care Team Providers Care Set Up Mechanic Crown Assembly Machine Name Role Phone Drew Marina MD Primary Care Provider [phone] Encounter Details Date Type Department Care Team (Late st Contact Info) Description 11/21/2015 8:42 EDT - 11/21/2015 15:30 EDT Hospital Encounter [facility] Perioperative Services- [address] [address] Juan Carlos Hubbard MD [address] [facility], Level [address] [place] [phone] Venous insufficiency of both lower extremities (Primary [...] r low extrem with other complications-I83.891[ICD-10-CM] Z79.82 terminal operations manager (current) use of aspirin-Z79.82[ICD-10-CM] documented in this [...] THE OFFICE DIRECTED Vascular Clinic 5th floor [facility], [facility], [facility] . Our clinic offices are open for [...] Refills Last Filled Start Date End Date acetaminophen (TYLENOL) 500 mg tablet Take 2 Tabs by mouth every 6 hours as needed for Pain or Fever (Fever especially in neuro patients). 11/21/2015 HYDROmorphone (DILAUDID) 2 mg tablet Take 1-2 Tabs by mouth every 3 hours as needed for Pain. Daily Max: 32 mg 15 Tab 0 11/21/2015 6 documented in this encounter Discharge Disposition Disposition Code Departure Means Destination Home or Self Care documented in this encounter Progress Notes * Bria Yates, LETTY - 11/20/2015 1125 EDT Jacoby Nguyen has [...] Kristi Corrales NP - 10/25/2015 11:19 EDT [facility] Vascular Surgery H & P Visit Note [...] Family History Living situation: , lives at [facility] CAD no AAA no History Substance [...] - Juan Carlos Hubbard MD - 11/21/2015 5986 EDT OPERATIVE REPORT SERVICE DATE: 11/21/2015 PREOPERATIVE DIAGNOSIS: Chronic right leg venous insufficiency with symptomatic varicose veins. POSTOPERATIVE DIAGNOSIS: Chronic right leg venous insufficiency with symptomatic varicose veins. PROCEDURE: Ablation of the greater saphenous vein using radiofrequency. Ligation of the short saphenous vein at the saphenofemoral junction and stab ligation of varices, total of 17 incisions. SURGEON: Juan Carlos Hubbard MD AIR FORCE SENIOR OFFICER: Matias Crowley MD INDICATIONS: Mr Nguyen has [...] into the vein. We then used a 7-Amharic 60 cm ClosureFAST catheter, which was placed [...] / Juan Carlos Hubbard MD rn Confirmation: [id number] Dictation ID: [id number] documented in this encounter Miscellaneous Notes * [...] (11/23/2015 15:13 EDT) 11/23/2015 15:1 3 EDT us Scan 2 Cloth Bin Packer PROCEDURE/MINOR SURGICAL OR DERABLES Final Result documented [...] Sat11/21/15 at 0930, Routine, Pre-Op DOS Rx ApprovedIndications:Venous insufficiency of both lower extremities Given by Other 11/21/2015 11:34 EDT 2 g chlorhexidine gluconate 2 % cloth 1 Each 1 Each, topical, PRE-OP ONCE, 1 dose, On Sat11/21/15 at 0930, Routine, Pre-Op DOS Rx ApprovedIndications:Venous insufficiency of both lower extremities Given 11/21/2015 9:32 EDT 1 Each lactated ringers (LR) infusion at 30 mL/hr, intravenous, CONTINUOUS, Starting on Sat11/21/15 at 0930, Until Sat11/21/15 at 1829, Routine, Pre-Op DOS Rx ApprovedIndications:Venous insufficiency of both lower extremities New Bag 11/21/2015 9:38 EDT 30 mL/hr [...] Routine, Pre-Op DOS Rx Approved [id number] ([facility] - Prov ider: Claire Chapman RN)1345 (Completed [...] 11/21/2015 documented in this encounter Care Teams Set Up Mechanic Crown Assembly Machine Relationship Specialty Start Date End Date Drew Marina MD [address] [place] [address] PCP - General 03/24/13 documented as of this encounter
--- OUTSIDE RECORDS SUMMARY | 2024-07-20 13:52 | XMS_ITS | Referral Summary ---
Author Organization [facility] Address [address] [place] [address] Care Team Providers Care Facility Maintenance Helper Name Role Phone Drew Marina MD Primary Care Provider [phone] Allergies No known active allergies Medications aspirin [...] Index 26.09 11/17/2015 1612 EDT Functional Status * Because of a physical, mental, or emotional condition, does this person have difficulty doing errands alone such as visiting a doctor's office or shopping? Answer Date of Assessment Author No 11/29/2015 8:23 EDT Mental Status * Because of a physical, mental, or emotional condition, does this person have serious difficulty concentrating, remembering, or making decisions? Answer Entry Date Author No 11/29/2015 8:23 EDT Plan of Treatment Not on file Advance Directives For more information, please contact: [phone] Documents on File Type Date Recorded Patient Belt Conveyor Drier Expl anation Advance Directive 10/17/2015 5:59 Advance [...] the discussion? Not Discusse d Care Teams Facility Maintenance Helper Relationship Specialty Start Date End Date Drew Marina MD [address] [place] [address] PCP - General 03/24/13
--- OUTSIDE RECORDS SUMMARY | 2024-07-20 13:52 | XMS_ITS | Encounter Summary ---
Author Organization [facility] Address [address] [place] [address] Care Team Providers Care Web Design Instructor Name Role Phone Drew Marina MD Primary Care Provider [phone] Reason for Referral * Vascular Lab (Routine) - Closed Specialty Diagnoses / Procedures Referred By Neelam castle Referred To Contact Diagnoses Varicose veins Procedures VL VENOUS INSUFFICIENCY (VARICOSE VEINS) CADE Juan Carlos Hubbard MD Phone: tel: fax: Referral ID Status Reason Start Date Expiration Date Visits Re quested Visits Authorized [id number] Closed 08/23/2015 1 1 Reason for Visit * Reason Onset Date Comments Follow-up 08/23/2015 Encounter Details Date Type Department Care Team (Late st Contact Info) Description 08/23/2015 Orders Only Vascular Surgery and Endovascular Therapy - [address] [phone] Juan Carlos Hubbard MD [address] [place] [address], [address] [place] [phone] Varicose veins (Primary Dx) Social History Tobacco [...] Narrative 08/26/2015 8:32 EST Vascular Diagnostic Laboratory [facility] [address] [place] [address] Technologist: Becky Torres IMPRESSIONS 1. Right lower extremity reflux in the deep veins, saphenofemoral junction, ?? great saphenous vein, short saphenous vein, vein of giacomini, and popliteal ?? yardage control clerk. No reflux in the anterior saphenous vein. 2. Left lower extremity reflux in the common femoral vein, saphenofemoral ?? junction, great saphenous vein, and segmentally in the femoral vein. Reflux ?? noted in a proximal calf yardage control clerk vein to the gastrocnemius vein. No reflux [...] reflux. ? + + +------+ + Right yardage control clerk ? With reflux. ? 1.1cm ? popliteal [...] 0.42cm ? + + +------+ + Left yardage control clerk to ? With reflux. ? 0.38cm proximal [...] main outflow. Electronically signed by: Ward Camara [id number] Procedure Note Ward Camara MD - 08/26/2015 Vascular Diagnostic Laboratory [facility] [address] [place] [address] Technologist: Becky Torres IMPRESSIONS 1. Right lower extremity reflux in the deep veins, saphenofemoraljunction, great saphenous vein, short saphenous vein, vein of giacomini, andpopliteal yardage control clerk. No reflux in the anterior saphenous vein. 2. Left lower extremity reflux in the common femoral vein, saphenofemoral junction, great saphenous vein, and segmentally in the femoral vein.Reflux noted in a proximal calf yardage control clerk vein to the gastrocnemius vein. Noreflux in [...] With reflux. + + +------+ + Right yardage control clerk With reflux. 1.1cm popliteal + + +------+ [...] reflux. 0.42cm + + +------+ + Left yardage control clerk to With reflux. 0.38cm proximal calf gastroc veins + + +------+ + * GREYSCALE FINDINGS: All other visible segments of the right lower extremity were compressiblewith spontaneous and phasic flow. All other visible segments of the left lower extremity were compressible with spontaneous and phasic flow. Normalanatomical variation of the PFV as the main outflow. Electronically signed by: Ward Camara [id number] us Juan Carlos Hubbard MD IMG US VASCULAR ORDERABLE S Final Result documented in this encounter Visit Diagnoses Diagnosis Varicose veins- Primary Asymptomatic varicose veins documented in this encounter Care Teams Web Design Instructor Relationship Specialty Start Date End Date Drew Marina MD [address] [place] [address] PCP - General 03/24/13 documented as of this encounter
--- OUTSIDE RECORDS SUMMARY | 2024-07-20 13:52 | XMS_ITS | Encounter Summary ---
Author Organization [facility] Address [address] [place] [address] Care Team Providers Care Window Clerk Name Role Phone Drew Marina MD Primary Care Provider [phone] Reason for Visit * Reason Onset Date Comments Requesting Sooner Appointment 03/20/2017 Encounter Details Date Type Department Care Team (Late st Contact Info) Description 03/20/2017 Telephone [facility] Dermatology 3rd Floor [facility] [address] [place] [address] Nishant Hassan PA-C [address] [place] [phone] Requesting Sooner Appointment Social History Tobacco Use [...] Telephone Encounter - Sandy Angeles - 03/20/2017 1453 EDT Patient would like to be seen sooner for spot on back that is itchy and has been present for 3-4 weeks, he is concerned and needs to be seen before 11/20/2017. Please call to schedule. documented in this encounter Plan of Treatment Not on file documented as of this encounter Visit Diagnoses Not on filedocumented in this encounter Care Teams Window Clerk Relationship Specialty Start Date End Date Drew Marina MD [address] [place] [address] PCP - General 03/24/13 documented as of this encounter
--- OUTSIDE RECORDS SUMMARY | 2024-07-20 13:52 | XMS_ITS | Encounter Summary ---
Author Organization [facility] Address [address] [place] [address] Care Team Providers Care Rolling Up Machine Operator Name Role Phone Drew Marina MD Primary Care Provider [phone] Reason for Visit * Reason Onset Date Comments Appointment Related 10/05/2019 Encounter Details Date Type Department Care Team (Late st Contact Info) Description 10/05/2019 Telephone [facility] Dermatology 5th Floor [facility] [address] [place] [address] Nishant Hassan PA-C [address] [place] [address] [place] [phone] Appointment Related Social History Tobacco Use Types [...] When patient calls back, please find Zoom receptionist scheduler to complete scheduling process. If patient is unable to participate in Zoom visit, please offer telephone visit. If no concerns at all, fine to schedule out 1 year and patient can call if they have concerns before then. If patient has any specific spots of concern, photos should be emailed to the provider and they canbe provided with the website [email or web address], which has some helpful hints for taking good qualityphotos. Madonna Chaudhari 10/05/2019 15:38 documented in this encounter Plan of Treatment Not on file documented as of this encounter Visit Diagnoses Not on filedocumented in this encounter Care Teams Rolling Up Machine Operator Relationship Specialty Start Date End Date Drew Marina MD [address] [place] [address] PCP - General 03/24/13 documented as of this encounter
--- OUTSIDE RECORDS SUMMARY | 2024-07-20 13:52 | XMS_ITS | Encounter Summary ---
Author Organization [facility] Address [address] [place] [address] Care Team Providers Care Pencils Washer Name Role Phone Drew Marina MD Primary Care Provider [phone] Reason for Visit * Reason Comments New Patient Visit Skin Exam FBSE. Patient report s concerns on the face Encounter Details Date Type Department Care Team (Late st Contact Info) Description 05/29/2016 14:30 EST Office Visit [facility] Dermatology 5th Floor [facility] [address] [place], [place] [phone] Megha Hassan PA-C [address] [place] [address] [place] [phone] Neoplasm of uncertain behavior of skin (Primary [...] documented in this encounter Discharge Diagnoses Diagnosis D48.2 Neoplasm [...] shower. DISCOMFORT: Extra-Strength Tylenol, as directed by health information internship, usually relieves any pain you may have. [...] The patient is not nervous/anxious. Jing Gilliam 05/29/2016 14:36 Patient Education Topic: Wound care [...] PROCEDURE NOTE PATIENT INFORMATION: Jacoby Saenz Patrick [id number] 1940 [id number] 1940 DATE OF PROCEDURE: 05/29/2016 SURGEON: Megha Hassan PA-C LIQUIFIED NATURAL GAS TECHNICIAN: INDICATIONS: SITE/LESION TYPE/DIAGNOSIS: Lesion(s) A: Location: [...] PATIENT INFORMATION: Jacoby Ji : MRN: [id number] SURGEON: Megha Hassan PA-C The indication, risks, [...] otherwise in one year. Megha OLSON PA-C [facility] Division of Dermatology Clinical Instructor - [facility] 05/29/2016 documented in this encounter Plan of [...] ? JACOBY JI ? Accession #: ? [id number] ? : ? 1940 (Age: 75) ??M [...] (ASCP) 05/30/2016 11:48 AM End of Report [facility] 05/29/2016 9:23 EST 05/30/2016 9:23 EST us Megha Hassan PA-C PATHOLOGY ORDERABLES Fin al Result Performing Organization Address City/State/[facility] Co de Phone Number [facility] [address] [place] [address] documented in this encounter Visit Diagnoses Diagnosis Neoplasm of uncertain behavior of skin- Primary Actinic keratosis documented in this encounter Historical Medications * This list may reflect changes made after this encounter. fluorouracil (EFUDEX) 5 % cream Apply topically 2 times daily. added in this encounter Care Teams Pencils Washer Relationship Specialty Start Date End Date Drew Marina MD [address] [place] [address] PCP - General 03/24/13 documented as of this encounter
--- OUTSIDE RECORDS SUMMARY | 2024-07-20 13:52 | XMS_ITS | Encounter Summary ---
Author Organization [facility] Address [address] [place] [address] Care Team Providers Care Ecology Teacher Name Role Phone Drew Marina MD Primary Care Provider [phone] Reason for Visit * Reason Onset Date Comments Varicose Veins 11/18/2015 VEIN OR REMINDER CALL Encounter Details Date Type Department Care Team (Late st Contact Info) Description 11/18/2015 Telephone Vascular Surgery and Endovascular Therapy - [address] [address] Juan Carlos Hubbard MD [address] [facility], [address] [place] [phone] Varicose Veins (VEIN OR REMINDER CALL) Social [...] Telephone Encounter - Michelle Jarquin - 11/18/2015 1538 EDT Surgery reminder call Spoke to OF [...] sips of water. You must have a refuse driver with you the day of surgery. [...] on filedocumented in this encounter Care Teams Ecology Teacher Relationship Specialty Start Date End Date Drew Marina MD [address] [place] [address] PCP - General 03/24/13 documented as of this encounter
--- OUTSIDE RECORDS SUMMARY | 2024-07-20 13:52 | XMS_ITS | Encounter Summary ---
Author Organization [facility] Address [address] [place] [address] Care Team Providers Care Laboratory Chemist Name Role Phone Drew Marina MD Primary Care Provider [phone] Encounter Details Date Type Department Care Team (Late st Contact Info) Description 04/02/2023 Lab Requisition [facility] Pathology & Laboratory Medicine - [facility] [address] [place], [place] [address] Outr Resulting Lab, Provider Social History Tobacco [...] 11/29/2015 8:23 EDT documented in this encounter Plan of Treatment Not on file documented as of this encounter Procedures Procedure Name Priority Date/Time Associated Diagnosis Comments TESTOSTERONE, TOTAL AND FREE Routine 04/02/2023 10:52 EDT documented in this encounter Results * (ABNORMAL) TESTOSTERONE, TOTAL AND FREE (04/02/2023 10:52 EDT) Testosterone 505 229 - 902 ng/dL 04/02/2023 23:19 EDT [facility] Comment:The results of this assay can be falsley elevated due to the consumption of Biotin. Sex Hormone Bnd Glob 88.8(H) 17.3 - 71.5 nmol/L 04/02/2023 23:19 EDT [facility] Comment:The results of this assay can be falsely lowered due to the consumption of Biotin. Free Testosterone 5.1 2.7 - 9.4 ng/dL 04/02/2023 23:19 EDT [facility] Blood VENOUS BLOOD / Unknown 04/02/2023 10:52 EDT 04/02/2023 22:29 EDT Narrative [facility] - 04/02/2023 23:19 EDT This test is not recommended in patients with plasma protein abnormalities. us Provider Outr Resulting Lab CHEMISTRY & BLOOD GA S ORDERABLES Final Result [facility] [address] [place] [address] documented in this encounter Visit Diagnoses Not on filedocumented in this encounter Care Teams Laboratory Chemist Relationship Specialty Start Date End Date Drew Marina MD [address] [place] [address] PCP - General 03/24/13 documented as of this encounter
--- OUTSIDE RECORDS SUMMARY | 2024-07-20 13:53 | XMS_ITS | Encounter Summary ---
Author Organization [facility] [place] [address] Care Team Providers Care Meat Grinder Name Role Phone Drew Marina MD Primary Care Provider [phone] Encounter Details Date Type Department Care Team [...] Care Team (Late st Contact Info) Description 09/22/2024 11:15 AM EDT Office Visit Dermatology at [place] [address] [place] [address] Rush Mcmillan MD [address] [facility] [place] [address] documented as of this encounter Visit Diagnoses Not on filedocumented in this encounter Care Teams Meat Grinder Relationship Specialty Start Date End Date Drew Marina MD [address] [place], [place] [id number] PCP - General 05/09/10 07/17/23 documented as of this encounter
--- OUTSIDE RECORDS SUMMARY | 2024-07-20 13:53 | XMS_ITS | Encounter Summary ---
Author Organization [facility] Address [facility] [place] [address] Care Team Providers Care Motor And Controls Tester Name Role Phone Guanako Godwin MD Primary Care Provider Encounter Details Date Type Department Care Team (Late st Contact Info) Description 10/10/2023 Abstract Cardiology at [address] [phone] Flor Mancuso, RN Social History Tobacco Use [...] 11:15 AM EDT Office Visit Dermatology at [address] [phone] Rush Mcmillan MD [address] [facility] [address] documented as of this encounter Visit Diagnoses Not on filedocumented in this encounter Care Teams Motor And Controls Tester Relationship Specialty Start Date End Date Guanako Godwin MD [address] [place] [address] PCP - General Family Medicine 07/18/23 10/24/23 documented as of this encounter
--- OUTSIDE RECORDS SUMMARY | 2024-07-20 13:53 | XMS_ITS | Encounter Summary ---
Author Organization [facility] [place] [address] Care Team Providers Care Molding Engineer Name Role Phone Patrica Godfrey MD Primary Care Provider [phone] Reason for Visit * Reason Comments Follow-up * Consultation (Routine) - Closed Specialty Diagnoses / Procedures Referred By Neelam castle Referred To Contact Dermatology Diagnoses Disorder of penis, unspecified Florentin Mahoney MD [address] [place] [address] Rush Mcmillan MD [address] [place] [address], [facility] [place] [address] Referral ID Status Reason Start Date Expiration Date Visits Re quested Visits Authorized [id number] Closed 12/16/2023 12/15/2024 1 1 Encounter Details Date Type Department Care Team (Late st Contact Info) Description 03/23/2024 3:30 PM EDT Office Visit Dermatology at [address] [phone] Rush Mcmillan MD [address] [place] [address], [facility] [place], [place] [phone] Balanitis xerotica obliterans; Milium Social History Tobacco Use Types Packs/Day Years Used Date Smoking Tobacco: Never Smokeless Tobacco: Never Sex and Gender Information Value Date Recorded Sex Assigned at Not on file Gender Identity Not on file Sexual Orientation Not on file documented as of this encounter Progress Notes * Rush Mcmillan MD - 03/23/2024 3:30 PM EDT Problem: 1. Repeat check 2. 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 He has noted to milium present 1 on the left uppernasal sidewall and 1 on the tarsal margin of the upper eyelid. He is able to control the balanitis with intermittent use of clobetasol cream. 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 He has milia present to 2 sites as noted above Assessment plan: Balanitis xerotica 1. Continue clobetasol using on a as needed basis once to twice weekly 2. Patient has plenty of this at home 3. Recommend I see him again on a once yearly basis Milia 1. Discussed diagnosis 2. Discussed option of removal which patient defers today CC: Patrica Quinones MD documented in this encounter Plan of Treatment Upcoming Encounters Date Type Department Care Team (Late st Contact Info) Description 09/22/2024 11:15 AM EDT Office Visit Dermatology at [address] [phone] Rush Mcmillan MD [address] [facility] [place] [address] documented as of this encounter Visit Diagnoses Diagnosis Balanitis xerotica obliterans Milium Sebaceous cyst documented in this encounter Care Teams Molding Engineer Relationship Specialty Start Date End Date Patrica Godfrey MD [address] [place] [address] PCP - General Family Medicine 10/25/23 documented as of this encounter
--- OUTSIDE RECORDS SUMMARY | 2024-07-20 13:53 | XMS_ITS | Encounter Summary ---
Author Organization [facility] [place] [address] Care Team Providers Care Financial Investment Manager Name Role Phone Guanako Godwin MD Primary Care Provider [phone] Encounter Details Date Type Department Care Team (Latest Contact Info) Description 07/18/2023 10:19 PM EST - 07/18/2023 11:59 PM EST [place] [phone] Discharge Disposition: Home Social History Tobacco Use [...] 30 TO 60 MINUTES BEFORE SEXUAL ACTIVITY 03/23/2024 documented as of this encounter Plan of Treatment Upcoming Encounters Date Type Department Care Team (Late st Contact Info) Description 09/22/2024 11:15 AM EDT Office Visit Dermatology at [place] [address] [facility] [place] [phone] Rush Mcmillan MD 580 [facility], JON[place] [address] documented as of this encounter Procedures Procedure Name Priority Date/Time Associated Diagnosis Comments SURGICAL PATHOLOGY REPORT Routine 07/18/2023 9:15 AM EST documented in this encounter Results * Surgical Pathology Report (07/18/2023 9:15 AM EST) Final Diagnosis [id number] ? Location: OPW The signing pathologist has (i) examined the relevant preparation(s) for the specimen(s) and (ii) rendered or confirmed the diagnosis(es). . ?Surgical Pathology DIAGNOSIS Right lateral arm, skin punch biopsy: - ??Intradermal melanocytic nevus, irritated, ?? present at the peripheral specimen edge Electronically signed by: ?Jose Maria HELM, Cydney Verified: ??08/06/2023 14:48 ??Dermatopathologist Performed at: ??-[facility] Dept. of Pathology, [place] [address] Sweeper Driver: Ashley Lara MD, FCAP, ??CLIA Certificate: [id number] ADDITIONAL STUDIES Melanocytes are highlighted by SOX10. [...] labeled A1. ??sns 08/06/2023 2:48 PM EST [facility] SPECIMEN FROM SKIN / Unknown 07/18/2023 9:15 AM EST 07/18/2023 9:15 AM EST Rush Mcmillan MD PATHOLOGY/CYTOLOGY O RDERABLES [facility] [place] [address] [facility] [place] [address] documented in this encounter Visit Diagnoses Not on filedocumented in this encounter Care Teams Financial Investment Manager Relationship Specialty Start Date End Date Guanako Godwin MD [address] [place] [address] PCP - General Family Medicine 07/18/23 10/24/23 documented as of this encounter
--- OUTSIDE RECORDS SUMMARY | 2024-07-20 13:53 | XMS_ITS | Encounter Summary ---
[place] [address] Care Team Providers Care Training Development Director Name Role Phone Guanako Godwin MD Primary Care Provider [phone] Reason for Visit * Reason Onset Date Comments Referral 10/10/2023 Atrial Fibrillation 10/10/2023 Encounter Details Date Type Department Care Team (Late st Contact Info) Description 10/10/2023 Telephone Cardiology at [address] [address] Flor Mancuso, sugar cane farm manager; Atrial Fibrillation Social History Tobacco Use Types [...] were not included. [facility] [address] [place] [address] [place] [address] Jacoby was referred to this Cardiology clinic in [place] by his PCP Patrica Godfrey MD, for [...] mg tablet * Telephone Encounter - Flor Mancuso RN - 10/10/2023 3:43 PM EDT ----- Message from Beverly Moise sent at 10/10/2023 1:31 PM EDT ----- Referral and Office Note scanned and indexed. documented in this encounter Plan of Treatment Upcoming Encounters Date Type Department Care Team (Late st Contact Info) Description 09/22/2024 11:15 AM EDT Office Visit Dermatology at [place] [address] [facility] [place] [address] Rush Mcmillan MD [address], JONATHON [place] [address] documented as of this encounter Visit Diagnoses Not on filedocumented in this encounter Care Teams Training Development Director Relationship Specialty Start Date End Date Guanako Godwin MD [address] [place] [address] PCP - General Family Medicine 07/18/23 10/24/23 documented as of this encounter
--- OUTSIDE RECORDS SUMMARY | 2024-07-20 13:53 | XMS_ITS | Encounter Summary ---
Author Organization [facility] Address [address] [place] [address] Care Team Providers Care Marine Architect Name Role Phone Drew Marina MD Primary Care Provider [phone] Reason for Visit * Reason Comments Travel Consult Encounter Details Date Type Department Care Team (Late st Contact Info) Description 04/08/2014 11:00 EDT Office Visit [facility] Infectious Disease - [address] [phone] Vero Hoff FNP [facility] [address] [place] [address] Other specified counseling (Primary Dx) Social History [...] Refills Last Filled Start Date End Date typhoid polysaccharide vaccine (TYPHIM ) 25 mcg/0.5 mL syringeIndications:O ther specified counseling Inject 0.5 mL into the muscle once for 1 dose. 1 Syringe 0 04/08/2014 6 atovaquone-proguanil (MALARONE) 250-100 mg per tabletIndications:Ot her specified counseling Take 1 Tab by mouth daily. 39 Tab 0 04/08/2014 6 hepatitis A vaccine, PF, (HAVRIX) 1,440 Naya unit/mL syringeIndications:O ther specified counseling Inject 1 mL into the muscle once for 1 dose. 1 Syringe 0 04/08/2014 6 documented in this encounter Progress Notes * Vero Hoff - 04/08/2014 1417 EDT Travel Health Service Department of Medicine Progress Notes Travel: Where: [facility] How Long: One-month When: August 15, [...] use Malarone. 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 He would like to [...] Topic: freshwater swimming, future shots, insect-borne illnesses, Cymraes encephalitis, malaria, MVA safety, rabies, safe food/water, safe sex, traveler's diarrhea, website/handouts for more information, what to do if ill upon return and what to do if ill while there Method: Handout and Verbal Taught to: Patient Barriers: None Outcomes: independent Patient education handouts: Vaccine information sheets for hepatitis A, typhoid, and, Cymraes encephalitis virus vaccines. Country specific travel information from [facility] Physical Exam: BP 102/70 Temp(Src) 35.9 ??C (96.7 ??F) (Tympanic) Immunizations ordered:Hepatitis A vaccine, Malarone and Typhim Mr. Nguyen, may return for nursing visit after, September 2014 for his hepatitis A booster. 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 Time spent on counseling by provider: 20 minutes. Cc: * Quinton Brown - 04/08/2014 9185 EDT Travel Health Service Department of Medicine Progress Notes Travel: Where: [facility] How Long: One month When: 08/15/2014 [...] Mr. Nguyen is traveling with his to [facility] to help on an Elephant refuge. [...] IM today. We discussed getting vaccinated against Cymraes Encephalitis today and Mr. Nguyen is going to research this vaccination more and return if he feels he needs prophylaxis. Patient Education Topic: environmental concerns, freshwater swimming, future shots, insect-borne illnesses, Cymraes encephalitis, malaria, safe food/water, traveler's diarrhea, website/handouts [...] documentation reviewed and approved. QUINTON BROWN RN, REGULATORY ADMINISTRATOR Student 04/08/2014 14:14 * Amanda Alvarado RN [...] 03/18 documented in this encounter Care Teams Marine Architect Relationship Specialty Start Date End Date Drew Marina MD [address] [place] [address] PCP - General 03/24/13 documented as of this encounter
--- OUTSIDE RECORDS SUMMARY | 2024-07-20 13:53 | XMS_ITS | Encounter Summary ---
[place] [address] Care Team Providers Care Medical Staff Assistant Name Role Phone Drew Marina MD Primary Care Provider [phone] Reason for Referral * Consultation (Routine) - Closed Specialty Diagnoses / Procedures Referred By Contac t Referred To Contact Urology Diagnoses Disorder of penis, unspecified Disorder of penis, unspecified (lesion needs biospy) Guanako Godwin MD [address] [place] [address] [facility] [place] [address] Referral ID Status Reason Start Date Expiration Date V isits Requested Visits Authorized [id number] Closed Consult, Test & Treat PCP Updated and/or Approved 06/13/2023 06/12/2024 6 6 Encounter Details Date Type Department Care Team (Latest Contact Info) Description 06/13/2023 Transcribe Orders eDH Incoming Referrals [phone] Guanako oGdwin MD [address] [place] [address] Disorder of penis, unspecified Social History [...] 11:15 AM EDT Office Visit Dermatology at [place] [address] [facility] [place] [address] Rush Mcmillan MD [address] [address], JONATHON [place] [address] Scheduled Referrals Name Type Priority Associated Diagnoses Orde r Schedule Referral to Urology Outpatient Referral Routine Disorder Of Penis, Unspecified Ordered: 06/13/2023 documented as of this encounter Visit Diagnoses Diagnosis Disorder of penis, unspecified documented in this encounter Care Teams Medical Staff Assistant Relationship Specialty Start Date End Date Drew Marina MD [address] [place] [address] PCP - General 05/09/10 07/17/23 documented as of this encounter
--- OUTSIDE RECORDS SUMMARY | 2024-07-20 13:53 | XMS_ITS | Clinical Summary ---
Author Organization [facility] Address [facility] [place] [address] Care Team Providers Care Dispensing Lead Name Role Phone Patrica Godfrey MD Primary Care Provider [phone] Allergies No known active allergies Medications Medication Sig Dispensed Refills Start Date End Date Status clobetasoL (Temovate) 0.05 % Cream APPLY SPARINGLY TO AFFECTED AREA(S) TWO TIMES A DAY Active rivaroxaban (Xarelto) 20 mg tablet Take [...] Problem Code: M23.631; Problem Code Type: ICD-10; Family History Medical History Relation Comments Cerebrovascular [...] 11:15 AM EDT Office Visit Dermatology at [place] [address] [facility] [place] [address] Rush Mcmillan MD [address] [address], [place] [address] Health Maintenance Due Date Last Done Comments Tetanus/Diphtheria/Pertussis Vaccines (1 - Tdap) 12/21 Pneumoccocal Vaccine: 50+ (1 of 1 - PCV) 12/21/1989 Zoster vaccine (1 of 2) 12/21/1989 Advance Directive 12/21/1994 RSV Vaccine (1 - 1-dose 75+ series) 12/21/2014 Covid-19 Vaccine (2 - season) 2024 Influenza (Flu) vaccine (1 o f 1 - Influenza standard series) 02/16/2024 Care Teams Dispensing Lead Relationship Specialty Start Date End Date Patrica Godfrey MD [address] [place] [address] PCP - General Family Medicine 10/25/23
--- OUTSIDE RECORDS SUMMARY | 2024-07-20 13:53 | XMS_ITS | Encounter Summary ---
Author Organization [facility] Address [facility] [place] [address] Care Team Providers Care Tin Can Feeder Name Role Phone Drew Marina MD Primary Care Provider [phone] Encounter Details Date Type Department Care Team (Late st Contact Info) Description 02/02/2022 8:00 AM EDT Office Visit Dermatology at [address] [place] [address] Rush Mcmillan MD [address] [facility] [place] [address] History of atypical nevus; Nevus Social History [...] atypical nevus left lower back excised in [place] Jacoby follows up and is now 81. He recently developed an itchy area on the right upper anterior chest.. In particular there is one on the right upper chest that looked like a dime sized pigmented area but became itchy. He had some leftover 5-FU from a [facility] dermatology visit some 6 or 7 years [...] 11:15 AM EDT Office Visit Dermatology at [place] [address] [place] [address] Rush Mcmillan MD [address] [facility] [place] [address] documented as of this encounter Visit Diagnoses Diagnosis History of atypical nevus Personal history of diseases of skin and subcutaneous tissue Nevus Benign neoplasm of skin, site unspecified documented in this encounter Care Teams Tin Can Feeder Relationship Specialty Start Date End Date Drew Marina MD [address] [place] [address] PCP - General 05/09/10 07/17/23 documented as of this encounter
--- OUTSIDE RECORDS SUMMARY | 2024-07-20 13:53 | XMS_ITS | Encounter Summary ---
Author Organization [facility] [place] [address] Care Team Providers Care Supplier Quality Specialist Name Role Phone Patrica Godfrey MD Primary Care Provider [phone] Encounter Details Date Type Department Care Team (Latest Contact Info) Description 03/23/2024 Travel Social History Tobacco Use Types Packs/Day [...] 11:15 AM EDT Office Visit Dermatology at [place] [address] [place] [address] Rush Mcmillan MD 580 [facility], [place] [address] documented as of this encounter Visit Diagnoses Not on filedocumented in this encounter Care Teams Supplier Quality Specialist Relationship Specialty Start Date End Date Patrica Godfrey MD [address] [place] [address] PCP - General Family Medicine 10/25/23 documented as of this encounter
--- OUTSIDE RECORDS SUMMARY | 2024-07-20 13:53 | XMS_ITS | Encounter Summary ---
Author Organization [facility] Address [facility] [place] [address] Care Team Providers Care Water Pumping Station Engineer Name Role Phone Drew Marina MD Primary Care Provider [phone] Reason for Visit * Reason Comments Skin Check Encounter Details Date Type Department Care Team (Late st Contact Info) Description 07/08/2023 3:00 PM EST Office Visit Dermatology at [place] [address] [facility] [place] [address] Rush Mcmillan MD 580 [facility], JONATHON A DERMATOLOGY [place], [place] [address] Balanitis xerotica obliterans Social History Tobacco Use [...] 11:15 AM EDT Office Visit Dermatology at [place] 580 [place] [address] Rush Mcmillan MD [address] [facility], [facility] [place] [address] documented as of this encounter Visit Diagnoses Diagnosis Balanitis xerotica obliterans documented in this encounter Care Teams Water Pumping Station Engineer Relationship Specialty Start Date End Date Drew Marina MD [address] [place] [address] PCP - General 05/09/10 07/17/23 documented as of this encounter
--- OUTSIDE RECORDS SUMMARY | 2024-07-20 13:53 | XMS_ITS | Encounter Summary ---
Author Organization [facility] Address [facility] [place] [address] Care Team Providers Care Motor Lodge Clerk Name Role Phone Patrica Godfrey MD Primary Care Provider [phone] Reason for Visit * Reason Comments Atrial Fibrillation Encounter Details Date Type Department Care Team (Late st Contact Info) Description 12/12/2023 8:20 AM EDT Office Visit Cardiology at [address] [phone] Rolando Lomas MD [facility] [address] Persistent atrial fibrillation Social History Tobacco Use [...] 11:15 AM EDT Office Visit Dermatology at [place] [address] [facility] [place] [address] Rush Mcmillan MD [address] [facility] [address], [place]ONATHON [place] [address] documented as of this encounter Procedures Procedure Name Priority Date/Time Associated Diagnosis Comments ECG SCAN 12/12/2023 12:00 AM EDT documented in this encounter Results * Scan Doc: ECG (12/12/2023 12:00 AM EDT) Narrative 12/12/2023 12:00 AM EDT Ordered by an unspecified provider. Scanning Provider MEDIA MGR SCAN EXT O RDR/RSLT documented in this encounter Visit Diagnoses Diagnosis Persistent atrial fibrillation Atrial fibrillation documented in this encounter Care Teams Motor Lodge Clerk Relationship Specialty Start Date End Date Patrica Godfrey MD [address] [place] [address] PCP - General Family Medicine 10/25/23 documented as of this encounter
--- OUTSIDE RECORDS SUMMARY | 2024-07-20 13:53 | XMS_ITS | Encounter Summary ---
Author Organization [facility] Address [facility] [place] [address] Care Team Providers Care Sales And Customer Relations Rep Name Role Phone Guanako Godwin MD Primary Care Provider [phone] Reason for Visit * Reason Comments Follow-up * Consultation (Routine) - Closed Specialty Diagnoses / Procedures Referred By Neelam castle Referred To Contact Dermatology Diagnoses Disorder of penis, unspecified Florentin Mahoney MD [address] [place] [address] Rush Mcmillan MD [address] [place] [address], [facility] [place] [address] Referral ID Status Reason Start Date Expiration Date Visits Re quested Visits Authorized [id number] Closed 07/10/2023 07/09/2024 1 1 Encounter Details Date Type Department Care Team (Late st Contact Info) Description 07/18/2023 9:15 AM EST Procedure visit Dermatology at [address] [address] Rush Mcmillan MD [address] [place] [address], [facility] [place] [address] History of atypical nevus Social History Tobacco [...] 11:15 AM EDT Office Visit Dermatology at [address] [phone] Rush Mcmillan MD 580 [facility], [facility] [place] [address] documented as of this encounter Visit Diagnoses Diagnosis History of atypical nevus Personal history of diseases of skin and subcutaneous tissue documented in this encounter Care Teams Sales And Customer Relations Rep Relationship Specialty Start Date End Date Guanako Godwin MD [address] [place] [address] PCP - General Family Medicine 07/18/23 10/24/23 documented as of this encounter
--- OUTSIDE RECORDS SUMMARY | 2024-07-20 13:53 | XMS_ITS | Encounter Summary ---
Author Organization [facility] Address [facility] [place] [address] Care Team Providers Care Upkeep Mechanic Name Role Phone Patrica Godfrey MD Primary Care Provider [phone] Encounter Details Date Type Department Care Team (Late st Contact Info) Description 11/26/2023 Abstract Cardiology at [address] [address] Lisandro Witt RN Social History [...] 11:15 AM EDT Office Visit Dermatology at [address] [address] Rush Mcmillan MD 580 [facility], [facility] [place] [address] documented as of this encounter Visit Diagnoses Not on filedocumented in this encounter Care Teams Upkeep Mechanic Relationship Specialty Start Date End Date Patrica Godfrey MD [address] [place] [address] PCP - General Family Medicine 10/25/23 documented as of this encounter
--- OUTSIDE RECORDS SUMMARY | 2024-07-20 13:53 | XMS_ITS | Encounter Summary ---
Author Organization [facility] Address [facility] [place] [address] Care Team Providers Care Healthcare Architect Name Role Phone Guanako Godwin MD Primary Care Provider [phone] Reason for Visit * Reason Comments Suture / Staple Removal Encounter Details Date Type Department Care Team (Late st Contact Info) Description 08/01/2023 8:00 AM EST Office Visit Dermatology at [address] [place] [address] Rush Mcmillan MD 580 [facility] [place], [place] [address] Balanitis xerotica obliterans; Nevus Social History Tobacco [...] 11:15 AM EDT Office Visit Dermatology at [place] [address] [place] [address] Rush Mcmillan MD [address], [place] [address] documented as of this encounter 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
--- OUTSIDE RECORDS SUMMARY | 2024-07-20 13:53 | XMS_ITS | Encounter Summary ---
Author Organization [facility] Address [address] [place] [address] Care Team Providers Care Web Manager Name Role Phone Unknown, Provider Primary Care Provider Unava ilable Encounter Details Date Type Department Care Team (Late st Contact Info) Description 03/17/2013 Results Only [facility] - [facility] ([facility]) [address] [place], [place] [id number] Darius Sanford, DO [address] [facility] [place] [address] Social History Tobacco Use Types Packs/Day Years [...] ? JACOBY JI ? Accession #: ? [id number] ? : ? 1940 (Age: 72) ??M [...] 03/18/2013 10:50 AM End of Report JAMES PERSAUD 03/17/2013 8:58 EDT 03/17/2013 8:58 EDT us Darius Sanford DO PATHOLOGY ORDERABLES Fi nal Result JAMES PERSAUD [address] [place] [address] documented in this encounter Visit Diagnoses Not on filedocumented in this encounter Care Teams Web Manager Relationship Specialty Start Date End Date Unknown, Provider, PCP - General 03/18/13 03/23/13 documented as of this encounter
--- OUTSIDE RECORDS SUMMARY | 2024-07-20 13:53 | XMS_ITS | Encounter Summary ---
Author Organization [facility] [place] [address] Care Team Providers Care Care Analyst Name Role Phone Guanako Godwin MD Primary Care Provider [phone] Encounter Details Date Type Department Care Team [...] 11:15 AM EDT Office Visit Dermatology at [place] [address] [place] [address] Rush Mcmillan MD 580 [facility] [place] [address] documented as of this encounter Visit Diagnoses Not on filedocumented in this encounter Care Teams Care Analyst Relationship Specialty Start Date End Date Guanako Godwin MD [address] [place], [place] [id number] PCP - General Family Medicine 07/18/23 10/24/23 documented as of this encounter
--- OUTSIDE RECORDS SUMMARY | 2024-07-20 13:53 | XMS_ITS | Encounter Summary ---
Author Organization [facility] Address [facility] [place] [place] [address] Care Team Providers Care Brick Setter Name Role Phone Guanako Godwin MD Primary Care Provider [phone] Reason for Visit * Reason Comments Follow-up Encounter Details Date Type Department Care Team (Late st Contact Info) Description 08/26/2023 2:30 PM EDT Office Visit Dermatology at [address] [place] [address] Rush Mcmillan MD 580 [facility] A DERMATOLOGY [place], [place] [address] Nevus; History of atypical nevus; Balanitis xerotica [...] 11:15 AM EDT Office Visit Dermatology at [place] [address] [place] [address] Rush Mcmillan MD [address], [place] [address] documented as of this encounter Visit Diagnoses Diagnosis Nevus Benign neoplasm of skin, site unspecified History of atypical nevus Personal history of diseases of skin and subcutaneous tissue Balanitis xerotica obliterans documented in this encounter Care Teams Brick Setter Relationship Specialty Start Date End Date Guanako Godwin MD [address] [place] [address] PCP - General Family Medicine 07/18/23 10/24/23 documented as of this encounter
--- OUTSIDE RECORDS SUMMARY | 2024-07-20 13:53 | XMS_ITS | Encounter Summary ---
Author Organization [place] [address] Care Team Providers Care Director Of Automation Name Role Phone Guanako Godwin MD Primary Care Provider [phone] Encounter Details Date Type Department Care Team [...] 11:15 AM EDT Office Visit Dermatology at [place] [address] [place] [address] Rush Mcmillan MD 580 [facility], [place] [address] documented as of this encounter Visit Diagnoses Not on filedocumented in this encounter Care Teams Director Of Automation Relationship Specialty Start Date End Date Guanako Godwin MD [address] [place], [place] [id number] PCP - General Family Medicine 07/18/23 10/24/23 documented as of this encounter
--- OUTSIDE RECORDS SUMMARY | 2024-07-20 13:53 | XMS_ITS | Encounter Summary ---
[facility] [place] [address] Care Team Providers Care Insurance Agency Sales Manager Name Role Phone Guanako Godwin MD Primary Care Provider [phone] Encounter Details Date Type Department Care Team [...] 11:15 AM EDT Office Visit Dermatology at [place] [address] [place] [address] Rush Mcmillan MD 580 [facility], [place] [address] documented as of this encounter Visit Diagnoses Not on filedocumented in this encounter Care Teams Insurance Agency Sales Manager Relationship Specialty Start Date End Date Guanako Godwin MD [address] [place], [place] [id number] PCP - General Family Medicine 07/18/23 10/24/23 documented as of this encounter
--- OUTSIDE RECORDS SUMMARY | 2024-07-20 13:54 | XMS_ITS | Encounter Summary ---
Author Organization [facility] Address [facility] [place] [address] Care Team Providers Care Elevator Constructor Electric Name Role Phone Drew Marina MD Primary Care Provider [phone] Encounter Details Date Type Department Care Team (Late st Contact Info) Description 03/01/2014 Telephone Dermatology at [facility] [address] [place] [phone] Nicolle Kurtz MD [facility] [address] FRANCESCO [place] [address] Social History Tobacco Use Types Packs/Day Years [...] 11:15 AM EDT Office Visit Dermatology at [place] [address] [place] [address] Rush Mcmillan MD [address] [facility] [address], RAM[facility] [address] documented as of this encounter Visit Diagnoses Not on filedocumented in this encounter Care Teams Elevator Constructor Electric Relationship Specialty Start Date End Date Drew Marina MD [address] [place] [address] PCP - General 05/09/10 07/17/23 documented as of this encounter
--- OUTSIDE RECORDS SUMMARY | 2024-07-20 13:54 | XMS_ITS | Encounter Summary ---
Author Organization [facility] Address [facility] [place] [address] Care Team Providers Care Building Appraiser Name Role Phone Drew Marina MD Primary Care Provider [phone] Encounter Details Date Type Department Care Team (Late st Contact Info) Description 04/01/2014 Telephone Dermatology at [facility] [address] [place] [address] Nicolle Kurtz MD [facility] [address] FRANCESCO [place] [address] Social History Tobacco Use Types Packs/Day Years [...] 11:15 AM EDT Office Visit Dermatology at [place] [address] [place] [address] Rush Mcmillan MD [address], JONATHON [place] [address] documented as of this encounter Visit Diagnoses Not on filedocumented in this encounter Care Teams Building Appraiser Relationship Specialty Start Date End Date Drew Marina MD [address] [place] [address] PCP - General 05/09/10 07/17/23 documented as of this encounter
--- OUTSIDE RECORDS SUMMARY | 2024-07-20 13:54 | XMS_ITS | Encounter Summary ---
Author Organization [facility] Address [facility] [place] [address] Care Team Providers Care Associate Producer Name Role Phone Drew Marina MD Primary Care Provider [phone] Reason for Visit * Reason Comments Skin Lesion Encounter Details Date Type Department Care Team (Late st Contact Info) Description 02/26/2014 2:15 PM EDT Follow-Up Dermatology at [facility] [address] [place] [address] Nicolle Kurtz MD [facility] [address] FRANCESCO [place] [address] [place] (actinic keratosis) (Primary Dx) Discharge Disposition: Home Social History Tobacco Use Types Packs/Day Years Used Date Smoking Tobacco: Never Sex and Gender Information Value Date Recorded Sex Assigned at Not on file Gender Identity Not on file Sexual Orientation Not on file documented as of this encounter Patient Instructions * Patient Instructions* Inessa Soriano RN - 02/26/2014 2:43 PM EDT [...] andonce daily x 2 weeks to lower [place] lip as tolerated then stop. Reviewed expectation of inflammation in treated area. Reviewed pamphlet with photos. 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 Kurtz.: INESSA SORIANO, LETTY I performed the above scribed service and agree with the accuracy of the documentation in this encounter. Nicolle Kurtz MD Section of Dermatology [facility] cc: Drew Marina documented in this encounter Plan of Treatment Upcoming Encounters Date Type Department Care Team (Late st Contact Info) Description 09/22/2024 11:15 AM EDT Office Visit Dermatology at [place] [address] [place] [address] Rush Mcmillan MD 580 [facility], [place] [address] documented as of this encounter Visit Diagnoses Diagnosis AK (actinic keratosis)- Primary Actinic keratosis documented in this encounter Care Teams Associate Producer Relationship Specialty Start Date End Date Drew Marina MD [address] [place] [address] PCP - General 05/09/10 07/17/23 documented as of this encounter
--- OUTSIDE RECORDS SUMMARY | 2024-07-20 13:54 | XMS_ITS | Encounter Summary ---
Author Organization [facility] Address [facility] [place] [address] Care Team Providers Care Veneer Puller Name Role Phone Drew Marina MD Primary Care Provider [phone] Reason for Visit * Reason Comments Varicose Veins Establish Care Encounter Details Date Type Department Care Team (Late st Contact Info) Description 06/02/2015 8:00 AM EST Office [place] [address] Jairon Boo MD [facility] [place] [address] Varicose veins of leg with pain, bilateral [...] Other Past Medical History/Risk Factors: (n) Previous SD (n) Angina (n) CHF (n) Arrythmia (n) [...] 11:15 AM EDT Office Visit Dermatology at [place] [address] [facility] [place] [address] Rush Mcmillan MD [address] [facility] [address], [place] [address] documented as of this encounter Visit Diagnoses Diagnosis Varicose veins of leg with pain, bilateral documented in this encounter Care Teams Veneer Puller Relationship Specialty Start Date End Date Drew Marina MD [address] [place] [address] PCP - General 05/09/10 07/17/23 documented as of this encounter
--- OUTSIDE RECORDS SUMMARY | 2024-07-20 13:54 | XMS_ITS | Encounter Summary ---
Author Organization [facility] Address [facility] [place] [address] Care Team Providers Care Animal Maintenance Supervisor Name Role Phone Drew Marina MD Primary Care Provider [phone] Reason for Visit * Reason Onset Date Comments Medication Refill 03/10/2014 Encounter Details Date Type Department Care Team (Late st Contact Info) Description 03/10/2014 Refill Dermatology at [facility] [address] [place] [address] Nicolle Kurtz MD [facility] DR FRANCESCO [place] [address] Social History Tobacco Use Types Packs/Day Years [...] 11:15 AM EDT Office Visit Dermatology at [address] [place] [address] Rush Mcmillan MD 580 [facility], [place] [address] documented as of this encounter Visit Diagnoses Not on filedocumented in this encounter Care Teams Animal Maintenance Supervisor Relationship Specialty Start Date End Date Drew Marina MD [address] [place] [address] PCP - General 05/09/10 07/17/23 documented as of this encounter
--- OUTSIDE RECORDS SUMMARY | 2024-07-20 13:54 | XMS_ITS | Encounter Summary ---
Author Organization [facility] [place] [address] Care Team Providers Care Telegraphic Instrument Supervisor Name Role Phone Drew Marina MD Primary Care Provider [phone] Encounter Details Date Type Department Care Team (Late st Contact Info) Description 08/31/2015 Telephone [place] [address] Rory Toledo Social History Tobacco Use Types [...] 11:15 AM EDT Office Visit Dermatology at [address] [place] [address] Rush Mcmillan MD [address] [facility], JONATHON [place] [address] documented as of this encounter Visit Diagnoses Not on filedocumented in this encounter Care Teams Telegraphic Instrument Supervisor Relationship Specialty Start Date End Date Drew Marina MD [address] [place] [address] PCP - General 05/09/10 07/17/23 documented as of this encounter
--- OUTSIDE RECORDS SUMMARY | 2024-07-20 13:54 | XMS_ITS | Encounter Summary ---
Author Organization [facility] Address [facility] [place] [address] Care Team Providers Care Long Chain Dyeing Machine Operator Name Role Phone Drew Marina MD Primary Care Provider [phone] Encounter Details Date Type Department Care Team (Late st Contact Info) Description 03/10/2014 Telephone Dermatology at [facility] [address] [place] [address] Pily Naik LPN Social History [...] 11:15 AM EDT Office Visit Dermatology at [place] [address] [place] [address] Rush Mcmillan MD [address] [address], [place] [address] documented as of this encounter Visit Diagnoses Not on filedocumented in this encounter Care Teams Long Chain Dyeing Machine Operator Relationship Specialty Start Date End Date Drew Marina MD [address] [place] [address] PCP - General 05/09/10 07/17/23 documented as of this encounter
--- OUTSIDE RECORDS SUMMARY | 2024-07-20 13:54 | XMS_ITS | Encounter Summary ---
Author Organization [facility] [place] [address] Care Team Providers Care Fur Dresser Name Role Phone Drew Marina MD Primary Care Provider [phone] Reason for Visit * Reason Comments Skin Check Encounter Details Date Type Department Care Team (Late st Contact Info) Description 03/20/2012 10:30 AM EDT Office Visit Dermatology [address] [place] [address] [address] [place] [address] Rush Mcmillan MD [address] [facility] [address], [place] [address] Actinic keratosis (Primary Dx); Dermatofibroma Social History [...] 11:15 AM EDT Office Visit Dermatology at [place] [address] [facility] [address] [place] [address] Rush Mcmillan MD [address] [facility] [address], JONATHON [place] [address] documented as of this encounter Visit Diagnoses Diagnosis Actinic keratosis- Primary Dermatofibroma Benign neoplasm of skin, site unspecified documented in this encounter Care Teams Fur Dresser Relationship Specialty Start Date End Date Drew Marina MD [address] [place] [address] PCP - General 05/09/10 07/17/23 documented as of this encounter
--- OUTSIDE RECORDS SUMMARY | 2024-07-20 13:54 | XMS_ITS | Encounter Summary ---
Author Organization [facility] [place] [address] Care Team Providers Care Architect In Training Name Role Phone Drew Marina MD Primary Care Provider [phone] Reason for Visit * Reason Comments Skin Check Encounter Details Date Type Department Care Team (Late st Contact Info) Description 03/03/2021 9:45 AM EDT Office Visit Dermatology at [place] [address] [facility] [place] [address] Rush Mcmillan MD 580 [facility], RAM[facility]REZ A DERMATOLOGY [place], [place] [address] History of atypical nevus; Nevus Social History [...] states that he was 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
--- OUTSIDE RECORDS SUMMARY | 2024-07-20 13:54 | XMS_ITS | Encounter Summary ---
[place] [address] Care Team Providers Care Data Librarian Name Role Phone Drew Marina MD Primary Care Provider [phone] Reason for Visit * Reason Onset Date Comments Medication Refill 03/01/2014 Encounter Details Date Type Department Care Team (Late st Contact Info) Description 03/01/2014 Refill Dermatology at [facility] [address] [place] [address] Pily Naik LPN [place] (actinic [...] 11:15 AM EDT Office Visit Dermatology at [address] [place] [address] Rush Mcmillan MD 580 [facility], [place] [address] documented as of this encounter Visit Diagnoses Diagnosis AK (actinic keratosis)- Primary Actinic keratosis documented in this encounter Care Teams Data Librarian Relationship Specialty Start Date End Date Drew Marina MD [address] [place] [address] PCP - General 05/09/10 07/17/23 documented as of this encounter
--- OUTSIDE RECORDS SUMMARY | 2024-07-20 13:54 | XMS_ITS | Encounter Summary ---
Author Organization [facility] Address [facility] [place] [address] Care Team Providers Care Furniture Crater Name Role Phone Drew Marina MD Primary Care Provider [phone] Reason for Visit * Reason Comments Erectile Dysfunction Lower Urinary Tract Symptoms Encounter Details Date Type Department Care Team (Late st Contact Info) Description 10/10/2012 1:00 PM EDT [place] [address] Josse Patterson MD ED (erectile dysfunction) (Primary Dx) Discharge Disposition: [...] 11:15 AM EDT Office Visit Dermatology at [place] [address] [facility] [place] [address] Rush Mcmillan MD 580 [facility], [place] [address] documented as of this encounter Visit Diagnoses Diagnosis ED (erectile dysfunction)- Primary Impotence of organic origin documented in this encounter Care Teams Furniture Crater Relationship Specialty Start Date End Date Drew Marina MD [address] [place] [address] PCP - General 05/09/10 07/17/23 documented as of this encounter
--- OUTSIDE RECORDS SUMMARY | 2024-07-20 13:54 | XMS_ITS | Encounter Summary ---
Author Organization [facility] [place] [address] Care Team Providers Care Child Care Group Leader Name Role Phone Drew Marina MD Primary Care Provider [phone] Encounter Details Date Type Department Care Team (Late st Contact Info) Description 06/29/2021 8:30 AM EST Office Visit Dermatology at [place] [address] [place] [address] Rush Mcmillan MD 580 [facility], [place]RE[place] [address] History of atypical nevus; Nevus Social History [...] 11:15 AM EDT Office Visit Dermatology at [place] [address] [place] [address] Rush Mcmillan MD 580 [facility], [place] [address] documented as of this encounter Visit Diagnoses Diagnosis History of atypical nevus Personal history of diseases of skin and subcutaneous tissue Nevus Benign neoplasm of skin, site unspecified documented in this encounter Care Teams Child Care Group Leader Relationship Specialty Start Date End Date Drew Marina MD [address] [place] [address] PCP - General 05/09/10 07/17/23 documented as of this encounter
--- OUTSIDE RECORDS SUMMARY | 2024-07-20 13:54 | XMS_ITS | Encounter Summary ---
Author Organization [facility] [place] [address] Care Team Providers Care Care Attendant Name Role Phone Drew Marina MD Primary Care Provider [phone] Reason for Visit * Reason Onset Date Comments Medication Refill 06/11/2013 Encounter Details Date Type Department Care Team (Late st Contact Info) Description 06/11/2013 [place] [address] Josse Patterson MD Social History Tobacco Use Types Packs/Day Years [...] 11:15 AM EDT Office Visit Dermatology at [place] [address] [facility] [place] [address] Rush Mcmillan MD [address], JONATHON [place] [address] documented as of this encounter Visit Diagnoses Not on filedocumented in this encounter Care Teams Care Attendant Relationship Specialty Start Date End Date Drew Marina MD [address] [place] [address] PCP - General 05/09/10 07/17/23 documented as of this encounter
--- OUTSIDE RECORDS SUMMARY | 2024-07-20 13:54 | XMS_ITS | Encounter Summary ---
Author Organization [facility] [place] [address] Care Team Providers Care Chest Painting And Sealing Supervisor Name Role Phone Drew Marina MD Primary Care Provider [phone] Encounter Details Date Type Department Care Team (Late st Contact Info) Description 07/05/2021 Telephone Dermatology at [address] [address] Yajaira Pressley RN Social History [...] 11:15 AM EDT Office Visit Dermatology at [address] [address] Rush Mcmillan MD [address] [place] [address] RD, RAM[address]REZ [place] [address] documented as of this encounter Visit Diagnoses Not on filedocumented in this encounter Care Teams Chest Painting And Sealing Supervisor Relationship Specialty Start Date End Date Drew Marina MD [address] [place] [address] PCP - General 05/09/10 07/17/23 documented as of this encounter
[2024-07-20 14:38] LABS: HCT 43.6 % (40.0-50.0); HGB 14.5 g/dL (13.5-17.5); MCH 31.3 pg (27.0-33.0); MCHC 33.3 % (32.0-36.0); MCV 94 fL (80-95); MPV 10.5 fL (8.0-11.0); Platelet Count 191 10^3/uL (130-400); RBC 4.63 10^6/uL (4.36-5.78); RDW 12.9 % (11.8-14.1); RDW-SD 44.3 fL; WBC 5.21 10^3/uL (4.4-10.8)
[2024-07-20 14:59] LABS: ALT 24 U/L (16-63); AST 22 U/L (15-37); Albumin 3.8 g/dL (3.4-5.0); Alkaline Phosphatase 69 U/L (46-116); Anion Gap 5.8 mmol/L (3-11); BUN 20 mg/dL (7-18); Bilirubin, Total 1.06 mg/dL (0.2-1.0); CO2 30.2 mmol/L (21.0-32.0); Calcium 9.4 mg/dL (8.5-10.1); Chloride 105 mmol/L (98-107); Estimated GFR 74.21 (mL/min/1.73m2); Glucose 95 mg/dL (74-106); Potassium 4.7 mmol/L (3.5-5.1); Sodium 141 mmol/L (136-145); Total Protein 6.7 g/dL (6.4-8.2)
== END 2024-07-20 13:47 | disposition home or self-care (01) ==
LOC: NCHCN 13:46
PROVIDERS: PCP Family Medicine; Visit Provider Family Medicine
DX: I48.91 Unspecified atrial fibrillation (principal)
CPT/HCPCS: 80053; 85027

== ENCOUNTER → 2024-09-14 13:21 | Outpatient (BNVA) | payer MEDICARE, SELFPAY | PROVIDERS: PCP Family Medicine; Referring Provider Family Medicine; Visit Provider Student in an Organized Health Care Education/Training Program | DX: M72.0 Palmar fascial fibromatosis [Dupuytren] (principal) | CPT/HCPCS: 99204 ==